=== PATIENT | male | born 1935 | race Caucasian/White ===

== ENCOUNTER 2024-04-26 09:22 | Inpatient (IN) ==
[2024-04-26 09:55] LABS: iSTAT Creatinine 1.4 mg/dl (0.6-1.3); iSTAT Hemoglobin 12.2 g/dl (14.0-18.0); iSTAT Ionized Calcium 1.1 mmol/l (1.12-1.32)
--- NOTE | 2024-04-26 10:01 | XRay Report ---
XR pelvis 1-2V routine CLINICAL HISTORY: trauma TECHNIQUE: A single frontal view of the pelvis was obtained. Comparison: Comparison is made to hip radiographs 11/03/2014 FINDINGS: There is no evidence of an acute fracture. Degenerative changes are seen in the hip joints and lumbar spine. Vascular calcifications are noted. IMPRESSION: No evidence of acute osseous injury. ACT 112: Negative or not required by law. Electronically signed by: Ronald Rodarte M.D. 04/26/2024 10:00 AM
[2024-04-26 10:08] LABS: Basophils # (auto) 0.04 K/uL (0.00-0.20); Basophils % (auto) 0.3 %; Eosinophils # (auto) 0.04 K/uL (0.00-0.50); Eosinophils % (auto) 0.3 %; Hematocrit (blood only) 37.1 % (42.0-52.0); Hemoglobin 11.9 g/dl (14.0-18.0); Immature Granulocytes # (auto) 0.11 K/uL (0.01-0.20); Immature Granulocytes % (auto) 0.7 %; Lymphocytes # (auto) 3.21 K/uL (1.20-3.40); Lymphocytes % (auto) 21.7 %; Mean Corpuscular Hemoglobin 29.8 pg (25.0-34.0); Mean Corpuscular Hgb Conc 32.1 g/dL (32.0-36.0); Mean Platelet Volume 10.5 fL (9.4-12.4); Monocytes # (auto) 0.98 K/uL (0.11-0.59); Monocytes % (auto) 6.6 %; Neutrophils # (auto) 10.38 K/uL (1.40-6.50); Neutrophils % (auto) 70.4 %; Platelet Count 308 K/uL (130-400); RDW Coefficient of Variation 14.1 % (11.5-14.5); RDW Standard Deviation 47.6 fL (36.4-46.3); Red Blood Count 3.99 M/uL (4.70-6.10); White Blood Count 14.76 K/ul (4.8-10.8)
--- NOTE | 2024-04-26 10:22 | XRay Report ---
SUPINE AP CHEST RADIOGRAPH CLINICAL HISTORY: trauma, hypoxia COMPARISON STUDY: Chest CT November 02, 2014. Chest radiograph October 01, 2023. FINDINGS: No pneumothorax or pleural effusion is identified on supine exam. Lower lung interstitial t hickening is likely chronic. This is similar to prior exam. There is no consolidation to suggest pneu monia. Heart and mediastinal silhouette is normal. Chronic deformity of the distal left clavicle is i ncidentally noted. IMPRESSION: 1. No acute cardiopulmonary findings. 2. No change in lower lung predominant interstitial thickening, likely chronic. ACT 112: Negative or not required by law. Electronically signed by: Marco Antonio Enriquez M.D. 04/26/2024 10:20 AM
[2024-04-26 10:29] LABS: Albumin Globulin Ratio 0.7 (0.9-2); Albumin Level 2.7 gm/dl (3.4-5.0); BUN Creatinine Ratio 21.5 (10-20); Bilirubin,Total 0.7 mg/dl (0.2-1.0); Calcium 8.8 mg/dl (8.6-10.3); Creatinine Clr Calc Pharmacy 34.6 ml/min; Magnesium 2.4 mg/dl (1.7-2.4); Potassium 5.1 mmol/L (3.5-5.1); Total Protein 6.7 gm/dl (6.0-8.3)
[2024-04-26 11:33] LABS: INR 1.4 (0.9-1.1); Prothrombin Time 14.3 Seconds (9.0-12.0)
--- NOTE | 2024-04-26 12:05 | Emergency Department Note ---
Impression & Plan Unresponsive, Hypotension, Dysrhythmia, Hypothermia ED Provider Note ED Provider Note NAME: CARLA PADRON AGE:88 SEX: Male : 1935 ARRIVES VIA: EMS INFORMANT: Patient ED PROVIDER(s): Ary Corley DO CHIEF COMPLAINT: unresponsive HPI: This is an 88-year-old male presents emergency department via EMS after being found outside his home cold and unresponsive. EMS called and initially reported patient was in V-fib which spontaneously resolved. There was initial debate on scene as to course of treatment as patient's prior wishes had been DNR however family present insisted on full treatment and overrode these prior wishes. EMS reports patient not hypoglycemic, was noted to be tachycardic and hypotensive. They did start an IV and started giving the patient IV fluids en route. On arrival here patient cold, unresponsive to verbal or painful stimuli,, no additional information initially noted. PAST MEDICAL HISTORY:See Below PAST SURGICAL HISTORY:See Below FAMILY HISTORY:See Below SOCIAL HISTORY:See Below HOME MEDICATIONS:See Below ALLERGIES:See Below VITALS:See Below PHYSICAL EXAMINATION: GENERAL: unresponsive, unwell appearing HEAD: Superficial abrasions noted to frontoparietal areas bilaterally left greater than right, no newberry signs, no raccoon eyes EYE EXAM: normal conjunctiva, pupils minimally dilated and unresponsive OROPHARYNX: no exudate, no erythema, lips, buccal mucosa, and tongue normal and mucous membranes are dry NECK: supple, no adenopathy, non-tender LUNGS: Clear to auscultation. Normal chest wall mechanics, no w/r/r, slower respiratory rate -nearly agonal HEART: no murmurs, S1 normal and S2 normal, bradycardia noted ABDOMEN: abdomen soft, non-tender, normo-active bowel sounds, no masses, no rebound or guarding. SKIN: no rashes, petechiae, orbruising. Cool to touch, significant hypothermia noted. UPPER EXTREMITIES: upper extremities are grossly normal. FROM, nml pulses b/l. Superficial abrasions and contusions noted to bilateral upper extremities, no other obvious deformities or joint effusions. LOWER EXTREMITIES: No pitting edema. FROM, nml pulses b/l. Superficial abrasions and contusions noted to bilateral distal lower extremities, no other joint effusions or obvious deformities. Distal pulses not able to be palpated, prolonged cap refill noted NEURO EXAM: GCS 3 Vital Signs: reviewed and remarkable Differential Diagnosis: CVA, ICH, ACS, electrolyte abnormality, hypothermia, dysrhythmia, cardiac arrest, occult infection, medication ADR, as well as others were considered MEDICAL DECISION MAKING: This is an 88-year-old male brought in by EMS after being found unresponsive by an aide at his house outside. He was cold to touch, bradycardic, hypotensive, and per EMS report initially had V-fib which was not ultimately defibrillated as he converted back to a spontaneous normal rhythm per their report. On arrival here patient unresponsive with a GCS of 3, hypotensive, hypothermic, bradycardic. Second IV started, labs drawn and sent including a [id number] BMP, EKG performed at bedside interpreted by me. I performed a bedside [id number] echo which showed minimal cardiac contractility, no obvious pericardial effusion. Patient was scattered areas of superficial appearing trauma. Pupils unreactive, no corneal reflex, no gag reflex. A temp sensing Berry catheter placed by nursing staff given his hypothermia. He was immediately placed on a warming blanket. While awaiting arrival of family patient was given 1 amp of epi which did temporarily improve his pulse. He did not require any chest compressions although did have significant bradycardia with long pauses. Significant time spent with multiple family discussions regarding patient's CODE STATUS and options for interventions. I spoke with multiple family members on several occasions regarding this. Ultimately plan for comfort care. We had drawn and sent labs, establish an IV, and performed x- rays at bedside additionally which were reviewed and interpreted by me. I did discuss all these results with the family. Patient had no changes here while monitored in the emergency department despite still being hypotensive, hypothermic, bradycardic, and unresponsive. Case discussed with the hospitalist team for additional palliative care and arrangement of possible hospice should the patient persist into tomorrow. At this time initial event unclear as patient could have had a cardiac event, stroke, syncope, or mechanical fall among others. He does have cardiac history. He was not hypoglycemic when EMS checked on scene. Consultation(s): 1202: Discussed with Jonah Castaneda hospitalist team, for additional evaluation and management. ER Treatment Provided: See below 0950: Discussion in the waiting room area with 1 daughter initially regarding patient's significant condition. I did ask her to contact other family members immediately to make decisions regarding his CODE STATUS and further treatment. She does show me a paper signed by his prior PCP, Dr. Jose Angel Ardon that suggest patient is to be a DNR. A second daughter then arrived who is the power of commonwealth attorney. We discussed the patient's critical condition at this point in time. They would like to contact their brothers additionally but think they would probably like the patient to be comfortable and be DNR/DNI. They were able to contact the other siblings via phone who were in agreement with this. Staff updated at bedside. 1000: Daughters again updated in waiting room area. Patient does still have a pulse, blood pressure only obtained with manual check, he is still unresponsive and hypothermic. They would like to see him at bedside. 1022: Daughters brought to bedside. 1048: No change in condition, patient's temperature continues to drop, he is still bradycardic with long pauses and a repeat manual blood pressure following 500 mL fluid bolus was unchanged. Patient is still unresponsive to any verbal or painful stimuli. He was placed on oxygen via nasal cannula. We did discuss labs and imaging that is resulted thus far. 1126: Additional family now present at bedside. I updated them additionally on the plan. We did discuss other imaging to evaluate his traumatic diagnosis however given they would not want to proceed with other aggressive interventions such as surgery, we opted to not perform this additional imaging. Patient still unresponsive at bedside, still bradycardic with long pauses, still hypotensive. He continues to be hypothermic. 1153: Patient continues to be progressively hypothermic, still bradycardic, still hypotensive, no change in mental status. Additional family discussion at bedside regarding inpatient admission for further comfort measures and possible ranging of hospice should the patient be able to get home. We further discussed possible events and scenario that led to him being found this morning. I suspect the patient likely got up early in the morning between 4 and 5 AM as he has done sometimes in the past to let his dog out and likely fell in the breezeway between the house in the garage. The aide who is typically with him from 8;30-4:30 every day found him this morning shortly after 8. Diagnostics Interpreted By Me: -ECG: Idioventricular rhythm, appears to be asystolic with an occasional escape beat -Cardiac Monitoring: An order was placed for continuous cardiac monitoring. The monitor shows a rate of 37 with ventricular escape rhythm rhythm. -Laboratory studies: As stated above and show below. -Imaging studies: X-ray Chest: A single view study of the chest was reviewed and was negative for cardiomegaly, focal infiltrate, effusion, pulmonary edema, or wide mediastinum. No obvious fracture or pneumothorax. X-ray pelvis: No obvious fracture or dislocation Triage Nursing Note Reviewed Prior/Outside Records Reviewed Critical Care: Critical care of 78 min performed to assess and manage high likelihood of life-threatening altered mental status and hypotension, involving labs and imaging performed with assessment to evaluate altered mental status and hypotension diagnosis with frequent reassessment. This time includes bedside time, treatment discussions with patient/family/consultants, documentation time and excludes procedure time. Past Med/Surg History Problem List Dementia Comfort measures only status Fall Hypothermia (Acute) Dysrhythmia (Acute) Hypotension (Acute) Unresponsive (Acute) OLIVIER (acute kidney injury) (Acute) Amputation finger (Chronic) Medical History Emphysema of lung Carotid artery stenosis, asymptomatic left Parkinson disease CAD (coronary artery disease) "s/p stent" CKD (chronic kidney disease), stage III Hypertension Dyslipidemia DM type 2 (diabetes mellitus, type 2) Surgical History S/P coronary artery stent placement Family History Father Heart disease Social History Smoking Status: Former smoker packs per day: 1; Smoking End Date: 1977; Hx Alcohol Use: No Hx Substance Use: No Preferred Language: Filipino Communication Ability: Unable Director Gift Required: No Beliefs That Will Affect Care: Zoroastrianism Current Living Situation: Alone Feels Safe at Home: Yes Allergies Allergies Allergy/AdvReac Type Severity Reaction Status Date / Time Penicillins Allergy Severe THROAT Verified 05/23/16 16:41 SWELLING Home Meds Home Medications Medication Instructions Recorded Confirmed aspirin 81 mg tablet,delayed 81 mg PO QAM ##0 05/23/16 04/26/24 release cholecalciferol (vitamin D3) 25 25 mcg PO DAILY 30 days #30 tabs 12/02/17 04/26/24 mcg (1,000 unit) capsule (Vitamin D3) carbidopa 25 mg-levodopa 100 mg 1.5 tab PO TID 04/26/24 04/26/24 tablet carbidopa ER 25 mg-levodopa 100 mg 1 tab PO HS 04/26/24 04/26/24 tablet,extended release cetirizine 10 mg tablet 5 mg PO HS 04/26/24 04/26/24 cyanocobalamin (vitamin B-12) 1,000 mcg PO DAILY 04/26/24 04/26/24 1,000 mcg tablet metoprolol succinate 25 mg 25 mg PO DAILY 04/26/24 04/26/24 tablet,extended release 24 hr pravastatin 80 mg tablet 80 mg PO HS 04/26/24 04/26/24 semaglutide 7 mg tablet (Rybelsus) 7 mg PO QAM 04/26/24 04/26/24 sodium bicarbonate 650 mg tablet 650 mg PO BID 04/26/24 04/26/24 Results & Data (ED) Vital Signs Vital Signs - 24 hr 04/26/24 09:36 04/26/24 09:37 04/26/24 09:41 Temperature 25 C L Temperature Source Rectal Pulse Rate 45 L 52 L 0 L Pulse Rate [Apical] Pulse Rate from SpO2 Sensor Respiratory Rate 14 20 Respiratory Effort / Characteristics Labored Blood Pressure [Right Arm] Blood Pressure Mean Blood Pressure Mean [Right Arm] Blood Pressure Position [Right Arm] Pulse Oximetry Oxygen Delivery Method Oxygen Flow Rate Sepsis Recent Fever Within 48 Hours No Sepsis New/Unexplained Change in Mental Status No Sepsis Action Taken by Nursing No Action Required 04/26/24 09:41 04/26/24 09:41 04/26/24 09:42 Temperature Temperature Source Pulse Rate 45 L Pulse Rate [Apical] Pulse Rate from SpO2 Sensor Respiratory Rate Respiratory Effort / Characteristics Blood Pressure [Right Arm] Blood Pressure Mean 127 127 Blood Pressure Mean [Right Arm] Blood Pressure Position [Right Arm] Pulse Oximetry Oxygen Delivery Method Oxygen Flow Rate Sepsis Recent Fever Within 48 Hours Sepsis New/Unexplained Change in Mental Status Sepsis Action Taken by Nursing 04/26/24 09:45 04/26/24 09:57 04/26/24 10:00 Temperature Temperature Source Pulse Rate 40 L 35 L 30 L Pulse Rate [Apical] Pulse Rate from SpO2 Sensor 36 L 32 L Respiratory Rate 17 14 16 Respiratory Effort / Characteristics Blood Pressure [Right Arm] Blood Pressure Mean Blood Pressure Mean [Right Arm] Blood Pressure Position [Right Arm] Pulse Oximetry 93 92 85 L Oxygen Delivery Method Room Air Room Air Room Air Oxygen Flow Rate Sepsis Recent Fever Within 48 Hours Sepsis New/Unexplained Change in Mental Status Sepsis Action Taken by Nursing 04/26/24 10:00 04/26/24 10:12 04/26/24 10:21 Temperature Temperature Source Pulse Rate 35 L 28 L Pulse Rate [Apical] Pulse Rate from SpO2 Sensor 33 L 31 L Respiratory Rate 12 15 Respiratory Effort / Characteristics Blood Pressure [Right Arm] 79/47 L Blood Pressure Mean Blood Pressure Mean [Right Arm] 57 Blood Pressure Position [Right Arm] Lying Pulse Oximetry 78 L 78 L Oxygen Delivery Method Room Air Room Air Oxygen Flow Rate Sepsis Recent Fever Within 48 Hours Sepsis New/Unexplained Change in Mental Status Sepsis Action Taken by Nursing 04/26/24 10:32 04/26/24 10:40 04/26/24 10:48 Temperature 25 C L Temperature Source Rectal Pulse Rate 30 L Pulse Rate [Apical] Pulse Rate from SpO2 Sensor Respiratory Rate 15 Respiratory Effort / Characteristics Blood Pressure [Right Arm] 78/46 L Blood Pressure Mean Blood Pressure Mean [Right Arm] 56 Blood Pressure Position [Right Arm] Pulse Oximetry 98 Oxygen Delivery Method Oxygen Flow Rate Sepsis Recent Fever Within 48 Hours Sepsis New/Unexplained Change in Mental Status Sepsis Action Taken by Nursing 04/26/24 10:51 04/26/24 10:51 04/26/24 11:00 Temperature Temperature Source Pulse Rate 34 L 38 L 40 L Pulse Rate [Apical] Pulse Rate from SpO2 Sensor Respiratory Rate 21 17 Respiratory Effort / Characteristics Blood Pressure [Right Arm] Blood Pressure Mean Blood Pressure Mean [Right Arm] Blood Pressure Position [Right Arm] Pulse Oximetry 99 99 Oxygen Delivery Method Oxygen Flow Rate Sepsis Recent Fever Within 48 Hours Sepsis New/Unexplained Change in Mental Status Sepsis Action Taken by Nursing 04/26/24 12:37 Temperature Temperature Source Pulse Rate Pulse Rate [Apical] 33 L Pulse Rate from SpO2 Sensor Respiratory Rate Respiratory Effort / Characteristics Blood Pressure [Right Arm] Blood Pressure Mean Blood Pressure Mean [Right Arm] Blood Pressure Position [Right Arm] Pulse Oximetry 100 Oxygen Delivery Method Nasal Cannula Oxygen Flow Rate 2 Sepsis Recent Fever Within 48 Hours Sepsis New/Unexplained Change in Mental Status Sepsis Action Taken by Nursing Laboratory Data 04/26/24 09:30 04/26/24 09:30 Lab Results 04/26/24 04/26/24 04/26/24 Range/Units 09:30 09:43 10:28 WBC 14.76 H (4.8-10.8) K/ul RBC 3.99 L (4.70-6.10) M/uL Hgb 11.9 L (14.0-18.0) g/dl POC Hgb 12.2 L (14.0-18.0) g/dl Hct 37.1 L (42.0-52.0) % POC Hct 36 L (42-52) % MCV 93.0 (80.0-100.0) fL MCH 29.8 (25.0-34.0) pg MCHC 32.1 (32.0-36.0) g/dL RDW Std Deviation 47.6 H (36.4-46.3) fL RDW Coeff of [place]ita 14.1 (11.5-14.5) % Plt Count 308 (130-400) K/uL MPV 10.5 (9.4-12.4) fL Immature Gran % (Auto) 0.7 % Neut % (Auto) 70.4 % Lymph % (Auto) 21.7 % [place] % (Auto) 6.6 % Eos % (Auto) 0.3 % Baso % (Auto) 0.3 % Neut # (Auto) 10.38 H (1.40-6.50) K/uL Lymph # (Auto) 3.21 (1.20-3.40) K/uL [place] # (Auto) 0.98 H (0.11-0.59) K/uL Eos # (Auto) 0.04 (0.00-0.50) K/uL Baso # (Auto) 0.04 (0.00-0.20) K/uL Immature Gran # (Auto) 0.11 (0.01-0.20) K/uL PT 14.3 H (9.0-12.0) Seconds INR 1.4 H (0.9-1.1) POC Sodium 139 (135-144) mmol/L Sodium 140 (136-145) mmol/L POC Potassium 5.0 (3.3-5.0) mmol/L Potassium 5.1 (3.5-5.1) mmol/L POC Chloride 102 (101-112) mmol/L Chloride 101 (98-107) mmol/L Carbon Dioxide 23 (21-32) mmol/L POC Total CO2 22 L (24-31) mmol/L Anion Gap 16 H (3-11) POC Anion Gap 21.0 (16-25) mmol/L POC BUN 29 H (7-18) mg/dl BUN 28 H (6-23) mg/dl Creatinine 1.30 (0.6-1.4) mg/dl POC Creatinine 1.4 H (0.6-1.3) mg/dl Est Cr Clr Drug Dosing 34.6 ml/min eGFR 53.50 BUN/Creatinine Ratio 21.5 H (10-20) Glucose 203 H (70-99(Fasting)) mg/dl POC Glucose (other) 208 H (70-99) mg/dl Calcium 8.8 (8.6-10.3) mg/dl POC Ioniz Calcium Radha 1.10 L (1.12-1.32) mmol/l Magnesium 2.4 (1.7-2.4) mg/dl Total Bilirubin 0.7 (0.2-1.0) mg/dl AST 33 (13-39) U/L ALT 8 (7-52) U/L Alkaline Phosphatase 90 (34-104) U/L Troponin I High Sens 56.0 H* (0-20) pg/ml Total Protein 6.7 (6.0-8.3) gm/dl Albumin 2.7 L (3.4-5.0) gm/dl Globulin 4.0 (2.5-4.0) gm/dl Albumin/Globulin Ratio 0.7 L (0.9-2) Lipase 48 (11-82) U/L Administered Medications Discontinued Medications Epinephrine HCl (Epinephrine 1.5" Ndl 0.1 Mg/Ml Syr) 1 mg IV 0937 ONE Stop: 04/26/24 09:38 Last Admin: 04/26/24 09:37 Dose: 1 mg Documented By: KALPESH Miscellaneous (Rapid Sequence Induction Bag) Confirm Administered Dose 1 each N/A .STK-MED ONE Stop: 04/26/24 09:20 Last Admin: 04/26/24 14:58 Dose: Not Given Documented By: CAW Imaging Data Radiologist's Impression: Pelvis X-Ray 04/26/24 09:46 XR pelvis 1-2V routine CLINICAL HISTORY: trauma TECHNIQUE: A single frontal view of the pelvis was obtained. Comparison: Comparison is made to hip radiographs 11/03/2014 FINDINGS: There is no evidence of an acute fracture. Degenerative changes are seen in the hip joints and lumbar spine. Vascular calcifications are noted. IMPRESSION: No evidence of acute osseous injury. ACT 112: Negative or not required by law. Electronically signed by: Ronald Rodarte M.D. 04/26/2024 10:00 AM Chest X-Ray 04/26/24 09:47 SUPINE AP CHEST RADIOGRAPH CLINICAL HISTORY: trauma, hypoxia COMPARISON STUDY: Chest CT November 02, 2014. Chest radiograph October 01, 2023. FINDINGS: No pneumothorax or pleural effusion is identified on supine exam. Lower lung interstitial thickening is likely chronic. This is similar to prior exam. There is no consolidation to suggest pneumonia. Heart and mediastinal silhouette is normal. Chronic deformity of the distal left clavicle is incidentally noted. IMPRESSION: 1. No acute cardiopulmonary findings. 2. No change in lower lung predominant interstitial thickening, likely chronic. ACT 112: Negative or not required by law. Electronically signed by: Marco Antonio Enriquez M.D. 04/26/2024 10:20 AM Discharge Plan Visit Data Chief Complaint: Unresponsive ED Provider: Ary Corley Discharge Problem: Unresponsive, Hypotension, Dysrhythmia, Hypothermia Patient Disposition: Admitted As Inpatient Discharge Instructions Interventions: ED Discharge Assessment Last Done: 04/26/24 13:50
--- NOTE | 2024-04-26 13:01 | History & Physical Report ---
Date of Service April 26, 2024 Assessment & Plan (1) Fall: (2) Unresponsive: (3) Dysrhythmia: (4) Hypotension: (5) Hypothermia: (6) Comfort measures only status: (7) CAD (coronary artery disease): (8) DM type 2 (diabetes mellitus, type 2): (9) CKD (chronic kidney disease), stage III: (10) Parkinson disease: (11) Dementia: Plan Mr. Kishan Bourgeois (Dick) is an 88 yr old M who has a significant PMH of CAD w hx of stent, HTN, HLD, T2DM, CKD-3B, parkinson disease, b12 def, vitamin D def, L asymptomatic carotid artery stenosis and dementia who presents to ED 2/2 unresponsive episode. Pt last known well 04/25/24 in the evening. He was found by his caregiver ~ 0800 unresponsive and cold. EMS summoned. Pt was in vfib with spontaneous conversion to NSR. Family opted to override DNR to full code. In ED pt was hypotensive, severely bradycardic, hypothermic with evidence of fall and abrasions. Discussion per ED provider with family was to make pt DNR/DNI and comfort measures only given severity and poor prognosis. Multiple family members at bedside are in agreement with DNR/DNI Pt will be admitted to med/surg with comfort measures only Suspect pt to pass in house Family interested in home with hospice, but at this time uncertain pt able to tolerate PRN IV morphine for pain/sob PRN IV ativan for restlessness/agitation PRN glycopyrrolate for secretions Pt was seen and examined in collaboration with Dr. Buckner, please see addendum I spent a total of 76 minutes reviewing notes, outpatient records, labs, medication, coordinating, documenting and providing care for this patient excluding time spent in the performance of separately billed services. History of Present Illness Chief Complaint: Unrepsonive Primary Care Provider: Crissy Mcintyre MD This is an 88 yr old M who has a significant PMH of CAD w hx of stent, HTN, HLD, T2DM, CKD-3B, parkinson disease, b12 def, vitamin D def, L asymptomatic carotid artery stenosis and dementia who presents to ED 2/2 unresponsive episode. Multiple family members at bedside who help elicit history. History also provided from ED physician and pre hospital personal. Pt lives alone and lost his approx 1 year ago to parkinsons. He was last known well last evening when his son talked to him. When his caregiver arrived to house this morning at 8am. he was noted to be unresponsive and cool. EMS was summoned. He was found to be in vfib but he spontaneously converted to NSR. Initially family wanted to make pt full cold. He was bradycardic, hypotensive and hypothermic on arrival. He was found in his breeze way and family is wondering if he was trying to take the dog out and felt. He has numerous abrasions on his head/extremities. Per ED provider who spoke with family plan is to make patient comfort and not pursue any additional intervention at this time. [facility] records were reviewed. He was seen by nephrology on 04/18 and neurology on 04/12. It was noted at neurology that he was having a lot more rigidity, imbalance, weight loss and further memory deficits. In ED he was deemed DNR/DNI and plan to admit for comfort measures only. Allergies Allergy/AdvReac Type Severity Reaction Status Date / Time Penicillins Allergy Severe THROAT Verified 05/23/16 16:41 SWELLING Home Medications Medication Instructions Recorded Confirmed Type aspirin 81 mg tablet,delayed 81 mg PO QAM ##0 05/23/16 04/26/24 History release cholecalciferol (vitamin D3) 25 25 mcg PO DAILY 30 days #30 tabs 12/02/17 04/26/24 History mcg (1,000 unit) capsule (Vitamin D3) carbidopa 25 mg-levodopa 100 mg 1.5 tab PO TID 04/26/24 04/26/24 History tablet carbidopa ER 25 mg-levodopa 100 mg 1 tab PO HS 04/26/24 04/26/24 History tablet,extended release cetirizine 10 mg tablet 5 mg PO HS 04/26/24 04/26/24 History cyanocobalamin (vitamin B-12) 1,000 mcg PO DAILY 04/26/24 04/26/24 History 1,000 mcg tablet metoprolol succinate 25 mg 25 mg PO DAILY 04/26/24 04/26/24 History tablet,extended release 24 hr pravastatin 80 mg tablet 80 mg PO HS 04/26/24 04/26/24 History semaglutide 7 mg tablet (Rybelsus) 7 mg PO QAM 04/26/24 04/26/24 History sodium bicarbonate 650 mg tablet 650 mg PO BID 04/26/24 04/26/24 History Past Med/Surg History Problem List Dementia Comfort measures only status Fall Hypothermia (Acute) Dysrhythmia (Acute) Hypotension (Acute) Unresponsive (Acute) OLIVIER (acute kidney injury) (Acute) Amputation finger (Chronic) Medical History Emphysema of lung Carotid artery stenosis, asymptomatic left Parkinson disease CAD (coronary artery disease) "s/p stent" CKD (chronic kidney disease), stage III Hypertension Dyslipidemia DM type 2 (diabetes mellitus, type 2) Surgical History S/P coronary artery stent placement Family History Father Heart disease Social History Smoking Status: Former smoker packs per day: 1; Smoking End Date: 1977; Hx Alcohol Use: No Hx Substance Use: No Communication Ability: Unable Beliefs That Will Affect Care: Rastafari Feels Safe at Home: Yes Review of Systems Review of Systems: Unobtainable due to reduced consciousness Physical Exam Physical Exam: Constitutional: Elderly M, cool, frail, vitals as above, unresponsive, NAD, lying in bed, eyes open but unresponsive to verbal or painful stimuli Head: Normocephalic, + abrasions to forehead/top of scalp Eyes: pupil pinpoint with minimal reactivity to light, conjunctivae normal, anicteric sclerae ENMT: external ear and nose normal, oropharynx dry Neck: trachea midline, no thyromegaly normal visual inspection Respiratory: decreased respirations, lungs clear to auscultation, no wheeze, rales, rhonchi. no accessory muscle use Cardiovascular: bradycardic rate, unable to auscultate heart sounds, no murmur noted, no edema Vessels: no JVD or carotid bruit Chest: normal inspection of chest Abdomen: soft, nontender, Musculoskeletal: no cyanosis or clubbing Skin: + skin abrasion/ tear to b/l extremities, appearance of dog scratching to pretibial surface, cool and pale with moderate turgor Neurologic: unable to assess due to unresponsiveness Results & Data Results & Data Vital Signs (Past 12 Hours) Vital Signs Temp Pulse Pulse Resp BP Pulse Ox O2 Del Method 04/26/24 12:37 33 L 100 Nasal Cannula 04/26/24 11:00 40 L 17 99 04/26/24 10:51 38 L 21 99 04/26/24 10:51 34 L 04/26/24 10:48 30 L 15 98 04/26/24 10:40 78/46 L 04/26/24 10:32 25 C L 04/26/24 10:21 28 L 15 78 L Room Air 04/26/24 10:12 35 L 12 78 L Room Air 04/26/24 10:00 79/47 L 04/26/24 10:00 30 L 16 85 L Room Air 04/26/24 09:57 35 L 14 92 Room Air 04/26/24 09:45 40 L 17 93 Room Air 04/26/24 09:42 45 L 04/26/24 09:41 0 L 04/26/24 09:37 25 C L 52 L 20 04/26/24 09:36 45 L 14 O2 Flow Rate 04/26/24 12:37 2 04/26/24 11:00 04/26/24 10:51 04/26/24 10:51 04/26/24 10:48 04/26/24 10:40 04/26/24 10:32 04/26/24 10:21 04/26/24 10:12 04/26/24 10:00 04/26/24 10:00 04/26/24 09:57 04/26/24 09:45 04/26/24 09:42 04/26/24 09:41 04/26/24 09:37 04/26/24 09:36 Laboratory Results I have independently reviewed and interpreted patient's admitting labs including CBC, CMP, PTT, PT/INR, mag, lipase and troponin. Diagnostic Findings Pelvis X-Ray 04/26/24 09:46 XR pelvis 1-2V routine CLINICAL HISTORY: trauma TECHNIQUE: A single frontal view of the pelvis was obtained. Comparison: Comparison is made to hip radiographs 11/03/2014 FINDINGS: There is no evidence of an acute fracture. Degenerative changes are seen in the hip joints and lumbar spine. Vascular calcifications are noted. IMPRESSION: No evidence of acute osseous injury. ACT 112: Negative or not required by law. Electronically signed by: Ronald Rodarte M.D. 04/26/2024 10:00 AM Chest X-Ray 04/26/24 09:47 SUPINE AP CHEST RADIOGRAPH CLINICAL HISTORY: trauma, hypoxia COMPARISON STUDY: Chest CT November 02, 2014. Chest radiograph October 01, 2023. FINDINGS: No pneumothorax or pleural effusion is identified on supine exam. Lower lung interstitial thickening is likely chronic. This is similar to prior exam. There is no consolidation to suggest pneumonia. Heart and mediastinal silhouette is normal. Chronic deformity of the distal left clavicle is incidentally noted. IMPRESSION: 1. No acute cardiopulmonary findings. 2. No change in lower lung predominant interstitial thickening, likely chronic. ACT 112: Negative or not required by law. Electronically signed by: Marco Antonio Enriquez M.D. 04/26/2024 10:20 AM Medications Administered Medication List Discontinued Medications Epinephrine HCl (Epinephrine 1.5" Ndl 0.1 Mg/Ml Syr) 1 mg IV 0937 ONE Stop: 04/26/24 09:38 Last Admin: 04/26/24 09:37 Dose: 1 mg Documented By: KALPESH COVID-19 Results Results COVID-19 Adm Lab Results: RBC 3.99 M/uL (4.70-6.10) L 04/26/24 WBC 14.76 K/ul (4.8-10.8) H 04/26/24 Hgb 11.9 g/dl (14.0-18.0) L 04/26/24 Hct 37.1 % (42.0-52.0) L 04/26/24 Plt Count 308 K/uL (130-400) 04/26/24 Neutrophils (%) (Auto) 70.4 % 04/26/24 Lymphocytes (%) (Auto) 21.7 % 04/26/24 Monocytes # (Auto) 0.98 K/uL (0.11-0.59) H 04/26/24 Eosinophils # (Auto) 0.04 K/uL (0.00-0.50) 04/26/24 Immature Granulocyte % (Auto) 0.7 % 04/26/24 Neutrophils # (Auto) 10.38 K/uL (1.40-6.50) H 04/26/24 Lymphocytes # (Auto) 3.21 K/uL (1.20-3.40) 04/26/24 Monocytes # (Auto) 0.98 K/uL (0.11-0.59) H 04/26/24 Eosinophils # (Auto) 0.04 K/uL (0.00-0.50) 04/26/24 Basophils # (Auto) 0.04 K/uL (0.00-0.20) 04/26/24 Immature Granulocyte # (Auto) 0.11 K/uL (0.01-0.20) 4 Na 140 mmol/L (136-145) 04/26/24 K 5.1 mmol/L (3.5-5.1) 04/26/24 Cl 101 mmol/L (98-107) 04/26/24 CO2 23 mmol/L (21-32) 04/26/24 Anion Gap 16 (3-11) H 04/26/24 BUN 28 mg/dl (6-23) H 04/26/24 Creatinine 1.30 mg/dl (0.6-1.4) 04/26/24 BUN/Creatinine Ratio 21.5 (10-20) H 04/26/24 Glucose Level 203 mg/dl (70-99(Fasting)) H 04/26/24 Ca 8.8 mg/dl (8.6-10.3) 04/26/24 Total Bilirubin 0.7 mg/dl (0.2-1.0) 04/26/24 AST/SGOT 33 U/L (13-39) 04/26/24 ALT/SGPT 8 U/L (7-52) 04/26/24 Alkaline Phosphatase 90 U/L (34-104) 04/26/24 Total Protein 6.7 gm/dl (6.0-8.3) 04/26/24 Albumin 2.7 gm/dl (3.4-5.0) L 04/26/24 Globulin 4.0 gm/dl (2.5-4.0) 04/26/24 Albumin/Globulin Ratio 0.7 (0.9-2) L 04/26/24 INR 1.4 (0.9-1.1) H 04/26/24 Chest X-Ray 04/26/24 Code Status & VTE Plan Code Status DNR/DNI VTE Prophylaxis Plan VTE Prophylaxis will be ordered: No Supervising Physician Co-Signing Physician Notes 88-year-old male with Parkinson's disease brought to the ED after being found unresponsive outside in the cold. Patient was apparently walking his dog. Patient fell. Patient has multiple scrapes and bruises from the fall. Patient was found to be in ventricular fibrillation but converted amazingly back to sinus rhythm. Patient has been largely unresponsive since admission to the emergency department. Multiple family members are present. Patient has a history of advanced Parkinson's disease and has had progressive decline. Last neurology note recommends that the patient not be alone. He does live independently. Family members have discussed the workup thus far and of elected for comfort measures only. They do not want any additional testing done. General- adult, elderly male seen at bedside. Multiple family members are present. Patient has minimal responsiveness. Does open his eyes. Seems to have a left-sided gaze. Head-several scalp skin tears Eyes-pupils are irregular. The family tells me that he had lens implants and they have been irregular. They are poorly responsive. Lungs- clear to auscultation and percussion Heart-heart sounds are distant, bradycardia Abdomen- soft, no masses or hepatosplenomegaly Extremities- no pretibial edema, multiple skin tears Neuro-opens eyes when name called now. Seems to be a little more responsive. Has a left-sided gaze. Family has seen him move his right leg. He was able to squeeze his granddaughters hand with his left hand. Skin-cool to touch despite warming blanket Chart and data reviewed. Patient was seen in the ED with family present. A total time of 30 minutes was spent in the care coordination of this patient. I agree with the advanced practitioner's assessment and plan. Continue comfort measures. Prognosis is guarded. Family would like to consider hospice if he was able to return home.
--- OUTSIDE RECORDS SUMMARY | 2024-04-26 13:20 | External Medical Summary | Summary of Care ---
Author Name Unknown Organization [facility] Address [address] [place] [address] Phone [phone] Care Team Providers Care Diabetes Nurse Name Role Phone Hay Reza MD Primary Care Provide r Reason for Visit * Reason Onset Date Comments [facility]: Maintenance 04/14/2024 Encounter Details Date Type Department Care Team (Late st Contact Info) Description 04/14/2024 2:00 PM EDT Scheduled Telephone [facility], [facility] [address] [facility] [place] [address] Coordinator, [facility] [address] [place] [address] Allergies Active Allergy Reactions Criticality Noted Date Comments Penicillins 12/04/1999 documented as of this encounter (statuses as of 04/14/2024) Medications Medication Sig Dispensed Refills Start Date End Date Status Cyanocobalamin (VITAMIN B-12) 1000 MCG Tablet TAKE ONE TABLET BY MOUTH EVERY DAY 30 Tab 5 12/01/2018 Active Additional Information Patient taking differently: Indications: B vitamin supplement, Reported on 11/05/2022 Vitamin D High Potency 25 MCG (1000 UT) Oral Capsule (Cholecalciferol) TAKE ONE CAPSULE BY MOUTH EVERY DAY 90 Cap 1 07/05/2020 Active Additional Information Patient taking differently: Indications: D vitamin supplement, Reported on 11/05/2022 Sodium Bicarbonate 650 MG Oral Tablet Take 1 Tablet by mouth in the morning and 1 Tablet before bedtime. 60 Tablet 11 04/07/2023 Active Stool Softener 100 MG Oral Tablet (Docusate Sodium) Take 1 Tablet by mouth in the morning. Active Carbidopa-Levodopa ER 25-100 MG Oral Tablet Extended Release (Sinemet CR) Take 1 tablet at bedtime nightly 30 Tablet 5 11/19/2023 Active Metoprolol Succinate ER 25 MG Oral Tablet Extended Release 24 Hour (toPROL XL)Indications:HTN, goal below 140/90 Take 1 Tablet by mouth daily. 90 Tablet 3 02/18/2024 Active Semaglutide 7 MG Oral Tablet (Rybelsus)Indicatio ns:Type 2 diabetes mellitus with hemoglobin A1c goal of less than 8.0% (HCC) Take 7 mg by mouth daily first thing in the morning. 90 Tablet 1 02/19/2024 Active Cetirizine HCl 10 MG Oral Tablet (ZyrTEC)Indications :Itching Take 0.5 Tablets by mouth every night at bedtime. 45 Tablet 1 02/29/2024 Active Pravastatin Sodium 80 MG Oral TabletIndications:H yperlipidemia with target LDL less than 100 TAKE ONE TABLET BY MOUTH AT BEDTIME 28 Tablet 5 03/28/2024 Active Aspirin Low Dose 81 MG Oral Tablet Delayed Release (aspirin enteric coated) TAKE ONE TABLET EVERY DAY 28 Tablet 5 03/26/2024 Active Carbidopa-Levodopa 25-100 MG Oral Tablet (Sinemet) TAKE 1.5 TABLETS BY MOUTH THREE TIMES A DAY 135 Tablet 5 04/12/2024 Active documented as of this encounter (statuses as of 04/14/2024) Active Problems Problem Noted Date Diagnosed Date Type 2 diabetes mellitus wit h stage 3b chronic kidney disease, without long-term current use of insulin 11/20/2020 Overview: Per CKD protocol, UNABLE TO USE DM CAMERA FOR THIS PATIENT Last Assessment & Plan: "RED FLAG" Diabetic symptoms: Excessive Thirst and Vision Changes Goal HgbA1c Symptom Management Only Diabetic Complications Vascular (examples: PVD, PAD, CAD, CVA) Renal (example: CKD, Proteinuria, Dialysis) Medication Regimen GLP-1 Agonist (ex: Victoza, Trulicity, Ozempic) DM Secondary Prevention NNEKA Inhibitor / ARB Moderate-High Intensity Statin Additional Comments Most recent A1c 7.1 Chronic kidney disease, stage 3b 11/20/2020 Overview: Per CKD protocol Parkinson's disease 07/27/2020 Last Assessment & Plan: Started sinemet 2018 and tapered off 2021, unfortunately does not recall if symptoms made better or worse Has not followed with neuro since 2021, has eval scheduled tomorrow Has some shuffling gait, no tremors 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 05/21/2020 Overview: Per CKD protocol Last Assessment & Plan: BP borderline low on metoprolol and lisinopril Recent increased compliance with caregivers, will need to monitor for hypotension Primary osteoarthritis of right knee 12/09/2017 Asymptomatic stenosis of left carotid artery S/P primary angioplasty with coronary stent 03/14 Overview: S/P PCI with MARELY to mid LAD on 04/02/15 Type 2 diabetes mellitus wit h hemoglobin A1c goal of less than 8.0% 03/02/2015 Overview: ICD-10 update of inactive term Dyslipidemia, goal LDL below 70 02/01/2015 Overview: ICD-10 update of inactive term Last Assessment & Plan: Continue statin Atherosclerosis of [place] co ronary artery of [place] heart without angina pectoris HTN, goal below 140/90 History of tobacco abuse Vitamin B12 deficiency documented as of this encounter (statuses as of 04/14/2024) Resolved Problems Problem Noted Date Diagnosed Date Resolved Date Gastro-esophageal reflux dis ease without esophagitis 07/27/2020 07/27/2020 Diabetes mellitus with stage 3 chronic kidney disease 05/21/2020 11/22/2020 Overview: Per CKD protocol Hypertensive kidney disease with stage 3 chronic kidney disease 07/15/2019 05/24/2020 Overview: Per CKD protocol Type 2 diabetes mellitus wit h stage 3 chronic kidney disease, without long-term current use of insulin 11/20/2017 05/24/2020 Overview: Per CKD protocol Hip pain, left 01/31/2016 07/15/2019 Encounter for examination fo r normal comparison and control in clinical research program 04/03/2015 04/09/2020 Overview: PI: Amara Martin MD RC: Robert Jones Clinical Evaluation of the Absorb Bioresorbable Vascular Scaffold vs. Xience Drug Eluting Stent in the Treatment of Subjects with de navya [place] Coronary Artery Lesions. Diagnosis changed due to Research Module. Go to Snapshot for study details. CAD in [place] artery 03/29/2015 018 Exercise-induced angina 03/29/201501/2018 Mixed dyslipidemia 5 Myalgia and myositis 015 HYPERTENSION NOS 03/02/2015 Diabetes 03/02/2015 Emphysema lung 04/06/2015 Fracture of T12 vertebra 10/2016 Closed fracture of nasal bone 04/15/2017 Overview: ICD-10 update of inactive term Cholelithiasis 02/20/2022 Overview: History DM (diabetes mellitus), type 2 with renal complications 11/20/2017 CKD (chronic kidney disease) stage 3, GFR 30-59 ml/min 08/26/2018 Vitamin D insufficiency 03/14 documented as of this encounter (statuses as of 04/14/2024) Immunizations Name Administration Dates Next Due COVID-19 mRNA, LNP-s, No Pre serve, 2-Dose Series (Viva Vision) 05/07/2021,10/25/2020,09/27/2020 COVID-19, LNP-s, No Preserve , Mamadou-sucrose, Ages 12+ (Pfizer) 10/22/2021 Pneumococcal Conjugate Vacc, 13 Valent (Prevnar) 09/28/2015 Season Influenza, Quad, PF, Adjuvanted, 65+ Yrs, IM (FLUAD) 03/20/2020 Seasonal Influenza, PF, 6 M & above, IM , (FluLaval or Fluzone) 06/18/2018,04/15/2017 Seasonal Influenza, Quadriva lent Hd (Fluzone Hd) 03/17/2023,04/30/2022,05/13/2021 Seasonal Influenza, Quadriva lent, No Preserve, IM 06/13/2016,04/06/2015 Seasonal Influenza, Trivalen t, Adjuvanted, 65+ YRS, PF, (Fluad) 05/31/2019 05/31/2020 Varicella Zoster Vaccine (Adult) 07/13/2004 documented as of this encounter Social History Tobacco Use Types Packs/Day Years Used Date Smoking Tobacco: Former Cigarettes 1 10 1977 Smokeless Tobacco: Never Alcohol Use Standard Drinks/Week Comments No 0 (1 standard drink = 0.6 oz pur e alcohol) PHQ-2 Answer Date Recorded PHQ Adult Total Score 4 03/17/2023 Hunger Vital Sign Answer Date Recorded Within the past 12 months, y ou worried that your food would run out before you got the money to buy more. Never true 03/17/20 23 Within the past 12 months, t he food you bought just didn't last and you didn't have money to get more. Never true 03/17/2023 Sex and Gender Information Value Date Recorded Sex Assigned at Male 03/11/2021 3:03 PM EDT Gender Identity Male 03/11/2021 3:03 PM EDT Sexual Orientation Straight 03/11/2021 3: 03 PM EDT Job Start Date Occupation Industry Not on file Not on file Not on file documented as of this encounter Miscellaneous Notes * Telephone Encounter - Alfredo Gant OSA - 04/14/2024 3:26 PM EDT DME order Referral [id number] Adult diapers/briefs - size XL Disposable underpads - large Message from Kendall Solis (Incontinence) to Everyone We are still trying to reach the patient. Spoke with Ida Lobo to give call to Kendall at . Scheduled a follow up call for Thursday. documented in this encounter Plan of Treatment Upcoming Encounters Date Type Department Care Team (Late st Contact Info) Description 04/18/2024 12:00 PM EDT Scheduled Telephone [facility], [facility] [address] [facility] [place] [address] Coordinator, [facility] [address] [facility] [place] [address] 04/18/2024 2:30 PM EDT Office Visit Nephrology [address] [place] [address] Jada Hammer PA-C [address] [place] [address] 05/13/2024 2:30 PM EDT Home Visit [facility], [facility] [address] [facility] [place] [address] Lisseth Flores RN [address] [facility] [place] [address] 11/15/2024 2:30 PM EDT Office Visit Neurology [facility] [address] [place] [address] Rosibel Banuelos PA-C [address] [facility] [place] [address] Health Maintenance Due Date Last Done Comments DTap/Tdap Vaccines (1 - Tdap) 1954 Zoster Vaccines (2 of 3) 09/07/2004 07/13/2004 Diabetic Eye Exam 05/10/2021 05/10/2020, , 03/17/2019, Additional history exists COVID-19 Vaccine ( season) 2024 10/22/2021, 05/07/2021, 10/25/2020, Additional history exists Influenza Vaccine (FLU shot) (#1) 2024 03/17/2023, 04/30/2022, 05/13/2021, Additional history exists Adult Wellness Visit 03/17/2024 03/17/2023, 03/12/2022, 03/11/2021 Depression Screening 03/17/2024 03/17/2023 Diabetic Foot Exam 03/17/2024 03/17/2023, 0 03/12/2022, 03/11/2021, Additional history exists Albumin/Creatinine Ratio 04/02/2024 023, 09/30/2022, 09/04/2021, Additional history exists CKD PHOS USE SMARTSET 42616 04/02/2024 0907/2022, 02/03/2022, 05/13/2021, Additional history exists HbA1c 08/20/2024 02/18/2024, 09/11, 04/02/2023, Additional history exists CKD HGB USE SMARTSET 26541 02/17/202502/17, 10/12/2023, 10/08/2023, Additional history exists Pneumococcal Vaccine: 65+ Years Completed 09/28/2015, 02/02/2003 HPV (Gardasil) Vaccine Aged Out No lo nger eligible based on patient's age to complete this topic Hepatitis B Vaccine Aged Out No longe r eligible based on patient's age to complete this topic MENINGOCOCCAL (MENACTRA/MENVEO) Aged Out No longer eligible based on patient's age to complete this topic documented as of this encounter Medical Devices Not on filedocumented as of this encounter Advance Directives Documents on File Type Date Recorded Patient [employer] PAVON 11/22/2019 1:00 PM Out-of-Hos pital DNR * Full Code (Latest Code Status on File) Date Activated Date Inactivated Comments 04/02/2015 11:03 AM 04/03/2015 1:26 PM This order reflects the patients wishes and were consensually agreed upon. Question Answer Comments Discussion of Advance Directives occurred with: Not Discussed Does the patient have a Living Will? No Does the patient have Health Care Power of Attor sesar? No Care Teams Diabetes Nurse Relationship Specialty Start Date End Date Hay Reza MD [address] [place] [address] [place] [phone] PCP - General Family Medicine 09/24/22 documented as of this encounter
--- OUTSIDE RECORDS SUMMARY | 2024-04-26 13:20 | External Medical Summary | Summary of Care ---
Author Name Unknown Organization [facility] Address [address] [place] [address] Phone [phone] Care Team Providers Care Bulk Cooler Installer Name Role Phone Hay Reza MD Primary Care Provide r Encounter Details Date Type Department Care Team (Late st Contact Info) Description 04/20/2024 Orders Only PATIENT PORTAL DO NOT DELETE THIS DEPT [id number] Allergies Active Allergy Reactions Criticality Noted Date Comments Penicillins 12/04/1999 documented as of this encounter (statuses as of 04/20/2024) Medications Medication Sig Dispensed Refills Start Date [...] as of this encounter (statuses as of 04/20/2024) Active Problems Problem Noted Date Diagnosed Date [...] Assessment & Plan: Continue statin Atherosclerosis of [place] co ronary artery of [place] heart without angina pectoris HTN, goal below 140/90 History of tobacco abuse Vitamin B12 deficiency documented as of this encounter (statuses as of 04/20/2024) Resolved Problems Problem Noted Date Diagnosed Date [...] the Treatment of Subjects with de navya [place] Coronary Artery Lesions. Diagnosis changed due to Research Module. Go to Snapshot for study details. CAD in [place] artery 03/29/2015 018 Exercise-induced angina 03/29/2015 1201/2018 Mixed dyslipidemia 5 Myalgia and myositis 015 [...] as of this encounter (statuses as of 04/20/2024) Immunizations Name Administration Dates Next Due COVID-19 mRNA, LNP-s, No Pre serve, 2-Dose Series ([employer]) 05/07/2021,10/25/2020,09/27/2020 COVID-19, LNP-s, No Preserve , Mamadou-sucrose, Ages 12+ (Pfizer) 10/22/2021 Pneumococcal Conjugate Vacc, 13 Valent (Prevnar) 09/28/2015 Season Influenza, Quad, PF, Adjuvanted, 65+ Yrs, IM (FLUAD) 03/20/2020 Seasonal Influenza, High Dos e, Trivalent, PF, IM (Fluzone HD) 04/18/2024 Seasonal Influenza, PF, 6 M & above, [...] Date Smoking Tobacco: Former Cigarettes 1 10 1 968 1977 Smokeless Tobacco: Never Alcohol Use Standard [...] on file documented as of this encounter Plan of Treatment Upcoming Encounters Date Type Department Care Team (Late st Contact Info) Description 05/13/2024 2:30 PM EDT Home Visit Jonah at [facility] [address] [place] [address] Lisseth Flores, ALON [address] [place] [id number] 11/15/2024 2:30 PM EDT Office Visit Neurology [facility] [place] [facility] [address] Rosibel Banuelos PA-C [address] [place] [address] Health Maintenance Due Date Last Done Comments DTap/Tdap Vaccines (1 - Tdap) 1954 Zoster Vaccines (2 of 3) 09/07/2004 07/13/2004 Diabetic Eye Exam 05/10/2021 05/10/2020, , 03/17/2019, Additional history exists COVID-19 Vaccine ( season) 2024 10/22/2021, 05/07/2021, 10/25/2020, Additional history exists Adult Wellness Visit 03/17/2024 03/17/2023, 03/12/2022, 03/11/2021 Depression Screening 03/17/2024 03/17/2023 Diabetic Foot Exam 03/17/2024 03/17/2023, 0 03/12/2022, 03/11/2021, Additional history exists Albumin/Creatinine Ratio 04/02/2024 023, 09/30/2022, 09/04/2021, Additional history exists CKD PHOS USE SMARTSET 47870 04/02/202403/14, 02/03/2022, 05/13/2021, Additional history exists HbA1c 08/20/2024 02/18/2024, 09/11, 04/02/2023, Additional history exists CKD HGB USE SMARTSET 54706 02/17/202502/17, 10/12/2023, 10/08/2023, Additional history exists Pneumococcal Vaccine: 65+ Years Completed 09/28/2015, 02/02/2003 Influenza Vaccine (FLU shot) Completed 01/2024, 03/17/2023, 04/30/2022, Additional history exists HPV (Gardasil) Vaccine Aged Out No lo [...] Documents on File Type Date Recorded Patient Retail Sales Manager Expl anation POLST 11/22/2019 1:00 PM Out-of-Hos pital DNR * [...] Power of Attor sesar? No Care Teams Bulk Cooler Installer Relationship Specialty Start Date End Date Hay Reza MD [address] [place] [address] [place] [id number] PCP - General Family Medicine 09/24/22 documented as of this encounter
--- OUTSIDE RECORDS SUMMARY | 2024-04-26 13:20 | External Medical Summary | Summary of Care ---
Author Name Unknown Organization [facility] Address [address] [place] [address] Phone [phone] Care Team Providers Care Commercial Lines Account Assistant Name Role Phone Hay Reza MD Primary Care Provide r Reason for Visit * Reason Onset Date Comments Chronic Kidney Disease (CKD) Medication Administration 04/18/2024 Flu an d/or Pneumo Inj Encounter Details Date Type Department Care Team (Late st Contact Info) Description 04/18/2024 2:30 PM EDT Office Visit Nephrology [address] [place] [address] ZeJada renee PA-C [address] [place] [address] Stage 3b chronic kidney disease (HCC)*; Need for prophylactic vaccination and inoculation against influenza; Hypotension, unspecified hypotension type Allergies Active Allergy Reactions Criticality Noted Date Comments Penicillins 12/04/1999 documented as of this encounter (statuses as of 04/18/2024) Medications Medication Sig Dispensed Refills Start Date [...] as of this encounter (statuses as of 04/18/2024) Active Problems Problem Noted Date Diagnosed Date [...] Assessment & Plan: Continue statin Atherosclerosis of [place] co ronary artery of [place] heart without angina pectoris HTN, goal below 140/90 History of tobacco abuse Vitamin B12 deficiency documented as of this encounter (statuses as of 04/18/2024) Resolved Problems Problem Noted Date Diagnosed Date [...] the Treatment of Subjects with de navya [place] Coronary Artery Lesions. Diagnosis changed due to Research Module. Go to Snapshot for study details. CAD in [place] artery 03/29/2015 018 Exercise-induced angina 03/29/201501/2018 Mixed [...] as of this encounter (statuses as of 04/18/2024) Immunizations Name Administration Dates Next Due COVID-19 mRNA, LNP-s, No Pre serve, 2-Dose Series ([employer]) 05/07/2021,10/25/2020,09/27/2020 COVID-19, LNP-s, No Preserve , Mamadou-sucrose, Ages 12+ ([employer]) 10/22/2021 Influenza, Whole Virus 06/11/1994,05/20/1993 Pneumococcal Conjugate Vacc, 13 Valent (Prevnar) 09/28/2015 Pneumococcal Polysaccharide PPV23 (Pneumovax) 02/02/2003 Season Influenza, Quad, PF, Adjuvanted, 65+ Yrs, [...] on file documented as of this encounter Last Filed Vital Signs Vital Sign Reading Time Taken Comments Blood Pressure 109/52 04/18/2024 2:34 PM EDT Pulse 67 04/18/2024 2:34 PM EDT Temperature 35.6 C (96.1 F) 04/18/2024 2:34 PM ED T Respiratory Rate 16 04/18/2024 2:34 PM EDT Oxygen Saturation 99% 04/18/2024 2:34 PM EDT Inhaled Oxygen Concentration - - Weight 59.4 kg (131 lb) 04/18/2024 2:34 PM EDT Height - - Body Mass Index 21.14 10/08/2023 2:14 PM EDT documented in this encounter Patient Instructions * Patient Instructions* Simi Flores RN - 04/18/2024 2:33 PM EDT ~~PATIENT INSTRUCTIONS FOR FLU SHOT~~ Possible side effects of influenza vaccine, (flu shot), are usually mild and include: 1. Soreness or redness at injection site 2. Low grade fever 3. Body aches You may use Tylenol/Acetaminophen as needed for these symptoms. LET YOUR DOCTOR KNOW IMMEDIATELY IF YOU HAVE DIFFICULTY BREATHING OR SWALLOWING, EXPERIENCE ITCHINGOF FEET OR HANDS, HAVE SWELLING OF EYES, FACE OR INSIDE OF NOSE. documented in this encounter Progress Notes * Simi Flores RN - 04/18/2024 2:33 PM EDT PRE - ADMINISTRATION DOCUMENTATION Are you experiencing any cold symptoms or fever? No Have you had Guillain-[place] Syndrome (an illness that causes paralysis) within the last 6 weeks? No Have you had the flu shot in the past? YES Have you ever had a reaction to the flu shot? No Simi Flores RN, 04/18/2024 2:33 PM Immunization Administration Documentation Time Out Procedure Performed: Yes Patient Identified (Ask Name/Date of ): Yes Does the patient have a fever greater than 101 degrees today? No Patient allergic to latex? No C Stock: No Immunization(s) verified: Yes, Immunization Name: Flu, VIS Sheet(s) given: Yes Verified Side and Site: Yes Verified Shot(s) with Parent(s)/Patient: Yes * Jada Hammer PA-C - 04/18/2024 2:30 PM EDT NEPHROLOGY CLINIC NOTE Nephrology [address] [place] [address] Patient Name: Kishan Bourgeois Patient Active Problem List Diagnosis Atherosclerosis of [place] coronary artery of [place] heart without angina pectoris HTN, goal below 140/90 History of tobacco abuse Dyslipidemia, goal LDL below 70 Type 2 diabetes mellitus with hemoglobin A1c goal of less than 8.0% ([facility]) S/P primary angioplasty with coronary stent Vitamin B12 deficiency Asymptomatic stenosis of left carotid artery Primary osteoarthritis of right knee 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 PMH includes DM on po meds and w/o retinopathy as of records through 01/2018, CAD, HTN, HL, asymptomatic bradycardia; chronic gait concerns followed by neurology on sinemet; neuro notes also report mild cognitive impairment. Also w/ hx of asymptomatic carotid artery stenosis Admitted [facility] November 2017 w/ PNA His use to accompany him to some visits and she was main historian/medical person in family; late summer 2022 she d/o Parkinsons. Denies nsaids; does use tylenol occasoinally. No stone hx; no FH of CKD/ESRD His 11th great grandson born jul 2018 TODAY 10/26/2023: seen in ER [facility] about 2 wks ago for eval of R leg pain after a fall at home; no fractures; attrib to OA. 4-5 falls in past month; doesn't get dizzy or lightheaded but "gets feet tangled up," also fell off side of recliner. saw neuro last week and marked MS decline > not orientedto person/place/time. Frequent falls. Just started carbidopa/levodopa. His 9 mos back from parkinson's. Pt living alone now & per son struggling. In past 2 weeks hired care aids >> hired in part to make sure he eats d/t wt loss No other acute events interval Today 04/18/24 Denies any recent hospitalizations, procedures or infections.Acc by his son today. Reports recent change to medication with nuerology Son reports caregiver with low bp reading this morning 90/47 pulse 78 taken by caregiver after breakfast Is is unsure of any additional low reading but pt with on going hx of hypotension To Cards in February and medications were adjusted Imdur was discontinued at that time. Metoprolol was increased from 12.5 to 25 mg Patient reports eating well- Three meals daily - last meal is usually at 3 pm and then to bed around 7:30 pm Drinking a variety of things including, 1-2 boast daily, water, 1 cup of coffee, tea, Gatorade Uses walker at home and not recent falls Does sit with feet up but had some puffiness to the feet over the weekend - this does not typicallyoccur REVIEW OF SYSTEMS General: No fatigue, + dec in weight over the pass year Respiratory: No wheezing, No shortness of breath Cardiovascular:No chest pain, No palpitations, and No syncope. No recent falls Gastrointestinal: No nausea, vomiting, diarrhea No blood in stools Urinary: No dysuira, No hematuria. No flank pain Musculoskeletal: No edema Skin: No itching Current Outpatient Medications Medication Sig Dispense Refill Cyanocobalamin (VITAMIN B-12) 1000 MCG Tablet TAKE ONE TABLET BY MOUTH EVERY DAY (Patient taking differently: No sig reported) 30 Tab 5 Vitamin D High Potency 25 MCG (1000 UT) Oral Capsule (Cholecalciferol) TAKE ONE CAPSULE BY MOUTH EVERY DAY (Patient taking differently: No sig reported) 90 Cap 1 Sodium Bicarbonate 650 MG Oral Tablet Take 1 Tablet by mouth in the morning and 1 Tablet before bedtime. 60 Tablet 11 Stool Softener 100 MG Oral Tablet (Docusate Sodium) Take 1 Tablet by mouth in the morning. Carbidopa-Levodopa ER 25-100 MG Oral Tablet Extended Release (Sinemet CR) Take 1 tablet at bedtime nightly 30 Tablet 5 Metoprolol Succinate ER 25 MG Oral Tablet Extended Release 24 Hour (toPROL XL) Take 1 Tablet by mouth daily. 90 Tablet 3 Semaglutide 7 MG Oral Tablet (Rybelsus) Take 7 mg by mouth daily first thing in the morning. 90 Tablet 1 Cetirizine HCl 10 MG Oral Tablet (ZyrTEC) Take 0.5 Tablets by mouth every night at bedtime. 45 Tablet 1 Pravastatin Sodium 80 MG Oral Tablet TAKE ONE TABLET BY MOUTH AT BEDTIME 28 Tablet 5 Aspirin Low Dose 81 MG Oral Tablet Delayed Release (aspirin enteric coated) TAKE ONE TABLET EVERY DAY 28 Tablet 5 Carbidopa-Levodopa 25-100 MG Oral Tablet (Sinemet) TAKE 1.5 TABLETS BY MOUTH THREE TIMES A DAY 135 Tablet 5 No current facility-administered medications for this visit. PHYSICAL EXAMINATION Last 4 BP Readings: BP Readings from Last 4 Encounters: 04/18/24 109/52 04/12/24 90/54 04/01/24 108/52 02/22/24 132/58 Last 3 Weights: Wt Readings from Last 3 Encounters: 04/18/24 59.4 kg (131 lb) 04/12/24 57.1 kg (125 lb 12.8 oz) 02/18/24 60.3 kg (133 lb) BP 109/52 (BP Site: Right Arm, BP Position: Sitting, BP Cuff Size: Regular) | Pulse 67 | Temp 35.6 C (96.1 F) | Resp 16 | Wt 59.4 kg (131 lb) | SpO2 99% | BMI 21.14 kg/m | BSA 1.66 m Wt Readings from Last 1 Encounters: 04/18/24 59.4 kg (131 lb) General appearance: alert, no apparent distress. Ambulatory with assistance -Wheelchair HEAD: Normocephalic, No masses, lesions, tenderness Respiratory: clear to auscultation, no wheezes, and no crackles Heart: regular rate, regular rhythm, and + murmurs Abdomen: abdomen soft, non-tender, and no CVA tenderness EXTREMITIES: + non piting edema of the right foot, No cyanosis or clubbing Skin: skin color, texture, turgor are normal NEURO: alert & oriented x 3 with fluent speech, no focal motor/sensory deficits No tremor LABS: Latest Reference Range & Units 02/03/22 13:53 09/30/22 08:27 04/02/23 09:30 10/08/23 10:02 10/12/23 14:30 02/18/24 14:44 SODIUM 135 - 146 mmol/L 140 137 138 137 140 138 POTASSIUM 3.5 - 5.1 mmol/L 4.6 4.5 4.1 4.5 4.6 3.9 CHLORIDE 98 - 107 mmol/L 105 103 105 101 103 99 CO2 22 - 32 mmol/L 20 (L) 21 (L) 19 (L) 22 23 27 BUN 6 - 20 mg/dL 25 (H) 26 (H) 26 (H) 45 (H) 40 (H) 19 CREATININE 0.6 - 1.2 mg/dL 1.7 (H) 1.7 (H) 1.5 (H) 2.2 (H) 1.7 (H) 1.4 (H) EGFR >=60 mL/min 40 (L) 38 (L) 45 (L) 28 (L) 40 (L) 50 (L) ANION GAP 7 - 15 mmol/L 15 13 14 14 14 12 GLUCOSE 70 - 120 mg/dL 142 (H) 265 (H) 195 (H) 153 (H) 156 (H) 116 CALCIUM 8.4 - 10.2 mg/dL 9.6 9.1 9.1 9.3 9.2 9.2 Phosphorus 2.5 - 4.8 mg/dL 4.2 3.1 (L): Data is abnormally low (H): Data is abnormally high Latest Reference Range & Units 05/13/21 10:33 09/04/21 15:24 02/03/22 13:53 09/30/22 08:27 04/02/23 09:30 Albumin / Creatinine Ratio, Urine <30 mg/g Creat 46 (H) 188 (H) 125 (H) 342 (H) Protein/ Creatinine Ratio, Urine <150 mg/g 288 (H) (H): Data is abnormally high IMAGING: EXAM US RENAL-02/01/2018 HISTORY ckd 3 baseline study COMPARISON No comparisons TECHNIQUE Renal ultrasound images providedremotely with a worksheet FINDINGS Right Kidney: The right kidney is normal in size and echogenicity and measures 9.9 x 4.9 x 4.3 cm. There is mild diffuse cortical thinning. No hydronephrosis, mass, or calculus is demonstrated. Left Kidney: The left kidney is normal in size and echogenicity and measures 10 x 4.7 x 3.8 cm. There is mild diffuse cortical thinning. No hydronephrosis, mass, or calculus is demonstrated. Bladder: The bladder is normal in size and echogenicity with no filling defect. There is a small postvoid residual of 35 cc. Aorta: No abdominal aortic aneurysm. IMPRESSION IMPRESSION Mild bilateral cortical renal thinning. Small postvoid residual of 35 cc. ASSESSMENT/PLAN: The patient's most recent labs (from 1 months ago) were reviewed and the assessment/plan is as follows: CKD 3b merging to 3a. CKD w/ labile renal functio ncontinue with more frequent labs Changes in bp likely due to improved blood pressure with discontuation of bp meds. Stage 3b chronic kidney disease (HCC) (Primary) - BASIC METABOLIC PANEL; Future; Expected date: 05/13/2024 - URINALYSIS WITH MICROSCOPIC EXAM; Future; Expected date: 05/13/2024 - ALBUMIN / CREATININE RATIO, URINE; Future; Expected date: 05/13/2024 - PTH; Future; Expected date: 04/18/2024 Hypotension, unspecified hypotension type Currently with Metoprolol 25 mg daily only. Lisinopril and imdur d/c. Recent visit with Cards in February to return in May -appt needed Monitor bp daily with Caregiver and keep log Need for prophylactic vaccination and inoculation against influenza - INFLUENZA VAC., TRIVALENT, HD, PF, 65 AND ABOVE, 0.5 ML IM (FLUZONE HD) Labs placed for assessment Advised bp log to monitor pressures- Note sent to CARDs Encourage fluid intake and healthy eating habits Avoid medicines like aleve, advil, ibuprofen, aspirin more than 81 mg daily and other NSAIDS which are not good for kidney patients. Take only tylenol (acetaminophen) up to 2000 mg daily as needed for pain or as directed by your primary care provider. Reviewed previous status of kidney function and goals of care. All questions were answered. Follow-up: Return in about 6 months (around 10/17/2024). | Check-out note: With Shlomo LEMOS appt) Jada Hammer PA-C Nephrology [address] [place] [address] documented in this encounter Nursing Notes * Simi Flores RN - 04/18/2024 2:41 PM EDT Follow up visit today. No recent illness. He states he continues to lose weight. Son with pt today.Son asking if he still needs medication for blood pressure. documented in this encounter Plan of Treatment Upcoming Encounters Date Type Department Care Team (Late st Contact Info) Description 05/13/2024 2:30 PM EDT Home Visit Jonah at [facility] [address] [facility] [place] [address] Lisseth Flores RN [address] [facility] [place] [address] 11/15/2024 2:30 PM EDT Office Visit Neurology [facility] [address] [place] [address] Rosibel Banuelos PA-C [address] [facility] [place] [phone] Scheduled Orders Name Type Priority Associated Diagnoses Orde r Schedule BASIC METABOLIC PANEL Lab Routine Stage 3b chronic kidney disease (HCC) Expected: 05/13/2024, Expires: 04/18/2025 URINALYSIS WITH MICROSCOPIC EXAM Lab Routine Stage 3b chronic kidney disease (HCC) Expected: 05/13/2024, Expires: 04/18/2025 ALBUMIN / CREATININE RATIO, URINE Lab Routine Stage 3b chronic kidney disease (HCC) Expected: 05/13/2024, Expires: 04/18/2025 PTH Lab Routine Stage 3b chronic kidney disease (HCC) Expected: 04/18/2024, Expires: 04/18/2025 Health Maintenance Due Date Last Done Comments [...] Additional history exists CKD PHOS USE SMARTSET 60640 04/02/202403/14, 02/03/2022, 05/13/2021, Additional history exists HbA1c 08/20/2024 02/18/2024, 09/11, 04/02/2023, Additional history exists CKD HGB USE SMARTSET 02165 02/17/202502/17, 10/12/2023, 10/08/2023, Additional history exists Pneumococcal [...] Not on filedocumented as of this encounter Visit Diagnoses Diagnosis Stage 3b chronic kidney disease (HCC)- Primary Need for prophylactic vaccination and inoculation against influenza Hypotension, unspecified hypotension type documented in this encounter Advance Directives Documents on File Type Date Recorded Patient Machine Binding Folder Expl anation POLST 11/22/2019 1:00 PM Out-of-Hos [...] Power of Attor sesar? No Care Teams Commercial Lines Account Assistant Relationship Specialty Start Date End Date Hay Reza MD [address] [place] [address] [place] [phone] PCP - General Family Medicine 09/24/22 documented as of this encounter
--- OUTSIDE RECORDS SUMMARY | 2024-04-26 13:20 | External Medical Summary | Summary of Care ---
Author Name Unknown Organization [facility] Address [address] [place] [address] Phone [phone] Care Team Providers Care Manufacturing Test Engineer Name Role Phone Hay Reza MD Primary Care Provide r Reason for Visit * Reason Comments eRx-Medication Refill Encounter Details Date Type Department Care Team (Late st Contact Info) Description 04/22/2024 Refill Neurology [facility] [address] [place], [place] [phone] Rosibel Banuelos PA-C [address] [facility] [place] [address] Allergies Active Allergy Reactions Criticality Noted Date Comments Penicillins 12/04/1999 documented as of this encounter (statuses as of 04/25/2024) Medications Medication Sig Dispensed Refills Start Date End Date Status Cyanocobalamin (VITAMIN B-12) 1000 MCG Tablet TAKE ONE TABLET BY MOUTH EVERY DAY 30 Tab 5 12/01/2018 Active Additional Information Patient taking differently: Indications: B vitamin supplement, Reported on 11/05/2022 Vitamin D High Potency 25 MCG (1000 UT) Oral Capsule (Cholecalciferol ) TAKE ONE CAPSULE BY MOUTH EVERY DAY [...] Tablet by mouth in the morning. Active Metoprolol Succinate ER 25 MG Oral Tablet Extended Release 24 Hour (toPROL XL)Indications:H TN, goal below 140/90 Take 1 Tablet by mouth daily. 90 Tablet 3 02/18/2024 Active Semaglutide 7 MG Oral Tablet (Rybelsus)Indica tions:Type 2 diabetes mellitus with hemoglobin A1c goal of less than 8.0% (HCC) Take 7 mg by mouth daily first thing in the morning. 90 Tablet 1 02/19/2024 Active Cetirizine HCl 10 MG Oral Tablet (ZyrTEC)Indicati ons:Itching Take 0.5 Tablets by mouth every night at bedtime. 45 Tablet 1 02/29/2024 Active Pravastatin Sodium 80 MG Oral TabletIndication s:Hyperlipidemia with target LDL less than 100 TAKE ONE TABLET BY MOUTH AT BEDTIME 28 Tablet 5 03/28/2024 Active Aspirin Low Dose 81 MG Oral Tablet Delayed Release (aspirin enteric coated) TAKE ONE TABLET EVERY DAY 28 Tablet 5 03/26/2024 Active Carbidopa-Levodo pa 25-100 MG Oral Tablet (Sinemet) TAKE 1.5 TABLETS BY MOUTH THREE TIMES A DAY 135 Tablet 5 04/12/2024 Active Carbidopa-Levodo pa ER 25-100 MG Oral Tablet Extended Release (Sinemet CR) TAKE ONE TABLET BY MOUTH AT BEDTIME 30 Tablet 5 04/25/2024 Active Carbidopa-Levodo pa ER 25-100 MG Oral Tablet Extended Release (Sinemet CR) Take 1 tablet at bedtime nightly 30 Tablet 5 11/19/2023 4 Discontinued documented as of this encounter (statuses as of 04/25/2024) Active Problems Problem Noted Date Diagnosed Date [...] Assessment & Plan: Continue statin Atherosclerosis of [place] co ronary artery of [place] heart without angina pectoris HTN, goal below 140/90 History of tobacco abuse Vitamin B12 deficiency documented as of this encounter (statuses as of 04/25/2024) Resolved Problems Problem Noted Date Diagnosed Date [...] the Treatment of Subjects with de navya [place] Coronary Artery Lesions. Diagnosis changed due to Research Module. Go to Snapshot for study details. CAD in [place] artery 03/29/2015 018 Exercise-induced angina 03/29/201501/2018 Mixed [...] as of this encounter (statuses as of 04/25/2024) Immunizations Name Administration Dates Next Due COVID-19 mRNA, LNP-s, No Pre serve, 2-Dose Series ([employer]) 05/07/2021,10/25/2020,09/27/2020 COVID-19, LNP-s, No Preserve , Mamadou-sucrose, [...] encounter Miscellaneous Notes * Telephone Encounter - Mauricio Ge RPh - 04/25/2024 10:23 AM EDTSigned Prescriptions: Disp Refills Carbidopa-Levodopa ER 25-100 MG Oral Table*30 Tab*5 Sig: TAKE ONE TABLET BY MOUTH AT BEDTIMEAuthorizing Provider: Norbert BANUELOS User: MAURICIO GE----- documented in this encounter Plan of Treatment Upcoming Encounters Date Type Department Care Team (Late st Contact Info) Description 05/13/2024 2:30 PM EDT Home Visit [facility] at [facility] [address] [place] [address] Lisseth Flores, AL[place] [address] [place] [phone] 11/15/2024 2:30 PM EDT [facility] [address] Rosibel Banuelos PA-C [address] [place] [address] Health Maintenance Due Date Last Done Comments [...] Additional history exists CKD PHOS USE SMARTSET 94406 04/02/202403/14, 02/03/2022, 05/13/2021, Additional history exists HbA1c 08/20/2024 02/18/2024, 09/11, 04/02/2023, Additional history exists CKD HGB USE SMARTSET 20513 02/17/202502/17, 10/12/2023, 10/08/2023, Additional history exists Pneumococcal [...] Documents on File Type Date Recorded Patient Coffee Taster Expl anatpineda POLST 11/22/2019 1:00 PM Out-of-Hos pital DNR [...] Power of Attor sesar? No Care Teams Manufacturing Test Engineer Relationship Specialty Start Date End Date Hay Reza MD [address] [place] [address] [place] [phone] PCP - General Family Medicine 09/24/22 documented as of this encounter
--- OUTSIDE RECORDS SUMMARY | 2024-04-26 13:20 | External Medical Summary | Summary of Care ---
Author Name Unknown Organization [facility] Address [address] [place] [address] Phone [phone] Care Team Providers Care Studio Camera Operator Name Role Phone Hay Reza MD Primary Care Provide r Reason for Visit * Reason Onset Date Comments Encounter Created in Error 04/18/2024 Encounter Details Date Type Department Care Team (Late st Contact Info) Description 04/18/2024 12:00 PM EDT Scheduled Telephone [facility], [facility] [address] [facility] [place] [address] Coordinator, [facility] [address] [facility] [place] [address] Allergies Active Allergy Reactions Criticality Noted Date Comments Penicillins 12/04/1999 documented as of this encounter (statuses as of 04/21/2024) Medications Medication Sig Dispensed Refills Start Date [...] as of this encounter (statuses as of 04/21/2024) Active Problems Problem Noted Date Diagnosed Date [...] Assessment & Plan: Continue statin Atherosclerosis of [place] co ronary artery of [place] heart without angina pectoris HTN, goal below 140/90 History of tobacco abuse Vitamin B12 deficiency documented as of this encounter (statuses as of 04/21/2024) Resolved Problems Problem Noted Date Diagnosed Date [...] the Treatment of Subjects with de navya [place] Coronary Artery Lesions. Diagnosis changed due to Research Module. Go to Snapshot for study details. CAD in [place] artery 03/29/2015 018 Exercise-induced angina 03/29/201501/2018 Mixed [...] as of this encounter (statuses as of 04/21/2024) Immunizations Name Administration Dates Next Due COVID-19 mRNA, LNP-s, No Pre serve, 2-Dose Series ([employer]) 05/07/2021,10/25/2020,09/27/2020 COVID-19, LNP-s, No Preserve , Mamadou-sucrose, [...] Description 05/13/2024 2:30 PM EDT Home Visit [facility] [address] [place] [address] Lisseth Flores, ALON [address] [place] [address] 11/15/2024 2:30 PM EDT Office Visit Neurology [facility] [place] 200 [facility] [place] [address] Rosibel Banuelos PA-C [address] [place] [address] Health Maintenance Due Date Last Done Comments [...] Additional history exists CKD PHOS USE SMARTSET 34414 04/02/202403/14, 02/03/2022, 05/13/2021, Additional history exists HbA1c 08/20/2024 02/18/2024, 09/11, 04/02/2023, Additional history exists CKD HGB USE SMARTSET 04100 02/17/202502/17, 10/12/2023, 10/08/2023, Additional history exists Pneumococcal [...] Documents on File Type Date Recorded Patient Physician Representative America PAVON 11/22/2019 1:00 PM Out-of-Hos pital [...] Power of Attor sesar? No Care Teams Studio Camera Operator Relationship Specialty Start Date End Date Hay Reza MD [address] [place] [address] [place] [phone] PCP - General Family Medicine 09/24/22 documented as of this encounter
--- OUTSIDE RECORDS SUMMARY | 2024-04-26 13:20 | External Medical Summary | Summary of Care ---
Author Name Unknown Organization [facility] Address [address] [place] [address] Phone [phone] Care Team Providers Care Formulator Name Role Phone Hay Reza MD Primary Care Provide r Reason for Visit * Reason Onset Date Comments Chronic Kidney Disease (CKD) Medication Administration 04/18/2024 Flu an d/or Pneumo Inj Encounter Details Date Type Department Care Team (Late st Contact Info) Description 04/18/2024 2:30 PM EDT Office Visit Nephrology [address] [place] [address] ZeJada renee PA-C [address] [place] [address] Stage 3b chronic kidney disease (HCC)*; Need [...] Assessment & Plan: Continue statin Atherosclerosis of [place] co ronary artery of [place] heart without angina pectoris HTN, goal below [...] the Treatment of Subjects with de navya [place] Coronary Artery Lesions. Diagnosis changed due to Research Module. Go to Snapshot for study details. CAD in [place] artery 03/29/2015 018 Exercise-induced angina 03/29/201501/2018 Mixed [...] mRNA, LNP-s, No Pre serve, 2-Dose Series ([employer]) 05/07/2021,10/25/2020,09/27/2020 COVID-19, LNP-s, No Preserve , Mamadou-sucrose, Ages 12+ ([employer]) 10/22/2021 Influenza, Whole Virus 06/11/1994,05/20/1993 Pneumococcal Conjugate [...] symptoms or fever? 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 angina pectoris HTN, goal below 140/90 History of tobacco abuse Dyslipidemia, goal LDL below 70 Type 2 diabetes mellitus with hemoglobin A1c goal of less than 8.0% ([facility]) S/P primary angioplasty with coronary stent Vitamin B12 deficiency Asymptomatic stenosis of left carotid artery Primary osteoarthritis of right knee 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 PMH includes DM on po meds and w/o retinopathy as of records through 01/2018, CAD, HTN, HL, asymptomatic bradycardia; chronic gait concerns followed by neurology on sinemet; neuro notes also report mild cognitive impairment. Also w/ hx of asymptomatic carotid artery stenosis Admitted [facility] November 2017 w/ PNA His use to accompany him to some visits and she was main historian/medical person in family; late summer 2022 she d/o Parkinsons. Denies nsaids; does use tylenol occasoinally. No stone hx; no FH of CKD/ESRD His 11th great grandson born jul 2018 TODAY 10/26/2023: seen in ER [facility] about 2 wks ago for eval of [...] Shlomo LEMOS appt) Jada Hammer PA-C Nephrology [address] [place] [address] documented in this encounter Nursing Notes * [...] 2:30 PM EDT Home Visit [facility] at [facility] [address] [facility] [place] [address] Lisseth Flores RN 132 [facility] [place] [address] 11/15/2024 2:30 PM EDT Office Visit Neurology [facility] 200 [place] [address] Rosibel Banuelos PA-C 21 [facility] [place] [phone] Scheduled Orders Name Type Priority Associated Diagnoses [...] Additional history exists CKD PHOS USE SMARTSET 24097 04/02/202403/14, 02/03/2022, 05/13/2021, Additional history exists HbA1c 08/20/2024 02/18/2024, 09/11, 04/02/2023, Additional history exists CKD HGB USE SMARTSET 89918 02/17/202502/17, 10/12/2023, 10/08/2023, Additional history exists Pneumococcal [...] Documents on File Type Date Recorded Patient Blacktop Spreader Expl anation POLST 11/22/2019 1:00 PM Out-of-Hos [...] Power of Attor sesar? No Care Teams Formulator Relationship Specialty Start Date End Date Hay Reza MD [address] [place] [address] [place] [phone] PCP - General Family Medicine 09/24/22 documented as of this encounter
--- OUTSIDE RECORDS SUMMARY | 2024-04-26 13:21 | External Medical Summary | Summary of Care ---
Author Name Unknown Organization [facility] Address [address] [place] [address] Phone [phone] Care Team Providers Care Mail Distribution Scheme Examiner Name Role Phone Hay Reza MD Primary Care Provide r Reason for Visit * Reason Onset Date Comments Information 04/06/2024 Encounter Details Date Type Department Care Team (Late st Contact Info) Description 04/06/2024 Telephone [facility] [place] [address] [place] [address] Alfreod Gant OSA [address] [place] [address] Information Allergies Active Allergy Reactions Criticality Noted Date Comments Penicillins 12/04/1999 documented as of this encounter (statuses as of 04/06/2024) Medications Medication Sig Dispensed Refills Start Date [...] bedtime nightly 30 Tablet 5 11/19/2023 Active Carbidopa-Levodopa 25-100 MG Oral Tablet (Sinemet) TAKE 1 TABLET BY MOUTH THREE TIMES A DAY 90 Tablet 5 01/30/2024 Active Metoprolol Succinate ER 25 MG Oral [...] EVERY DAY 28 Tablet 5 03/26/2024 Active documented as of this encounter (statuses as of 04/06/2024) Active Problems Problem Noted Date Diagnosed Date [...] Assessment & Plan: Continue statin Atherosclerosis of [place] co ronary artery of [place] heart without angina pectoris HTN, goal below 140/90 History of tobacco abuse Vitamin B12 deficiency documented as of this encounter (statuses as of 04/06/2024) Resolved Problems Problem Noted Date Diagnosed Date [...] the Treatment of Subjects with de navya [place] Coronary Artery Lesions. Diagnosis changed due to Research Module. Go to Snapshot for study details. CAD in [place] artery 03/29/2015 018 Exercise-induced angina 03/29/201501/2018 Mixed [...] as of this encounter (statuses as of 04/06/2024) Immunizations Name Administration Dates Next Due COVID-19 mRNA, LNP-s, No Pre serve, 2-Dose Series ([employer] Backpack) 05/07/2021,10/25/2020,09/27/2020 COVID-19, LNP-s, No Preserve , Mamadou-sucrose, [...] Date Smoking Tobacco: Former Cigarettes 1 10 [id number] Smokeless Tobacco: Never Alcohol Use Standard Drinks/Week [...] Telephone Encounter - Alfredo Gant OSA - 04/06/2024 5:44 PM EDT DME order Referral -[id number] Adult diapers/briefs - size XL Disposable underpads - large Order placed on [facility] - Scheduled a follow up call for Thursday. documented in this encounter Plan of Treatment Upcoming Encounters Date Type Department Care Team (Late st Contact Info) Description 04/08/2024 12:00 PM EDT Scheduled Telephone [facility] at [place], [address] [place] [address] Coordinator, [facility] 132 [facility] [place] [address] 04/12/2024 1:30 PM EDT Office Visit Neurology [facility] [address] [place] [address] Rosibel Banuelos PA-C [address] [place] [phone] 04/18/2024 2:30 PM EDT Office Visit Nephrology [address] [place] [address] Jada Hammer PA-C [address] [place] [address] 05/13/2024 2:30 PM EDT Home Visit [facility] at [place], [facility] [place] [address] Lisseth Flores, RN 132 [facility] [place] [address] Health Maintenance Due Date Last Done Comments [...] Additional history exists CKD PHOS USE SMARTSET 73238 04/02/2024 0907/2022, 02/03/2022, 05/13/2021, Additional history exists HbA1c 08/20/2024 02/18/2024, 09/11, 04/02/2023, Additional history exists CKD HGB USE SMARTSET 71214 02/17/202502/17, 10/12/2023, 10/08/2023, Additional history exists Pneumococcal [...] Documents on File Type Date Recorded Patient Cooking Show Host Expl anatpineda POLST 11/22/2019 1:00 PM Out-of-Hos [...] Power of Attor sesar? No Care Teams Mail Distribution Scheme Examiner Relationship Specialty Start Date End Date Hay Reza MD [address] [place] [address] [place] [phone] PCP - General Family Medicine 09/24/22 documented as of this encounter
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
--- OUTSIDE RECORDS SUMMARY | 2024-04-26 13:21 | External Medical Summary | Summary of Care ---
Author Name Unknown Organization [facility] Address [address] [place] [address] Phone [phone] Care Team Providers Care Schedule Maker Name Role Phone Anabela Ballesteros MD Primary Care Provide r Reason for Visit * Reason Comments eRx-Medication Refill Encounter Details Date Type Department Care Team (Late st Contact Info) Description 02/26/2024 Refill Family Medicine [address] [place] [address] Anabela Ballesteros MD [address] [place] [address] [place] [address] Itching Allergies Active Allergy Reactions Criticality Noted Date Comments Penicillins 12/04/1999 documented as of this encounter (statuses as of 02/29/2024) Medications Medication Sig Dispensed Refills Start Date [...] before bedtime. 60 Tablet 11 04/07/2023 Active Pravastatin Sodium 80 MG Oral TabletIndications :Hyperlipidemia with target LDL less than 100 TAKE ONE TABLET AT BEDTIME 28 Tablet 5 08/21/2023 Active Aspirin Low Dose 81 MG Oral Tablet Delayed Release (aspirin enteric coated) TAKE ONE TABLET BY MOUTH EVERY DAY 28 Tablet 5 08/24/2023 Active Stool Softener 100 MG Oral Tablet (Docusate Sodium) Take 1 Tablet by mouth in the morning. Active Carbidopa-Levodop a ER 25-100 MG Oral Tablet Extended Release (Sinemet CR) Take 1 tablet at bedtime nightly 30 Tablet 5 11/19/2023 Active Carbidopa-Levodop a 25-100 MG Oral Tablet (Sinemet) TAKE 1 TABLET BY MOUTH THREE TIMES A DAY 90 Tablet 5 01/30/2024 Active Metoprolol Succinate ER 25 MG Oral Tablet Extended Release 24 Hour (toPROL XL)Indications:HT N, goal below 140/90 Take 1 Tablet by mouth daily. 90 Tablet 3 02/18/2024 Active Semaglutide 7 MG Oral Tablet (Rybelsus)Indicat ions:Type 2 diabetes mellitus with hemoglobin A1c goal of less than 8.0% (HCC) Take 7 mg by mouth daily first thing in the morning. 90 Tablet 1 02/19/2024 Active Cetirizine HCl 10 MG Oral Tablet (ZyrTEC)Indicatio ns:Itching Take 0.5 Tablets by mouth every night at bedtime. 45 Tablet 1 02/29/2024 Active Cetirizine HCl 10 MG Oral Tablet (ZyrTEC)Indicatio ns:Itching Take 0.5 Tablets by mouth every night at bedtime. 02/18/2024 4 Discontinue d(Refill) documented as of this encounter (statuses as of 02/29/2024) Active Problems Problem Noted Date Diagnosed Date [...] Assessment & Plan: Continue statin Atherosclerosis of [place] co ronary artery of [place] heart without angina pectoris HTN, goal below 140/90 History of tobacco abuse Vitamin B12 deficiency documented as of this encounter (statuses as of 02/29/2024) Resolved Problems Problem Noted Date Diagnosed Date [...] the Treatment of Subjects with de navya [place] Coronary Artery Lesions. Diagnosis changed due to Research Module. Go to Snapshot for study details. CAD in [place] artery 03/29/2015 018 Exercise-induced angina 03/29/2015 12/0 [...] as of this encounter (statuses as of 02/29/2024) Immunizations Name Administration Dates Next Due COVID-19 mRNA, LNP-s, No Pre serve, 2-Dose Series ([employer]) 05/07/2021,10/25/2020,09/27/2020 COVID-19, LNP-s, No Preserve , Mamadou-sucrose, Ages 12+ (Pfizer) 10/22/2021 Pneumococcal Conjugate Vacc, 13 Valent (Prevnar) 09/28/2015 Season Influenza, Quad, PF, Adjuvanted, 65+ Yrs, IM (FLUAD) 03/20/2020 Seasonal Influenza, PF, 6 M & above, IM , (FluLaval or Fluzone) 06/18/2018,04/15/2017 Seasonal Influenza, Quadriva lent Hd (Fluzone Hd) 03/17/2023,04/30/2022,05/13/2021 Seasonal Influenza, Quadriva lent, No Preserve, IM 06/13/2016,04/06/2015 Seasonal Influenza, Trivalen t, Adjuvanted, 65+ yrs 05/31/2019 05/31/2020 Varicella Zoster Vaccine (Adult) 07/13/2004 documented as of this encounter Social History Tobacco Use Types Packs/Day Years Used Date Smoking Tobacco: Former Cigarettes 1 1977 Smokeless Tobacco: Never Alcohol Use Standard [...] encounter Miscellaneous Notes * Telephone Encounter - Anabela Ballesteros MD - 02/29/2024 12:46 PM EDT Signed Prescriptions: Disp Refills Cetirizine HCl 10 MG Oral Tablet (ZyrTEC) 45 Tab*1 Sig: Take 0.5 Tablets by mouth every night at bedtime. Authorizing Provider: ANABELA BALLESTEROS Refused Prescriptions: Disp Refills Cetirizine HCl 10 MG Oral Tablet (ZyrTEC) 30 Tab*2 Sig: TAKE ONE TABLET IN THE MORNING Refused By: LACI REILLY for Refusal: Dose needs clarification * [facility] 12:28 PM EDT Pending Prescriptions: Disp Refills Cetirizine HCl 10 MG Oral Tablet (ZyrTEC) 45 Tab*1 Sig: Take 0.5 Tablets by mouth every night at bedtime. Refused Prescriptions: Disp Refills Cetirizine HCl 10 MG Oral Tablet (ZyrTEC) 30 Tab*2 Sig: TAKE ONE TABLET IN THE MORNING Refused By: LACI REILLY Reason for Refusal: Dose needs clarification --- * Telephone Encounter - Laci Reilly [facility] - 02/29/2024 12:24 PM EDT Pharmacists cannot authorize refills for meds listed as "historical" in chart. Please approve if appropriate. Cardiology changed dose to 1/2 tablet. Thank You, Laci Reilly, Pharm-D Clinical Pharmacist [facility] [phone] 02/29/2024, 12:24 PM Did you pend patient's preferred pharmacy and medication before forwarding?yes Pharmacy: [facility], [address] [place] Pending Prescriptions: Disp Refills Cetirizine HCl 10 MG Oral Tablet (ZyrTEC) 45 Tab*1 Sig: Take 0.5 Tablets by mouth every night at bedtime. Refused Prescriptions: Disp Refills Cetirizine HCl 10 MG Oral Tablet (ZyrTEC) 30 Tab*2 Sig: TAKE ONE TABLET IN THE MORNING Refused By: LACI REILLY Reason for Refusal: Dose needs clarification Last Visit: 10/08/2023 (in office), Visit date not found (telemedicine) Next Visit: Visit date not found If no future appointments scheduled, and last appointment is greater than a year ago, please schedule patient for a follow-up appointment Last date the medication was ordered: 02/18/2024 Is this request for a controlled substance?No Urine Drug Screen:No results found for this or any previous visit. Patient Phone Numbers Labs: Lab Results Component Value Date/Time CREAT 1.4 (H) 02/18/2024 02:44 PM CREAT 1.6 (H) 07/27/2020 09:21 AM POTASSIUM 3.9 02/18/2024 02:44 PM POTASSIUM 4.5 07/27/2020 09:21 AM TSH 2.35 10/08/2023 10:02 AM TSH 2.05 01/18/2020 11:09 AM LDLCALC 76 10/08/2023 10:02 AM LDLCALC 80 07/27/2020 09:21 AM LDLDIRECT 69 09/04/2021 03:24 PM LDLDIRECT NOT APPLICABLE 07/27/2020 09:21 AM ALT <5 (L) 02/18/2024 02:44 PM ALT 14 07/27/2020 09:21 AM HGBA1C 5.7 (H) 02/18/2024 02:44 PM HGBA1C 12.5 (H) 07/27/2020 09:21 AM documented in this encounter Plan of Treatment Upcoming Encounters Date Type Department Care Team (Late st Contact Info) Description 03/18/2024 1:00 PM EDT Nurse Only Ancillary [address] [place] [address] [place], Nurse [address] [place] [address] 04/04/2024 2:30 PM EDT [facility] Visit [facility], [facility] [address] [place] [address] Lisseth Flores, RN [address] [place] [address] 04/12/2024 1:30 PM EDT Office Visit Neurology [facility] [address] [place] [address] Rosibel Banuelos PA-C [address] [place] [address] 04/18/2024 2:30 PM EDT Office Visit Nephrology [address] [place] [address] Jada Hammer PA-C [address] [place] [address] Health Maintenance Due Date Last Done Comments DTaP,Tdap,and Td Vaccines (1 - Tdap) 1954 Zoster Vaccines (2 of 3) 09/07/2004 07/13/2004 Diabetic Eye Exam 05/10/2021 05/10/2020, , 03/17/2019, Additional history exists COVID-19 Vaccine ( season) 2023 10/22/2021, 05/07/2021, 10/25/2020, Additional history exists Influenza Vaccine (FLU shot) (#1) 2024 03/17/2023, 04/30/2022, 05/13/2021, Additional history exists Adult Wellness Visit 03/17/2024 03/17/2023, 03/12/2022, 03/11/2021 Depression Screening 03/17/2024 03/17/2023 Diabetic Foot Exam 03/17/2024 03/17/2023, 0 03/12/2022, 03/11/2021, Additional history exists Albumin/Creatinine Ratio 04/02/2024 023, 09/30/2022, 09/04/2021, Additional history exists CKD PHOS USE SMARTSET 62481 04/02/202403/14, 02/03/2022, 05/13/2021, Additional history exists HbA1c 08/20/2024 02/18/2024, 09/11, 04/02/2023, Additional history exists CKD HGB USE SMARTSET 78777 02/17/202502/17, 10/12/2023, 10/08/2023, Additional history exists Pneumococcal [...] as of this encounter Visit Diagnoses Diagnosis Itching Unspecified pruritic disorder documented in this encounter Advance Directives Documents on File Type Date Recorded Patient [place] [employer] [facility]ON 11/22/2019 1:00 PM Out-of-Hos pital [...] Power of Attor sesar? No Care Teams Schedule Maker Relationship Specialty Start Date End Date Anabela Ballesteros MD [address] [place] [address] [place] [phone] PCP - General Family Medicine 09/24/22 documented as of this encounter
--- OUTSIDE RECORDS SUMMARY | 2024-04-26 13:21 | External Medical Summary | Summary of Care ---
Author Name Unknown Organization [facility] Address [address] [place] [address] Phone [phone] Care Team Providers Care Full Time Name Role Phone Hay Reza MD Primary Care Provide r Reason for Visit * Reason Onset Date Comments [facility]: Maintenance 04/08/2024 Encounter Details Date Type Department Care Team (Late st Contact Info) Description 04/08/2024 12:00 PM EDT Scheduled Telephone [facility], [facility] [address] [facility] [place] [address] Coordinator, [facility] [address] [place] [address] Allergies Active Allergy Reactions Criticality Noted Date Comments Penicillins 12/04/1999 documented as of this encounter (statuses as of 04/08/2024) Medications Medication Sig Dispensed Refills Start Date [...] as of this encounter (statuses as of 04/08/2024) Active Problems Problem Noted Date Diagnosed Date [...] Assessment & Plan: Continue statin Atherosclerosis of [place] co ronary artery of [place] heart without angina pectoris HTN, goal below 140/90 History of tobacco abuse Vitamin B12 deficiency documented as of this encounter (statuses as of 04/08/2024) Resolved Problems Problem Noted Date Diagnosed Date [...] the Treatment of Subjects with de navya [place] Coronary Artery Lesions. Diagnosis changed due to Research Module. Go to Snapshot for study details. CAD in [place] artery 03/29/2015 018 Exercise-induced angina 03/29/2015 12/01/2018 Mixed dyslipidemia 5 Myalgia and myositis 015 [...] as of this encounter (statuses as of 04/08/2024) Immunizations Name Administration Dates Next Due COVID-19 mRNA, LNP-s, No Pre serve, 2-Dose Series ([employer]) 05/07/2021,10/25/2020,09/27/2020 COVID-19, LNP-s, No Preserve , Mamadou-sucrose, [...] encounter Miscellaneous Notes * Telephone Encounter - Rafal Thomason OSA - 04/08/2024 8:16 AM EDT Referral -[id number]- F/u Order update requested via portal. F/u scheduled Thursday. documented in this encounter Plan of Treatment Upcoming Encounters Date Type Department Care Team (Late st Contact Info) Description 04/11/2024 9:45 AM EDT Scheduled Telephone [facility] [place], [facility] [address] [facility] [place] [address] [facility] [address] [facility] [place] [address] 04/12/2024 1:30 PM EDT Office Visit Neurology [facility] [place] [address] [place] [address] Rosibel Banuelos PA-C [address] [place] [address] 04/18/2024 2:30 PM EDT Office Visit Nephrology [address] [place] [address] Jada Hammer PA-C [address] [place] [address] 05/13/2024 2:30 PM EDT Home Visit [facility]ah at [facility] 132 [facility] [place] [address] Lisseth Flores, RN 132 [facility] [place] [address] Health Maintenance Due Date Last Done Comments [...] Additional history exists CKD PHOS USE SMARTSET 85242 04/02/202403/14, 02/03/2022, 05/13/2021, Additional history exists HbA1c 08/20/2024 02/18/2024, 09/11, 04/02/2023, Additional history exists CKD HGB USE SMARTSET 63060 02/17/202502/17, 10/12/2023, 10/08/2023, Additional history exists Pneumococcal [...] Documents on File Type Date 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 No Care Teams Full Time Relationship Specialty Start Date End Date Hay Reza MD [address] [place] [address] [place] [phone] PCP - General Family Medicine 09/24/22 documented as of this encounter
--- OUTSIDE RECORDS SUMMARY | 2024-04-26 13:21 | External Medical Summary | Summary of Care ---
Author Name Unknown Organization [facility] Address [address] [place] [address] Phone [phone] Care Team Providers Care Ball Racker Name Role Phone Hay Reza MD Primary Care Provide r Reason for Visit * Reason Comments eRx-Medication Refill Encounter Details Date Type Department Care Team (Late st Contact Info) Description 03/02/2024 Refill Nephrology [address] [place] [address] Aida Keenan MD [address] [place] [address] Allergies Active Allergy Reactions Criticality Noted Date Comments Penicillins 12/04/1999 documented as of this encounter (statuses as of 03/03/2024) Medications Medication Sig Dispensed Refills Start Date [...] 04/07/2023 Active Pravastatin Sodium 80 MG Oral TabletIndications:H [...] at bedtime. 45 Tablet 1 02/29/2024 Active documented as of this encounter (statuses as of 03/03/2024) Active Problems Problem Noted Date Diagnosed Date [...] Assessment & Plan: Continue statin Atherosclerosis of [place] co ronary artery of [place] heart without angina pectoris HTN, goal below 140/90 History of tobacco abuse Vitamin B12 deficiency documented as of this encounter (statuses as of 03/03/2024) Resolved Problems Problem Noted Date Diagnosed Date [...] the Treatment of Subjects with de navya [place] Coronary Artery Lesions. Diagnosis changed due to Research Module. Go to Snapshot for study details. CAD in [place] artery 03/29/2015 018 Exercise-induced angina 03/29/201501/2018 Mixed [...] as of this encounter (statuses as of 03/03/2024) Immunizations Name Administration Dates Next Due COVID-19 mRNA, LNP-s, No Pre serve, 2-Dose Series ([employer]) 05/07/2021,10/25/2020,09/27/2020 COVID-19, LNP-s, No Preserve , Mamadou-sucrose, Ages 12+ ([employer]) 10/22/2021 Influenza, Whole Virus 06/11/1994,05/20/1993 Pneumococcal Conjugate [...] encounter Miscellaneous Notes * Telephone Encounter - Tsering Reyes CPhT - 03/03/2024 11:37 AM EDT Pharmacy calling in regarding refill. Advised of messages above. Thank you, Tsering Reyes CPhT Fermentologist II [facility] 03/03/2024, 11:37 AM * Telephone Encounter - Nicholas Cosby CPhT - 03/03/2024 11:34 AM EDT Pharmacy calling for a refill on Isosorbide. This was last prescribed by Nephrology. Transferred tospecialty refill line. Thank you, Nicholas Cosby Sap Director [facility] ([facility]) 03/03/2024,11:34 AM * Telephone Encounter - Simi Lieberman RN - 03/02/2024 12:23 PM EDTRefused Prescriptions: Disp Refills Isosorbide Mononitrate ER 30 MG Oral Table*30 Tab*5 Sig: TAKE ONE TABLET IN THE MORNING Refused By: SIMI LIEBERMAN Reason for Refusal: Managed by another physician * Telephone Encounter - Simi Lieberman RN - 03/02/2024 12:23 PM EDT Discontinued documented in this encounter Plan of Treatment Upcoming Encounters Date Type Department Care Team (Late st Contact Info) Description 03/18/2024 1:00 PM EDT Nurse Only Ancillary [address] [place] [address] [place], Nurse [address] [place] [address] 04/04/2024 2:30 PM EDT Home Visit isinger at [place], [facility] [address] [place] [address] Lisseth Flores, RN [address] [place] [address] 04/12/2024 1:30 PM EDT Office Visit Neurology [facility] 200 [facility] [place] [address] Rosibel Banuelos PA-C [facility] [place] [address] 04/18/2024 2:30 PM EDT Office Visit Nephrology [address] [place] [address] ZemaJada reyes PA-C [address] [place] [address] Health Maintenance Due Date Last Done Comments [...] Additional history exists CKD PHOS USE SMARTSET 77616 04/02/202403/14, 02/03/2022, 05/13/2021, Additional history exists HbA1c 08/20/2024 02/18/2024, 09/11, 04/02/2023, Additional history exists CKD HGB USE SMARTSET 88478 02/17/202502/17, 10/12/2023, 10/08/2023, Additional history exists Pneumococcal [...] Documents on File Type Date Recorded 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 No Care Teams Ball Racker Relationship Specialty Start Date End Date Hay Reza MD [address] [place] [address] [place] [address] PCP - General Family Medicine 09/24/22 documented as of this encounter
--- OUTSIDE RECORDS SUMMARY | 2024-04-26 13:21 | External Medical Summary | Summary of Care ---
Author Name Unknown Organization [facility] Address [address] [place] [address] Phone [phone] Care Team Providers Care Principal Consultant Name Role Phone Hay Reza MD Primary Care Provide r Reason for Visit * Reason Onset Date Comments Information 04/11/2024 Encounter Details Date Type Department Care Team (Late st Contact Info) Description 04/11/2024 9:45 AM EDT Scheduled Telephone [facility] 132 [facility] [place] [address] Coordinator, [facility] 132 [facility] [place] [address] Allergies Active Allergy Reactions Criticality Noted Date Comments Penicillins 12/04/1999 documented as of this encounter (statuses as of 04/11/2024) Medications Medication Sig Dispensed Refills Start Date [...] as of this encounter (statuses as of 04/11/2024) Active Problems Problem Noted Date Diagnosed Date [...] Assessment & Plan: Continue statin Atherosclerosis of [place] co ronary artery of [place] heart without angina pectoris HTN, goal below 140/90 History of tobacco abuse Vitamin B12 deficiency documented as of this encounter (statuses as of 04/11/2024) Resolved Problems Problem Noted Date Diagnosed Date [...] the Treatment of Subjects with de navya [place] Coronary Artery Lesions. Diagnosis changed due to Research Module. Go to Snapshot for study details. CAD in [place] artery 03/29/2015 018 Exercise-induced angina 03/29/201501/2018 Mixed [...] as of this encounter (statuses as of 04/11/2024) Immunizations Name Administration Dates Next Due COVID-19 mRNA, LNP-s, No Pre serve, 2-Dose Series ([employer]) 05/07/2021,10/25/2020,09/27/2020 COVID-19, LNP-s, No Preserve , Mamadou-sucrose, [...] 3:03 PM EDT Sexual Orientation Straight 03/11/2021 3 :03 PM EDT Job Start Date Occupation Industry Not on file Not on file Not on file documented as of this encounter Miscellaneous Notes * Telephone Encounter - Alfredo Gant OSA - 04/11/2024 4:46 PM EDT DME order Referral -[id number] Adult diapers/briefs - size XL Disposable underpads - large Spoke with [employer] - supplier matched on [facility] - they accepted order just today and still working on it. Scheduled a follow up call for tomorrow. documented in this encounter Plan of Treatment Upcoming Encounters Date Type Department Care Team (Late st Contact Info) Description 04/12/2024 1:15 PM EDT Scheduled Telephone ising at [place], [facility] 132 [facility] [place] [address] Coordinator, [facility] [address] [place] [address] 04/12/2024 1:30 PM EDT Office Visit Neurology [facility] [place] [address] [place] [address] Rosibel Banuelos PA-C [address] [place] [address] 04/18/2024 2:30 PM EDT Office Visit Nephrology [address] [place] [address] Jada Hammer PA-C [address] [place] [address] 05/13/2024 2:30 PM EDT Home Visit Jonah at [place], [facility] 132 [facility] [place] [address] Lisseth Flores, ALON 132 [facility] [place] [address] Health Maintenance Due Date Last Done Comments [...] Additional history exists CKD PHOS USE SMARTSET 95294 04/02/202403/14, 02/03/2022, 05/13/2021, Additional history exists HbA1c 08/20/2024 02/18/2024, 09/11, 04/02/2023, Additional history exists CKD HGB USE SMARTSET 81000 02/17/202502/17, 10/12/2023, 10/08/2023, Additional history exists Pneumococcal [...] Documents on File Type Date Recorded Patient Pharm [employer] PAVON 11/22/2019 1:00 PM Out-of-Hos pital [...] Power of Attor sesar? No Care Teams Principal Consultant Relationship Specialty Start Date End Date Hay Reza MD [address] [place] [address] [place] [address] PCP - General Family Medicine 09/24/22 documented as of this encounter
--- OUTSIDE RECORDS SUMMARY | 2024-04-26 13:21 | External Medical Summary | Summary of Care ---
Author Name Unknown Organization [facility] Address [address] [place] [address] Phone [phone] Care Team Providers Care Psychiatric Nursing Assistant Name Role Phone Hay Reza MD Primary Care Provide r Reason for Visit * Reason Comments eRx-Medication Refill Encounter Details Date Type Department Care Team (Late st Contact Info) Description 03/02/2024 Refill Nephrology [address] [place] [address] Aida Keenan MD [address] [place] [address] Allergies Active Allergy Reactions Criticality Noted Date [...] Assessment & Plan: Continue statin Atherosclerosis of the [place] co ronary artery of [place] heart without angina pectoris HTN, [...] the Treatment of Subjects with de navya [place] Coronary Artery Lesions. Diagnosis changed due to Research Module. Go to Snapshot for study details. CAD in the [place] artery 03/29/2015 018 Exercise-induced angina [...] mRNA, LNP-s, No Pre serve, 2-Dose Series ([employer]) 05/07/2021,10/25/2020,09/27/2020 COVID-19, LNP-s, No Preserve , Mamadou-sucrose, Ages 12+ ([employer]) 10/22/2021 Influenza, Whole Virus 06/11/1994,05/20/1993 Pneumococcal Conjugate [...] messages above. Thank you, Tsering Reyes CPhT Correctional Case Records Supervisor II [facility] 03/03/2024, 11:37 AM * Telephone Encounter - Nicholas Cosby CPhT - 03/03/2024 11:34 AM EDT Pharmacy calling for a refill on Isosorbide. This was last prescribed by Nephrology. Transferred tospecialty refill line. Thank you, Nicholas Cosby Screw Driver Operator [facility]) 03/03/2024,11:34 AM [...] 03/18/2024 1:00 PM EDT Nurse Only Ancillary [address] [place] [address] [place], Nurse [address] [place] [address] 04/04/2024 2:30 PM EDT Home Visit isinger at [place], [facility] [address] [place] [address] Lisseth Flores, RN 132 [place] [address] 04/12/2024 1:30 PM EDT Office Visit Neurology [facility] 200 [facility] [place] [address] Rosibel Banuelos PA-C [facility] [place] [address] 04/18/2024 2:30 PM EDT Office Visit Nephrology [address] [place] [address] ZemaJada reyes PA-C [address] [place] [address] Health Maintenance Due Date Last Done Comments [...] Additional history exists CKD PHOS USE SMARTSET 93171 04/02/202403/14, 02/03/2022, 05/13/2021, Additional history exists HbA1c 08/20/2024 02/18/2024, 09/11, 04/02/2023, Additional history exists CKD HGB USE SMARTSET 22451 02/17/202502/17, 10/12/2023, 10/08/2023, Additional history exists Pneumococcal [...] Documents on File Type Date Recorded 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 No Care Teams Psychiatric Nursing Assistant Relationship Specialty Start Date End Date Hay Reza MD [address] [place] [address] [place] [address] PCP - General Family Medicine 09/24/22 documented as of this encounter
--- OUTSIDE RECORDS SUMMARY | 2024-04-26 13:21 | External Medical Summary | Summary of Care ---
Author Name Unknown Organization [facility] Address [address] [place] [address] Phone [phone] Care Team Providers Care Map Mounter Name Role Phone Hay Reza MD Primary Care Provide r Encounter Details Date Type Department Care Team (Late st Contact Info) Description 04/01/2024 2:30 PM EDT Home Visit [facility], [facility] 132 [facility] [place] [address] Lisseth Flores, RN 132 [facility] [place] [address] Allergies Active Allergy Reactions Criticality Noted Date Comments Penicillins 12/04/1999 documented as of this encounter (statuses as of 04/05/2024) Medications Medication Sig Dispensed Refills Start Date [...] as of this encounter (statuses as of 04/05/2024) Active Problems Problem Noted Date Diagnosed Date [...] Assessment & Plan: Continue statin Atherosclerosis 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 Diagnosis changed due to Research Module. Go to Snapshot for study details. CAD in [place] artery 03/29/2015 018 Exercise-induced angina 03/29/201501/2018 Mixed [...] as of this encounter (statuses as of 04/05/2024) Immunizations Name Administration Dates Next Due COVID-19 mRNA, LNP-s, No Pre serve, 2-Dose Series ([employer]) 05/07/2021,10/25/2020,09/27/2020 COVID-19, LNP-s, No Preserve , Mamadou-sucrose, [...] Sign Reading Time Taken Comments Blood Pressure 108/52 04/01/2024 2:32 PM EDT Pulse 80 04/01/2024 2:32 PM EDT Temperature 36.5 C (97.7 F) 04/01/2024 2:32 PM ED T Respiratory Rate 18 04/01/2024 2:32 PM EDT Oxygen Saturation 97% 04/01/2024 2:32 PM EDT Inhaled Oxygen Concentration - - Weight - - Height - - Body Mass Index - - documented in this encounter Progress Notes * Lisseth Flores RN - 04/01/2024 2:16 PM EDT Current Concerns: Patient seen for follow up- Parkinson's disease, CKD, DM Caregiver present for visit. Reports patient is doing well overall. VS wnl Lungs clear bilaterally No sob noted Voiding without difficulty- incontinence noted Bowels wnl Appetite fair-poor- is taking protein drinks daily Patient not a candidate for nurses aide referral- SOBOBA- forgetful, caregiver reports patient has been eating better. Taking fluids well Denies discomfort. Physical Exam: Physical Exam Constitutional: Appearance: Normal appearance. Cardiovascular: Rate and Rhythm: Normal rate and regular rhythm. Pulses: Normal pulses. Pulmonary: Effort: Pulmonary effort is normal. Breath sounds: Normal breath sounds. Abdominal: General: Bowel sounds are normal. Palpations: Abdomen is soft. Musculoskeletal: General: Normal range of motion. Skin: General: Skin is warm and dry. Capillary Refill: Capillary refill takes 2 to 3 seconds. Neurological: Mental Status: He is alert. Mental status is at baseline. Psychiatric: Mood and Affect: Mood normal. Behavior: Behavior normal. Review of Systems: Review of Systems Constitutional: Negative. HENT: Negative. Respiratory: Negative. Genitourinary: Negative. Musculoskeletal: Positive for gait problem. Hematological: Negative. Psychiatric/Behavioral: Negative. Care Plan Goal Progress: Patient will maintain adequate nutritional intake. (Progressing) Start: 04/05/24 Expected End: 07/04/24 Orders Placed: No orders of the defined types were placed in this encounter. Medications Given: Care Gaps: Care Gaps Care gaps closed this contact:: Education (04/01/24 8202) documented in this encounter Plan of Treatment Upcoming Encounters Date Type Department Care Team (Late st Contact Info) Description 04/12/2024 1:30 PM EDT [facility] 200 [facility] [place] [address] Rosibel Banuelos PA-C 21 [place] [address] 04/18/2024 2:30 PM EDT Office Visit Nephrology [address] [place] [address] Jada Hammer PA-C [address] [place] [address] 05/13/2024 2:30 PM EDT [facility], [facility] [place] [address] Lisseth Flores, RN [address] [place] [address] Health Maintenance Due Date Last Done Comments [...] Additional history exists CKD PHOS USE SMARTSET 88305 04/02/202403/14, 02/03/2022, 05/13/2021, Additional history exists HbA1c 08/20/2024 02/18/2024, 09/11, 04/02/2023, Additional history exists CKD HGB USE SMARTSET 23601 02/17/202502/17, 10/12/2023, 10/08/2023, Additional history exists Pneumococcal [...] Documents on File Type Date Recorded 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 No Care Teams Map Mounter Relationship Specialty Start Date End Date Hay Reza MD [address] [place] [address] [place] [address] PCP - General Family Medicine 09/24/22 documented as of this encounter
--- OUTSIDE RECORDS SUMMARY | 2024-04-26 13:21 | External Medical Summary | Summary of Care ---
Author Name Unknown Organization [facility] Address [address] [place] [address] Phone [phone] Care Team Providers Care Kraft Mill Operator Name Role Phone Hay Reza MD Primary Care Provide r Reason for Visit * Reason Comments eRx-Medication Refill Encounter Details Date Type Department Care Team (Late st Contact Info) Description 03/25/2024 Refill Family Medicine [address] [phone] Curtis Brown PA-C [address] [place] [address] [place] [address] Hyperlipidemia with target LDL less than 100 Allergies Active Allergy Reactions Criticality Noted Date Comments Penicillins 12/04/1999 documented as of this encounter (statuses as of 03/28/2024) Medications Medication Sig Dispensed Refills Start Date [...] 02/29/2024 Active Pravastatin Sodium 80 MG Oral TabletIndications :Hyperlipidemia with target LDL less than 100 TAKE ONE TABLET BY MOUTH AT BEDTIME 28 Tablet 5 03/28/2024 Active Aspirin Low Dose 81 MG Oral Tablet Delayed Release (aspirin enteric coated) TAKE ONE TABLET EVERY DAY 28 Tablet 5 03/26/2024 Active Pravastatin Sodium 80 MG Oral TabletIndications :Hyperlipidemia with target LDL less than 100 TAKE ONE TABLET AT BEDTIME 28 Tablet 5 08/21/2023 4 Discontinued documented as of this encounter (statuses as of 03/28/2024) Active Problems Problem Noted Date Diagnosed Date [...] Assessment & Plan: Continue statin Atherosclerosis of [place] ronary artery of [place] heart without angina pectoris HTN, goal below 140/90 History of tobacco abuse Vitamin B12 deficiency documented as of this encounter (statuses as of 03/28/2024) Resolved Problems Problem Noted Date Diagnosed Date [...] the Treatment of Subjects with de navya [place] Coronary Artery Lesions. Diagnosis changed due to Research Module. Go to Snapshot for study details. CAD in [place] artery 03/29/2015 018 Exercise-induced angina 03/29/2015 12/01/2018 [...] as of this encounter (statuses as of 03/28/2024) Immunizations Name Administration Dates Next Due COVID-19 mRNA, LNP-s, No Pre serve, 2-Dose Series (Wiziva) 05/07/2021,10/25/2020,09/27/2020 COVID-19, LNP-s, No Preserve , Mamadou-sucrose, [...] encounter Miscellaneous Notes * Telephone Encounter - Cari Solis [facility] - 03/28/2024 10:24 AM EDTSigned Prescriptions: Disp Refills Pravastatin Sodium 80 MG Oral Tablet 28 Tab*5 Sig: TAKE ONE TABLET BY MOUTH AT BEDTIMEAuthorizing Provider: CURTIS BROWN User: CARI SOLIS--------- documented in this encounter Plan of Treatment Upcoming Encounters Date Type Department Care Team (Late st Contact Info) Description 04/04/2024 2:30 PM EDT Home Visit [facility]ah at [facility] [address] [place] [address] Lisseth Flores, RN [address] [place] [address] 04/12/2024 1:30 PM EDT Office Visit Neurology [facility] [place] [address] [facility] [place] [address] Rosibel Banuelos PA-C [address] [place] [address] 04/18/2024 2:30 PM EDT Office Visit Nephrology [address] [place] [address] ZeJada renee PA-C 200 [facility] [place] [address] Health Maintenance Due Date Last Done Comments [...] Additional history exists CKD PHOS USE SMARTSET 77777 04/02/202403/14, 02/03/2022, 05/13/2021, Additional history exists HbA1c 08/20/2024 02/18/2024, 09/11, 04/02/2023, Additional history exists CKD HGB USE SMARTSET 53177 02/17/202502/17, 10/12/2023, 10/08/2023, Additional history exists Pneumococcal [...] as of this encounter Visit Diagnoses Diagnosis Hyperlipidemia with target LDL less than 100 Other and unspecified hyperlipidemia documented in this encounter Advance Directives Documents on File Type Date Recorded 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 No Care Teams Kraft Mill Operator Relationship Specialty Start Date End Date Hay Reza MD [address] [place] [address] [place] [phone] PCP - General Family Medicine 09/24/22 documented as of this encounter
--- OUTSIDE RECORDS SUMMARY | 2024-04-26 13:21 | External Medical Summary | Summary of Care ---
Author Name Unknown Organization [facility] Address [address] [place] [address] Phone [phone] Care Team Providers Care Beef Boner Name Role Phone Hay Reza MD Primary Care Provide r Reason for Visit * Reason Comments eRx-Medication Refill Encounter Details Date Type Department Care Team (Late st Contact Info) Description 03/25/2024 Refill Family Medicine [address] [place] [address] Hay Reza MD [address] [place] [address] [place] [address] Allergies Active Allergy Reactions Criticality Noted Date Comments Penicillins 12/04/1999 documented as of this encounter (statuses as of 03/26/2024) Medications Medication Sig Dispensed Refills Start Date [...] AT BEDTIME 28 Tablet 5 08/21/2023 Active Stool Softener 100 MG Oral Tablet [...] at bedtime. 45 Tablet 1 02/29/2024 Active Aspirin Low Dose 81 MG Oral Tablet Delayed Release (aspirin enteric coated) TAKE ONE TABLET EVERY DAY 28 Tablet 5 03/26/2024 Active Aspirin Low Dose 81 MG Oral Tablet Delayed Release (aspirin enteric coated) TAKE ONE TABLET BY MOUTH EVERY DAY 28 Tablet 5 08/24/2023 4 Discontinued documented as of this encounter (statuses as of 03/26/2024) Active Problems Problem Noted Date Diagnosed Date [...] Assessment & Plan: Continue statin Atherosclerosis of [place] co ronary artery of [place] heart without angina pectoris HTN, goal below 140/90 History of tobacco abuse Vitamin B12 deficiency documented as of this encounter (statuses as of 03/26/2024) Resolved Problems Problem Noted Date Diagnosed Date [...] the Treatment of Subjects with de navya [place] Coronary Artery Lesions. Diagnosis changed due to Research Module. Go to Snapshot for study details. CAD in [place] artery 03/29/2015 018 Exercise-induced angina 03/29/2015 1201/2018 [...] as of this encounter (statuses as of 03/26/2024) Immunizations Name Administration Dates Next Due COVID-19 mRNA, LNP-s, No Pre serve, 2-Dose Series (Latio) 05/07/2021,10/25/2020,09/27/2020 COVID-19, LNP-s, No Preserve , Mamadou-sucrose, [...] encounter Miscellaneous Notes * Telephone Encounter - Rustam Muller, [facility] - 03/26/2024 12:02 PM EDTSigned Prescriptions: Disp Refills Aspirin Low Dose 81 MG Oral Tablet Delayed*28 Tab*5 Sig: TAKE ONE TABLET EVERY DAYAuthorizing Provider: Ale REZA User: RUSTAM MULLER documented in this encounter Plan of Treatment Upcoming Encounters Date Type Department Care Team (Late st Contact Info) Description 04/04/2024 2:30 PM EDT Home Visit Jonah at [facility] [address] [place] [address] Lisseth Flores, RN [address] [place] [address] 04/12/2024 1:30 PM EDT Office Visit [facility] [place] [address] Rosibel Banuelos PA-C [address] [place] [address] 04/18/2024 2:30 PM EDT Office Visit Nephrology [address] [place] [address] ZemaJada reyes PA-C 200 [facility] [place] [address] Health Maintenance Due Date Last Done Comments DTap/Tdap Vaccines (1 - Tdap) 1954 Zoster Vaccines (2 of 3) 09/07/2004 07/13/2004 Diabetic Eye Exam 05/10/2021 05/10/2020, , 03/17/2019, Additional history exists COVID-19 Vaccine (2022- season) 2024 10/22/2021, 05/07/2021, 10/25/2020, Additional history exists Influenza Vaccine (FLU shot) (#1) 2024 03/17/2023, 04/30/2022, 05/13/2021, Additional history exists Adult Wellness Visit 03/17/2024 03/17/2023, 03/12/2022, 03/11/2021 Depression Screening 03/17/2024 03/17/2023 Diabetic Foot Exam 03/17/2024 03/17/2023, 0 03/12/2022, 03/11/2021, Additional history exists Albumin/Creatinine Ratio 04/02/2024 023, 09/30/2022, 09/04/2021, Additional history exists CKD PHOS USE SMARTSET 06939 04/02/202403/14, 02/03/2022, 05/13/2021, Additional history exists HbA1c 08/20/2024 02/18/2024, 09/11, 04/02/2023, Additional history exists CKD HGB USE SMARTSET 14244 02/17/202502/17, 10/12/2023, 10/08/2023, Additional history exists Pneumococcal [...] Documents on File Type Date Recorded Patient Visual Specialist America PAVON 11/22/2019 1:00 PM Out-of-Hos pital [...] Power of Attor sesar? No Care Teams Beef Boner Relationship Specialty Start Date End Date Hay Reza MD [address] [place] [address] [place] [phone] PCP - General Family Medicine 09/24/22 documented as of this encounter
--- OUTSIDE RECORDS SUMMARY | 2024-04-26 13:21 | External Medical Summary | Summary of Care ---
Author Name Unknown Organization [facility] Address [address] [place] [address] Phone [phone] Care Team Providers Care System Safety Engineer Name Role Phone Hay Reza MD Primary Care Provide r Reason for Visit * Reason Onset Date Comments [facility]: Maintenance 04/12/2024 Encounter Details Date Type Department Care Team (Late st Contact Info) Description 04/12/2024 1:15 PM EDT Scheduled Telephone [facility], [facility] [address] [facility] [place] [address] Coordinator, [facility] [address] [place] [address] Allergies Active Allergy Reactions Criticality Noted Date [...] Plan: Continue statin Atherosclerosis of [place] co ronary artery of [place] heart without angina pectoris HTN, goal below [...] the Treatment of Subjects with de navya [place] Coronary Artery Lesions. Diagnosis changed due to Research Module. Go to Snapshot for study details. CAD in [place] artery 03/29/2015 018 Exercise-induced angina 03/29/201501/2018 Mixed [...] mRNA, LNP-s, No Pre serve, 2-Dose Series (Sensorly) 05/07/2021,10/25/2020,09/27/2020 COVID-19, LNP-s, No Preserve , Mamadou-sucrose, [...] Telephone Encounter - Alfredo Gant [facility] - 04/12/2024 3:04 PM EDT DME order Referral [id number] Adult diapers/briefs - size XL Disposable underpads - large Spoke with [facility] - they need 1 to 2 days once they accept the order in order to process them. Will check back on . documented in this encounter Plan of Treatment Upcoming Encounters Date Type Department Care Team (Late st Contact Info) Description 04/14/2024 2:00 PM EDT Scheduled Telephone [facility] 132 [facility] [place] [address] Coordinator, [facility] [address] [facility] [place] [address] 04/18/2024 2:30 PM EDT Office Visit Nephrology [address] [place] [address] Jada Hammer PA-C 200 [facility] [place] [address] 05/13/2024 2:30 PM EDT [facility] Visit [facility] [address] [facility] [place] [address] Lisseth Flores, ALON [facility] [place] [address] 11/15/2024 2:30 PM EDT Office Visit Neurology [facility] 200 [facility] [place] [address] Rosibel Banuelos PA-C [address] [place] [address] Health Maintenance Due Date Last Done Comments [...] Additional history exists CKD PHOS USE SMARTSET 50194 04/02/202403/14, 02/03/2022, 05/13/2021, Additional history exists HbA1c 08/20/2024 02/18/2024, 09/11, 04/02/2023, Additional history exists CKD HGB USE SMARTSET 16221 02/17/202502/17, 10/12/2023, 10/08/2023, Additional history exists Pneumococcal [...] Documents on File Type Date Recorded Patient Carpentry Specialist America PAVON 11/22/2019 1:00 PM Out-of-Ho spital DNR * Full Code (Latest Code Status on File) Date Activated Date Inactivated Comments 04/02/2015 11:03 AM 04/03/2015 1:26 PM This order reflects the patients wishes and were consensually agreed upon. Question Answer Comments Discussion of Advance Directives occurred with: Not Discussed Does the patient have a Living Will? No Does the patient have Health Care Power of Attor sesar? No Care Teams System Safety Engineer Relationship Specialty Start Date End Date Hay Reza MD [address] [place] [address] [place] [address] PCP - General Family Medicine 09/24/22 documented as of this encounter
--- OUTSIDE RECORDS SUMMARY | 2024-04-26 13:22 | External Medical Summary ---
Author Name Unknown Address Unknown Organization K01:[facility] - [address] [facility] [address] Laboratory Report Ordering Provider Test Date Status NA CORREA 02/18/2024 14:44:54 Final Observation Date Value Abnormality Reference (Units ) Status WBC, Total 02/18/2024 14:44:54 9.46 4.00-10.80 (K/uL) Final RBC 02/18/2024 14:44:54 4.64 4.50-5.25 (M/uL) Final Hemoglobin 02/18/2024 14:44:54 13.4 Below low normal 14.0-16.8 (g/dL) Final HCT 02/18/2024 14:44:54 43.5 40.0-48.4 (%) Final MCV 02/18/2024 14:44:54 93.8 82.0-99.5 (fL) Final MCH 02/18/2024 14:44:54 28.9 27.0-34.0 (pg) Final MCHC 02/18/2024 14:44:54 30.8 32.0-36.0 (g/dL) Final RDW 02/18/2024 14:44:54 15.7 11.5-15.5 (%) Final Platelets 02/18/2024 14:44:54 388 140-400 (K/uL) Final MPV 02/18/2024 14:44:54 11.3 6.6-11.1 (fL) Final Nucleated erythrocytes/100 leukocytes [Ratio] in Blood by Automated count 02/18/2024 14:44:54 0 <=0 (/100 WBCs) Final Performing Location [facility] - [address] [facility] [address]
--- OUTSIDE RECORDS SUMMARY | 2024-04-26 13:22 | External Medical Summary | Summary of Care ---
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 60 Tablet 11 04/07/2023 Active Semaglutide 14 MG Oral Tablet (Rybelsus) Take 14 mg by mouth daily first thing in the morning. 90 Tablet 3 05/18/2023 Active Pravastatin Sodium 80 MG Oral TabletIndications:H [...] mouth daily. 90 Tablet 3 02/18/2024 Active Cetirizine HCl 10 MG Oral Tablet (ZyrTEC)Indications :Itching Take 0.5 Tablets by mouth every night at bedtime. 02/18/2024 Active documented as of this encounter (statuses as of 02/18/2024) Active Problems Problem Noted Date Diagnosed Date [...] Assessment & Plan: Continue statin Atherosclerosis of [place] co ronary artery of [place] heart without angina pectoris HTN, goal below 140/90 History of tobacco abuse Vitamin B12 deficiency documented as of this encounter (statuses as of 02/18/2024) Resolved Problems Problem Noted Date Diagnosed Date [...] the Treatment of Subjects with de navya [place] Coronary Artery Lesions. Diagnosis changed due to Research Module. Go to Snapshot for study details. CAD in [place] artery 03/29/2015 018 Exercise-induced angina 03/29/201501/2018 Mixed [...] as of this encounter (statuses as of 02/18/2024) Immunizations Name Administration Dates Next Due COVID-19 mRNA, LNP-s, No Pre serve, 2-Dose Series ([employer] Merchant) 05/07/2021,10/25/2020,09/27/2020 COVID-19, LNP-s, No Preserve , Mamadou-sucrose, [...] Tobacco: Former Cigarettes 1 10 1 968 - 1977 Smokeless Tobacco: Never Alcohol Use Standard [...] Care Team (Late st Contact Info) Description 02/25/2024 1:30 PM EDT Office Visit Nephrology [address] [place] [address] Jada Hammer PA-C 200 [facility] [place] [address] 02/26/2024 10:00 AM EDT Home Visit [facility] [address] [place] [address] Lisseth Flores, RN [address] [place] [address] 03/18/2024 1:00 PM EDT Nurse Only Ancillary [address] [place] [address] [place], Nurse Annual Wellness [address] [place] [address] [place] [address] 04/12/2024 1:30 PM EDT [facility] [address] [facility] [place] [address] Rosibel Banuelos PA-C [address] [place] [address] Pending Results Name Type Priority Associated Diagnoses Date /Time CBC Lab Routine Iron deficiency anemia, unspecified iron deficiency anemia type 02/18/2024 2:44 PM EDT COMPREHENSIVE METABOLIC PANEL Lab Routine Iron deficiency anemia, unspecified iron deficiency anemia type 02/18/2024 2:44 PM EDT IRON SCREEN, INCLUDING TIBC Lab Routine Iron deficiency anemia, unspecified iron deficiency anemia type 02/18/2024 2:44 PM EDT FERRITIN Lab Routine Iron deficiency anemia, unspecified iron deficiency anemia type 02/18/2024 2:44 PM EDT Health Maintenance Due Date Last Done Comments DTaP,Tdap,and Td Vaccines (1 - Tdap) 1954 Zoster Vaccines (2 of 3) 09/07/2004 07/13/2004 Diabetic Eye Exam 05/10/2021 05/10/2020, , 03/17/2019, Additional history exists COVID-19 Vaccine (2022- season) 2023 10/22/2021, 05/07/2021, 10/25/2020, Additional history exists Influenza Vaccine (FLU shot) (#1) 2024 03/17/2023, 04/30/2022, 05/13/2021, Additional history exists Adult Wellness Visit 03/17/2024 03/17/2023, 03/12/2022, 03/11/2021 Depression Screening 03/17/2024 03/17/2023 Diabetic Foot Exam 03/17/2024 03/17/2023, 0 03/12/2022, 03/11/2021, Additional history exists Albumin/Creatinine Ratio 04/02/2024 023, 09/30/2022, 09/04/2021, Additional history exists CKD PHOS USE SMARTSET 05512 04/02/202403/14, 02/03/2022, 05/13/2021, Additional history exists HbA1c 04/09/2024 10/08/2023, 03/14, 09/30/2022, Additional history exists CKD HGB USE SMARTSET 16020 10/11/202410/11, 10/08/2023, 10/08/2023, Additional history exists Pneumococcal Vaccine: 65+ [...] as of this encounter Visit Diagnoses Diagnosis 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 No Care Teams Fieldwork Coordinator Relationship Specialty Start Date End Date Hay Reza MD [address] [place] [address] [place] [phone] PCP - General Family Medicine 09/24/22 documented as of this encounter
--- OUTSIDE RECORDS SUMMARY | 2024-04-26 13:22 | External Medical Summary ---
Author Name Unknown Address Unknown Organization K01:[facility]ORY [facility] - [address] [place] [address] Laboratory Report Ordering Provider Test Date Status ANASTACIO CORREAO 02/18/2024 14:44:54 Final Observation Date Value Abnormality Reference (Units ) Status Ferritin 02/18/2024 14:44:54 358 30-400 (ng /mL) Final Performing Location [facility] - [address] [place] [address]
--- OUTSIDE RECORDS SUMMARY | 2024-04-26 13:22 | External Medical Summary | Summary of Care ---
Author Name Unknown Organization [facility] Address [address] [place] [address] Phone [phone] Care Team Providers Care Turf Manager Name Role Phone Hay Reza MD Primary Care Provide r Reason for Visit * Reason Comments eRx-Medication Refill Encounter Details Date Type Department Care Team (Late st Contact Info) Description 01/29/2024 Refill Neurology [facility] [address] [place], [place] [id number] Rosibel Banuelos PA-C [facility] [place] [address] Allergies Active Allergy Reactions Criticality Noted Date Comments Penicillins 12/04/1999 documented as of this encounter (statuses as of 01/30/2024) Medications Medication Sig Dispensed Refills Start Date [...] 05/18/2023 Active Pravastatin Sodium 80 MG Oral TabletIndications :Hyperlipidemia with target LDL less than 100 TAKE ONE TABLET AT BEDTIME 28 Tablet 5 08/21/2023 Active Aspirin Low Dose 81 MG Oral Tablet Delayed Release (aspirin enteric coated) TAKE ONE TABLET BY MOUTH EVERY DAY 28 Tablet 5 08/24/2023 Active Isosorbide Mononitrate ER 30 MG Oral Tablet Extended Release 24 Hour (Imdur) Take 1 Tablet by mouth in the morning. 30 Tablet 5 10/26/2023 Active Stool Softener 100 MG Oral Tablet (Docusate Sodium) Take 1 Tablet by mouth in the morning. Active Carbidopa-Levodop a ER 25-100 MG Oral Tablet Extended Release (Sinemet CR) Take 1 tablet at bedtime nightly 30 Tablet 5 11/19/2023 Active Cetirizine HCl 10 MG Oral Tablet (ZyrTEC)Indicatio ns:Itching TAKE ONE TABLET IN THE MORNING 30 Tablet 2 12/04/2023 Active Metoprolol Succinate ER 25 MG Oral Tablet Extended Release 24 Hour (toPROL XL)Indications:HT N, goal below 140/90 TAKE 1/2 TABLET EVERY DAY 45 Tablet 1 01/29/2024 Active Carbidopa-Levodop a 25-100 MG Oral Tablet (Sinemet) TAKE 1 TABLET BY MOUTH THREE TIMES A DAY 90 Tablet 5 01/30/2024 Active Carbidopa-Levodop a 25-100 MG Oral Tablet (Sinemet) Take 1 tablet twice daily x 5 days then increase to three times daily. 90 Tablet 3 10/20/2023 4 Discontinued documented as of this encounter (statuses as of 01/30/2024) Active Problems Problem Noted Date Diagnosed Date [...] Assessment & Plan: Continue statin Atherosclerosis of [place] co ronary artery of [place] heart without angina pectoris HTN, goal below 140/90 History of tobacco abuse Vitamin B12 deficiency documented as of this encounter (statuses as of 01/30/2024) Resolved Problems Problem Noted Date Diagnosed Date [...] the Treatment of Subjects with de navya [place] Coronary Artery Lesions. Diagnosis changed due to Research Module. Go to Snapshot for study details. CAD in [place] artery 03/29/2015 018 Exercise-induced angina 03/29/2015 12/0 [...] as of this encounter (statuses as of 01/30/2024) Immunizations Name Administration Dates Next Due COVID-19 mRNA, LNP-s, No Pre serve, 2-Dose Series ([employer]) 05/07/2021,10/25/2020,09/27/2020 COVID-19, LNP-s, No Preserve , Mamadou-sucrose, Ages 12+ ([employer]) 10/22/2021 Pneumococcal Conjugate Vacc, 13 Valent (Prevnar) [...] encounter Miscellaneous Notes * Telephone Encounter - Kelvin Mueller, [facility] ED - 01/30/2024 10:09 AM EDTSigned Prescriptions: Disp Refills Carbidopa-Levodopa 25-100 MG Oral Tablet (*90 Tab*5 Sig: TAKE 1TABLET BY MOUTH THREE TIMES A DAYAuthorizing Provider: Norbert BANUELOS User: KELVIN MUELLER * Telephone Encounter - Anais Clement two - 01/30/2024 4:39 AM EDTPending Prescriptions: Disp Refills Carbidopa-Levodopa 25-100 MG Oral Tablet [*90 Tab*3 Sig: TAKE 1 TABLET BY MOUTH THREE TIMES A DAY * Telephone Encounter - Anais Clement - 01/30/2024 4:37 AM EDT Did you pend patient's preferred pharmacy and medication before forwarding?yes [facility], [address] [place] Pending Prescriptions: Disp Refills Carbidopa-Levodopa 25-100 MG Oral Tablet *90 Tab*3 Sig: TAKE 1 TABLET BY MOUTH THREE TIMES A DAY Last Visit: 11/19/2023 (in office), Visit date not found (telemedicine) Next Visit: 04/12/2024 If no future appointments scheduled, and last appointment is greater than a year ago, please schedule patient for a follow-up appointment Last date the medication was ordered: 10/20/2023 Is this request for a controlled substance?No Urine Drug Screen:No results found for this or any previous visit. Patient Phone Numbers Labs: Lab Results Component Value Date/Time CREAT 1.7 (H) 10/12/2023 02:30 PM CREAT 1.6 (H) 07/27/2020 09:21 AM POTASSIUM 4.6 10/12/2023 02:30 PM POTASSIUM 4.5 07/27/2020 09:21 AM TSH 2.35 10/08/2023 10:02 AM TSH 2.05 01/18/2020 11:09 AM LDLCALC 76 10/08/2023 10:02 AM LDLCALC 80 07/27/2020 09:21 AM LDLDIRECT 69 09/04/2021 03:24 PM LDLDIRECT NOT APPLICABLE 07/27/2020 09:21 AM ALT 15 10/08/2023 10:02 AM ALT 14 07/27/2020 09:21 AM HGBA1C 7.1 (H) 10/08/2023 10:02 AM HGBA1C 12.5 (H) 07/27/2020 09:21 AM documented in this encounter Plan of Treatment Upcoming Encounters Date Type Department Care Team (Late st Contact Info) Description 02/18/2024 2:00 PM EDT Office Visit Cardiology [address] [place] [address] Wilfrid Cai PADixonC [address] [facility] [place] [address] 02/26/2024 10:00 AM EDT Home Visit [facility] [address] [facility] [place] [address] Lisseth Flores, RN [address] [facility] [place] [address] 03/18/2024 1:00 PM EDT Nurse Only Ancillary [address] [place] [address] [place], Nurse [address] [place] [address] 04/12/2024 1:30 PM EDT Office Visit Neurology [facility] [place] [address] [facility] [place] [address] Rosibel Banuelos PANick [facility] [place] [phone] 07/26/2024 2:30 PM EST Office Visit Nephrology [address] [place] [address] Jada Hammer PA-C [address] [place] [address] Health Maintenance Due Date Last Done Comments DTaP,Tdap,and Td Vaccines (1 - Tdap) 1954 Zoster Vaccines (2 of 3) 09/07/2004 07/13/2004 Diabetic Eye Exam 05/10/2021 05/10/2020, , 03/17/2019, Additional history exists COVID-19 Vaccine ( season) 2023 10/22/2021, 05/07/2021, 10/25/2020, Additional history exists Influenza Vaccine (FLU shot) (#1) 2024 03/17/2023, 04/30/2022, 05/13/2021, Additional history exists Depression Screening 03/17/2024 03/17/2023 Diabetic Foot Exam 03/17/2024 03/17/2023, 0 03/12/2022, 03/11/2021, Additional history exists Albumin/Creatinine Ratio 04/02/2024 023, 09/30/2022, 09/04/2021, Additional history exists CKD PHOS USE SMARTSET 23127 04/02/202403/14, 02/03/2022, 05/13/2021, Additional history exists HbA1c 04/09/2024 10/08/2023, 03/14, 09/30/2022, Additional history exists CKD HGB USE SMARTSET 72004 10/11/202410/11, 10/08/2023, 10/08/2023, Additional history exists Pneumococcal [...] Documents on File Type Date Recorded Patient Sack Maker Expl anatipneda POLST 11/22/2019 1:00 PM Out-of-Hos pital DNR [...] Power of Attor sesar? No Care Teams Turf Manager Relationship Specialty Start Date End Date Hay Reza MD [address] [place] [address] [place] [phone] PCP - General Family Medicine 09/24/22 documented as of this encounter
--- OUTSIDE RECORDS SUMMARY | 2024-04-26 13:22 | External Medical Summary | Summary of Care ---
Author Name Unknown Organization [facility] Address [address] [place] [address] Phone [phone] Care Team Providers Care Mechanical Service Technician Name Role Phone Hay Reza MD Primary Care Provide r Reason for Visit * Reason Onset Date Comments Advice 02/19/2024 Encounter Details Date Type Department Care Team (Late st Contact Info) Description 02/19/2024 Telephone Family Medicine [address] [phone] Hay Reza MD [address] [place], [place] [address] [phone] Advice Allergies Active Allergy Reactions Criticality Noted Date Comments Penicillins 12/04/1999 documented as of this encounter (statuses as of 02/19/2024) Medications Medication Sig Dispensed Refills Start Date [...] mouth every night at bedtime. 02/18/2024 Active Semaglutide 7 MG Oral Tablet (Rybelsus)Indicat ions:Type 2 diabetes mellitus with hemoglobin A1c goal of less than 8.0% (HCC) Take 7 mg by mouth daily first thing in the morning. 90 Tablet 1 02/19/2024 Active Semaglutide 14 MG Oral Tablet (Rybelsus) Take 14 mg by mouth daily first thing in the morning. 90 Tablet 3 05/18/2023 4 Discontinued documented as of this encounter (statuses as of 02/19/2024) Active Problems Problem Noted Date Diagnosed Date [...] as of this encounter (statuses as of 02/19/2024) Resolved Problems Problem Noted Date Diagnosed Date [...] the Treatment of Subjects with de navya [place] Coronary Artery Lesions. Diagnosis changed due to [...] as of this encounter (statuses as of 02/19/2024) Immunizations Name Administration Dates Next Due COVID-19 mRNA, LNP-s, No Pre serve, 2-Dose Series ([employer]) 05/07/2021,10/25/2020,09/27/2020 COVID-19, LNP-s, No Preserve , Mamadou-sucrose, [...] encounter Miscellaneous Notes * Telephone Encounter - Hay Reza MD - 02/19/2024 11:43 AM EDT Yes I agree - his recent A1C was 5.7 Pls inform the pt Your diabetic lab is very good - good job! - therefore I decreased the diabetic medication (Rybelsus) to 7mg daily - repeat A1C in 3 months * Telephone Encounter - Hay Reza MD - 02/19/2024 11:43 AM EDT ----- Message from Wilfrid Cai sent at 02/19/2024 6:46 AM EDT ----- ? Reduce Semaglutide (Rybelsus) dosing given GI symptoms and HgA1c - will defer to PCP documented in this encounter Plan of Treatment Upcoming Encounters Date Type Department Care Team (Late st Contact Info) Description 02/25/2024 1:30 PM EDT Office Visit Nephrology [address] [place] [address] Jada Hammer PA-C [address] [facility] [place] [phone] 02/26/2024 10:00 AM EDT Home Visit [facility] [address] [facility] [place] [address] Lisseth Flores, RN [facility] [place] [address] 03/18/2024 1:00 PM EDT Nurse Only Ancillary [address] [place] [address] [place], Nurse [address] [place] [address] 04/12/2024 1:30 PM EDT Office Visit Neurology [facility] [address] [facility] [place] [address] Rosibel Banuelos PA-C 21 [place] [address] Scheduled Orders Name Type Priority Associated Diagnoses Orde r Schedule HEMOGLOBIN A1C Lab Routine Type 2 diabetes mellitus with hemoglobin A1c goal of less than 8.0% (HCC) Expected: 05/21/2024, Expires: 02/18/2025 Health Maintenance Due Date Last Done Comments [...] Additional history exists CKD PHOS USE SMARTSET 46660 04/02/202403/14, 02/03/2022, 05/13/2021, Additional history exists HbA1c 08/20/2024 02/18/2024, 09/11, 04/02/2023, Additional history exists CKD HGB USE SMARTSET 41668 02/17/202502/17, 10/12/2023, 10/08/2023, Additional history exists Pneumococcal [...] as of this encounter Visit Diagnoses Diagnosis Type 2 diabetes mellitus with hemoglobin A1c goal of less than 8.0% (HCC)- Primary documented in this encounter Advance Directives Documents on File Type Date Recorded Patient Cdl Program Coordinator [place] PAVON 11/22/2019 1:00 PM Out-of-Hos pital [...] Power of Attor sesar? No Care Teams Mechanical Service Technician Relationship Specialty Start Date End Date Hay Reza MD [address] [place] [address] [place] [phone] PCP - General Family Medicine 09/24/22 documented as of this encounter
--- OUTSIDE RECORDS SUMMARY | 2024-04-26 13:22 | External Medical Summary | Summary of Care ---
Author Name Unknown Organization [facility] Address [address] [place] [address] Phone [phone] Care Team Providers Care Vice President Industrial Relations Name Role Phone Hay Reza MD Primary Care Provide r Reason for Visit * Reason Comments Follow Up Encounter Details Date Type Department Care Team (Late st Contact Info) Description 02/18/2024 2:00 PM EDT Office Visit Cardiology [address] [place] [address] Wilfrid Cai PA-C [address] [place] [address] Hypotension, unspecified hypotension type*; HTN, goal below 140/90; Atherosclerosis of paimiut coronary artery of paimiut heart without angina pectoris; S/P primary angioplasty with coronary stent; GAXIOLA (dyspnea on exertion); Iron deficiency anemia, unspecified iron deficiency anemia type; Itching; Type 2 diabetes mellitus with hemoglobin A1c goal of less than 8.0% ([facility]) Allergies Active Allergy Reactions Criticality Noted Date Comments Penicillins 12/04/1999 documented as of this encounter (statuses as of 02/21/2024) Medications Medication Sig Dispensed Refills Start Date [...] every night at bedtime. 02/18/2024 Active Semaglutide 14 MG Oral Tablet (Rybelsus) Take 14 mg by mouth daily first thing in the morning. 90 Tablet 3 05/18/2023 4 Discontinued Isosorbide Mononitrate ER 30 MG Oral Tablet Extended Release 24 Hour (Imdur) Take 1 Tablet by mouth in the morning. 30 Tablet 5 10/26/2023 4 Discontinued Cetirizine HCl 10 MG Oral Tablet (ZyrTEC)Indicatio ns:Itching TAKE ONE TABLET IN THE MORNING 30 Tablet 2 12/04/2023 4 Discontinued Metoprolol Succinate ER 25 MG Oral Tablet Extended Release 24 Hour (toPROL XL)Indications:HT N, goal below 140/90 TAKE 1/2 TABLET EVERY DAY 45 Tablet 1 01/29/2024 4 Discontinued documented as of this encounter (statuses as of 02/21/2024) Active Problems Problem Noted Date Diagnosed Date [...] Assessment & Plan: Continue statin Atherosclerosis of paimiut co ronary artery of paimiut heart without angina pectoris HTN, goal below 140/90 History of tobacco abuse Vitamin B12 deficiency documented as of this encounter (statuses as of 02/21/2024) Resolved Problems Problem Noted Date Diagnosed Date [...] the Treatment of Subjects with de navya Crow Coronary Artery Lesions. Diagnosis changed due to Research Module. Go to Snapshot for study details. CAD in paimiut artery 03/29/2015 018 Exercise-induced angina 03/29/2015 12/0 [...] as of this encounter (statuses as of 02/21/2024) Immunizations Name Administration Dates Next Due COVID-19 mRNA, LNP-s, No Pre serve, 2-Dose Series (Pfizer) 05/07/2021,10/25/2020,09/27/2020 COVID-19, LNP-s, No Preserve , Mamadou-sucrose, [...] Date Smoking Tobacco: Former Cigarettes 1 10 968 1977 Smokeless Tobacco: Never Alcohol Use [...] Sign Reading Time Taken Comments Blood Pressure 88/52 02/18/2024 2:03 PM EDT Pulse 96 02/18/2024 2:03 PM EDT Temperature - - Respiratory Rate 16 02/18/2024 2:03 PM EDT Oxygen Saturation - - Inhaled Oxygen Concentration - - Weight 60.3 kg (133 lb) 02/18/2024 2:03 PM EDT Height - - Body Mass Index 21.47 10/08/2023 2:14 PM EDT documented in this encounter Progress Notes * Wilfrid Cai PA-C - 02/18/2024 2:08 PM EDT History of Present Illness: Kishan Bourgeois is an 88-year-old male who presents today for cardiology follow-up. Patient last seen in this office in September of 2021 Accompanied by daughter Mariam ([phone]) Down 52 pounds since last cardiology evaluation, down 22 pounds since October according to daughter. Increased exertional dyspnea Concerned about hypotension Limited fluid intake noted No appetite reported. No chest pain. No palpitations No resting or nocturnal shortness of breath. No fluid retention. No syncope. No fevers or chills. Constipated. No melena, hematochezia, hematuria, or dysuria. Problem List: Chronic CAD s/p MARELY to LAD 04/02/2015, in setting of exertional angina and abnormal dobutamine stress echocardiography. Chronic atypical sharp chest pain, reproducible with palpation of the chest Dyslipidemia. Intolerance to both Crestor and Lipitor; tolerating 80 mg of pravastatin Hypertension Type II diabetes mellitus. CKD, stage III Carotid artery disease Sinus bradycardia, asymptomatic. Former tobacco abuse Parkinsonism Dementia Patient Active Problem List Diagnosis Atherosclerosis of paimiut coronary artery of paimiut heart without angina pectoris HTN, goal below [...] disease, without long-term current use of insulin ([facility]) Chronic kidney disease, stage 3b ([facility]) Review of patient's allergies indicates: Allergen Reactions Penicillins Current Outpatient Medications Medication Sig Dispense Refill Metoprolol Succinate ER 25 MG Oral Tablet Extended Release 24 Hour (toPROL XL) Take 1 Tablet by mouth daily. 90 Tablet 3 Cetirizine HCl 10 MG Oral Tablet (ZyrTEC) Take 0.5 Tablets by mouth every night at bedtime. Cyanocobalamin (VITAMIN B-12) 1000 MCG Tablet TAKE [...] 1 Tablet before bedtime. 60 Tablet 11 Semaglutide 14 MG Oral Tablet (Rybelsus) Take 14 mg by mouth daily first thing in the morning. 90 Tablet 3 Pravastatin Sodium 80 MG Oral Tablet TAKE ONE TABLET AT BEDTIME 28 Tablet 5 Aspirin Low Dose 81 MG Oral Tablet Delayed Release (aspirin enteric coated) TAKE ONE TABLET BY MOUTH EVERY DAY 28 Tablet 5 Stool Softener 100 MG Oral Tablet (Docusate Sodium) Take 1 Tablet by mouth in the morning. Carbidopa-Levodopa ER 25-100 MG Oral Tablet Extended Release (Sinemet CR) Take 1 tablet at bedtime nightly 30 Tablet 5 Carbidopa-Levodopa 25-100 MG Oral Tablet (Sinemet) TAKE 1 TABLET BY MOUTH THREE TIMES A DAY 90 Tablet 5 No current facility-administered medications for this visit. OBJECTIVE/PHYSICAL EXAMINATION: BP 88/52 | Pulse 96 | Resp 16 | Wt 60.3 kg (133 lb) | BMI 21.47 kg/m | BSA 1.68 m BP rechecked, verified above as accurate, equal in both arms Examined in a wheelchair General: NAD. HENT: Normocephalic. Atraumatic. Eyes: PER. Neck: Bilateral carotid bruits. No JVD. Heart: Distant heart sounds, regular at 90 bpm. Grade II/ systolic ejection murmur. Lungs: Diminished. Decreased. Dry crackles at the left base. No wheeze. Abdomen: +BS. Soft. Nontender. No masses or organomegaly. No abdominal bruits. Extremities: No clubbing, cyanosis, or edema. Pulses: Posterior tibial=1/4. Neuro: Parkinson type features Data: May 29, 2016 DSE Interpretation Summary (as per Dr. Shirley): Patient underwent complete restingechocardiogram 05/24/2016; report of that study was available at time of today's testing. The examination is adequate to evaluate the referral indication. The Dobutamine stress echo is negative for inducible ischemia. November 29, 2020 TTE Interpretation Summary (as per Dr. Shirley): The left ventricular cavity size is normal. The LV wall thickness is mildly increased (concentric). The left ventricular wall motion is normal. The qualitative LV ejection fraction is 60-64% (normal). The left ventricular diastolic function is mildly abnormal (grade I). The aortic valve is mildly calcified. Moderate aortic valve sclerosis is present. Aortic stenosis is absent. There is mild mitral annular calcification. There is focal thickening of the posterior mitral valve leaflet(s). October 2023 Carotid Duplex: Right carotid artery duplex examination indicates evidence of less than 50% stenosis of the internal carotid artery. Left carotid artery duplex examination indicates evidence of 50-69% stenosis of the internal carotid artery. February 18, 2024 EKG: Limited in technical quality, revealing normal sinus rhythm at 90 bpm, possibleleft atrial enlargement, nonspecific ST abnormality. Serum creatinine: 1.7 mg/dL (H) 10/12/23 1430 Estimated creatinine clearance: 26.6 mL/min (A) ASSESSMENT: Hypotension Suspected volume depletion ASCVD. Status post PCI in 2014. Dyslipidemia. Patient intolerant to rosuvastatin and atorvastatin. Tolerating pravastatin at 80 mg/day. LDL 76 mg/dL on October 08, 2023 Carotid artery disease Type II diabetes mellitus CKD - Followed by Nephrology Former tobacco abuse Parkinson's, dementia. RECOMMENDATIONS/PLAN: Options of management discussed with patient and daughter. Via shared decision- making, we will proceed as follows: Increase free water intake Discontinue isosorbide 30 mg/day Increase metoprolol succinate from 12.5 mg/day to 25 mg/day Decrease Zyrtec from 10 mg/day to 5 mg/day given creatinine clearance less than 30 mL/min. Laboratory work today, probable addition of low-dose oral iron replacement therapy discussed. Resting echocardiography considered and deferred ? Decrease Rybelsus dosing. Check HgA1c, defer to PCP. Cardiology follow-up in 2-3 months or as needed. ER with emergencies. Daughter Mariam ([phone]) to be contacted with any changes. Wilfrid Cai PA-C Department of Cardiology I spent a total of 40-54 minutes (exact time 41 mins) on the date of service in preparation, delivery, and documentation of the care provided to Kishan Bourgeois excluding any time spent in the performance of separately billed services. This visit involved medical care services related to at least one serious condition or complex condition requiring ongoing care. This chart was completed in part utilizing [email or web address] Speech Voice Recognition Software. Grammatical errors, random word insertions, prounoun errors, and incomplete sentences are an occasional consequence of this system due to software l imitations, ambient noise, and hardware issues. Any formal questions or concerns about the content,text, or information contained within the body of this dictation should be directly addressed to the provider for clarification. documented in this encounter Procedure Notes * Nakul Camacho MD - 02/18/2024 2:06 PM EDTAssociated Order(s): EKG REASON FOR STUDY: sob;sob CONCLUSIONS: Normal sinus rhythm ST abnormality, possible digitalis effect Abnormal ECG When compared with ECG of 30-May-2021 13:59, DE interval has decreased Ventricular Rate: 90 Atrial Rate: 90 DE Interval: 152 QRS Duration: 80 QT/QTc: 376/459 ms P-R-T [place]: 75 : 59 : 76 degrees documented in this encounter Nursing Notes * Karmen Hernández LPN - 02/18/2024 2:03 PM EDT Examination Room: 4 Name: Kishan Bourgeois Date of : 1935 Reason for Visit: Follow up Problems/Concerns: Concerned about low BP, with daughter Interim Hosp(s): Denies Chest Pain/SOB: denies MyChart Discussed: ALREADY ACTIVE Patient was instructed to not get up on the exam table until directed and assisted by their provider; patient is to remain seated in the chair/ wheelchair/ exam table for fall prevention and safety reasons. Patient is aware staff will assist stepping down off exam table with personnel. documented in this encounter Plan of Treatment Upcoming Encounters Date Type Department Care Team (Late st Contact Info) Description 02/25/2024 1:30 PM EDT Office Visit Nephrology [address] [place] [id number] Jada Hammer PA-C [address] [facility] [place] [phone] 02/26/2024 10:00 AM EDT Home Visit [facility] at [place] [address] [facility] [place] [phone] Lisseth Flores RN 132 [facility] [place] [phone] 03/18/2024 1:00 PM EDT Nurse Only Ancillary [address] [place] [address] Maliey, Nurse [address] [place] [address] 04/12/2024 1:30 PM EDT Office Visit Neurology [facility] [address] [facility] [place] [address] Rosibel Banuelos PA-C [address] [place] [address] Health Maintenance Due Date Last Done Comments [...] Additional history exists CKD PHOS USE SMARTSET 17026 04/02/2024 092 07/2022, 02/03/2022, 05/13/2021, Additional history exists HbA1c 08/20/2024 02/18/2024, 09/11, 04/02/2023, Additional history exists CKD HGB USE SMARTSET 08163 02/17/202502/17, 10/12/2023, 10/08/2023, Additional history exists Pneumococcal [...] Not on filedocumented as of this encounter Procedures Procedure Name Priority Date/Time Associated Diagnosis Comments DE ECG ROUTINE ECG W/LEAST 12 LDS W/I&R Routine 02/18/2024 2:06 PM EDT Atherosclerosis of paimiut coronary artery of paimiut heart without angina pectoris GAXIOLA (dyspnea on exertion) documented in this encounter Results * (ABNORMAL) HEMOGLOBIN A1C (02/18/2024 2:44 PM EDT) Hemoglobin A1C 5.7(H) 4.0 - 5.6 % 02/18/2024 11:54 PM EDT [facility] Comment:The use of HbA1c to monitor glycemic status is based on normal hemoglobin and HbA composition. This test should not be used in patients with abnormal hemoglobin that affects the half life of the red blood cell or the in vivo glycation rates. Estimated Average Glucose 117 <126 mg/dL 02/18/2024 11:54 PM EDT [facility] Blood Venous blood specimen / Unknown Venipuncture / Unknown 02/18/2024 2:44 PM EDT 02/18/2024 2:44 PM EDT Wilfrid Morelandmaryam CLARK-C LAB BLOOD ORDERABLE S Performing Organization Address City/[facility]/ZIP Co de Phone Number [facility] [address] [place] [address] * FERRITIN (02/18/2024 2:44 PM EDT) [facility] Ferritin 358 30 - 400 ng/mL 02/19/2024 12:42 AM EDT [facility] Blood Venous blood specimen / Unknown Venipuncture / Unknown 02/18/2024 2:44 PM EDT 02/18/2024 2:44 PM EDT Wilfrid Cai PA-C LAB BLOOD ORDERABLE S Performing Organization Address City/[facility]/ZIP Co de Phone Number [facility] [address] [place] [address] * (ABNORMAL) IRON SCREEN, INCLUDING TIBC (02/18/2024 2:44 PM EDT) [facility] Iron 49 45 - 176 ug/dL 02/19/2024 12:16 AM EDT [facility] Iron Binding Capacity 192(L) 250 - 425 ug/dL 02/19/2024 12:16 AM EDT [facility] Transferrin Saturation Percent 26 15 - 55 % 02/19/2024 12:16 AM EDT [facility] Blood Venous blood specimen / Unknown Venipuncture / Unknown 02/18/2024 2:44 PM EDT 02/18/2024 2:44 PM EDT Wilfrid Cai PA-C LAB BLOOD ORDERABLE S [facility] [address] [place] [address] * (ABNORMAL) COMPREHENSIVE METABOLIC PANEL (02/18/2024 2:44 PM EDT) BUN 19 6 - 20 mg/dL 02/19/2024 12:16 AM EDT [facility] Creatinine 1.4(H) 0.6 - 1.2 mg/dL 02/19/2024 12:16 AM EDT [facility] Estimated Glomerular Filtration Rate 50(L) >=60 mL/min 02/19/2024 12:16 AM EDT [facility] Comment:eGFR is calculated b ased on the CKD-EPI 2020 equation. Sodium 138 135 - 146 mmol/L 02/19/2024 12:16 AM EDT [facility] Potassium 3.9 3.5 - 5.1 mmol/L 02/19/2024 12:16 AM EDT [facility] Chloride 99 98 - 107 mmol/L 02/19/2024 12:16 AM EDT [facility] CO2 27 22 - 32 mmol/L 02/19/2024 12:16 AM EDT [facility] Anion Gap 12 7 - 15 mmol/L 02/19/2024 12:16 AM EDT [facility] Glucose 116 70 - 120 mg/dL 02/19/2024 12:16 AM EDT [facility] Albumin 3.2(L) 3.8 - 5.0 g/dL 02/19/2024 12:16 AM EDT [facility] AST 21 10 - 50 U/L 02/19/2024 12:16 AM EDT [facility] Alkaline Phosphatase 93 35 - 130 U/L 02/19/2024 12:16 AM EDT [facility] Bilirubin, Total 0.5 <=1.2 mg/dL 02/19/2024 12:16 AM EDT [facility] Calcium 9.2 8.4 - 10.2 mg/dL 02/19/2024 12:16 AM EDT [facility] Protein 6.7 6.0 - 8.3 g/dL 02/19/2024 12:16 AM EDT [facility] ALT <5(L) 10 - 50 U/L 02/19/2024 12:16 AM EDT [facility] Blood Venous blood specimen / Unknown Venipuncture / Unknown 02/18/2024 2:44 PM EDT 02/18/2024 2:44 PM EDT Wilfrid Cai PA-C LAB BLOOD ORDERABLE S [facility] [address], [place] [id number] * (ABNORMAL) CBC (02/18/2024 2:44 PM EDT) WBC 9.46 4.00 - 10.80 K/uL 02/18/2024 11:21 PM EDT [facility] RBC 4.64 4.50 - 5.25 M/uL 02/18/2024 11:21 PM EDT [facility] HGB 13.4(L) 14.0 - 16.8 g/dL 02/18/2024 11:21 PM EDT [facility] HCT 43.5 40.0 - 48.4 % 02/18/2024 11:21 PM EDT [facility] MCV 93.8 82.0 - 99.5 fL 02/18/2024 11:21 PM EDT [facility] MCH 28.9 27.0 - 34.0 pg 02/18/2024 11:21 PM EDT [facility] MCHC 30.8 32.0 - 36.0 g/dL 02/18/2024 11:21 PM EDT [facility] RDW 15.7 11.5 - 15.5 % 02/18/2024 11:21 PM EDT [facility] PLT 388 140 - 400 K/uL 02/18/2024 11:21 PM EDT [facility] MPV 11.3 6.6 - 11.1 fL 02/18/2024 11:21 PM EDT [facility] nRBCs 0 <=0 /100 WBCs 02/18/2024 11:21 PM EDT [facility] Blood Venous blood specimen / Unknown Venipuncture / Unknown 02/18/2024 2:44 PM EDT 02/18/2024 2:44 PM EDT Wilfrid Zeng Trell GONZALEZ LAB BLOOD ORDERABLE S [facility] [address] [place] [address] * EKG (02/18/2024 2:06 PM EDT) 02/18/2024 2:06 PM EDT Narrative Procedure Note Nakul Camacho MD - 02/18/2024 2:06 PM EDT REASON FOR STUDY: sob;sob CONCLUSIONS: Normal sinus rhythm ST abnormality, possible digitalis effect Abnormal ECG When compared with ECG of 30-May-2021 13:59, DE interval has decreased Ventricular Rate: 90 Atrial Rate: 90 DE Interval: 152 QRS Duration: 80 QT/QTc: 376/459 ms P-R-T [place]: 75 : 59 : 76 degrees Wilfrid Zeng Trlel GONZALEZ EKG Performing Organization Address [facility] Co de Phone Number [facility] documented in this encounter Visit Diagnoses Diagnosis Hypotension, unspecified hypotension type- Primary HTN, goal below 140/90 Unspecified essential hypertension Atherosclerosis of paimiut coronary artery of paimiut heart without angina pectoris S/P primary angioplasty with coronary stent Postsurgical percutaneous transluminal coronary angioplasty status GAXIOLA (dyspnea on exertion) Other dyspnea and respiratory abnormality Iron deficiency anemia, unspecified iron deficiency anemia type Itching Unspecified pruritic disorder Type 2 diabetes mellitus with hemoglobin A1c goal of less than 8.0% ([facility]) documented in this encounter Advance Directives Documents on File Type Date Recorded Patient Fresh Work Wrapper Layer Expl anation POLST 11/22/2019 1:00 PM Out-of-Hos [...] Power of Attor sesar? No Care Teams Vice President Industrial Relations Relationship Specialty Start Date End Date Hay Reza MD [address] [place] [address] [place] [phone] PCP - General Family Medicine 09/24/22 documented as of this encounter
--- OUTSIDE RECORDS SUMMARY | 2024-04-26 13:22 | External Medical Summary | Summary of Care ---
Author Name Unknown Organization [facility] Address [address] [place] [address] Phone [phone] Care Team Providers Care Hospice Home Care Coordinator Name Role Phone Hay Reza MD Primary Care Provide r Reason for Visit * Reason Comments [facility]: Maintenance Encounter Details Date Type Department Care Team (Late st Contact Info) Description 01/08/2024 10:00 AM EDT [facility], [facility] [address] [facility] [place] [address] Lisseth Flores, RN [address] [place] [address] Allergies Active Allergy Reactions Criticality Noted Date Comments Penicillins 12/04/1999 documented as of this encounter (statuses as of 01/08/2024) Medications Medication Sig Dispensed Refills Start Date [...] Indications: D vitamin supplement, Reported on 11/05/2022 Metoprolol Succinate ER 25 MG Oral Tablet Extended Release 24 Hour (toPROL XL)Indications:HTN, goal below 140/90 TAKE 1/2 TABLET BY MOUTH EVERY DAY 45 Tablet 3 01/10/2023 Active Sodium Bicarbonate 650 MG Oral Tablet Take [...] EVERY DAY 28 Tablet 5 08/24/2023 Active Carbidopa-Levodopa 25-100 MG Oral Tablet (Sinemet) Take 1 tablet twice daily x 5 days then increase to three times daily. 90 Tablet 3 10/20/2023 Active Isosorbide Mononitrate ER 30 MG Oral [...] HCl 10 MG Oral Tablet (ZyrTEC)Indications :Itching TAKE ONE TABLET IN THE MORNING 30 Tablet 2 12/04/2023 Active documented as of this encounter (statuses as of 01/08/2024) Active Problems Problem Noted Date Diagnosed Date [...] Assessment & Plan: Continue statin Atherosclerosis of [place] ronary artery of [place] heart without angina pectoris HTN, goal below 140/90 History of tobacco abuse Vitamin B12 deficiency documented as of this encounter (statuses as of 01/08/2024) Resolved Problems Problem Noted Date Diagnosed Date [...] the Treatment of Subjects with de navya [place] Coronary Artery Lesions. Diagnosis changed due to Research Module. Go to Snapshot for study details. CAD in [place] artery 03/29/2015 018 Exercise-induced angina 03/29/201501/2018 Mixed [...] as of this encounter (statuses as of 01/08/2024) Immunizations Name Administration Dates Next Due COVID-19 mRNA, LNP-s, No Pre serve, 2-Dose Series (Blue Perch) 05/07/2021,10/25/2020,09/27/2020 COVID-19, LNP-s, No Preserve , Mamadou-sucrose, [...] Sign Reading Time Taken Comments Blood Pressure 142/62 01/08/2024 10:28 AM EDT Pulse 76 01/08/2024 10:28 AM EDT Temperature 36.2 C (97.2 F) 01/08/2024 10:28 AM E DT Respiratory Rate 18 01/08/2024 10:28 AM EDT Oxygen Saturation 98% 01/08/2024 10:28 AM EDT Inhaled Oxygen Concentration - - Weight - - Height - - Body Mass Index - - documented in this encounter Progress Notes * Lisseth Flores RN - 01/08/2024 10:19 AM EDT [facility] Home Health Specialist Visit Date: 01/08/2024 Time: 10:20 AM Name: Kishan Bourgeois : 1935 Current Concerns: Patient seen for follow up- Parkinson's disease, CKD, DM Reports feeling good Caregiver present for visit No recent falls VS wnl Lungs clear bilaterally Sob with exertion No LE edema noted Voiding without difficulty- recent urine negative for UTI. Bowels wnl- miralax effective Appetite good Taking fluids well Problems/Symptoms: Review of Systems Constitutional: Negative. HENT: Negative. Respiratory: Positive for shortness of breath. Cardiovascular: Negative. Gastrointestinal: Negative. Genitourinary: Negative. Musculoskeletal: Positive for gait problem. Hematological: Negative. Psychiatric/Behavioral: Negative. Physical Exam: BP 142/62 (BP Site: Right Arm, BP Position: Sitting, BP Cuff Size: Regular) | Pulse 76 | Temp 36.2 C (97.2 F) (Tympanic) | Resp 18 | SpO2 98% Pain 4 Physical Exam Constitutional: Appearance: Normal appearance. Cardiovascular: Rate and Rhythm: Normal rate and regular rhythm. Pulses: Normal pulses. Pulmonary: Effort: Pulmonary effort is normal. Breath sounds: Normal breath sounds. Abdominal: General: Bowel sounds are normal. Palpations: Abdomen is soft. Musculoskeletal: General: Normal range of motion. Skin: General: Skin is warm and dry. Capillary Refill: Capillary refill takes 2 to 3 seconds. Neurological: General: No focal deficit present. Mental Status: He is alert and oriented to person, place, and time. Psychiatric: Mood and Affect: Mood normal. Behavior: Behavior normal. [facility]-10 Completed this Visit: No. No falls since last visit Treatment/Plan: APAP prn pain right knee Continue medications as prescribed Keep all upcoming MD appointments Fall precautions Fluids encouraged RN CM follow up in 8 weeks. Home Interventions Provided: Reinforced current Plan of Care, including self-management and medication regimen Patient's Goals of Care: Have caregivers in home Stay at home as long as possible Patient's 'Red Flags': Dizziness/ lightheadedness Increase sob Falls Patient Needs to Remember: Call [facility] at with any new or worsening health concerns or problems, red flag symptoms. Referrals Needed: N/a Follow Up: Is there cellular connectivity/connectivity in the home? Yes Does the patient have internet in the home? No Patient encouraged to call the intake phone number for all urgent but not emergent issues. Scheduled to follow up with patient in 8 weeks. Lisseth Fang RN 01/08/2024 10:20 AM documented in this encounter Plan of Treatment Upcoming Encounters Date Type Department Care Team (Late st Contact Info) Description 01/18/2024 4:00 PM EDT [facility] Visit [facility], [facility] [address] [address] Lisseth Flores RN [address] [place] [address] 02/18/2024 2:00 PM EDT Office Visit Cardiology [address] [place] [address] Wilfrid Cai PA-C [address] [place] [address] 02/26/2024 10:00 AM EDT [facility] Visit [facility] [place], [facility] [address] [place] [address] Lisseth Flores RN 132 [facility] [place] [address] 03/18/2024 1:00 PM EDT Nurse Only Ancillary [address] [place] [address] Maliey, Nurse [address] [place] [address] 05/31/2024 3:30 PM EST Office Visit Neurology [facility]honny Orope[place] [address] [facility] [place] [address] Rosibel Banuelos [place] [address] [place] [address] 07/26/2024 2:30 PM EST Office Visit Nephrology [address] [place] [address] ZeJada renee PA-C [address] [place] [address] Health Maintenance Due Date Last Done Comments DTaP,Tdap,and Td Vaccines (1 - Tdap) 1954 Zoster Vaccines (2 of 3) 09/07/2004 07/13/2004 Diabetic Eye Exam 05/10/2021 05/10/2020, , 03/17/2019, Additional history exists COVID-19 Vaccine ( season) 2023 10/22/2021, 05/07/2021, 10/25/2020, Additional history exists Depression Screening 03/17/2024 03/17/2023 Diabetic Foot Exam 03/17/2024 03/17/2023, 0 03/12/2022, 03/11/2021, Additional history exists Albumin/Creatinine Ratio 04/02/2024 023, 09/30/2022, 09/04/2021, Additional history exists CKD PHOS USE SMARTSET 88059 04/02/202403/14, 02/03/2022, 05/13/2021, Additional history exists HbA1c 04/09/2024 10/08/2023, 03/14, 09/30/2022, Additional history exists CKD HGB USE SMARTSET 94757 10/11/202410/11, 10/08/2023, 10/08/2023, Additional history exists Pneumococcal Vaccine: 65+ Years Completed 09/28/2015, 02/02/2003 Influenza Vaccine (FLU shot) Completed 11/2022, 04/30/2022, 05/13/2021, Additional history exists GARDASIL-HPV IMMUNIZATION SERIES Aged Out No longer eligible based on patient's age to complete this topic Hepatitis B Aged Out No longer eligi ble based on patient's age to complete this topic MENINGOCOCCAL (MENACTRA/MENVEO) Aged Out No longer eligible based on patient's age to complete this topic documented as of this encounter Medical Devices Not on filedocumented as of this encounter Advance Directives Documents on File Type Date Recorded Patient Field Spec [employer] PAVON 11/22/2019 1:00 PM Out-of-Hos [...] Power of Attor sesar? No Care Teams Hospice Home Care Coordinator Relationship Specialty Start Date End Date Hay Reza MD [address] [place] [address] [place] [address] PCP - General Family Medicine 09/24/22 documented as of this encounter
--- OUTSIDE RECORDS SUMMARY | 2024-04-26 13:22 | External Medical Summary | Summary of Care ---
Author Name Unknown Organization [facility] Address [address] [place] [address] Phone [phone] Care Team Providers Care Apparel Patternmaker Name Role Phone Hay Reza MD Primary Care Provide r Reason for Visit * Reason Comments [facility]: Maintenance Encounter Details Date Type Department Care Team (Late st Contact Info) Description 02/22/2024 12:30 PM EDT [facility] Visit [facility], [facility] 132 [facility] [place] [address] Lisseth Flores, RN [address] [place] [address] Allergies Active Allergy Reactions Criticality Noted Date Comments Penicillins 12/04/1999 documented as of this encounter (statuses as of 02/22/2024) Medications Medication Sig Dispensed Refills Start Date [...] the morning. 90 Tablet 1 02/19/2024 Active documented as of this encounter (statuses as of 02/22/2024) Active Problems Problem Noted Date Diagnosed Date [...] Assessment & Plan: Continue statin Atherosclerosis of [place] ronary artery of [place] heart without angina pectoris HTN, goal below 140/90 History of tobacco abuse Vitamin B12 deficiency documented as of this encounter (statuses as of 02/22/2024) Resolved Problems Problem Noted Date Diagnosed Date [...] the Treatment of Subjects with de navya [place] Coronary Artery Lesions. Diagnosis changed due to Research Module. Go to Snapshot for study details. CAD in [place] artery 03/29/2015 018 Exercise-induced angina 03/29/201501/2018 Mixed [...] as of this encounter (statuses as of 02/22/2024) Immunizations Name Administration Dates Next Due COVID-19 mRNA, LNP-s, No Pre serve, 2-Dose Series (Netformx) 05/07/2021,10/25/2020,09/27/2020 COVID-19, LNP-s, No Preserve , Mamadou-sucrose, [...] Sign Reading Time Taken Comments Blood Pressure 132/58 02/22/2024 2:01 PM EDT Pulse 72 02/22/2024 2:01 PM EDT Temperature 36.3 C (97.3 F) 02/22/2024 2:01 PM ED T Respiratory Rate 18 02/22/2024 2:01 PM EDT Oxygen Saturation 96% 02/22/2024 2:01 PM EDT Inhaled Oxygen Concentration - - Weight - - Height - - Body Mass Index - - documented in this encounter Progress Notes * Lisseth Flores RN - 02/22/2024 1:47 PM EDT [facility] Clinical Educator Visit Date: 02/22/2024 Time: 1:47 PM Name: Kishan Bourgeois : 1935 Current Concerns: Patient seen for follow up- Parkinson's disease, CKD, DM Caregiver present for visit. Recent Cardiology appointment- Wilfrid Cai PA-C Weight loss of 22lb since October Albumin 3.2 A1C- 5.7 Isosorbide discontinued. Metoprolol increased to 25mg daily Zyrtec decreased to 5mg daily PCP- decreased Rybelsus to 7mg Daughter fixed pill packs with above changes. Discussion with patient and caregiver regarding weight loss. Encouraged protein drink daily. States he is only eating twice daily. VS wnl Lungs clear bilaterally Sob with exertion No LE edema noted Voiding without difficulty Bowels regular with Miralax Appetite fair-poor Taking fluids well Problems/Symptoms: Review of Systems Constitutional: Negative. HENT: Negative. Respiratory: Positive for shortness of breath. Cardiovascular: Negative. Gastrointestinal: Negative. Genitourinary: Negative. Musculoskeletal: Positive for gait problem. Skin: Negative. Hematological: Negative. Psychiatric/Behavioral: Negative. Physical Exam: BP 132/58 (BP Site: Right Arm, BP Position: Sitting, BP Cuff Size: Regular) | Pulse 72 | Temp 36.3 C (97.3 F) (Tympanic) | Resp 18 | SpO2 96% Pain 0 Physical Exam Constitutional: Appearance: Normal appearance. Cardiovascular: [...] and Affect: Mood normal. Behavior: Behavior normal. [facility]-10 Completed this Visit: No. No falls since last visit Treatment/Plan: Protein drink daily- for lunch(normally skips) Continue medications as prescribed Keep all upcoming MD appointments Fall precautions- walker Caregivers daily 8-5pm Mon-Fri ALON CM follow up in 5 weeks Home Interventions Provided: Reinforced current Plan of Care, including self-management and medication regimen Patient's Goals of Care: Have caregivers in home Stay at home as long as possible Patient's 'Red Flags': Dizziness/ lightheadedness Increase sob Falls Patient Needs to Remember: Call [facility] at with any new or worsening health concerns or problems, red flag symptoms. Referrals Needed: N/a Follow Up: Is there cellular connectivity/connectivity in the home? Yes Does the patient have internet in the home? No Patient encouraged to call the intake phone number for all urgent but not emergent issues. Scheduled to follow up with patient in 5 weeks. Lisseth Fang RN 02/22/2024 1:47 PM documented in this encounter Plan of Treatment Upcoming Encounters Date Type Department Care Team (Late st Contact Info) Description 02/25/2024 1:30 PM EDT Office Visit Nephrology [address] [place] [address] Jada Hammer PA-C [address] [facility] [place] [address] 03/18/2024 1:00 PM EDT Nurse Only Ancillary [address] [place] [address] [place], Nurse [address] [place] [address] 04/04/2024 2:30 PM EDT [facility] [place] [address] Lisseth Flores, ALON 132 [facility] [place] [address] 04/12/2024 1:30 PM EDT [facility] [address] [facility] [place] [address] Rosibel Banuelos PA-C [address] [facility] [place] [address] Health Maintenance Due Date Last Done Comments [...] Additional history exists CKD PHOS USE SMARTSET 66654 04/02/202403/14, 02/03/2022, 05/13/2021, Additional history exists HbA1c 08/20/2024 02/18/2024, 09/11, 04/02/2023, Additional history exists CKD HGB USE SMARTSET 24638 02/17/202502/17, 10/12/2023, 10/08/2023, Additional history exists Pneumococcal [...] Documents on File Type Date Recorded Patient It Coordinator Expl anation POLST 11/22/2019 1:00 PM Out-of-Hos [...] Power of Attor sesar? No Care Teams Apparel Patternmaker Relationship Specialty Start Date End Date Hay Reza MD [address] [place] [address] [place] [phone] PCP - General Family Medicine 09/24/22 documented as of this encounter
--- OUTSIDE RECORDS SUMMARY | 2024-04-26 13:22 | External Medical Summary ---
Author Name Unknown Address Unknown Organization [id number]:[facility] - [address] [facility] [address] Laboratory Report Ordering Provider Test Date Status NA CORREA 02/18/2024 14:44:54 Final Observation Date Value Abnormality Reference (Units ) Status BUN 02/18/2024 14:44:54 19 6-20 (mg/dL) Final Creatinine 02/18/2024 14:44:54 1.4 Above high normal 0.6-1.2 (mg/dL) Final Glomerular filtration rate/1.73 sq M.predicted [Volume Rate/Area] in Serum, Plasma or Blood by Creatinine-based formula (CKD-EPI) 02/18/2024 14:44:54 50 Below low normal >=60 (mL/min) Final eGFR is calculated based on the CKD-EPI 2020 equation. Sodium 02/18/2024 14:44:54 138 135-146 (m mol/L) Final Potassium 02/18/2024 14:44:54 3.9 3.5-5.1 (m mol/L) Final Cl 02/18/2024 14:44:54 99 98-107 (mm ol/L) Final CO2 02/18/2024 14:44:54 27 22-32 (mmo l/L) Final Anion gap 02/18/2024 14:44:54 12 7-15 (mmol /L) Final Glucose 02/18/2024 14:44:54 116 70-120 (mg /dL) Final Albumin 02/18/2024 14:44:54 3.2 Below low normal 3.8 -5.0 (g/dL) Final AST (Aspartate aminotransferase) 02/18/2024 14:44:54 21 10-50 (U/L) Fin al Alk Phos 02/18/2024 14:44:54 93 35-130 (U/ L) Final Bilirubin, Total 02/18/2024 14:44:54 0.5 <=1 .2 (mg/dL) Final Calcium 02/18/2024 14:44:54 9.2 8.4-10.2 ( mg/dL) Final Protein 02/18/2024 14:44:54 6.7 6.0-8.3 (g /dL) Final ALT (Alanine aminotransferase) 02/18/2024 14:44:54 <5 Below low normal 10-50 (U/L) Final Performing Location [facility] - [address] [facility] [address]
--- OUTSIDE RECORDS SUMMARY | 2024-04-26 13:22 | External Medical Summary | Summary of Care ---
Author Name Unknown Organization [facility] Address [address] [place] [address] Phone [phone] Care Team Providers Care Funeral Planner Name Role Phone Hay Reza MD Primary Care Provide r Encounter Details Date Type Department Care Team (Late st Contact Info) Description 10/05/2023 Telephone Family Medicine [address] [address] Hay Reza MD [address] [place] [address] [place] [address] Allergies Active Allergy Reactions Criticality Noted Date Comments Penicillins 12/04/1999 documented as of this encounter (statuses as of 01/04/2024) Medications Medication Sig Dispensed Refills Start Date [...] EVERY DAY 28 Tablet 5 08/24/2023 Active documented as of this encounter (statuses as of 01/04/2024) Active Problems Problem Noted Date Diagnosed Date [...] Assessment & Plan: Continue statin Atherosclerosis of [place] ronary artery of [place] heart without angina pectoris HTN, goal below 140/90 History of tobacco abuse Vitamin B12 deficiency documented as of this encounter (statuses as of 01/04/2024) Resolved Problems Problem Noted Date Diagnosed Date [...] the Treatment of Subjects with de navya [place] Coronary Artery Lesions. Diagnosis changed due to Research Module. Go to Snapshot for study details. CAD in [place] artery 03/29/2015 018 Exercise-induced angina 03/29/201501/2018 [...] as of this encounter (statuses as of 01/04/2024) Immunizations Name Administration Dates Next Due COVID-19 mRNA, LNP-s, No Pre serve, 2-Dose Series (Motribe) 05/07/2021,10/25/2020,09/27/2020 COVID-19, LNP-s, No Preserve , Mamadou-sucrose, [...] encounter Miscellaneous Notes * Telephone Encounter - Nabila Moore LPN - 10/05/2023 3:34 PM EDT Mariam from [facility] calling with concerns that pt is non compliant with his medication. Dates of pills are from July. She spoke his his son who indicated he is taking his meds but he doesn't know what medication are for. Mariam is going to contact daughter before finallizing case. This is FYI. * Telephone Encounter - Elida Tyler OSA - 10/05/2023 3:30 PM EDT Mariam nurse calling in transferred over to [facility] line [phone] documented in this encounter Plan of Treatment Upcoming Encounters Date Type Department Care Team (Late st Contact Info) Description 01/18/2024 4:00 PM EDT Home Visit [facility] [place], [facility] [address] [place] [address] Lisseth Flores, ALON [address] [place] [address] 02/18/2024 2:00 PM EDT Office Visit Cardiology [address] [place] [address] Wilfrid Cai PADixonC [address] [place] [address] 03/18/2024 1:00 PM EDT Nurse Only Ancillary [address] [place] [address] [place], Nurse Annual [address] [place] [address] 05/31/2024 3:30 PM EST Office Visit Neurology [facility] [address] [place] [address] Rosibel Banuelos PA-C [address] [place] [address] 07/26/2024 2:30 PM EST Office Visit Nephrology [address] [place] [address] ZemaitisJada PA-C [address] [place] [address] Health Maintenance Due Date Last Done Comments [...] Additional history exists CKD PHOS USE SMARTSET 67550 04/02/202403/14, 02/03/2022, 05/13/2021, Additional history exists HbA1c 04/09/2024 10/08/2023, 03/14, 09/30/2022, Additional history exists CKD HGB USE SMARTSET 48101 10/11/202410/11, 10/08/2023, 10/08/2023, Additional history exists Pneumococcal [...] Documents on File Type Date Recorded 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 No Care Teams Funeral Planner Relationship Specialty Start Date End Date Hay Reza MD [address] [place] [address] [place] [address] PCP - General Family Medicine 09/24/22 documented as of this encounter
--- OUTSIDE RECORDS SUMMARY | 2024-04-26 13:22 | External Medical Summary ---
Author Name Unknown Address Unknown Organization K01:[facility] - [address] [facility] [address] Laboratory Report Ordering Provider Test Date Status NA CORREA 02/18/2024 14:44:54 Final Observation Date Value Abnormality Reference (Units ) Status HbA1C 02/18/2024 14:44:54 5.7 Above high normal 4. 0-5.6 (%) Final The use of HbA1c to monitor glycemic status is based on normal hemoglobin and HbA composition. This test should not be used in patients with abnormal hemoglobin that affects the half life of the red blood cell or the in vivo glycation rates. Glucose, estimated average 02/18/2024 14:44:54 117 <126 (mg/dL) Final Performing Location [facility] - [address] [facility] [address]
--- OUTSIDE RECORDS SUMMARY | 2024-04-26 13:22 | External Medical Summary | Summary of Care ---
Author Name Unknown Organization [facility] Address [address] [place] [address] Phone [phone] Care Team Providers Care Python Consultant Name Role Phone Hay Ballesteros MD Primary Care Provide r Reason for Visit * Reason Comments eRx-Medication Refill Encounter Details Date Type Department Care Team (Late st Contact Info) Description 01/29/2024 Refill Family Medicine [address] [place] [phone] Hay Ballesteros MD [address] [place] [address] [place] [address] HTN, goal below 140/90 Allergies Active Allergy Reactions Criticality Noted Date Comments Penicillins 12/04/1999 documented as of this encounter (statuses as of 01/29/2024) Medications Medication Sig Dispensed Refills Start Date [...] EVERY DAY 28 Tablet 5 08/24/2023 Active Carbidopa-Levodop a 25-100 MG Oral Tablet [...] EVERY DAY 45 Tablet 1 01/29/2024 Active Metoprolol Succinate ER 25 MG Oral Tablet Extended Release 24 Hour (toPROL XL)Indications:HT N, goal below 140/90 TAKE 1/2 TABLET BY MOUTH EVERY DAY 45 Tablet 3 01/10/2023 4 Discontinued documented as of this encounter (statuses as of 01/29/2024) Active Problems Problem Noted Date Diagnosed Date [...] as of this encounter (statuses as of 01/29/2024) Resolved Problems Problem Noted Date Diagnosed Date [...] the Treatment of Subjects with de navya [place] Coronary Artery Lesions. Diagnosis changed due to Research Module. Go to Snapshot for study details. CAD in [place] artery 03/29/2015 018 Exercise-induced angina 03/29/2015 12/0 [...] as of this encounter (statuses as of 01/29/2024) Immunizations Name Administration Dates Next Due COVID-19 mRNA, LNP-s, No Pre serve, 2-Dose Series (Mingyian) 05/07/2021,10/25/2020,09/27/2020 COVID-19, LNP-s, No Preserve , Mamadou-sucrose, [...] encounter Miscellaneous Notes * Telephone Encounter - Charles Paul RPh - 01/29/2024 4:15 PM EDTSigned Prescriptions: Disp Refills Metoprolol Succinate ER 25 MG Oral Tablet *45 Tab*1 Sig: TAKE 1/2 TABLET EVERY DAYAuthorizing Provider: Ale BALLESTEROS User: CHARLES PAUL documented in this encounter Plan of Treatment Upcoming Encounters Date Type Department Care Team (Late st Contact Info) Description 02/18/2024 2:00 PM EDT Office Visit Cardiology [address] [place] [address] Wilfrid Cai PA-C [address] [place] [address] 02/26/2024 10:00 AM EDT [facility] [place] [address] Lisseth Flores, ALON [address] [place] [address] 03/18/2024 1:00 PM EDT Nurse Only Ancillary [address] [place] [address] [place], Nurse [address] [place] [address] 04/12/2024 1:30 PM EDT Office Visit Neurology [facility] [place] 200 [facility] [place] [address] Rosibel Banuelos PA-C [address] [place] [address] 07/26/2024 2:30 PM EST Office Visit Nephrology [address] [place] [address] Jada Hammer PA-C 200 [facility] [place] [address] Health Maintenance Due Date Last Done Comments [...] Additional history exists CKD PHOS USE SMARTSET 74729 04/02/202403/14, 02/03/2022, 05/13/2021, Additional history exists HbA1c 04/09/2024 10/08/2023, 03/14, 09/30/2022, Additional history exists CKD HGB USE SMARTSET 82895 10/11/202410/11, 10/08/2023, 10/08/2023, Additional history exists Pneumococcal [...] as of this encounter Visit Diagnoses Diagnosis HTN, goal below 140/90 Unspecified essential hypertension documented in this encounter Advance Directives Documents on File Type Date Recorded Patient Prenatal Nurse Expl sumaya PAVON 11/22/2019 1:00 PM Out-of-Hos pital DNR [...] Power of Attor sesar? No Care Teams Python Consultant Relationship Specialty Start Date End Date Hay Ballesteros MD [address] [place] [address] [place] [address] PCP - General Family Medicine 09/24/22 documented as of this encounter
--- OUTSIDE RECORDS SUMMARY | 2024-04-26 13:22 | External Medical Summary | Summary of Care ---
Author Name Unknown Organization [facility] Address [address] [place] [address] Phone [phone] Care Team Providers Care Auto Dismantler Name Role Phone Hay Reza MD Primary Care Provide r Reason for Visit * Reason Onset Date Comments [facility]: Maintenance 12/23/2023 Encounter Details Date Type Department Care Team (Late st Contact Info) Description 12/23/2023 10:15 AM EDT Scheduled Telephone [facility], [facility] 132 [facility] [place] [address] Coordinator, [facility] [address] [place] [address] Allergies Active Allergy Reactions Criticality Noted Date Comments Penicillins 12/04/1999 documented as of this encounter (statuses as of 12/23/2023) Medications Medication Sig Dispensed Refills Start Date [...] as of this encounter (statuses as of 12/23/2023) Active Problems Problem Noted Date Diagnosed Date [...] Assessment & Plan: Continue statin Atherosclerosis of [place] co ronary artery of [place] heart without angina pectoris HTN, goal below 140/90 History of tobacco abuse Vitamin B12 deficiency documented as of this encounter (statuses as of 12/23/2023) Resolved Problems Problem Noted Date Diagnosed Date [...] the Treatment of Subjects with de navya [place] Coronary Artery Lesions. Diagnosis changed due to Research Module. Go to Snapshot for study details. CAD in [place] artery 03/29/2015 018 Exercise-induced angina 03/29/201501/2018 Mixed [...] as of this encounter (statuses as of 12/23/2023) Immunizations Name Administration Dates Next Due COVID-19 mRNA, LNP-s, No Pre serve, 2-Dose Series (Technical Machine) 05/07/2021,10/25/2020,09/27/2020 COVID-19, LNP-s, No Preserve , Mamadou-sucrose, [...] Smoking Tobacco: Former Cigarettes 1 10 1 268 1977 Smokeless Tobacco: Never Alcohol Use Standard [...] encounter Miscellaneous Notes * Telephone Encounter - Nicole Nath RN - 12/23/2023 12:00 PM EDT [facility] Telephonic Nurse Follow-Up Call [facility] Subprogram: Focused Care Management (3-9 months) Follow Up Call Type: 24 hour follow up Acute issue requiring follow-up call: Other: post acute follow up, urine results Objective: 12/22/2023 9:51 AM 12/03/2023 1:25 PM 11/19/2023 4:19 PM 10/30/2023 12:30 PM 10/27/2023 11:53 AM VITALS ACROSS ENCOUNTERS BP 120/58 100/58 106/60 112/52 104/61 Pulse 83 76 69 80 54 Weight 67.6 kg 70.3 kg BMI 24.07 kg/m2 25.02 kg/m2 Remote Patient Monitoring: NONE Oxygen Needs: NO supplemental oxygen needs identified DME Needs: NO DME needs identified Medications: No medication or dose adjustments made during acute episode Subjective: Condition Status: No change in symptoms Current Concerns: Spoke with patient who says he is doing, "okay" today. Denies fever/chills, eating/drinking and getting around per his usual. Urinating without difficulty. Denies falls in the last 24 hours. Advised culture is still in process and we would follow up with him tomorrow. Disposition: Follow up call scheduled for tomorrow with LISS HoneycuttCloth Reeler Future Visits Scheduled: Future Appointments-next 60 days Date/Time Provider Specialty Dept Phone 12/24/2023 9:45 AM Coordinator, Saul Honeycutt [facility] [phone] 01/18/2024 4:00 PM Lisseth Flores RN [facility] [phone] 02/18/2024 2:00 PM (Arrive by 1:45 PM) Wilfrid Cai PA-C Cardiology [phone] 03/18/2024 1:00 PM Jarred Nurse Annual [facility] Ancillary [phone] 05/31/2024 3:30 PM (Arrive by 3:15 PM) Rosibel Banuelos PA-C Neurology [phone] 07/26/2024 2:30 PM (Arrive by 2:15 PM) Jada Hammer PA-C Nephrology [phone] Nicole Nath RN documented in this encounter Plan of Treatment Upcoming Encounters Date Type Department Care Team (Late st Contact Info) Description 12/24/2023 9:45 AM EDT Scheduled Telephone [facility] [place], [facility] 132 [facility] [place] [address] Coordinator, Saul Honeycutt [address] [facility] [place] [address] 01/18/2024 4:00 PM EDT Home Visit [facility] at [place], [facility] [address] [place] [address] Lisseth Flores, RN [address] [place] [address] 02/18/2024 2:00 PM EDT Office Visit Cardiology [address] [place] [address] Wilfrid Cai PA-C [address] [place] [address] 03/18/2024 1:00 PM EDT Nurse Only Ancillary [address] [place] [address] [place], Nurse [address] [place] [address] 05/31/2024 3:30 PM EST Office Visit Neurology [facility] [place] [address] [place] [address] Rosibel Banuelos PA-C [address] [place] [address] 07/26/2024 2:30 PM EST Office Visit Nephrology [address] [place] [address] ZemaJada reyes PA-C [address] [place] [address] Health Maintenance Due Date Last Done Comments [...] Additional history exists CKD PHOS USE SMARTSET 10735 04/02/202403/14, 02/03/2022, 05/13/2021, Additional history exists HbA1c 04/09/2024 10/08/2023, 03/14, 09/30/2022, Additional history exists CKD HGB USE SMARTSET 89266 10/11/202410/11, 10/08/2023, 10/08/2023, Additional history exists Pneumococcal [...] Documents on File Type Date Recorded 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 No Care Teams Auto Dismantler Relationship Specialty Start Date End Date Hay Reza MD [address] [place] [address] [place] [address] PCP - General Family Medicine 09/24/22 documented as of this encounter
--- OUTSIDE RECORDS SUMMARY | 2024-04-26 13:22 | External Medical Summary ---
Author Name Unknown Address Unknown Organization K01:[facility] [place] [address] [place] [address] Laboratory Report Ordering Provider Test Date Status NA CORREA 02/18/2024 14:44:54 Final Observation Date Value Abnormality Reference (Units ) Status Iron 02/18/2024 14:44:54 49 45-176 (ug/dL) Final Iron-binding capacity 02/18/2024 14:44:54 192 Below low normal 250-425 (ug/dL) Final Transferrin Sat % 02/18/2024 14:44:54 26 15-55 (%) Final Performing Location LAB[facility]AT[facility] - [address] [place] [address]
--- OUTSIDE RECORDS SUMMARY | 2024-04-26 13:23 | External Medical Summary | Summary of Care ---
Author Name Unknown Organization [facility] Address [address] [place] [address] Phone [phone] Care Team Providers Care Mopper Name Role Phone Hay Reza MD Primary Care Provide r Reason for Visit * Reason Comments Outpatient Testing Encounter Details Date Type Department Care Team (Late st Contact Info) Description 12/22/2023 1:20 PM EDT Laboratory Laboratory [address] [place] [phone] Dr Specimen Drop Off [address] [place] [address] UTI (urinary tract infection) Allergies Active Allergy Reactions Criticality Noted Date Comments Penicillins 12/04/1999 documented as of this encounter (statuses as of 12/22/2023) Medications Medication Sig Dispensed Refills Start Date [...] as of this encounter (statuses as of 12/22/2023) Active Problems Problem Noted Date Diagnosed Date [...] coronary stent 03/14 Overview: S/P PCI with MRAELY to mid LAD on 04/02/15 Type 2 diabetes mellitus wit h hemoglobin A1c goal of less than 8.0% 03/02/2015 Overview: ICD-10 update of inactive term Dyslipidemia, goal LDL below 70 02/01/2015 Overview: ICD-10 update of inactive term Last Assessment & Plan: Continue statin Atherosclerosis of [place] co ronary artery of [place] heart without angina pectoris HTN, goal below 140/90 History of tobacco abuse Vitamin B12 deficiency documented as of this encounter (statuses as of 12/22/2023) Resolved Problems Problem Noted Date Diagnosed Date [...] the Treatment of Subjects with de navya [place] Coronary Artery Lesions. Diagnosis changed due to Research Module. Go to Snapshot for study details. CAD in [place] artery 03/29/2015 018 Exercise-induced angina 03/29/2015 12/0 [...] as of this encounter (statuses as of 12/22/2023) Immunizations Name Administration Dates Next Due COVID-19 mRNA, LNP-s, No Pre serve, 2-Dose Series (BioDatomics) 05/07/2021,10/25/2020,09/27/2020 COVID-19, LNP-s, No Preserve , Mamadou-sucrose, [...] Care Team (Late st Contact Info) Description 12/22/2023 4:30 PM EDT Home Visit Care Coordination and Integration [address] [place] [address] Mallory Hopkins, [facility] Senior Search Marketing Analyst [address] [place] [address] 12/23/2023 10:15 AM EDT Scheduled Telephone [facility], [facility] [address] [place] [address] Coordinator, [facility] [address] [place] [address] 12/24/2023 9:45 AM EDT Scheduled Telephone [facility], [facility] [address] [place] [address] Coordinator, [facility] [address] [place] [address] 01/18/2024 4:00 PM EDT Home Visit [facility], [facility] [address] [place] [address] Lisseth Flores, ALON [address] [place] [address] 02/18/2024 2:00 PM EDT Office Visit Cardiology [address] [place] [address] Wilfrid Cai PA-C [address] [place] [address] 03/18/2024 1:00 PM EDT Nurse Only Ancillary [address] [place] [address] [place], Nurse [address] [place] [address] 05/31/2024 3:30 PM EST Office Visit Neurology [facility] [place] 200 [facility] [place] [address] Rosibel Banuelos PA-C [address] [place] [address] 07/26/2024 2:30 PM EST Office Visit Nephrology [address] [place] [address] Jada Hammer PA-C [address] [place] [address] Pending Results Name Type Priority Associated Diagnoses Date /Time URINALYSIS, REFLEX TO CULTURE (NOT FOR NEUTROPENIC PATIENTS) Lab Routine UTI (urinary tract infection) 12/22/2023 1:22 PM EDT URINALYSIS, REFLEX TO CULTURE (CUP ONLY) Lab Routine UTI (urinary tract infection) 12/22/2023 1:22 PM EDT URINALYSIS, REFLEX TO CULTURE Lab Routine UTI (urinary tract infection) 12/22/2023 1:22 PM EDT Health Maintenance Due Date Last [...] Additional history exists CKD PHOS USE SMARTSET 48521 04/02/202403/14, 02/03/2022, 05/13/2021, Additional history exists HbA1c 04/09/2024 10/08/2023, 03/14, 09/30/2022, Additional history exists CKD HGB USE SMARTSET 92594 10/11/202410/11, 10/08/2023, 10/08/2023, Additional history exists Pneumococcal [...] as of this encounter Visit Diagnoses Diagnosis UTI (urinary tract infection) Urinary tract infection, site not specified documented in this encounter Advance Directives Documents on File Type Date Recorded 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 No Care Teams Mopper Relationship Specialty Start Date End Date Hay Reza MD [address] [place] [address] [place] [address] PCP - General Family Medicine 09/24/22 documented as of this encounter
--- OUTSIDE RECORDS SUMMARY | 2024-04-26 13:23 | External Medical Summary | Summary of Care ---
Author Name Unknown Organization [facility] Address [address] [place] [address] Phone [phone] Care Team Providers Care Account Executive Sales Representative Name Role Phone Hay Reza MD Primary Care Provide r Reason for Visit * Reason Onset Date Comments [facility]: Acute 12/21/2023 Encounter Details Date Type Department Care Team (Late st Contact Info) Description 12/21/2023 Telephone [facility], [facility] [address] [place] [address] [facility], Nurse [facility] [address] [place] [address] [facility]: Acute Allergies Active Allergy Reactions Criticality Noted Date Comments Penicillins 12/04/1999 documented as of this encounter (statuses as of 12/21/2023) Medications Medication Sig Dispensed Refills Start Date [...] as of this encounter (statuses as of 12/21/2023) Active Problems Problem Noted Date Diagnosed Date [...] Assessment & Plan: Continue statin Atherosclerosis of [place] co ronary artery of [place] heart without angina pectoris HTN, goal below 140/90 History of tobacco abuse Vitamin B12 deficiency documented as of this encounter (statuses as of 12/21/2023) Resolved Problems Problem Noted Date Diagnosed Date [...] the Treatment of Subjects with de navya [place] Coronary Artery Lesions. Diagnosis changed due to Research Module. Go to Snapshot for study details. CAD in [place] artery 03/29/2015 018 Exercise-induced angina 03/29/201501/2018 Mixed [...] as of this encounter (statuses as of 12/21/2023) Immunizations Name Administration Dates Next Due COVID-19 mRNA, LNP-s, No Pre serve, 2-Dose Series (KrowdPad) 05/07/2021,10/25/2020,09/27/2020 COVID-19, LNP-s, No Preserve , Mamadou-sucrose, [...] Date Smoking Tobacco: Former Cigarettes 1 10 518 1977 Smokeless Tobacco: Never Alcohol Use Standard [...] encounter Miscellaneous Notes * Telephone Encounter - Alanna Denise RN - 12/21/2023 5:10 PM EDT [facility] Acute Call Date: 12/21/2023 Time: 5:11 PM Name: Kishan Bourgeois : 1935 Caller: Kae Relationship to paid caregiver No chief complaint on file. HPI: Kishan Bourgeois is a 88 year old male whose caregiver is calling [facility] to report that she thinks Kishan has a UTI. Symptoms include increased confusion, unstable on his feet, fell twice on Thursday or Thursday, has a puffy spot on his right hip and some bruising noted to his right arm, having lower back pain, no fever but is cold, denies any dysuria or hematuria. Caregiver requesting that someone obtain a urine to rule out UTI. Nursing Assessment: Patient's chief complaint for this call: Urinary symptoms Pain Has pain Pain level: unable to determine Location: lower back Quality of Pain: aching Does the pain radiate: No Baseline Assessment Able to performing ADLs at baseline (walking, daily tasks, etc.): No Chief Complaint is related to a chronic condition: Unknown Patient prescribed oxygen? No Patient has been ordered DME equipment (assistive devices, respiratory equipment, etc.): Unknown Medication Reconciliation: Received flu shot this season: Yes Taking medication as ordered: Yes Medications ordered/taking to treat reason for call: Unknown Heart failure symptoms: No COPD exacerbation symptoms: No Reinforcement Education: Stay hydrated to flush bladder 24/48 h follow up calls post acute visit UA reflex to culture ordered [facility] RNCM to see in morning, caregiver aware Treatment/Plan: Level of call: Acute Appointment scheduled for same day: Sofía, tomorrow morning Provider Name: Lisseth August Treatment plan until appointment: stay hydrated Call back instructions provided to patient. DEENA Rico Unpaid Intern [facility] documented in this encounter Plan of Treatment Upcoming Encounters Date Type Department Care Team (Late st Contact Info) Description 12/22/2023 8:30 AM EDT Home Visit [facility] [address] [place] [address] Lisseth Flores RN [address] [place] [address] 12/23/2023 10:15 AM EDT Scheduled Telephone [facility] [place], [facility] [address] [place] [address] Coordinator, [facility] [address] [place] [address] 12/24/2023 9:45 AM EDT Scheduled Telephone [facility], [facility] [address] [place] [address] Coordinator, [facility] [address] [place] [address] 01/18/2024 4:00 PM EDT Home Visit [facility], [facility] [address] [place] [address] Lisseth Flores, ALON [address] [place] [address] 02/18/2024 2:00 PM EDT Office Visit Cardiology [address] [place] [address] Wilfrid Cai PA-C [facility] [place] [address] 03/18/2024 1:00 PM EDT Nurse Only Ancillary [address] [place] [address] [place], Nurse [address] [place] [address] 05/31/2024 3:30 PM EST Office Visit Neurology [facility] [place] 200 [facility] [place] [address] Rosibel Banuelos PA-C [address] [place] [address] 07/26/2024 2:30 PM EST Office Visit Nephrology [address] [place] [address] Jada Hammer PA-C [address] [place] [address] Scheduled Orders Name Type Priority Associated Diagnoses Orde r Schedule URINALYSIS, REFLEX TO CULTURE (NOT FOR NEUTROPENIC PATIENTS) Lab Routine UTI (urinary tract infection) Expected: 12/21/2023, Expires: 12/20/2024 Health Maintenance Due Date Last Done Comments [...] Additional history exists CKD PHOS USE SMARTSET 07209 04/02/202403/14, 02/03/2022, 05/13/2021, Additional history exists HbA1c 04/09/2024 10/08/2023, 03/14, 09/30/2022, Additional history exists CKD HGB USE SMARTSET 59418 10/11/202410/11, 10/08/2023, 10/08/2023, Additional history exists Pneumococcal [...] encounter Visit Diagnoses Diagnosis UTI (urinary tract infection)- Primary Urinary tract infection, site not specified documented in this encounter Advance Directives Documents on File Type Date Recorded 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 No Care Teams Account Executive Sales Representative Relationship Specialty Start Date End Date Hay Reza MD [address] [place] [address] [place] [phone] PCP - General Family Medicine 09/24/22 documented as of this encounter
--- OUTSIDE RECORDS SUMMARY | 2024-04-26 13:23 | External Medical Summary | Summary of Care ---
Author Name Unknown Organization [facility] Address [address] [place] [address] Phone [phone] Care Team Providers Care Assistant Family Teacher Name Role Phone Hay Reza MD Primary Care Provide r Reason for Visit * Reason Onset Date Comments FYI 11/16/2023 Encounter Details Date Type Department Care Team (Late st Contact Info) Description 11/16/2023 Telephone Family Medicine [address] [phone] Hay Reza MD [address] [place] [address] [place] [id number] FYI Allergies Active Allergy Reactions Criticality Noted Date Comments Penicillins 12/04/1999 documented as of this encounter (statuses as of 11/18/2023) Medications Medication Sig Dispensed Refills Start Date [...] before bedtime. 60 Tablet 11 04/07/2023 Active Cetirizine HCl 10 MG Oral Tablet (ZyrTEC Allergy)Indications :Itching Take 1 Tablet by mouth in the morning. 30 Tablet 2 04/28/2023 Active Semaglutide 14 MG Oral Tablet (Rybelsus) [...] the morning. 30 Tablet 5 10/26/2023 Active documented as of this encounter (statuses as of 11/18/2023) Active Problems Problem Noted Date Diagnosed Date [...] Assessment & Plan: Continue statin Atherosclerosis of [place] co ronary artery of [place] heart without angina pectoris HTN, goal below 140/90 History of tobacco abuse Vitamin B12 deficiency documented as of this encounter (statuses as of 11/18/2023) Resolved Problems Problem Noted Date Diagnosed Date [...] the Treatment of Subjects with de navya [place] Coronary Artery Lesions. Diagnosis changed due to Research Module. Go to Snapshot for study details. CAD in [place] artery 03/29/2015 018 Exercise-induced angina 03/29/2015 12/0 [...] as of this encounter (statuses as of 11/18/2023) Immunizations Name Administration Dates Next Due COVID-19 mRNA, LNP-s, No Pre serve, 2-Dose Series ([employer]) 05/07/2021,10/25/2020,09/27/2020 COVID-19, LNP-s, No Preserve , Mamadou-sucrose, Ages 12+ (Pfizer) 10/22/2021 Influenza, Whole Virus 06/11/1994,05/20/1993 Pneumococcal Conjugate [...] encounter Miscellaneous Notes * Telephone Encounter - Tiffanie Aldana OSA - 11/18/2023 9:56 AM EDT Appt scheduled, pt aware. * Telephone Encounter - Hay Reza MD - 11/17/2023 7:42 AM EDT Upon chart review it seems like pt;s daughter helps pt with things - also can we set up a clinic visit with me * Telephone Encounter - Jael Clemens OSA - 11/16/2023 12:17 PM EDT Good afternoon, Physical therapist Giancarlo calling to report that patient has had a few falls over the weekend. No injuries just multiple falls. Giancarlo advised patient may need a caregiver. Any questions and concerns he can be reached out on mobile # [phone]. Please advise. Jael Rodríguez documented in this encounter Plan of Treatment Upcoming Encounters Date Type Department Care Team (Late st Contact Info) Description 11/19/2023 4:30 PM EDT Office Visit Neurology [facility] Johnna [place] [address] [facility] [place] [address] Rosibel Banuelos PA-C 21 [place] [address] 11/26/2023 10:00 AM EDT Office Visit Family Medicine [address] [place] [phone] Hay Reza MD [address] [place] [address] [place] [address] 12/03/2023 4:00 PM EDT Home Visit [facility]ah at [address] [place] [address] Lisseth Flores, RN [facility] [place] [address] 12/15/2023 11:00 AM EDT Office Visit Neurology [facility] Johnna [place] [address] [facility] [place] [address] Rosibel Banuelos PA-C 21 [place] [address] 02/18/2024 2:00 PM EDT Office Visit Cardiology [address] [place] [address] Wilfrid Cai PA-C [address] [place] [address] 03/18/2024 1:00 PM EDT Nurse Only Ancillary [address] [place] [address] [place], Nurse Annual [address] [place] [address] 07/26/2024 2:30 PM EST Office Visit Nephrology [address] [place] [address] Jada Hammer PA-C [address] [place] [address] Health Maintenance Due Date Last Done Comments [...] Additional history exists CKD PHOS USE SMARTSET 66886 04/02/202403/14, 02/03/2022, 05/13/2021, Additional history exists HbA1c 04/09/2024 10/08/2023, 03/14, 09/30/2022, Additional history exists CKD HGB USE SMARTSET 03173 10/11/202410/11, 10/08/2023, 10/08/2023, Additional history exists Pneumococcal [...] Documents on File Type Date Recorded 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 Question Answer Comments Discussion of Advance Directives occurred with: Not Discussed Does the patient have a Living Will? No Does the patient have Health Care Power of Porcelain Slusher? No Care Teams Assistant Family Teacher Relationship Specialty Start Date End Date Hay Reza MD [address] [place] [address] [place] [phone] PCP - General Family Medicine 09/24/22 documented as of this encounter
--- OUTSIDE RECORDS SUMMARY | 2024-04-26 13:23 | External Medical Summary ---
Author Name Unknown Address Unknown Organization [place] [place] [facility] [address] Laboratory Report Ordering Provider Test Date Status ELMO MAY 12/22/2023 13:22:50 Final Observation Date Value Abnormality Reference (Units ) Status Color of Urine by Auto 12/22/2023 13:22:50 Yellow Colorless, Light Yellow, Yellow, Dark Yellow Final Clarity, Urine 12/22/2023 13:22:50 Clear Clear Final Glucose [Mass/volume] in Urine by Automated test strip 12/22/2023 13:22:50 Negative Negative (mg/dL) Final Bilirubin.total [Presence] in Urine by Automated test strip 12/22/2023 13:22:50 Negative Negative Final Ketones [Mass/volume] in Urine by Automated test strip 12/22/2023 13:22:50 Negative Negative (mg/dL) Final Specific gravity, Urine 12/22/2023 13:22:50 1.025 1.003-1.030 Final Hemoglobin [Presence] in Urine by Automated test strip 12/22/2023 13:22:50 Negative Negative Final pH, Urine 12/22/2023 13:22:50 7.0 5.0-7.5 (Units) Final Protein [Mass/volume] in Urine by Automated test strip 12/22/2023 13:22:50 30 Abnormal Negative (mg/dL) Final Urobilinogen [Mass/volume] in Urine by Automated test strip 12/22/2023 13:22:50 Normal Normal (mg/dL) Final Nitrite [Presence] in Urine by Automated test strip 12/22/2023 13:22:50 Negative Negative Final Leukocyte esterase [Presence] in Urine by Automated test strip 12/22/2023 13:22:50 Negative Negative Final RBC, Urine 12/22/2023 13:22:50 0-2 0-2 (/HPF) Final WBC, Urine 12/22/2023 13:22:50 0-2 0-2 (/HPF) Final Bacteria [#/area] in Urine sediment by Microscopy high power field 12/22/2023 13:22:50 26-50 Abnormal 0-25 (/HPF) Final Crystals.amorphous [#/area] in Urine sediment by Microscopy high power field 12/22/2023 13:22:50 Many Abnormal None (/HPF) Final Hyaline casts, Urine 12/22/2023 13:22:50 1-4 Abnormal None (/LPF) Final [facility] 12/22/2023 13:22:50 Final Quantitative urine culture t o be performed Performing Location [facility] [place] [address] [place] [facility] [address]
--- OUTSIDE RECORDS SUMMARY | 2024-04-26 13:23 | External Medical Summary | Summary of Care ---
Author Name Unknown Organization [facility] Address [address] [place] [address] Phone [phone] Care Team Providers Care Laundry Helper Name Role Phone Hay Reza MD Primary Care Provide r Encounter Details Date Type Department Care Team (Late st Contact Info) Description 12/22/2023 4:30 PM EDT Home Visit Care Coordination and Integration [address] [place] [address] Mallory Hopkins, Community Health Patient Support Associate [address] [place], [place] [phone] Allergies Active Allergy Reactions Criticality Noted Date [...] Assessment & Plan: Continue statin Atherosclerosis of [place] co ronary artery of [place] heart without angina pectoris HTN, goal below [...] the Treatment of Subjects with de navya [place] Coronary Artery Lesions. Diagnosis changed due to Research Module. Go to Snapshot for study details. CAD in [place] artery 03/29/2015 018 Exercise-induced angina 03/29/2015 12/01/2018 [...] mRNA, LNP-s, No Pre serve, 2-Dose Series ([employer]) 05/07/2021,10/25/2020,09/27/2020 COVID-19, LNP-s, No Preserve , Mamadou-sucrose, [...] Sign Reading Time Taken Comments Blood Pressure 120/58 12/22/2023 9:51 AM EDT Pulse 83 12/22/2023 9:51 AM EDT Temperature 36.9 C (98.4 F) 12/22/2023 9:51 AM ED T Respiratory Rate - - Oxygen Saturation 96% 12/22/2023 9:51 AM EDT Inhaled Oxygen Concentration - - Weight - - Height - - Body Mass Index - - documented in this encounter Progress Notes * Mallory Hopkins, Community Health Patient Support Associate - 12/22/2023 9:53 AM EDT Telemedicine visit: No Community Health Patient Support Associate (SAIGE) documentation: CHW accute home visit per ALBARO Osborne CHW provided pt with urine cup for urine sample. Vital signs were taken without any concerns, all were within range Caregiver states pt has multiple falls. Has caregivers from 7:30 until 1:00 and 1:00 to 5:30 only and then is alone. Pt has no caregivers after 5:30 p.m. CHW asked about an alert system and caregivers stated that family doesn't want an alert system. Pt's last falls were Thursday, December x2. No injuries noted. CHW sent pictures to chart of right hip and right knee area. Pt has an open, blistered area on right hip with some seepage and swelling with bruising on the right lateral knee area. Info sent to documented in this encounter Plan of Treatment Upcoming Encounters Date Type Department Care Team (Late st Contact Info) Description 12/23/2023 10:15 AM EDT Scheduled Telephone [facility] [place] [address] Coordinator, [facility] Shruti Moralesgail [place] [address] 12/24/2023 9:45 AM EDT Scheduled Telephone [facility] [place] [address] Coordinator, [facility] [place] [address] 01/18/2024 4:00 PM EDT [facility] Visit [facility] [address] [place] [address] Lisseth Flores RN 132 [place] [address] 02/18/2024 2:00 PM EDT Office Visit Cardiology [address] [place] [phone] Wilfrid Cai PA-C [address] [place] [address] 03/18/2024 1:00 PM EDT Nurse Only Ancillary [address] [place] [address] [place], Nurse [address] [place] [address] 05/31/2024 3:30 PM EST Office Visit [facility] [address] Rosibel Banuelos PA-C [address] [place] [address] 07/26/2024 2:30 PM EST Office Visit Nephrology [address] [place] [address] ZemaitisJada PA-C [address] [place] [address] Health Maintenance Due Date Last Done Comments [...] Additional history exists CKD PHOS USE SMARTSET 02146 04/02/20242 07/2022, 02/03/2022, 05/13/2021, Additional history exists HbA1c 04/09/2024 10/08/2023, 09/2 07/2022, 09/30/2022, Additional history exists CKD HGB USE SMARTSET 18821 10/11/202410/11, 10/08/2023, 10/08/2023, Additional history exists Pneumococcal [...] Documents on File Type Date Recorded 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 No Care Teams Laundry Helper Relationship Specialty Start Date End Date Hay Reza MD [address] [place] [address] [place] [address] PCP - General Family Medicine 09/24/22 documented as of this encounter
--- OUTSIDE RECORDS SUMMARY | 2024-04-26 13:23 | External Medical Summary | Summary of Care ---
Author Name Unknown Organization [facility] Address [address] [place] [address] Phone [phone] Care Team Providers Care Loose Hand Packer Name Role Phone Hay Reza MD Primary Care Provide r Reason for Visit * Reason Comments [facility]: Maintenance Encounter Details Date Type Department Care Team (Late st Contact Info) Description 12/03/2023 4:00 PM EDT [facility] 132 [facility] [place] [address] Lisseth Flores, RN [address] [place] [address] Allergies Active Allergy Reactions Criticality Noted Date Comments Penicillins 12/04/1999 documented as of this encounter (statuses as of 12/03/2023) Medications Medication Sig Dispensed Refills Start Date [...] bedtime nightly 30 Tablet 5 11/19/2023 Active documented as of this encounter (statuses as of 12/03/2023) Active Problems Problem Noted Date Diagnosed Date [...] Assessment & Plan: Continue statin Atherosclerosis of [place] co ronary artery of [place] heart without angina pectoris HTN, goal below 140/90 History of tobacco abuse Vitamin B12 deficiency documented as of this encounter (statuses as of 12/03/2023) Resolved Problems Problem Noted Date Diagnosed Date [...] the Treatment of Subjects with de navya [place] Coronary Artery Lesions. Diagnosis changed due to Research Module. Go to Snapshot for study details. CAD in [place] artery 03/29/2015 018 Exercise-induced angina 03/29/2015 12/01/2018 [...] as of this encounter (statuses as of 12/03/2023) Immunizations Name Administration Dates Next Due COVID-19 mRNA, LNP-s, No Pre serve, 2-Dose Series ([employer]) 05/07/2021,10/25/2020,09/27/2020 COVID-19, LNP-s, No Preserve , Mamadou-sucrose, [...] Smoking Tobacco: Former Cigarettes 1 10 1 998 1977 Smokeless Tobacco: Never Alcohol Use Standard [...] Sign Reading Time Taken Comments Blood Pressure 100/58 12/03/2023 1:25 PM EDT Pulse 76 12/03/2023 1:25 PM EDT Temperature 36.4 C (97.5 F) 12/03/2023 1:25 PM ED T Respiratory Rate 18 12/03/2023 1:25 PM EDT Oxygen Saturation 95% 12/03/2023 1:25 PM EDT Inhaled Oxygen Concentration - - Weight - - Height - - Body Mass Index - - documented in this encounter Progress Notes * Lisseth Flores RN - 12/03/2023 1:21 PM EDT [facility] at Home Photo Technologist Visit Date: 12/03/2023 Time: 1:21 PM Name: Kishan Bourgeois : 1935 Current Concerns: Patient seen for follow up- Parkinson's disease, CKD, DM Recent neurology appointment Currently taking Carbidopa/Levodopa 25/100 TID with 25/100 ER at . Has caregivers daily 7:30- 5:30PM Thu-Thursday Caregiver, two sons present for visit Patient doing fairly well Will be discharged from [facility]- PT next week VS wnl Lungs clear bilaterally Sob with moderate exertion No LE edema noted Voiding without difficulty Bowels wnl- BM today- encouraged use of Miralax Appetite good Taking fluids well. Problems/Symptoms: Review of Systems Constitutional: Negative. HENT: Negative. Respiratory: Negative. Cardiovascular: Negative. Gastrointestinal: Negative. Genitourinary: Negative. Musculoskeletal: Positive for gait problem. Skin: Negative. Hematological: Negative. Psychiatric/Behavioral: Negative. Physical Exam: BP 100/58 (BP Site: Left Arm, BP Position: Sitting, BP Cuff Size: Regular) | Pulse 76 | Temp 36.4 C (97.5 F) (Tympanic) | Resp 18 | SpO2 95% Pain 0 Physical Exam Constitutional: Appearance: Normal [...] and Affect: Mood normal. Behavior: Behavior normal. [facility]-10 Completed this Visit: No. Routine visit Treatment/Plan: Continue medications as prescribed Keep all upcoming MD appointments Fall precautions Caregivers daily- M-F, family fills in over the weekends Fluids encouraged ALON CM follow up in 8 weeks Home Interventions Provided: Reinforced current Plan of Care, including self-management and medication regimen Patient's Goals of Care: Have caregivers in home Stay at home as long as possible Patient's 'Red Flags': Dizziness/ lightheadedness Increase sob Falls Patient Needs to Remember: Call [facility] with any medical concerns/ red flags Referrals Needed: N/a Follow Up: Is there cellular connectivity/connectivity in the home? Yes Does the patient have internet in the home? No Patient encouraged to call the intake phone number for all urgent but not emergent issues. Scheduled to follow up with patient in 8 weeks. Lisseth Fang RN 12/03/2023 1:21 PM documented in this encounter Plan of Treatment Upcoming Encounters Date Type Department Care Team (Late st Contact Info) Description 01/18/2024 4:00 PM EDT Home Visit [facility] at [facility] [address] [place] [address] Lisseth Flores, RN [address] [place] [address] 02/18/2024 2:00 PM EDT Office Visit Cardiology [address] [place] [address] Wilfrid Cai PA-C 132 [facility] [place] [address] 03/18/2024 1:00 PM EDT Nurse Only Ancillary [address] [place] [address] [place], Nurse [address] [place] [address] 05/31/2024 3:30 PM EST Office [facility] [address] Rosibel Banuelos PA-C [facility] [place] [address] 07/26/2024 2:30 PM EST Office Visit Nephrology [address] [place] [address] ZemaJada reyes PA-C [address] [place] [address] Health Maintenance Due Date Last Done Comments [...] Additional history exists CKD PHOS USE SMARTSET 42797 04/02/202403/14, 02/03/2022, 05/13/2021, Additional history exists HbA1c 04/09/2024 10/08/2023, 03/14, 09/30/2022, Additional history exists CKD HGB USE SMARTSET 47641 10/11/202410/11, 10/08/2023, 10/08/2023, Additional history exists Pneumococcal [...] Documents on File Type Date Recorded 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 No Care Teams Loose Hand Packer Relationship Specialty Start Date End Date Hay Reza MD [address] [place] [address] [place] [address] PCP - General Family Medicine 09/24/22 documented as of this encounter
--- OUTSIDE RECORDS SUMMARY | 2024-04-26 13:23 | External Medical Summary ---
Author Name Unknown Address Unknown Organization K01[place] [place] [address] [place] [id number] Laboratory Report Ordering Provider Test Date Status ELMO MAY 12/22/2023 13:22:50 Final Observation Date Value Abnormality Reference (Units) Status Bacteria identified in Specimen by Culture 12/22/2023 13:22:50 No significant growth Final Test: Culture, Urine, Quanti tative
Specimen Source: Urine, Clean Catch
Specimen Type: Urine
Specimen Date: 12/22/2023 1322
Result Date: 12/23/2023 1635
Result Status: Final result
Resulting Lab: [facility] [place]
[address]
[facility] [address]

CULTURE

No significant growth

null Performing Location [facility] [place] [address] [facility] [address]
--- OUTSIDE RECORDS SUMMARY | 2024-04-26 13:23 | External Medical Summary | Summary of Care ---
Author Name Unknown Organization [facility] Address [address] [place] [address] Phone [phone] Care Team Providers Care Clinical Project Manager Name Role Phone Hay Reza MD Primary Care Provide r Encounter Details Date Type Department Care Team (Late st Contact Info) Description 11/17/2023 Population Health External Data Unspecified Department Allergies Active Allergy Reactions Criticality Noted Date Comments Penicillins 12/04/1999 documented as of this encounter (statuses as of 11/17/2023) Medications Medication Sig Dispensed Refills Start Date [...] as of this encounter (statuses as of 11/17/2023) Active Problems Problem Noted Date Diagnosed Date [...] Assessment & Plan: Continue statin Atherosclerosis of [place] co ronary artery of [place] heart without angina pectoris HTN, goal below 140/90 History of tobacco abuse Vitamin B12 deficiency documented as of this encounter (statuses as of 11/17/2023) Resolved Problems Problem Noted Date Diagnosed Date [...] the Treatment of Subjects with de navya [place] Coronary Artery Lesions. Diagnosis changed due to Research Module. Go to Snapshot for study details. CAD in [place] artery 03/29/2015 018 Exercise-induced angina 03/29/2015 12/0 [...] as of this encounter (statuses as of 11/17/2023) Immunizations Name Administration Dates Next Due COVID-19 mRNA, LNP-s, No Pre serve, 2-Dose Series ([employer]) 05/07/2021,10/25/2020,09/27/2020 COVID-19, LNP-s, No Preserve , Mamadou-sucrose, [...] 11/19/2023 4:30 PM EDT Office Visit Neurology [facility] 200 [facility] [place] [address] Rosibel Banuelos PA-C [address] [place] [address] 12/03/2023 4:00 PM EDT Home Visit Jonah at [address] [place] [address] Lisseth Flores RN 132 [facility] [place] [address] 12/15/2023 11:00 AM EDT Office Visit Neurology [facility] 200 [facility] [place] [address] Rosibel Banuelos PA-C [address] [place] [address] 02/18/2024 2:00 PM EDT Office Visit Cardiology [address] [place] [address] Wilfrid Cai PA-C [address] [place] [address] 03/18/2024 1:00 PM EDT Nurse Only Ancillary [address] [place] [address] [place], Nurse Annual [address] [place] [address] 07/26/2024 2:30 PM EST Office Visit Nephrology [address] [place] [address] Jada Hammer PA-C [address] [place] [address] Health Maintenance Due Date Last Done Comments [...] Additional history exists CKD PHOS USE SMARTSET 11780 04/02/202403/14, 02/03/2022, 05/13/2021, Additional history exists HbA1c 04/09/2024 10/08/2023, 03/14, 09/30/2022, Additional history exists CKD HGB USE SMARTSET 38195 10/11/202410/11, 10/08/2023, 10/08/2023, Additional history exists Pneumococcal [...] Documents on File Type Date 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 No Care Teams Clinical Project Manager Relationship Specialty Start Date End Date Hay Rzea MD [address] [place] [address] [place] [address] PCP - General Family Medicine 09/24/22 documented as of this encounter
--- OUTSIDE RECORDS SUMMARY | 2024-04-26 13:23 | External Medical Summary | Summary of Care ---
Author Name Unknown Organization [facility] Address [address] [place] [address] Phone [phone] Care Team Providers Care Manager Strategy & Account Name Role Phone Anabela Ballesteros MD Primary Care Provide r Reason for Visit * Reason Comments eRx-Medication Refill Encounter Details Date Type Department Care Team (Late st Contact Info) Description 12/03/2023 Refill Family Medicine [address] [phone] Eveline Scott PA-C [address] [place] [address] [place] [address] Itching Allergies Active Allergy Reactions Criticality Noted Date Comments Penicillins 12/04/1999 documented as of this encounter (statuses as of 12/04/2023) Medications Medication Sig Dispensed Refills Start Date [...] THE MORNING 30 Tablet 2 12/04/2023 Active Cetirizine HCl 10 MG Oral Tablet (ZyrTEC Allergy)Indicatio ns:Itching Take 1 Tablet by mouth in the morning. 30 Tablet 2 04/28/2023 4 Discontinued documented as of this encounter (statuses as of 12/04/2023) Active Problems Problem Noted Date Diagnosed Date [...] Assessment & Plan: Continue statin Atherosclerosis of [place] co ronary artery of [place] heart without angina pectoris HTN, goal below 140/90 History of tobacco abuse Vitamin B12 deficiency documented as of this encounter (statuses as of 12/04/2023) Resolved Problems Problem Noted Date Diagnosed Date [...] the Treatment of Subjects with de navya [place] Coronary Artery Lesions. Diagnosis changed due to Research Module. Go to Snapshot for study details. CAD in [place] artery 03/29/2015 018 Exercise-induced angina 03/29/2015 12/01/2018 [...] as of this encounter (statuses as of 12/04/2023) Immunizations Name Administration Dates Next Due COVID-19 mRNA, LNP-s, No Pre serve, 2-Dose Series ([employer]) 05/07/2021,10/25/2020,09/27/2020 COVID-19, LNP-s, No Preserve , Mamadou-sucrose, Ages 12+ (ClosetDash) 10/22/2021 Pneumococcal Conjugate Vacc, 13 Valent (Prevnar) [...] Telephone Encounter - Anabela Ballesteros MD - 12/04/2023 12:39 PM EDT Signed Prescriptions: Disp Refills Cetirizine HCl 10 MG Oral Tablet (ZyrTEC) 30 Tab*2 Sig: TAKE ONE TABLET IN THE MORNING Authorizing Provider: ANABELA BALLESTEROS * Telephone Encounter - Haseeb Donahue, [facility] - 12/04/2023 12:33 PM EDT Pending Prescriptions: Disp Refills Cetirizine HCl 10 MG Oral Tablet [Pharmacy*30 Tab*2 Sig: TAKE ONE TABLET IN THE MORNING * Telephone Encounter - Haseeb Donahue, [facility] - 12/04/2023 12:33 PM EDT Pending Prescriptions: Disp Refills Cetirizine HCl 10 MG Oral Tablet [Pharmacy*30 Tab*2 Sig: TAKE ONE TABLET IN THE MORNING 10/08/2023 (in office), Visit date not found (telemedicine) Visit date not found If no future appointments scheduled, and last appointment is greater than a year ago, please schedule patient for a follow-up appointment Last date the medication was ordered: 04/28/23 Pharmacy: [facility] [place] Is this request for a controlled substance?No [...] 4:00 PM EDT Home Visit [facility] at [facility] [address] [facility] [place] [address] Lisseth Flores RN 132 [facility] [place] [address] 02/18/2024 2:00 PM EDT Office Visit Cardiology [address] [place] [address] Wilfrid Cai PADixonC [address] [place] [address] 03/18/2024 1:00 PM EDT Nurse Only Ancillary [address] [place] [address] [place], Nurse Annual [address] [place] [address] 05/31/2024 3:30 PM EST Office Visit Neurology [facility] [facility] [place] [address] Rosibel Banuelos PA-C [address] [place] [address] 07/26/2024 2:30 PM EST Office Visit Nephrology [address] [place] [address] Jada Hammer PA-C 200 [facility] [place] [address] Health Maintenance Due Date Last Done Comments [...] Additional history exists CKD PHOS USE SMARTSET 68230 04/02/202403/14, 02/03/2022, 05/13/2021, Additional history exists HbA1c 04/09/2024 10/08/2023, 03/14, 09/30/2022, Additional history exists CKD HGB USE SMARTSET 11980 10/11/202410/11, 10/08/2023, 10/08/2023, Additional history exists Pneumococcal [...] Documents on File Type Date Recorded Patient [employer] PAVON 11/22/2019 1:00 PM Out-of-Hos pital [...] Power of Attor sesar? No Care Teams Manager Strategy & Account Relationship Specialty Start Date End Date Anabela Ballesteros MD [address] [place] [address] [place] [address] PCP - General Family Medicine 09/24/22 documented as of this encounter
--- OUTSIDE RECORDS SUMMARY | 2024-04-26 13:23 | External Medical Summary | Summary of Care ---
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 0 Active Carbidopa-Levodopa ER 25-100 MG Oral Tablet Extended Release (Sinemet CR) Take 1 tablet at bedtime nightly 30 Tablet 5 11/19/2023 Active documented as of this encounter (statuses as of 11/19/2023) Active Problems Problem Noted Date Diagnosed Date [...] Assessment & Plan: Continue statin Atherosclerosis of [place] co ronary artery of [place] heart without angina pectoris HTN, goal below 140/90 History of tobacco abuse Vitamin B12 deficiency documented as of this encounter (statuses as of 11/19/2023) Resolved Problems Problem Noted Date Diagnosed Date [...] the Treatment of Subjects with de navya [place] Coronary Artery Lesions. Diagnosis changed due to Research Module. Go to Snapshot for study details. CAD in [place] artery 03/29/2015 018 Exercise-induced angina 03/29/2015 12/01/2018 [...] as of this encounter (statuses as of 11/19/2023) Immunizations Name Administration Dates Next Due COVID-19 mRNA, LNP-s, No Pre serve, 2-Dose Series ([employer]) 05/07/2021,10/25/2020,09/27/2020 COVID-19, LNP-s, No Preserve , Mamadou-sucrose, [...] Smoking Tobacco: Former Cigarettes 1 10 1 278 1977 Smokeless Tobacco: Never Alcohol Use Standard [...] Sign Reading Time Taken Comments Blood Pressure 106/60 11/19/2023 4:19 PM EDT Pulse 69 11/19/2023 4:19 PM EDT Temperature 35.6 C (96 F) 11/19/2023 4:19 PM EDT Respiratory Rate 16 11/19/2023 4:19 PM EDT Oxygen Saturation 97% 11/19/2023 4:19 PM EDT Inhaled Oxygen Concentration - - Weight 67.6 kg (149 lb 1.6 oz) 11/19/2023 4:19 P M EDT Height - - Body Mass Index 24.07 10/08/2023 2:14 PM EDT documented in this encounter Progress Notes * Rosibel Banuelos PA-C - 11/19/2023 4:30 PM EDT HISTORY & PHYSICAL EXAMINATION - NEUROLOGY Name: Kishan Bourgeois Date: 11/19/2023 Time: 6:36 AM Chief Complaint Patient presents with Return Neuro SUBJECTIVE: Kishan Bourgeois is a 87 year old male who returns today for follow- up. He was last seen on 10/20/23 and scored 14/30 on MMSE. This was a decline from 27/30 two years prior. At the time he was felt to have a parkinsonian gait and rigidity. Routine labs noncontributory. Started carbidopa/levodopa. He presents today accompanied by his daughter and son. States he is feeling much better. His walking has improved. He is able to stand from a chair more easily. He denies feeling lightheaded. He takes carbidopa/levodopa at 8:00 a.m., 12:00 p.m., and 5:00 p.m.. He does occasionally get up overnight. There are no caregivers or aides overnight. He uses a cane or walker. He has caregivers Thursday through Thursday, 8am - 5pm. They assist with ADLs, medications, and meals. He has two sons who live locally who check on him otherwise. His daughter Karla is POA and is arranging his bills to be [employer]. He does not drive. MRI brain 10/29/23: 1. No acute intracranial abnormality. 2. Substantial ventricular enlargement which is somewhat out of proportion to the degree of sulcal enlargement with mild crowding of the sulci at the vertex and narrowing of the callosal angle, findings which may be seen in the setting of normal pressure hydrocephalus, although this is a clinical diagnosis. Allergies: Penicillins Problem list: Patient Active Problem List Diagnosis Code Atherosclerosis of [place] coronary artery of [place] heart without angina pectoris I25.10 HTN, goal below 140/90 I10 History of tobacco abuse Z87.891 Dyslipidemia, goal LDL below 70 E78.5 Type 2 diabetes mellitus with hemoglobin A1c goal of less than 8.0% ([facility]) E11.9 S/P primary angioplasty with coronary stent Z95.5 Vitamin B12 deficiency E53.8 Asymptomatic stenosis of left carotid artery I65.22 Primary osteoarthritis of right knee M17.11 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 I12.9, N18.32 Parkinson's disease (HCC) G20.A1 Type 2 diabetes mellitus with stage 3b chronic kidney disease, without long-term current use of insulin (HCC) E11.22, N18.32 Chronic kidney disease, stage 3b (HCC) N18.32 Past Medical History: Past Medical History: Diagnosis Date Asymptomatic stenosis of left carotid artery 12/08/2017 Cholelithiasis CKD (chronic kidney disease) stage 3, GFR 30-59 ml/min (HCC) Coronary atherosclerosis cath 70% lesion first diagonal Coronary atherosclerosis of [place] coronary artery Diffuse idiopathic skeletal hyperostosis 03/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 Cyanocobalamin (VITAMIN B-12) 1000 MCG Tablet TAKE ONE TABLET BY MOUTH EVERY DAY (Patient taking differently: No sig reported) 30 Tab 5 Vitamin D High Potency 25 MCG (1000 UT) Oral Capsule (Cholecalciferol) TAKE ONE CAPSULE BY MOUTH EVERY DAY (Patient taking differently: No sig reported) 90 Cap 1 Metoprolol Succinate ER 25 MG Oral Tablet Extended Release 24 Hour (toPROL XL) TAKE 1/2 TABLET BY MOUTH EVERY DAY 45 Tablet 3 Sodium Bicarbonate 650 MG Oral Tablet Take 1 Tablet by mouth in the morning and 1 Tablet before bedtime. 60 Tablet 11 Cetirizine HCl 10 MG Oral Tablet (ZyrTEC Allergy) Take 1 Tablet by mouth in the morning. 30 Tablet 2 Semaglutide 14 MG Oral Tablet (Rybelsus) Take 14 mg by mouth daily first thing in the morning. 90 Tablet 3 Pravastatin Sodium 80 MG Oral Tablet TAKE ONE TABLET AT BEDTIME 28 Tablet 5 Aspirin Low Dose 81 MG Oral Tablet Delayed Release (aspirin enteric coated) TAKE ONE TABLET BY MOUTH EVERY DAY 28 Tablet 5 Carbidopa-Levodopa 25-100 MG Oral Tablet (Sinemet) Take 1 tablet twice daily x 5 days then increaseto three times daily. 90 Tablet 3 Isosorbide Mononitrate ER 30 MG Oral Tablet Extended Release 24 Hour (Imdur) Take 1 Tablet by mouthin the morning. 30 Tablet 5 No current facility-administered medications for this visit. Family History: Family History Problem Relation Age of Onset Heart Disorder Father Diabetes Mother Heart Disorder Mother Cancer Mother unknown SOCIAL HISTORY: Social History Tobacco Use Smoking status: Former Current packs/day: 0.00 Average packs/day: 1 pack/day for 10.0 years (10.0 ttl pk-yrs) Types: Cigarettes Start date: 1967 Quit date: 1977 Years since quittin.3 Smokeless tobacco: Never Vaping Use Vaping Use: Never used Substance Use Topics Alcohol use: No Drug use: No REVIEW OF SYSTEMS: As above OBJECTIVE: Physical Examination: BP 106/60 | Pulse 69 | Temp 35.6 C (96 F) (Tympanic) | Resp 16 | Wt 67.6 kg (149 lb 1.6 oz) | SpO2 97% | BMI 24.07 kg/m | BSA 1.77 m General appearance: healthy, alert, no distress Physical Exam: Constitutional: Appearance normally developed,well nourished,no deformities,well groomed Head and face: normocephalic,atraumatic Respiratory: normal effort,clear to auscultation Cardiovascular: normal heart sounds and regular rhythm Psychiatric: normal judgement and insight,normal mood,normal affect NEUROLOGIC EXAMINATION: MMSE done 10/19 Cranial Nerves: CN 5 - Facial sensation intact and equal bilaterally CN 7 - no facial assymetry CN 8 - hearing grossly intact Able to stand from wheelchair easily. Narrow based gait, steady. No hesitation or freezing. No ataxia. Multi- step turn. Muscle exam: No cogwheel rigidity at wrists LABORATORY: Results for orders placed or performed in visit on 10/12/23 CBC Result Value Ref Range WBC 9.73 4.00 - 10.80 K/uL RBC 4.31 4.50 - 5.25 M/uL HGB 13.1 (L) 14.0 - 16.8 g/dL HCT 39.6 (L) 40.0 - 48.4 % MCV 91.9 82.0 - 99.5 fL MCH 30.4 27.0 - 34.0 pg MCHC 33.1 32.0 - 36.0 g/dL RDW 14.0 11.5 - 15.5 % PLT 382 140 - 400 K/uL MPV 11.0 6.6 - 11.1 fL nRBCs 0 <=0 /100 WBCs Results for orders placed or performed in visit on 10/12/23 BASIC METABOLIC PANEL Result Value Ref Range BUN 40 (H) 6 - 20 mg/dL Creatinine 1.7 (H) 0.6 - 1.2 mg/dL Estimated Glomerular Filtration Rate 40 (L) >=60 mL/min Sodium 140 135 - 146 mmol/L Potassium 4.6 3.5 - 5.1 mmol/L Chloride 103 98 - 107 mmol/L CO2 23 22 - 32 mmol/L Anion Gap 14 7 - 15 mmol/L Glucose 156 (H) 70 - 120 mg/dL Calcium 9.2 8.4 - 10.2 mg/dL Results for orders placed or performed in visit on 02/03/03 LIPID PANEL Result Value Ref Range HOURS FASTING 13 hours Triglycerides 195 60 - 290 mg/dL Cholesterol 283 (HH) 160 - 200 mg/dL HDL Cholesterol 50 40 - 59 mg/dL Cholesterol-HDL Ratio 5.7 LDL Cholesterol 194 (HH) 0 - 130 mg/dL Results for orders placed or performed in visit on 10/08/23 LIPID PANEL WITH DIRECT LDL IF TG IS HIGH Result Value Ref Range Triglycerides 99 <=174 mg/dL Cholesterol 135 <200 mg/dL HDL Cholesterol 39 (L) >39 mg/dL Non-HDL Cholesterol 96 <=159 mg/dL LDL Cholesterol 76 <=129 mg/dL Lab Results Component Value Date/Time HEMOGLOBIN A1C - [facility] 7.1 (H) 10/08/2023 10:02 AM HEMOGLOBIN A1C - [facility] 8.7 (H) 04/02/2023 09:30 AM HEMOGLOBIN A1C - [facility] 6.9 (H) 09/30/2022 08:27 AM HEMOGLOBIN A1C - [facility] 12.5 (H) 07/27/2020 09:21 AM HEMOGLOBIN A1C - [facility] 8.0 (H) 01/18/2020 11:09 AM HEMOGLOBIN A1C - [facility] 12.1 (H) 07/15/2019 03:52 PM Lab Results Component Value Date/Time TSH - [facility] 2.35 10/08/2023 10:02 AM TSH - [facility] 2.05 01/18/2020 11:09 AM TSH - [facility] 2.63 05/30/2016 12:48 PM TSH - [facility] 3.10 01/30/2015 09:56 AM No results found for: "ENA" Results for orders placed or performed in visit on 10/08/23 VITAMIN B12 Result Value Ref Range Vitamin B12 >2,000 (H) 232 - 1,245 pg/mL Results for orders placed or performed in visit on 10/08/23 FOLIC ACID Result Value Ref Range Folic Acid 7.7 >4.5 ng/mL No results found for: "QWST26PAH5" No results found for: "QDCS41URI6" No results found for: "[id number]" 25OH VITAMIN D TOTAL (ng/mL) Date Value 01/18/2020 45 01/28/2018 37 01/30/2015 29 25-Hydroxy Vitamin D (ng/mL) Date Value 10/08/2023 39 04/02/2023 37 02/03/2022 42 Vitamin D Level Interpretation deficient: <20 ng/ml insufficient: 20-30 ng/ml normal: 31-100 ng/ml Review of prior Studies: MRI Brain FINDINGS There is no restricted diffusion to suggest recent infarct. No intracranial mass or mass effect is present and there is no midline shift. On the FLAIR imaging there are scattered foci of T2 hyperintensity in the white matter which are nonspecific and suggestive of mild chronic white matter change. There is ventricular enlargement which is out of proportion to the degree of sulcal enlargement, andthere is mild crowding of the sulci at the vertex. There is also narrowing of the callosal angle which measures approximately 90 degrees. On the susceptibility weighted images there are no findings to suggest previous parenchymal hemorrhage. No abnormal enhancement is present within the brain. The orbits are unremarkable. Soft tissue thickening is noted in a few of the ethmoid air cells and in the sphenoid sinuses. The mastoid air cells are clear. IMPRESSION IMPRESSION 1. No acute intracranial abnormality. 2. Substantial ventricular enlargement which is somewhat out of proportion to the degree of sulcal enlargement with mild crowding of the sulci at the vertex and narrowing of the callosal angle, findings which may be seen in the setting of normal pressure hydrocephalus, although this is a clinical diagnosis. ASSESSMENT/PLAN: Kishan Bourgeois is a 87 year old male with parkinsonism and dementia. MRI brain reviewed. Significant atrophy with enlargement of ventricles which is somewhat out of proportion. Gait is not typical for NPH. Not wide based or magnetic. Gait is narrow based with multi-step turn.Gait is much improved since starting carbidopa/levodopa. Able to arise from chair easily. Rigidity is improved. He is pleased with the results. Doing PT. He does get up overnight and there is concern about him falling. Will add overnight extended release carbidopa/levodopa to take at bedtime. Briefly discussed memantine; defer additional medications for now. Follow up in 6 months or sooner if needed. I spent a total of 30 minutes on the date of service in preparation, delivery, and documentation of the care provided to Kishan Bourgeois. Helen Huntley MD available for direct consultation. Rosibel Banuelos PA-C, Neurology [address] [address] 11/19/23 4:59 PM documented in this encounter Nursing Notes * Clari Martinez MED ASSIST - 11/19/2023 4:18 PM EDT Chief Complaint Patient presents with Return Neuro documented in this encounter Plan of Treatment Upcoming Encounters Date Type Department Care Team (Late st Contact Info) Description 11/26/2023 10:00 AM EDT Office Visit [address] [address] Hay Reza MD [address] [place] [address] [place] [address] 12/03/2023 4:00 PM EDT [facility] Visit [facility] [place] [place] [address] Lisseth Flores, RN [address] [facility] [place] [address] 02/18/2024 2:00 PM EDT Office Visit Cardiology [address] [place] [address] Wilfrid Cai PA-C 132 [facility] [place] [address] 03/18/2024 1:00 PM EDT Nurse Only Ancillary [address] [place] [address] [place], Nurse Annual [address] [place] [address] 05/31/2024 3:30 PM EST Office Visit Neurology [facility] [place] 200 [facility] [place] [address] Rosibel Banuelos PA-C [address] [place] [address] 07/26/2024 2:30 PM EST Office Visit Nephrology [address] [place] [address] ZemaJada reyes PA-C [address] [place] [address] Health Maintenance Due Date Last Done Comments [...] Additional history exists CKD PHOS USE SMARTSET 38710 04/02/202403/14, 02/03/2022, 05/13/2021, Additional history exists HbA1c 04/09/2024 10/08/2023, 03/14, 09/30/2022, Additional history exists CKD HGB USE SMARTSET 02733 10/11/202410/11, 10/08/2023, 10/08/2023, Additional history exists Pneumococcal [...] without dyskinesia or fluctuating manifestations (HCC)- Primary documented in this encounter Advance Directives Documents on File Type Date Recorded Patient Global Engineering Manager Expl anation POLST 11/22/2019 1:00 PM [...] the patient have Health Care Power of Sec Accountant? No Care Teams Ultrasonographer Relationship Specialty Start Date End Date Hay Reza MD [address] [place] [address] [place] [address] PCP - General Family Medicine 09/24/22 documented as of this encounter
--- OUTSIDE RECORDS SUMMARY | 2024-04-26 13:24 | External Medical Summary | Summary of Care ---
Author Name Unknown Organization [facility] Address [address] [place] [address] Phone [phone] Care Team Providers Care Crop Setting Out Machine Operator Name Role Phone Hay Reza MD Primary Care Provide r Reason for Visit * Reason Onset Date Comments [facility]: Maintenance 11/06/2023 Encounter Details Date Type Department Care Team (Late st Contact Info) Description 11/06/2023 Telephone [facility], [facility] 132 [place] [address] [facility], Nurse [facility] [address] [place] [address] [facility]: Maintenance Allergies Active Allergy Reactions Criticality Noted Date Comments Penicillins 12/04/1999 documented as of this encounter (statuses as of 11/06/2023) Medications Medication Sig Dispensed Refills Start Date [...] as of this encounter (statuses as of 11/06/2023) Active Problems Problem Noted Date Diagnosed Date [...] Assessment & Plan: Continue statin Atherosclerosis of [place] co ronary artery of [place] heart without angina pectoris HTN, goal below 140/90 History of tobacco abuse Vitamin B12 deficiency documented as of this encounter (statuses as of 11/06/2023) Resolved Problems Problem Noted Date Diagnosed Date [...] the Treatment of Subjects with de navya [place] Coronary Artery Lesions. Diagnosis changed due to Research Module. Go to Snapshot for study details. CAD in [place] artery 03/29/2015 018 Exercise-induced angina 03/29/201501/2018 Mixed [...] as of this encounter (statuses as of 11/06/2023) Immunizations Name Administration Dates Next Due COVID-19 mRNA, LNP-s, No Pre serve, 2-Dose Series ([employer]) 05/07/2021,10/25/2020,09/27/2020 COVID-19, LNP-s, No Preserve , [...] Smoking Tobacco: Former Cigarettes 1 10 968 - 1977 Smokeless Tobacco: Never Alcohol [...] encounter Miscellaneous Notes * Telephone Encounter - Erika Farrell RN - 11/06/2023 4:07 PM EDT Images from the original note were not included. Phone call from [facility] They will be going in next Thursday to start home PT, but nurse needs to go in to do assessment Asking for recent note an medication list be faxed Both faxed to [phone] Transmission Confirmed Zuleima Farrell RN, BSN [facility] Intake Triage Coordinator [phone] documented in this encounter Plan of Treatment Upcoming Encounters Date Type Department Care Team (Late st Contact Info) Description 11/09/2023 6:10 PM EDT Pharmacy Pharmacy, [address] [place] [address] [place] [address] 12/03/2023 4:00 PM EDT Home Visit [facility], [facility] [address] [place] [address] Lisseth Flores, RN [address] [place] [address] 12/15/2023 11:00 AM EDT Office Visit Neurology [facility] [address] [place] [address] Rosibel Banuelos PA-C [address] [facility] [place] [address] 02/18/2024 2:00 PM EDT Office Visit Cardiology [address] [place] [address] Wilfrid Cai PA-C [address] [place] [address] 03/18/2024 1:00 PM EDT Nurse Only Ancillary [address] [place] [address] [place], Nurse [address] [place] [address] 07/26/2024 2:30 PM EST Office Visit Nephrology [address] [place] [address] ZeJada renee PA-C [address] [place] [address] Health Maintenance Due Date Last Done Comments [...] Additional history exists CKD PHOS USE SMARTSET 62147 04/02/202403/14, 02/03/2022, 05/13/2021, Additional history exists HbA1c 04/09/2024 10/08/2023, 03/14, 09/30/2022, Additional history exists CKD HGB USE SMARTSET 71606 10/11/202410/11, 10/08/2023, 10/08/2023, Additional history exists Pneumococcal [...] Documents on File Type Date Recorded Patient Problem Manager Expl anation POLST 11/22/2019 1:00 PM [...] the patient have Health Care Power of Geriatric Assistant? No Care Teams Crop Setting Out Machine Operator Relationship Specialty Start Date End Date Hay Reza MD [address] [place] [address] [place] [id number] PCP - General Family Medicine 09/24/22 documented as of this encounter
--- OUTSIDE RECORDS SUMMARY | 2024-04-26 13:24 | External Medical Summary | Summary of Care ---
Author Name Unknown Organization [facility] Address [address] [place] [address] Phone [phone] Care Team Providers Care Diversity Manager Name Role Phone Hay Reza MD Primary Care Provide r Reason for Visit * Reason Onset Date Comments Information 11/06/2023 Encounter Details Date Type Department Care Team (Late st Contact Info) Description 11/06/2023 Telephone [facility] [place] [address] [place] [address] Services, Scheduling [address] [place] [address] Information (///) Allergies Active Allergy Reactions Criticality Noted Date [...] Plan: Continue statin Atherosclerosis of [place] co ronary artery of [place] heart without angina pectoris HTN, goal below [...] the Treatment of Subjects with de navya [place] Coronary Artery Lesions. Diagnosis changed due to Research Module. Go to Snapshot for study details. CAD in [place] artery 03/29/2015 018 Exercise-induced angina 03/29/2015 12/0 [...] mRNA, LNP-s, No Pre serve, 2-Dose Series ([employer]) 05/07/2021,10/25/2020,09/27/2020 COVID-19, LNP-s, No Preserve , Mamadou-sucrose, [...] encounter Miscellaneous Notes * Telephone Encounter - Zuleima Vale OSA - 11/06/2023 11:29 AM EDT Request to find for PT I faxed docs all to Cecelia [phone] documented in this encounter Plan of Treatment Upcoming Encounters Date Type Department Care Team (Late st Contact Info) Description 11/09/2023 6:10 PM EDT Pharmacy Pharmacy, [address] [place] [address] [place] [address] 12/03/2023 4:00 PM EDT Home Visit [facility] at [address] [place] [address] Lisseth Flores, RN [address] [place] [address] 12/15/2023 11:00 AM EDT Office Visit Neurology [facility] Johnna [place] [address] [place] [address] Rosibel Banuelos PA-C [address] [place] [address] 02/18/2024 2:00 PM EDT Office Visit Cardiology [address] [place] [address] Wilfrid Cai PA-C [address] [place] [address] 03/18/2024 1:00 PM EDT Nurse Only Ancillary [address] [place] [address] [place], Nurse [address] [place] [address] 07/26/2024 2:30 PM EST Office Visit Nephrology [address] [place] [address] ZeJada renee PA-C [address] [place] [address] Health Maintenance Due Date Last Done Comments DTaP,Tdap,and Td Vaccines (1 - Tdap) 1954 Zoster Vaccines (2 of 3) 09/07/2004 07/13/2004 Diabetic Eye Exam 05/10/2021 05/10/2020, , 03/17/2019, Additional history exists COVID-19 Vaccine ( - 2022- season) 2023 10/22/2021, 05/07/2021, 10/25/2020, Additional history exists Depression Screening 03/17/2024 03/17/2023 Diabetic Foot Exam 03/17/2024 03/17/2023, 0 03/12/2022, 03/11/2021, Additional history exists Albumin/Creatinine Ratio 04/02/2024 023, 09/30/2022, 09/04/2021, Additional history exists CKD PHOS USE SMARTSET 29193 04/02/202403/14, 02/03/2022, 05/13/2021, Additional history exists HbA1c 04/09/2024 10/08/2023, 03/14, 09/30/2022, Additional history exists CKD HGB USE SMARTSET 75397 10/11/202410/11, 10/08/2023, 10/08/2023, Additional history exists Pneumococcal [...] Documents on File Type Date Recorded Patient Instrument Maintenance Supervisor America PAVON 11/22/2019 1:00 PM Out-of-Hos pital DNR Latest [...] the patient have Health Care Power of Project Scheduler? No Care Teams Diversity Manager Relationship Specialty Start Date End Date Hay Reza MD [address] [place] [address] [place] [address] PCP - General Family Medicine 09/24/22 documented as of this encounter
--- OUTSIDE RECORDS SUMMARY | 2024-04-26 13:24 | External Medical Summary | Summary of Care ---
Author Name Unknown Organization [facility] Address [address] [place] [address] Phone [phone] Care Team Providers Care Warning Analyst Name Role Phone Hay Reza MD Primary Care Provide r Encounter Details Date Type Department Care Team (Late st Contact Info) Description 10/31/2023 Orders Only PATIENT PORTAL DO NOT DELETE THIS DEPT [id number] Allergies Active Allergy Reactions Criticality Noted Date Comments Penicillins 12/04/1999 documented as of this encounter (statuses as of 10/31/2023) Medications Medication Sig Dispensed Refills Start Date [...] as of this encounter (statuses as of 10/31/2023) Active Problems Problem Noted Date Diagnosed Date [...] Assessment & Plan: Continue statin Atherosclerosis of [place] co ronary artery of [place] heart without angina pectoris HTN, goal below 140/90 History of tobacco abuse Vitamin B12 deficiency documented as of this encounter (statuses as of 10/31/2023) Resolved Problems Problem Noted Date Diagnosed Date [...] the Treatment of Subjects with de navya [place] Coronary Artery Lesions. Diagnosis changed due to Research Module. Go to Snapshot for study details. CAD in [place] artery 03/29/2015 018 Exercise-induced angina 03/29/2015 12/0 [...] as of this encounter (statuses as of 10/31/2023) Immunizations Name Administration Dates Next Due COVID-19 mRNA, LNP-s, No Pre serve, 2-Dose Series (GetLikeminds) 05/07/2021,10/25/2020,09/27/2020 COVID-19, LNP-s, No Preserve , Mamadou-sucrose, [...] Description 11/09/2023 6:10 PM EDT Pharmacy Pharmacy, [address] [place] [address] [place] [address] 12/03/2023 4:00 PM EDT Home Visit [facility] at [facility] [address] [address] Lisseth Flores, ALON [address] [place] [address] 12/15/2023 11:00 AM EDT Office Visit Neurology [place]honny Oropeza [place] 200 [facility] [place] [address] Rosibel Banuelos PA-C [address] [place] [address] 02/18/2024 2:00 PM EDT Office Visit Cardiology [address] [place] [address] Wilfrid Cai PA-C [address] [place] [address] 03/18/2024 1:00 PM EDT Nurse Only Ancillary [address] [place] [address] [place], Nurse [address] [place] [address] 07/26/2024 2:30 PM EST Office Visit Nephrology [address] [place] [address] Jada Hammer PA-C [address] [place] [address] Health Maintenance Due Date Last Done Comments [...] Additional history exists CKD PHOS USE SMARTSET 54934 04/02/202403/14, 02/03/2022, 05/13/2021, Additional history exists HbA1c 04/09/2024 10/08/2023, 03/14, 09/30/2022, Additional history exists CKD HGB USE SMARTSET 69949 10/11/202410/11, 10/08/2023, 10/08/2023, Additional history exists Pneumococcal [...] Documents on File Type Date Recorded Patient 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 No Care Teams Warning Analyst Relationship Specialty Start Date End Date Hay Reza MD [address] [place] [address] [place] [address] PCP - General Family Medicine 09/24/22 documented as of this encounter
--- OUTSIDE RECORDS SUMMARY | 2024-04-26 13:24 | External Medical Summary | Summary of Care ---
Author Name Unknown Organization [facility] Address [address] [place] [address] Phone [phone] Care Team Providers Care Transplant Case Manager Name Role Phone Hay Reza MD Primary Care Provide r Reason for Visit * Reason Onset Date Comments Information 11/09/2023 Encounter Details Date Type Department Care Team (Late st Contact Info) Description 11/09/2023 Telephone [facility] [address] [place] [address] Services, Scheduling [address] [place] [address] Information (///) Allergies Active Allergy Reactions Criticality Noted Date Comments Penicillins 12/04/1999 documented as of this encounter (statuses as of 11/09/2023) Medications Medication Sig Dispensed Refills Start Date [...] as of this encounter (statuses as of 11/09/2023) Active Problems Problem Noted Date Diagnosed Date [...] Assessment & Plan: Continue statin Atherosclerosis of [place] co ronary artery of [place] heart without angina pectoris HTN, goal below 140/90 History of tobacco abuse Vitamin B12 deficiency documented as of this encounter (statuses as of 11/09/2023) Resolved Problems Problem Noted Date Diagnosed Date [...] the Treatment of Subjects with de navya [place] Coronary Artery Lesions. Diagnosis changed due to Research Module. Go to Snapshot for study details. CAD in [place] artery 03/29/2015 018 Exercise-induced angina 03/29/2015 12/0 [...] as of this encounter (statuses as of 11/09/2023) Immunizations Name Administration Dates Next Due COVID-19 mRNA, LNP-s, No Pre serve, 2-Dose Series ([employer]) 05/07/2021,10/25/2020,09/27/2020 COVID-19, LNP-s, No Preserve , Mamadou-sucrose, [...] Telephone Encounter - Zuleima Vale OSA - 11/09/2023 11:17 AM EDT Request to find for PT I faxed to [facility] and am waiting their reply once received documented in this encounter Plan of Treatment Upcoming Encounters Date Type Department Care Team (Late st Contact Info) Description 11/09/2023 6:10 PM EDT Pharmacy Pharmacy, [address] [place] [address] [place] [address] Type 2 diabetes mellitus with hemoglobin A1c goal of less than 8.0% ([facility])* 12/03/2023 4:00 PM EDT Home Visit [facility], [address] [place] [address] Lisseth Flores, RN [address] [place] [address] 12/15/2023 11:00 AM EDT Office Visit Neurology [facility] Johnna [place] [address] [facility] [place] [address] Rosibel Banuelos PA-C [address] [place] [address] 02/18/2024 2:00 PM EDT Office Visit Cardiology [address] [place] [address] Wilfrid Cai PA-C [address] [place] [address] 03/18/2024 1:00 PM EDT Nurse Only Ancillary [address] [place] [address] [place], Nurse Annual [address] [place] [address] 07/26/2024 2:30 PM EST Office Visit Nephrology [address] [place] [address] Jada Hammer PA-C [address] [place] [address] Health Maintenance Due Date Last Done Comments [...] Additional history exists CKD PHOS USE SMARTSET 37985 04/02/202403/14, 02/03/2022, 05/13/2021, Additional history exists HbA1c 04/09/2024 10/08/2023, 03/14, 09/30/2022, Additional history exists CKD HGB USE SMARTSET 73926 10/11/202410/11, 10/08/2023, 10/08/2023, Additional history exists Pneumococcal [...] Documents on File Type Date Recorded Patient Panelbeater America shell POL 11/22/2019 1:00 PM Out-of-Hos [...] the patient have Health Care Power of Hydraulic Miner? No Care Teams Transplant Case Manager Relationship Specialty Start Date End Date Hay Reza MD [address] [place] [address] [place] [address] PCP - General Family Medicine 09/24/22 documented as of this encounter
--- OUTSIDE RECORDS SUMMARY | 2024-04-26 13:24 | External Medical Summary | Summary of Care ---
Author Name Unknown Organization [facility] Address [address] [place] [address] Phone [phone] Care Team Providers Care Neuropsychologist Name Role Phone Hay Reza MD Primary Care Provide r Reason for Referral * Evaluate & Treat - Unlimited Visits (Within 10 days (routine)) - Authorized Specialty Diagnoses / Procedures Referred By Greg ramirez Referred To Contact HOME CARE / Home Care Diagnoses Parkinson's disease, unspecified whether dyskinesia present, unspecified whether manifestations fluctuate ([facility]) Jarred Flowers PA-C [address] [place] [address] Referral ID Status Reason Start Date Expiration Date Visits Requested Visits Authorized [id number] Authorized Specialty Services Required 11/02/2023 999 999 Question Answer Referral Priority Within 10 days (routine) Where should this appointment be scheduled? Jonah Comments Documentation of Vcxu-[id number] Encounter Addendum Patient Name: Kishan Bourgeois I certify that this patient is under my care and that I, or a nurse practitioner or physician's assistant professor of german working with me, had a [id number] encounter that meets the physician puqm-no-spax encounter requirements with this patient on: 10/19/23 The encounter with the patient was in whole, or in part, for the following medical condition, which is the primary reason for home health care (List medical condition): ADL dysfunction I certify that, based on my findings, the following services are medically necessary home health services: Physical Therapy To provide the following care/treatments: (All hospitalists not following the patient after discharge should complete this section): eval and treat, maximize home independence, strengthening and gait training Primary Care Physician to follow home care plan of care after discharge: Hay Reza MD My clinical findings support the need for the above services because: weakness, falls Further, I certify that my clinical findings support that this patient is homebound (i.e. Absences from home require considerable and taxing effort and are for medical reasons or hindu services or infrequently or of short duration when for other reason) because: Fall risk, does not drive Physician Signature: Date of Signature: Physician Printed Name: Jarred Flowers PA-C Encounter Details Date Type Department Care Team (Late st Contact Info) Description 11/02/2023 Orders Only [facility], [facility] 132 [facility] [place] [address] Jarred Flowers PA-C [address] [place] [address] Parkinson's disease, unspecified whether dyskinesia present, unspecified whether manifestations fluctuate (HCC)* Allergies Active Allergy Reactions Criticality Noted Date Comments Penicillins 12/04/1999 documented as of this encounter (statuses as of 11/02/2023) Medications Medication Sig Dispensed Refills Start Date [...] as of this encounter (statuses as of 11/02/2023) Active Problems Problem Noted Date Diagnosed Date [...] Assessment & Plan: Continue statin Atherosclerosis of [place] co ronary artery of [place] heart without angina pectoris HTN, goal below 140/90 History of tobacco abuse Vitamin B12 deficiency documented as of this encounter (statuses as of 11/02/2023) Resolved Problems Problem Noted Date Diagnosed Date [...] to Snapshot for study details. CAD in [place] artery 03/29/2015 018 Exercise-induced angina 03/29/201501/2018 Mixed [...] as of this encounter (statuses as of 11/02/2023) Immunizations Name Administration Dates Next Due COVID-19 mRNA, LNP-s, No Pre serve, 2-Dose Series ([employer]ubator) 05/07/2021,10/25/2020,09/27/2020 COVID-19, LNP-s, No Preserve , Mamadou-sucrose, [...] Description 11/09/2023 6:10 PM EDT Pharmacy Pharmacy, [address] [place] [address] [place] [address] 12/03/2023 4:00 PM EDT Home Visit [facility]ing at Home, [facility] 132 [facility] [place] [address] Lisseth Flores, RN [address] [place] [address] 12/15/2023 11:00 AM EDT Office Visit Neurology [facility] [place] [address] [place] [address] Rosibel Banuelos PA-C [address] [place] [address] 02/18/2024 2:00 PM EDT Office Visit Cardiology [address] [place] [address] Wilfrid Cai PA-C [address] [place] [address] 03/18/2024 1:00 PM EDT Nurse Only Ancillary [address] [place] [address] [place], Nurse Annual [address] [place] [address] 07/26/2024 2:30 PM EST Office Visit Nephrology [address] [place] [address] ZemaJada reyes PA-C [address] [place] [address] Scheduled Referrals Name Type Priority Associated Diagnoses Orde r Schedule HOME HEALTH REFERRAL OP Referral Within 10 days (routine) Parkinson's disease, unspecified whether dyskinesia present, unspecified whether manifestations fluctuate (HCC) Ordered: 11/02/2023 Health Maintenance Due Date Last Done Comments DTaP,Tdap,and Td Vaccines (1 - Tdap) 1954 Zoster Vaccines (2 of 3) 09/07/2004 07/13/2004 Diabetic Eye Exam 05/10/2021 05/10/2020, , 03/17/2019, Additional history exists COVID-19 Vaccine (5 - 2023-24 season) 2023 10/22/2021, 05/07/2021, 10/25/2020, Additional history exists Depression Screening 03/17/2024 03/17/2023 Diabetic Foot Exam 03/17/2024 03/17/2023, 0 03/12/2022, 03/11/2021, Additional history exists Albumin/Creatinine Ratio 04/02/2024 023, 09/30/2022, 09/04/2021, Additional history exists CKD PHOS USE SMARTSET 36600 04/02/202403/14, 02/03/2022, 05/13/2021, Additional history exists HbA1c 04/09/2024 10/08/2023, 03/14, 09/30/2022, Additional history exists CKD HGB USE SMARTSET 83385 10/11/202410/11, 10/08/2023, 10/08/2023, Additional history exists Pneumococcal [...] of this encounter Visit Diagnoses Diagnosis Parkinson's disease, unspecified whether dyskinesia present, unspecified whether manifestations fluctuate (HCC)- Primary documented in this encounter Advance Directives Documents on File Type Date Recorded Patient National Investigative Producer America PAVON 11/22/2019 1:00 PM Out-of-Hos pital [...] the patient have Health Care Power of Hot Kettle Tender? No Care Teams Neuropsychologist Relationship Specialty Start Date End Date Hay Reza MD [address] [place] [address] [place] [phone] PCP - General Family Medicine 09/24/22 documented as of this encounter
--- OUTSIDE RECORDS SUMMARY | 2024-04-26 13:24 | External Medical Summary | Summary of Care ---
Author Name Unknown Organization [facility] Address [address] [place] [address] Phone [phone] Care Team Providers Care Gas Meter Installer Helper Name Role Phone Hay Reza MD Primary Care Provide r Reason for Visit * Reason Onset Date Comments Medication Question 11/10/2023 Encounter Details Date Type Department Care Team (Late st Contact Info) Description 11/10/2023 Telephone Nephrology, Jhonny Oropeza 200 [facility] [place] [address] Aida Keenan MD [address] [place] [address] Medication Question Allergies Active Allergy Reactions Criticality Noted Date Comments Penicillins 12/04/1999 documented as of this encounter (statuses as of 11/10/2023) Medications Medication Sig Dispensed Refills Start Date [...] as of this encounter (statuses as of 11/10/2023) Active Problems Problem Noted Date Diagnosed Date [...] Assessment & Plan: Continue statin Atherosclerosis of [place] co ronary artery of [place] heart without angina pectoris HTN, goal below 140/90 History of tobacco abuse Vitamin B12 deficiency documented as of this encounter (statuses as of 11/10/2023) Resolved Problems Problem Noted Date Diagnosed Date [...] the Treatment of Subjects with de navya [place] Coronary Artery Lesions. Diagnosis changed due to Research Module. Go to Snapshot for study details. CAD in [place] artery 03/29/2015 018 Exercise-induced angina 03/29/2015 12/0 [...] as of this encounter (statuses as of 11/10/2023) Immunizations Name Administration Dates Next Due COVID-19 mRNA, LNP-s, No Pre serve, 2-Dose Series (Vsnap) 05/07/2021,10/25/2020,09/27/2020 COVID-19, LNP-s, No Preserve , Mamadou-sucrose, [...] Miscellaneous Notes * Telephone Encounter - Tiffanie Forte CPhT - 11/10/2023 11:47 AM EDT [facility] pharmacy calling to verify the current dose for the pt's Isosorbide Mononitrate ER 30 MG Oral Tablet Extended Release 24 Hour (Imdur). I advised caller of the information listed. No furtherassistance is needed. Thank you, Gladys Forte CPhT [facility] (Formerly [facility]) 11/10/2023,11:48 AM documented in this encounter Plan of Treatment Upcoming Encounters Date Type Department Care Team (Late st Contact Info) Description 12/03/2023 4:00 PM EDT Home Visit [facility] at Home, [address] [place] [address] Lisseth Flores, RN [address] [place] [address] 12/15/2023 11:00 AM EDT Office Visit Neurology [facility] [place] [address] [place] [address] Rosibel Banuelos PA-C [address] [place] [address] 02/18/2024 2:00 PM EDT Office Visit Cardiology [address] [place] [address] Wilfrid Cai PA-C [address] [place] [address] 03/18/2024 1:00 PM EDT Nurse Only Ancillary [address] [place] [address] [place], Nurse Annual [address] [place] [address] 07/26/2024 2:30 PM EST Office Visit Nephrology [address] [place] [address] ZemaJada reyes PA-C [address] [place] [address] Health Maintenance Due Date Last Done Comments [...] Additional history exists CKD HGB USE SMARTSET 15823 10/11/202410/11, 10/08/2023, 10/08/2023, Additional history exists Pneumococcal [...] Documents on File Type Date Recorded Patient Client Service Administrator America PAVON 11/22/2019 1:00 PM Out-of-Hos pital [...] the patient have Health Care Power of Pharmacist Apprentice? No Care Teams Gas Meter Installer Helper Relationship Specialty Start Date End Date Hay Reza MD [address] [place] [address] [place] [address] PCP - General Family Medicine 09/24/22 documented as of this encounter
--- OUTSIDE RECORDS SUMMARY | 2024-04-26 13:24 | External Medical Summary | Summary of Care ---
Author Name Unknown Organization [facility] Address [address] [place] [address] Phone [phone] Care Team Providers Care Human Resources Team Member Name Role Phone Hay Reza MD Primary Care Provide r Encounter Details Date Type Department Care Team (Late st Contact Info) Description 11/09/2023 Telephone NeurologyCecelia [facility] [place] [address] Rosibel Banuelos PA-C [address] [facility] [place] [address] Allergies Active Allergy Reactions Criticality Noted Date [...] Assessment & Plan: Continue statin Atherosclerosis of [place] co ronary artery of [place] heart without angina pectoris HTN, goal below [...] the Treatment of Subjects with de navya [place] Coronary Artery Lesions. Diagnosis changed due to Research Module. Go to Snapshot for study details. CAD in [place] artery 03/29/2015 018 Exercise-induced angina 03/29/2015 1201/2018 [...] mRNA, LNP-s, No Pre serve, 2-Dose Series ([employer]) 05/07/2021,10/25/2020,09/27/2020 COVID-19, LNP-s, No Preserve , Mamadou-sucrose, [...] Former Cigarettes 1 10 1 [phone] Smokeless Tobacco: Never Alcohol Use Standard Drinks/Week [...] encounter Miscellaneous Notes * Telephone Encounter - Rosibel Banuelos PA-C - 11/09/2023 11:22 AM EDT Left voicemail for daughter Karla to return call regarding MRI results. Number [phone]. Directed by family to call Karla to discuss. When she returns call please ask for good call back number/time. Thank you documented in this encounter Plan of Treatment Upcoming Encounters Date Type Department Care Team (Late st Contact Info) Description 11/09/2023 6:10 PM EDT Pharmacy Pharmacy, [address] [place] [address] [place] [address] Type 2 diabetes mellitus with hemoglobin A1c goal of less than 8.0% ([facility])* 12/03/2023 4:00 PM EDT Home Visit [facility] [place] [address] [place] [address] Lisseth Flores, ALON [address] [place] [address] 12/15/2023 11:00 AM EDT Office Visit Neurology [facility] [place] [facility] [place] [address] Rosibel Banuelos PA-C [address] [place] [address] 02/18/2024 2:00 PM EDT Office Visit Cardiology [address] [place] [address] Wilfrid Cai PA-C [address] [place] [address] 03/18/2024 1:00 PM EDT Nurse Only Ancillary [address] [place] [address] [place], Nurse [address] [place] [address] 07/26/2024 2:30 PM EST Office Visit Nephrology [address] [place] [address] ZemaJada reyes PA-C 200 [facility] [place] [address] Health Maintenance Due Date Last Done Comments [...] Additional history exists CKD PHOS USE SMARTSET 42124 04/02/202403/14, 02/03/2022, 05/13/2021, Additional history exists HbA1c 04/09/2024 10/08/2023, 03/14, 09/30/2022, Additional history exists CKD HGB USE SMARTSET 77769 10/11/202410/11, 10/08/2023, 10/08/2023, Additional history exists Pneumococcal [...] Documents on File Type Date Recorded Patient Head Pumper Expl anation POLST 11/22/2019 1:00 PM Out-of-Hos [...] the patient have Health Care Power of Respiratory Therapy Technician? No Care Teams Human Resources Team Member Relationship Specialty Start Date End Date Hay Reza MD [address] [place] [address] [place] [address] PCP - General Family Medicine 09/24/22 documented as of this encounter
--- OUTSIDE RECORDS SUMMARY | 2024-04-26 13:24 | External Medical Summary | Summary of Care ---
Author Name Unknown Organization [facility] Address [address] [place] [address] Phone [phone] Care Team Providers Care Dredge Captain Name Role Phone Hay Reza MD Primary Care Provide r Reason for Visit * Reason Onset Date Comments FYI 11/16/2023 Encounter Details Date Type Department Care Team (Late st Contact Info) Description 11/16/2023 Telephone Family Medicine [address] [phone] Hay Reza MD [address] [place] [address] [place] [phone] FYI Allergies Active Allergy Reactions Criticality Noted [...] Assessment & Plan: Continue statin Atherosclerosis of [place] co ronary artery of [place] heart without angina pectoris HTN, goal below [...] the Treatment of Subjects with de navya [place] Coronary Artery Lesions. Diagnosis changed due to Research Module. Go to Snapshot for study details. CAD in [place] artery 03/29/2015 018 Exercise-induced angina 03/29/2015 12/01/2018 [...] mRNA, LNP-s, No Pre serve, 2-Dose Series ([employer] 05/07/2021,10/25/2020,09/27/2020 COVID-19, LNP-s, No Preserve , Mamadou-sucrose, [...] Date Smoking Tobacco: Former Cigarettes 1 10 8 1977 Smokeless Tobacco: Never Alcohol Use Standard [...] can be reached out on mobile # [phone]. Please advise. Jael Rodríguez documented in this encounter Plan of Treatment Upcoming Encounters Date Type Department Care Team (Late st Contact Info) Description 11/19/2023 4:30 PM EDT Office Visit Neurology [facility] [address] [place] [address] Rosibel Banuelos PA-C 21 [place] [address] 12/03/2023 4:00 PM EDT [facility] Visit [facility] [address] [place] [address] Lisseth Flores RN [address] [place] [address] 12/15/2023 11:00 AM EDT Office Visit Neurology [facility] [place] [address] [place] [address] Rosibel Banuelos PA-C 21 [place] [address] 02/18/2024 2:00 PM EDT Office Visit Cardiology [address] [place] [address] Wilfrid Cai PA-C [address] [place] [address] 03/18/2024 1:00 PM EDT Nurse Only Ancillary [address] [place] [address] [place], Nurse [address] [place] [address] 07/26/2024 2:30 PM EST Office Visit Nephrology [address] [place] [address] Jada Hammer PA-C [address] [place] [address] Health Maintenance Due Date Last Done Comments [...] Additional history exists CKD PHOS USE SMARTSET 66698 04/02/202403/14, 02/03/2022, 05/13/2021, Additional history exists HbA1c 04/09/2024 10/08/2023, 03/14, 09/30/2022, Additional history exists CKD HGB USE SMARTSET 82655 10/11/202410/11, 10/08/2023, 10/08/2023, Additional history exists Pneumococcal [...] Documents on File Type Date Recorded Patient Family Dinner Service Specialist Expl anation POLST 11/22/2019 1:00 PM Out-of-Hos [...] the patient have Health Care Power of Director Of Sales And Marketing? No Care Teams Dredge Captain Relationship Specialty Start Date End Date Hay Reza MD [address] [place] [address] [place] [phone] PCP - General Family Medicine 09/24/22 documented as of this encounter
--- OUTSIDE RECORDS SUMMARY | 2024-04-26 13:24 | External Medical Summary | Summary of Care ---
Author Name Unknown Organization [facility] Address [address] [place] [address] Phone [phone] Care Team Providers Care Corporate Paralegal Name Role Phone Hay Reza MD Primary Care Provide r Reason for Visit * Reason Comments Dosage Adjustment Via Phone (anticoag Cl inic) Encounter Details Date Type Department Care Team (Late st Contact Info) Description 11/09/2023 6:10 PM EDT Pharmacy Pharmacy, [address] [place] [address] [place] [address] Type 2 diabetes mellitus with hemoglobin A1c goal of less than 8.0% ([facility])* Allergies Active Allergy Reactions Criticality Noted Date [...] Assessment & Plan: Continue statin Atherosclerosis of [place] co ronary artery of [place] heart without angina pectoris HTN, goal below [...] the Treatment of Subjects with de navya [place] Coronary Artery Lesions. Diagnosis changed due to Research Module. Go to Snapshot for study details. CAD in [place] artery 03/29/2015 018 Exercise-induced angina 03/29/201501/2018 Mixed [...] mRNA, LNP-s, No Pre serve, 2-Dose Series ([employer]) 05/07/2021,10/25/2020,09/27/2020 COVID-19, LNP-s, No Preserve , Mamadou-sucrose, [...] on file documented as of this encounter Progress Notes * Gayle Mattson PHARM Tech - 11/09/2023 8:28 AM EDT Kishan Bourgeois has not contacted the clinic to schedule/reschedule an appointment for DM management per referral from PCP despite multiple requests to do so by our team. Patient is discharged from [facility] services at this time. Thank you, Gayle Mattson Program Director [facility] Pharmacy Services (CCPS) (Formerly Telepharmacy) 11/09/2023, 8:29 AM documented in this encounter Plan of Treatment Upcoming Encounters Date Type Department Care Team (Late st Contact Info) Description 12/03/2023 4:00 PM EDT Home Visit [facility] [place], [address] [place] [address] Lisseth Flores, RN [address] [place] [address] 12/15/2023 11:00 AM EDT Office Visit Neurology [facility] [place] [address] [place] [address] Rosibel Banuelos PA-C [address] [place] [address] 02/18/2024 2:00 PM EDT Office Visit Cardiology [address] [place] [address] Wilfrid Cai PA-C [address] [place] [address] 03/18/2024 1:00 PM EDT Nurse Only Ancillary [address] [place] [address] [place], Nurse Annual [address] [place] [address] 07/26/2024 2:30 PM EST Office Visit Nephrology [address] [place] [address] ZeJada renee PA-C [address] [place] [address] Health Maintenance Due Date Last Done Comments [...] Additional history exists CKD PHOS USE SMARTSET 46789 04/02/202403/14, 02/03/2022, 05/13/2021, Additional history exists HbA1c 04/09/2024 10/08/2023, 03/14, 09/30/2022, Additional history exists CKD HGB USE SMARTSET 57567 10/11/202410/11, 10/08/2023, 10/08/2023, Additional history exists Pneumococcal [...] Documents on File Type Date Recorded Patient Crowning Inspector Expl sumaya SAVANAH 11/22/2019 1:00 PM Out-of-Hos pital DNR Latest [...] the patient have Health Care Power of Head Start Assistant Teacher? No Care Teams Corporate Paralegal Relationship Specialty Start Date End Date Hay Reza MD [address] [place] [address] [place] [phone] PCP - General Family Medicine 09/24/22 documented as of this encounter
--- OUTSIDE RECORDS SUMMARY | 2024-04-26 13:24 | External Medical Summary | Summary of Care ---
Author Name Unknown Organization [facility] Address [address] [place] [address] Phone [phone] Care Team Providers Care Retail Store Assistant Name Role Phone Hay Reza MD Primary Care Provide r Reason for Visit * Reason Onset Date Comments Test Results 11/06/2023 Encounter Details Date Type Department Care Team (Late st Contact Info) Description 11/06/2023 Telephone Nephrology, Jhonny Oropeza 200 [facility] [place] [address] Aida Keenan MD 200 [place] [address] Test Results Allergies Active Allergy Reactions Criticality Noted Date [...] Assessment & Plan: Continue statin Atherosclerosis of [place] co ronary artery of [place] heart without angina pectoris HTN, goal [...] the Treatment of Subjects with de navya [place] Coronary Artery Lesions. Diagnosis changed due to Research Module. Go to Snapshot for study details. CAD in [place] artery 03/29/2015 018 Exercise-induced angina 03/29/2015 12/0 [...] mRNA, LNP-s, No Pre serve, 2-Dose Series ([email or web address]) 05/07/2021,10/25/2020,09/27/2020 COVID-19, LNP-s, No Preserve , Mamadou-sucrose, [...] encounter Miscellaneous Notes * Telephone Encounter - Jackie Piña LPN - 11/06/2023 11:54 AM EDT Son is aware Will keep f/u apt in 03/05 Orthostatics can be checked with [facility] Yao is aware per Dr Keenan notes sent to PCP and G@[facility] Son verbalizes understanding * Telephone Encounter - Eri George OSA - 11/06/2023 11:19 AM EDT Pt son is returning phone call * Telephone Encounter - Jackie Piña LPN - 11/06/2023 11:09 AM EDT Attempted to review results with Pt was advised by caregiver to contact son Yao @ [phone] aspt not understanding LMM for son to return call to our office * Telephone Encounter - Jackie Piña LPN - 11/06/2023 11:08 AM EDT ----- Message from Aida Keenan MD sent at 11/06/2023 10:32 AM EDT ----- Stable L carotid stenosis from 2021 study. See that they got cardiology f/u for February which is good. W/ his frequent falls, can we have g@H check orthostatic VS >> big thing though is technique >> copying G@H to ask them to do orthostat VS lying, sitting, standing immediately AND STANDING AFTER 5 MINUTES >> ok to wait until November to do it or if he could have nephro or pcp do this at 11/08 [facility] visit even better. Pls PLS NOTE TECHNIKQUE ABOVE Copying G@H and pcp nursing documented in this encounter Plan of Treatment Upcoming Encounters Date Type Department Care Team (Late st Contact Info) Description 11/09/2023 6:10 PM EDT Pharmacy Pharmacy, [address] [place] [address] [place] [address] 12/03/2023 4:00 PM EDT Home Visit [facility], [facility] 132 [place] [address] Lisseth Flores, RN 132 [place] [address] 12/15/2023 11:00 AM EDT Office Visit Neurology [place]ny Oro[place] [facility] [place] [address] Rosibel Banuelos PA-C [address] [place] [address] 02/18/2024 2:00 PM EDT Office Visit Cardiology [address] [place] [address] Wilfrid Cai PADixonC [address] [place] [address] 03/18/2024 1:00 PM EDT Nurse Only Ancillary [address] [place] [address] [place], Nurse [address] [place] [address] 07/26/2024 2:30 PM EST Office Visit Nephrology [address] [place] [address] ZemaitisJada PA-C [address] [place] [address] Health Maintenance Due Date Last Done Comments [...] Additional history exists CKD PHOS USE SMARTSET 81643 04/02/202403/14, 02/03/2022, 05/13/2021, Additional history exists HbA1c 04/09/2024 10/08/2023, 03/14, 09/30/2022, Additional history exists CKD HGB USE SMARTSET 16706 10/11/202410/11, 10/08/2023, 10/08/2023, Additional history exists Pneumococcal [...] Documents on File Type Date Recorded Patient News Copy Editor Expl sumaya POLST 11/22/2019 1:00 PM Out-of-Hos pital DNR [...] the patient have Health Care Power of Modern Greek Studies Professor? No Care Teams Retail Store Assistant Relationship Specialty Start Date End Date Hay Reza MD [address] [place] [address] [place] [address] PCP - General Family Medicine 09/24/22 documented as of this encounter
--- OUTSIDE RECORDS SUMMARY | 2024-04-26 13:24 | External Medical Summary | Summary of Care ---
Author Name Unknown Organization [facility] Address [address] [place] [address] Phone [phone] Care Team Providers Care Sports Athletic Trainer Name Role Phone Hay Reza MD Primary Care Provide r Reason for Visit * Reason Comments [facility]: Maintenance Encounter Details Date Type Department Care Team (Late st Contact Info) Description 10/30/2023 12:30 PM EDT Home Visit [facility], [facility] 132 [facility] [place] [address] Lisseth Flores, RN [address] [place] [address] Allergies Active Allergy Reactions Criticality Noted Date [...] Assessment & Plan: Continue statin Atherosclerosis of [place] co ronary artery of [place] heart without angina pectoris HTN, goal below [...] the Treatment of Subjects with de navya [place] Coronary Artery Lesions. Diagnosis changed due to Research Module. Go to Snapshot for study details. CAD in [place] artery 03/29/2015 018 Exercise-induced angina 03/29/201501/2018 Mixed [...] mRNA, LNP-s, No Pre serve, 2-Dose Series ([employer]) 05/07/2021,10/25/2020,09/27/2020 COVID-19, LNP-s, No Preserve , Mamadou-sucrose, [...] Smoking Tobacco: Former Cigarettes 1 10 8 - 1977 Smokeless Tobacco: Never Alcohol Use [...] Sign Reading Time Taken Comments Blood Pressure 112/52 10/30/2023 12:30 PM EDT Pulse 80 10/30/2023 12:30 PM EDT Temperature 36.1 C (96.9 F) 10/30/2023 12:30 PM E DT Respiratory Rate 18 10/30/2023 12:30 PM EDT Oxygen Saturation 97% 10/30/2023 12:30 PM EDT Inhaled Oxygen Concentration - - Weight - - Height - - Body Mass Index - - documented in this encounter Progress Notes * Lisseth Flores RN - 10/30/2023 12:09 PM EDT [facility] Visit Date: 10/30/2023 Time: 12:09 PM Name: Kishan Bourgeois : 1935 Current Concerns: Patient seen for follow up- Parkinson's, CKD, DM Recent Nephrology appointment- Lisinopril discontinued. Isosorbide decreased to 30mg daily, Neurology appointment- prescribed Carbidopa/Levodopa 25/100 TID. License pulled by Neurology. Recent fall- patient drove to son's home- got out of olive picker and fell and rolled down the hill. Found by son. VIET noted. Spoke with patient, caregiver and son- regarding falls. Is agreeable to physical therapy. VS wnl Lungs clear bilaterally Sob with exertion No LE edema noted Voiding without difficulty Bowels wnl- per report Appetite good Taking fluids well Problems/Symptoms: Review of Systems Constitutional: Negative. HENT: Negative. Eyes: Negative. Respiratory: Positive for shortness of breath. Cardiovascular: Negative. Gastrointestinal: Negative. Genitourinary: Negative. Musculoskeletal: Positive for gait problem. Hematological: Negative. Psychiatric/Behavioral: Negative. Physical Exam: BP 112/52 (BP Site: Right Arm, BP Position: Sitting, BP Cuff Size: Regular) | Pulse 80 | Temp 36.1 C (96.9 F) (Tympanic) | Resp 18 | SpO2 97% Pain 0 Physical Exam Constitutional: Appearance: Normal appearance. Cardiovascular: Rate and Rhythm: Normal rate and regular rhythm. Pulses: Normal pulses. Heart sounds: Normal heart sounds. Pulmonary: Effort: Pulmonary effort is normal. Breath sounds: Normal breath sounds. Abdominal: General: Bowel sounds are normal. Palpations: Abdomen is soft. Musculoskeletal: General: Normal range of motion. Skin: General: Skin is warm and dry. Capillary Refill: Capillary refill takes 2 to 3 seconds. Neurological: Mental Status: He is alert. Mental status is at baseline. [facility]-10 Completed this Visit: Yes. [facility]-10: Reason Completed: Status post fall [facility]-10 ([facility]) Fall Risk Assessment Tool Age 65+: Yes (10/30/231199) Diagnosis (3 or more co-existing): Yes (10/30/231199) Prior history of falls within 3 months: Yes (10/30/231199) Incontinence: Yes (10/30/231199) Visual impairment: No (10/30/231199) Impaired functional mobility: Yes (10/30/231199) Environmental hazards: No (10/30/231199) Poly Pharmacy (4 or more prescriptions - any type): Yes (10/30/231199) Pain affecting level of function: No (10/30/231199) Cognitive impairment: Yes (10/30/231199) Score - a score of 4 or more is considered at risk for fallin (10/30/231199) [facility]-10 Interventions: Fall education provided, reviewed/provided Fall brochure Treatment/Plan: Message sent to provider for HH referral for PT Continue medications as prescribed Keep all upcoming MD appointments Fall precautions- walker Fluid encouraged Caregivers 9a-5pm Mon-Fri RN CM follow up in 4 weeks. Home Interventions Provided: Reinforced current Plan of Care, including self-management and medication regimen Patient's Goals of Care: Have caregivers in home Stay at home as long as possible Patient's 'Red Flags': Dizziness/ lightheadedness Increase sob Falls Patient Needs to Remember: Call [facility] with any medical concerns/red flags Referrals Needed: N/a Follow Up: Is there cellular connectivity/connectivity in the home? Yes Does the patient have internet in the home? No Patient encouraged to call the intake phone number for all urgent but not emergent issues. Scheduled to follow up with patient in 4 weeks. Lisseth Fang RN 10/30/2023 12:09 PM documented in this encounter Plan of Treatment Upcoming Encounters Date Type Department Care Team (Late st Contact Info) Description 11/09/2023 6:10 PM EDT Pharmacy Pharmacy, [address] [place] [address] [place] [address] 12/03/2023 4:00 PM EDT [facility] Visit [facility], [facility] [address] [place] [address] Lisseth Flores, ALON 132 [place] [address] 12/15/2023 11:00 AM EDT [facility] [place] [address] Rosibel Banuelos PA-C [address] [place] [address] 02/18/2024 2:00 PM EDT Office Visit Cardiology [address] [place] [address] Wilfrid Cai PA-C [address] [place] [address] 03/18/2024 1:00 PM EDT Nurse Only Ancillary [address] [place] [address] [place], Nurse Annual [address] [place] [address] 07/26/2024 2:30 PM EST Office Visit Nephrology [address] [place] [address] Zemaitis, Jada Rodriguez PA-C 200 [facility] [place] [address] Health Maintenance Due Date Last Done Comments [...] Additional history exists CKD PHOS USE SMARTSET 87081 04/02/202403/14, 02/03/2022, 05/13/2021, Additional history exists HbA1c 04/09/2024 10/08/2023, 03/14, 09/30/2022, Additional history exists CKD HGB USE SMARTSET 01823 10/11/202410/11, 10/08/2023, 10/08/2023, Additional history exists Pneumococcal [...] Documents on File Type Date Recorded Patient Personal Attendant [place] PAVON 11/22/2019 1:00 PM Out-of-Hos pital [...] the patient have Health Care Power of [place]? No Care Teams Sports Athletic Trainer Relationship Specialty Start Date End Date Hay Reza MD [address] [place] [address] [place] [address] PCP - General Family Medicine 09/24/22 documented as of this encounter
[2024-04-26] MEDS ORDERED: GLYCOPYRROLATE 0.2 MG/ML VIAL IV PRN (14:57)
[2024-04-26] MEDS ORDERED: MoRPHine SULFATE 2 MG/ML CARP IV PRN (14:57)
[2024-04-26] MEDS ORDERED: ONDANSETRON INJ 2 MG/ML 2 ML VIAL IV PRN (14:57)
[2024-04-26] MEDS: RAPID SEQUENCE INDUCTION BAG ONE (14:58)
[2024-04-26 15:14] VITALS: BP 102/50
--- NOTE | 2024-04-26 16:19 | Electrocardiogram Report ---
Test Reason : Blood Pressure : */* mmHG Vent. Rate : 176 BPM Atrial Rate : 133 BPM P-R Int : * ms QRS Dur : 4 ms QT Int : 168 ms P-R-T Axes : * 0 -44 degrees QTcB Int : 287 ms Idioventricular rhythm Abnormal ECG When compared with ECG of 01-Oct-2023 13:22, Sinus rhythm no longer present Confirmed by Darci Cazares ([id number]) on 04/26/2024 4:19:32 PM Referred By: REFERRED SELF Confirmed By: Darci Cazares
[2024-04-26] MEDS: ACETAMINOPHEN 1,000 MG/100 ML VIAL IV PRN (17:05)
[2024-04-26] MEDS ORDERED: ACETAMINOPHEN 1,000 MG/100 ML VIAL IV PRN (17:37)
[2024-04-26 17:56] VITALS: TEMP 88.3
--- NOTE | 2024-04-26 20:33 | History & Physical Report ---
Date of Service April 26, 2024 Assessment & Plan Admission and Anticipated Discharge Date Admission Date: April 26, 2024 History of Present Illness Primary Care Provider: Crissy Mcintyre MD Allergies Allergy/AdvReac Type Severity Reaction Status Date / Time Penicillins Allergy Severe THROAT Verified 05/23/16 16:41 SWELLING Home Medications Medication Instructions Recorded Confirmed Type aspirin 81 mg tablet,delayed 81 mg PO QAM ##0 05/23/16 04/26/24 History release cholecalciferol (vitamin D3) 25 25 mcg PO DAILY 30 days #30 tabs 12/02/17 04/26/24 History mcg (1,000 unit) capsule (Vitamin D3) carbidopa 25 mg-levodopa 100 mg 1.5 tab PO TID 04/26/24 04/26/24 History tablet carbidopa ER 25 mg-levodopa 100 mg 1 tab PO HS 04/26/24 04/26/24 History tablet,extended release cetirizine 10 mg tablet 5 mg PO HS 04/26/24 04/26/24 History cyanocobalamin (vitamin B-12) 1,000 mcg PO DAILY 04/26/24 04/26/24 History 1,000 mcg tablet metoprolol succinate 25 mg 25 mg PO DAILY 04/26/24 04/26/24 History tablet,extended release 24 hr pravastatin 80 mg tablet 80 mg PO HS 04/26/24 04/26/24 History semaglutide 7 mg tablet (Rybelsus) 7 mg PO QAM 04/26/24 04/26/24 History sodium bicarbonate 650 mg tablet 650 mg PO BID 04/26/24 04/26/24 History Past Med/Surg History Problem List Dementia Comfort measures only status Fall Hypothermia (Acute) Dysrhythmia (Acute) Hypotension (Acute) Unresponsive (Acute) OLIVIER (acute kidney injury) (Acute) Amputation finger (Chronic) Medical History Emphysema of lung Carotid artery stenosis, asymptomatic left Parkinson disease CAD (coronary artery disease) "s/p stent" CKD (chronic kidney disease), stage III Hypertension Dyslipidemia DM type 2 (diabetes mellitus, type 2) Surgical History S/P coronary artery stent placement Family History Father Heart disease Social History Smoking Status: Former smoker packs per day: 1; Smoking End Date: 1977; Hx Alcohol Use: No Hx Substance Use: No Preferred Language: Kyrgyz Communication Ability: Unable Bilingual [employer] Required: No Beliefs That Will Affect Care: Jew Current Living Situation: Alone Feels Safe at Home: Yes Results & Data Results & Data Vital Signs (Past 12 Hours) Vital Signs Temp Pulse Pulse Pulse Resp BP Pulse Ox 04/26/24 18:04 04/26/24 17:55 31.3 C L 04/26/24 14:00 04/26/24 14:00 50 L 20 102/50 L 92 04/26/24 13:50 04/26/24 13:48 25.8 C L 43 L 18 123/54 L 99 04/26/24 13:02 49 L 18 78/46 L 100 04/26/24 12:37 33 L 100 04/26/24 11:00 40 L 17 99 04/26/24 10:51 38 L 21 99 04/26/24 10:51 34 L 04/26/24 10:48 30 L 15 98 04/26/24 10:40 78/46 L 04/26/24 10:32 25 C L 04/26/24 10:21 28 L 15 78 L 04/26/24 10:12 35 L 12 78 L 04/26/24 10:00 79/47 L 04/26/24 10:00 30 L 16 85 L 04/26/24 09:57 35 L 14 92 04/26/24 09:45 40 L 17 93 04/26/24 09:42 45 L 04/26/24 09:41 0 L 04/26/24 09:37 25 C L 52 L 20 04/26/24 09:36 45 L 14 O2 Del Method O2 Flow Rate 04/26/24 18:04 Nasal Cannula 2 04/26/24 17:55 04/26/24 14:00 Nasal Cannula 2 04/26/24 14:00 Nasal Cannula 2 04/26/24 13:50 Nasal Cannula 2 04/26/24 13:48 Nasal Cannula 2 04/26/24 13:02 Nasal Cannula 2 04/26/24 12:37 Nasal Cannula 2 04/26/24 11:00 04/26/24 10:51 04/26/24 10:51 04/26/24 10:48 04/26/24 10:40 04/26/24 10:32 04/26/24 10:21 Room Air 04/26/24 10:12 Room Air 04/26/24 10:00 04/26/24 10:00 Room Air 04/26/24 09:57 Room Air 04/26/24 09:45 Room Air 04/26/24 09:42 04/26/24 09:41 04/26/24 09:37 04/26/24 09:36 Code Status & VTE Plan VTE Prophylaxis Plan VTE Prophylaxis will be ordered: No Supervising Physician Co-Signing Physician Notes Chart, history and data reviewed. Patient seen in the ED with multiple family members present. Patient is essentially poorly responsive. Only opens his eyes to verbal stimuli. Family has met and are in agreement for comfort measures only. Continue comfort measures
--- NOTE | 2024-04-27 07:51 | Hospitalist Progress Note ---
Date of Service April 27, 2024 Assessment & Plan (1) Fall: (2) Unresponsive: (3) Dysrhythmia: (4) Hypotension: (5) Hypothermia: (6) Comfort measures only status: (7) CAD (coronary artery disease): (8) DM type 2 (diabetes mellitus, type 2): (9) CKD (chronic kidney disease), stage III: (10) Parkinson disease: (11) Dementia: Plan Mr. Kishan Bourgeois (Dick) is an 88 yr old M who has a significant PMH of CAD w hx of stent, HTN, HLD, T2DM, CKD-3B, parkinson disease, b12 def, vitamin D def, L asymptomatic carotid artery stenosis and dementia who presents to ED 2/2 unresponsive episode. LKW 04/25/24 in the evening. He was found by his caregiver ~ 0800 unresponsive and cold. EMS summoned. Pt was in vfib with spontaneous conversion to NSR. Family opted to override DNR to full code. In ED pt was hypotensive, severely bradycardic, hypothermic with evidence of fall and abrasions. Discussion per ED provider with family was to make pt DNR/DNI and comfort measures only given severity and poor prognosis. Multiple family members at bedside are in agreement with DNR/DNI. Dementia: Parkinsons Disease: Hypotension: Patient was originally admitted for [employer] after conversation held in ED as patient was hypotensive, bradycardic, hypothermic. He was found by his caregiver in their [place] and it was cold outside at night; suspect he was taking his dog outside for a walk. Initially thought patient would cease to breath while in house Placed on comfort medications including PRN IV Morphine, Ativan, Glycopyrrolate; has not utilized any medications No doses of PRN's administered overnight Will restart home meds PT/OT evals --> see below Goals of Care; counseling/conversation: Patient was originally admitted for [employer]: Initially thought patient would cease to breath while in house Placed on comfort medications including PRN IV Morphine, Ativan, Glycopyrrolate; has not utilized any medications No doses of PRN's administered overnight As patient seemingly appears to have returned to baseline, met with family both inside the room and outside of the room to discuss goals of care. Lengthy discussion held with pt daughter Paola. Patient has a caregiver that comes 3 times a week from 8 AM to 4 PM but over the past few months he has had more imbalance issues, weight loss, and a more marked functional decline. Conversation held regarding options which include: 1 Further workup for underlying conditions that could benefit from treatment 2. Return home with hospice support/02/02 care 3 proceed with PT/OT evaluation for possible SNF rehab with ability to transition to SNF permanently versus return home with hospice support Patient family states that his overarching goal would be to be at home and they feel that having a PT OT evaluation with SNF placement short-term may allow them time to see how he continues to either improve, stay the same or decline helping them with long-term decision making. Case management present for second family meeting who will provide hospice list and caregiver list for family to review. Family does not wish to have any blood draws, new medications given for now. They would like to proceed with a hospice approach to his care. Set expectations that if patient is unable to participate in physical therapy that they may not say he qualifies for SNF especially given that overarching goal is conservative and not moving towards active treatment of any medical conditions on top of his current medication regimen. I spent a total of 58 minutes coordinating, documenting, and providing care for this patient excluding time spent in the performance of separately billed services. All of the aforementioned completed while collaborating with the assigned attending physician for a full treatment plan. Please see their addendum for further details. Admission and Anticipated Discharge Date Admission Date: April 26, 2024 Supervising Physician Co-Signing Physician Notes I have seen and examined the patient at bedside. Discussed the case with the collaborating advanced practitioner. I agree with the documentation as above. I have reviewed and confirmed the patients medical history, thefindings on physical examination, and the patients diagnosis and treatment plan with Millicent STANLEY and agree with the information documented. Note has been edited as needed. Continue comfort measures as requested by patient/family. Plan to discharge once placement available. Subjective Pt sitting in his hospital bed in no apparent distress looking at his daughters He is AAO x 1 but unable to say more than a few words at a time. Patient does deny pain. He is unable to identify who his 2 daughters are across the room Patient seemingly has returned to baseline functional status compared to admission. No comfort medications were utilized overnight/since admission. Lengthy conversation held with daughters x 2 at bedside and outside of the room with case management discussing options. Family would like to remain conservative with all treatment options including no further blood work or workup for altered mental status/fall/suspicion of delirium on top of dementia Discussed options related to patient disposition which include: * returning home with hospice support + 24/ care versus * SNF short-term rehab with either transition home with hospice or permanent placement with hospice after SNF benefit exhausted. See A/P for further details Review of Systems Review of Systems: Unobtainable due to cognitive status Physical Exam Physical Exam: Neuro: AAOx4, PERRLA, no aphagia, memory changes, CNII-XII grossly intact HEENT: head normocephalic, moist mucus membranes. CV: S1/S2, (-) M/G/R, (-) edema, cap refill < 3 seconds Resp: Lungs decreased in all joshi. On 2LNC. No use of accessory muscles for breathing GI: Abdomen S/NT/ND, Ax4 bowel sounds, (-) CVA tenderness Musculoskeletal: 5/5 B/L UE strength, 5/5 B/L LE strength. No gait disturbance Skin: (-) rashes , (-) erythema. Psych: euthymic mood Results & Data Results & Data Vital Signs (Past 12 Hours) Vital Signs O2 Del Method O2 Flow Rate 04/26/24 22:00 Nasal Cannula 2 Laboratory Results Short CBC 04/26/24 Range/Units 09:30 WBC 14.76 H (4.8-10.8) K/ul Hgb 11.9 L (14.0-18.0) g/dl Hct 37.1 L (42.0-52.0) % Plt Count 308 (130-400) K/uL BMP 04/26/24 09:30 Sodium 140 Potassium 5.1 Chloride 101 Carbon Dioxide 23 BUN 28 H Creatinine 1.30 Glucose 203 H Calcium 8.8 Liver Function 04/26/24 Range/Units 09:30 Total Bilirubin 0.7 (0.2-1.0) mg/dl AST 33 (13-39) U/L ALT 8 (7-52) U/L Alkaline Phosphatase 90 (34-104) U/L Albumin 2.7 L (3.4-5.0) gm/dl
[2024-04-27] MEDS: ASPIRIN 81 MG ECTAB PO SCH (14:31)
[2024-04-27] MEDS: CYANOCOBALAMIN (B-12) 500 MCG TABLET PO SCH (14:31)
[2024-04-27] MEDS: SODIUM BICARBONATE 650 MG TAB PO SCH (14:31)
[2024-04-27] MEDS ORDERED: Nursing to Pharmacy Communication SCH (17:30)
[2024-04-27] MEDS: CARBIDOPA/LEVODOPA 25/100MG TAB PO SCH (18:33)
[2024-04-27] MEDS: PRAVASTATIN SOD 40 MG TAB PO SCH (19:23)
[2024-04-27] MEDS: CARBIDOPA/LEVODOPA 25/100MG EXT REL TAB PO SCH (19:23)
[2024-04-27] MEDS: LORazepam 2 MG/1 ML VIAL IV PRN (19:51)
[2024-04-27] MEDS ORDERED: CARBIDOPA/LEVODOPA 25/100MG TAB PO SCH (21:00)
[2024-04-28 12:19] VITALS: RESP 18; O2SAT 100
--- NOTE | 2024-04-28 14:16 | Hospitalist Progress Note ---
Date of Service April 28, 2024 Assessment & Plan (1) Fall: (2) Unresponsive: (3) Dysrhythmia: (4) Hypotension: (5) Hypothermia: (6) Comfort measures only status: Plan Kishan Bourgeois (Dick) is an 88y/o M with PMHx significant for CAD s/p stenting, HTN, HLD, T2DM, CKD-3B, Parkinson's disease, vitamin B12 deficiency, vitamin D deficiency, asymptomatic left carotid artery stenosis and dementia who presented to the ED via EMS on 04/26/2024 after being found unresponsive at home. Previous last known well was on 04/25/2024 in the evening. He was found by his caregiver around 8AM on 04/26/2024 completely unresponsive and cold to the touch. EMS was then summoned. Patient was in ventricular fibrillation with spontaneous conversion to normal sinus rhythm. Family opted to override DNR to full code on scene. In the ED upon arrival, the patient was hypotensive, severely bra dycardic, hypothermic and had multiple abrasions. Discussion per ED provider with family was to make patient DNR/DNI and comfort measures only given medical severity and understood poor prognosis. Multiple family members at bedside were in agreement with DNR/DNI order. Dementia, Parkinson's Disease Unresponsiveness/Dysrhythmia & Hypotension: Patient was originally admitted for [employer] after conversation was held in the ED as the patient was hypotensive, bradycardic and hypothermic on arrival. He was found by his caregiver in their [place] and it was cold outside at night; suspect he was taking his dog outside for a walk. Initially thought patient would cease to breath while in house. Placed on comfort medications at time of admission including PRN IV Morphine, Ativan, Glycopyrrolate; has only used one dose of IV Ativan last night due to agitation. Most home meds were restarted; metoprolol succinate on hold given hypotension. Goals of Care - Counseling/Conversation: Patient was originally admitted for [employer] --> initially thought patient would cease to breath while in house as per above. Placed on comfort medications including PRN IV Morphine, Ativan, Glycopyrrolate; utilized first dose of IV Ativan last night due to agitation. Thursday, 04/27 (Per LIZETH Ricks) As patient seemingly appears to have returned to baseline, met with family both inside the room and outside of the room to discuss goals of care. Lengthy discussion held with patient's daughters Mariam and Do. Patient has a caregiver that comes 3 times a week from 8 AM to 4 PM but over the past few months he has had more imbalance issues, weight loss, and a more marked functional decline. Conversation held regarding options which included: 1. Further workup for underlying conditions that could benefit from treatment. 2. Return home with hospice support 02/02 care. 3. Proceed with PT/OT evaluation for possible SNF rehab with ability to transition to SNF permanently versus return home with hospice support. Patient family states that his overarching goal would be to be at home and they feel that having a PT/OT evaluation with SNF placement short-term may allow them time to see how he continues to either improve, stay the same or decline helping them with long-term decision making. Case management present for second family meeting who will provide hospice list and caregiver list for family to review. Family does not wish to have any blood draws, new medications given for now. They would like to proceed with a hospice approach to his care. Set expectations that if patient is unable to participate in physical therapy that they may not say he qualifies for SNF especially given that overarching goal is conservative and not moving towards active treatment of any medical conditions on top of his current medication regimen. , 04/28 His daughter, Mariam, was at bedside this morning and we had a long discussion regarding placement options such as SNF versus hospice pending PT/OT evaluations today. She informed me that her father seems to have returned back to baseline functioning status, however he has been steadily declining since October of this year. Mariam mentions that the overarching goal at this point would be to keep him as comfortable and as functional as possible. This was discussed between the siblings previously and it seems that they are favoring a hospice approach at this time. Set expectations that if the patient is unable to participate in PT/OT, then he may not qualify for SNF placement especially since the overarching goal is conservative management and not moving towards active treatment of any other medical conditions on top of his current medication regimen. Mariam was highly agreeable with this plan moving forward. Instructed Mariam to reach out if any questions or concerns were to arise. Per nursing staff, patient was yelling and screaming out to the hallway last night. He was unable to be redirected however one dose of 0.5mg IV Ativan was effective to keep him calm/relaxed. Patient only says a few words at a time. He did ask where his watch was when I was in the room this morning however. PT/OT evaluated the patient this morning after I chatted with Mariam at bedside and made the following recommendations --> Patient to require 24/7 care at home vs. SNF placement, ? appears both PT and OT are favoring SNF placement. Will discuss with CM regarding this. Code Status: DNR/DNI - No Resuscitation PCP: Crissy Mcintyre MD Disposition: Admitted in Med/Surg, awaiting possible SNF placement recommendations vs 24/7 care at home. CM involved with this process. Patient seen in collaboration with Dr. Bales. Please see addendum. I spent a total of 55 minutes coordinating, documenting, and providing care for this patient excluding time spent in the performance of separately billed services. This included personally reviewing all current laboratories and imaging studies, medical reconciliation, outpatient chart review and discussion with specialists. This chart was completed in part utilizing Speech Voice Recognition Software. Grammatical errors, random word insertions, pronoun errors, and incomplete sentences are an occasional consequence of this system due to software limitations, ambient noise, and hardware issues. Any formal questions or concerns about the content, text, or information contained within the body of this dictation should be directly addressed to the provider for clarification. Admission and Anticipated Discharge Date Admission Date: April 26, 2024 Supervising Physician Co-Signing Physician Notes I have seen and examined the patient at bedside. Discussed the case with the collaborating advanced practitioner. I agree with the documentation as above. I have reviewed and confirmed the patients medical history, thefindings on physical examination, and the patients diagnosis and treatment plan with Flor Rosado PA-C and agree with the information documented. Note has been edited as needed. Continue comfort measures as requested by patient/family. Denies any chest pain, dyspnea today Waiting for placement Case management to help with discharge planning Subjective Patient was getting washed up in bed this morning by nursing manager staff. His daughter, Mariam, was at bedside and we had a long discussion regarding placement options such as SNF vs hospice pending PT/OT evaluations today. She informed me that her father seems to have returned back to baseline functioning status, however he has been steadily declining since October of this year. Mariam mentions that the overarching goal at this point would be to keep him as comfortable and as functional as possible. This was discussed between the siblings and it seems that they are favoring a hospice approach at this time. Set expectations that if the patient is unable to participate in PT/OT, then he may not qualify for SNF placement especially since the overarching goal is conservative management and not moving towards active treatment of any other medical conditions on top of his current medication regimen. Mariam was highly agreeable with this plan moving forward. Instructed Mariam to reach out if any questions or concerns were to arise. Made her aware that I will be seeing him on rounds tomorrow as well. Per nursing staff, patient was yelling and screaming out to the hallway last night. He was unable to be redirected however one dose of 0.5mg IV Ativan was effective to keep him calm/relaxed. Patient only says a few words at a time. He did ask where his watch was when I was in the room this morning. Review of Systems Review of Systems: Unable to obtain due to patient's cognitive/mental status. Physical Exam Physical Exam: General: WD/WN, vitals as above, NAD, laying down in bed, hardly conversive but does speak a few words here and there. A+O to self. HEENT: Normocephalic, atraumatic. PERRL, conjunctivae normal, anicteric sclerae. External ear and nose normal, oropharynx dry. Respiratory: Normal respiratory effort, breath sounds decreased throughout all lung joshi, no wheeze, rales, rhonchi. No accessory muscle use. Cardiovascular: Bradycardic rate, regular rhythm, no murmur, normal peripheral pulses, no BLE edema. Vessels: No JVD. Abdomen/GI: Normal bowel sounds, soft, nontender, no hepatosplenomegaly. Extremities/Musculoskeletal: No cyanosis or clubbing, able to actively move all extremities, bandaging intact over LLE pretibial region. Neurologic: EOMI, no focal deficits, CN's II-XI not formally tested but appear grossly intact bilaterally. Skin: No rashes, warm/dry. Multiple skin tears covered with bandages and bruising in different stages of healing noted on BUE. Results & Data Results & Data Vital Signs (Past 12 Hours) Vital Signs Resp Pulse Ox O2 Del Method O2 Flow Rate 04/28/24 12:18 18 100 Room Air 04/28/24 07:35 Nasal Cannula 2 (1) Fall Encounter type: initial encounter Qualified Code(s): W19.XXXA - Unspecified fall, initial encounter (3) Dysrhythmia Arrhythmia type: unspecified cardiac arrhythmia Qualified Code(s): I49.9 - Cardiac arrhythmia, unspecified (4) Hypotension Hypotension type: unspecified hypotension type Qualified Code(s): I95.9 - Hypotension, unspecified (5) Hypothermia Encounter type: initial encounter Qualified Code(s): T68.XXXA - Hypothermia, initial encounter
[2024-04-28] MEDS: LORazepam 2 MG/1 ML VIAL IV PRN (21:24)
--- NOTE | 2024-04-29 15:12 | Hospitalist Progress Note ---
Date of Service April 29, 2024 Assessment & Plan (1) Fall: (2) Unresponsive: (3) Dysrhythmia: (4) Hypotension: (5) Hypothermia: (6) Comfort measures only status: Plan Kishan Bourgeois (Dick) is an 88y/o M with PMHx significant for CAD s/p stenting, HTN, HLD, T2DM, CKD-3B, Parkinson's disease, vitamin B12 deficiency, vitamin D deficiency, asymptomatic left carotid artery stenosis and dementia who presented to the ED via EMS on 04/26/2024 after being found unresponsive at home. Previous last known well was on 04/25/2024 in the evening. He was found by his caregiver around 8AM on 04/26/2024 completely unresponsive and cold to the touch. EMS was then summoned. Patient was in ventricular fibrillation with spontaneous conversion to normal sinus rhythm. Family opted to override DNR to full code on scene. In the ED upon arrival, the patient was hypotensive, severely bra dycardic, hypothermic and had multiple abrasions. Discussion per ED provider with family was to make patient DNR/DNI and comfort measures only given medical severity and understood poor prognosis. Multiple family members at bedside were in agreement with DNR/DNI order. Dementia, Parkinson's Disease Unresponsiveness/Dysrhythmia & Hypotension: Patient was originally admitted for ENTERTAINMENT & [employer]IA CORRESPONDENT after conversation was held in the ED as the patient was hypotensive, bradycardic and hypothermic on arrival. He was found by his caregiver in their breezeway and it was cold outside at night; suspect he was taking his dog outside for a walk. Initially thought patient would cease to breath while in house. Placed on comfort medications at time of admission including PRN IV Morphine, Ativan, Glycopyrrolate; has received 2 does of IV Ativan so far due to agitation/yelling out of the room. Most home meds were restarted; metoprolol succinate on hold given hypotension. Goals of Care - Counseling/Conversation: Patient was originally admitted for ENTERTAINMENT & MEDIA CORRESPONDENT --> initially thought patient would cease to breath while in house as per above. Placed on comfort medications including PRN IV Morphine, Ativan, Glycopyrrolate; utilized 2 doses of IV Ativan thus far for agitation/restlessness. Thursday, 04/27 (Per LIZETH Ricks) As patient seemingly appears to have returned to baseline, met with family both inside the room and outside of the room to discuss goals of care. Lengthy discussion held with patient's daughters Mariam and Do. Patient has a caregiver that comes 3 times a week from 8 AM to 4 PM but over the past few months he has had more imbalance issues, weight loss, and a more marked functional decline. Conversation held regarding options which included: 1. Further workup for underlying conditions that could benefit from treatment. 2. Return home with hospice support 02/02 care. 3. Proceed with PT/OT evaluation for possible SNF rehab with ability to transition to SNF permanently versus return home with hospice support. Patient family states that his overarching goal would be to be at home and they feel that having a PT/OT evaluation with SNF placement short-term may allow them time to see how he continues to either improve, stay the same or decline helping them with long-term decision making. Case management present for second family meeting who will provide hospice list and caregiver list for family to review. Family does not wish to have any blood draws, new medications given for now. They would like to proceed with a hospice approach to his care. Set expectations that if patient is unable to participate in physical therapy that they may not say he qualifies for SNF especially given that overarching goal is conservative and not moving towards active treatment of any medical conditions on top of his current medication regimen. , 04/28 His daughter, Mariam, was at bedside this morning and we had a long discussion regarding placement options such as SNF versus hospice pending PT/OT evaluations today. She informed me that her father seems to have returned back to baseline functioning status, however he has been steadily declining since October of this year. Mariam mentions that the overarching goal at this point would be to keep him as comfortable and as functional as possible. This was discussed between the siblings previously and it seems that they are favoring a hospice approach at this time. Set expectations that if the patient is unable to participate in PT/OT, then he may not qualify for SNF placement especially since the overarching goal is conservative management and not moving towards active treatment of any other medical conditions on top of his current medication regimen. Mariam was highly agreeable with this plan moving forward. Instructed Mariam to reach out if any questions or concerns were to arise. Per nursing staff, patient was yelling and screaming out to the hallway last night. He was unable to be redirected however one dose of 0.5mg IV Ativan was ef fective to keep him calm/relaxed. Patient only says a few words at a time. He did ask where his watch was when I was in the room this morning however. PT/OT evaluated the patient this morning after I chatted with Mariam at bedside and made the following recommendations --> Patient to require 24/7 care at home vs. SNF placement, ? appears both PT and OT are favoring SNF placement. Will discuss with CM regarding this. Thursday, 04/29 Discussed case with Lorraine Patel () this morning via TT. Lorraine spoke with the patient's daughter, Mariam, today regarding possible SNF placement. Family hopes that he can gain some strength at a SNF facility, however the ultimate goal is for him to eventually return home with 24/7 hospice care. [facility]errals have been placed to [facility] per Mariam's request. Waiting to hear back from at this time. Code Status: DNR/DNI - No Resuscitation PCP: Crissy Mcintyre MD Disposition: Admitted in Med/Surg, awaiting possible SNF placement per above - CM assisting with this process. Patient seen in collaboration with Dr. Bales. Please see addendum. I spent a total of 40 minutes coordinating, documenting, and providing care for this patient excluding time spent in the performance of separately billed services. This included personally reviewing all current laboratories and imaging studies, medical reconciliation, outpatient chart review and discussion with specialists. This chart was completed in part utilizing Speech Voice Recognition Software. Grammatical errors, random word insertions, pronoun errors, and incomplete sentences are an occasional consequence of this system due to software limitations, ambient noise, and hardware issues. Any formal questions or concerns about the content, text, or information contained within the body of this dictation should be directly addressed to the provider for clarification. Admission and Anticipated Discharge Date Admission Date: April 26, 2024 Supervising Physician Co-Signing Physician Notes I have seen and examined the patient at bedside. Discussed the case with the collaborating advanced practitioner. I agree with the documentation as above. I have reviewed and confirmed the patients medical history, thefindings on physical examination, and the patients diagnosis and treatment plan with Flor Rosado PA-C and agree with the information documented. Note has been edited as needed. Continue comfort measures as requested by patient/family. Offers no new complaints today and during my encounter Denies any chest pain, dyspnea Waiting for placement Case management to help with discharge planning Subjective No family members were present in the room this morning when I went to see the patient. Patient did open his eyes to verbal stimuli and asked "how are you doing?" when I mentioned who I was. Review of Systems Review of Systems: Unable to obtain due to patient's cognitive/mental status. Physical Exam Physical Exam: General: WD/WN, vitals as above, NAD, laying down in bed, hardly conversive but does speak a few words here and there. A+O to self. HEENT: Normocephalic, atraumatic. PERRL, conjunctivae normal, anicteric sclerae. External ear and nose normal, oropharynx dry. Respiratory: Normal respiratory effort, breath sounds decreased throughout all lung joshi, no wheeze, rales, rhonchi. No accessory muscle use. Cardiovascular: Bradycardic rate, regular rhythm, no murmur, normal peripheral pulses, no BLE edema. Vessels: No JVD. Abdomen/GI: Normal bowel sounds, soft, nontender, no hepatosplenomegaly. Extremities/Musculoskeletal: No cyanosis or clubbing, able to actively move all extremities, bandaging intact over LLE pretibial region. Neurologic: EOMI, no focal deficits, CN's II-XI not formally tested but appear grossly intact bilaterally. Skin: No rashes, warm/dry. Multiple skin tears covered with bandages and bruising in different stages of healing noted on BUE. Results & Data Results & Data Vital Signs (Past 12 Hours) Vital Signs O2 Del Method 04/29/24 08:00 Room Air (1) Fall Encounter type: initial encounter Qualified Code(s): W19.XXXA - Unspecified fall, initial encounter (3) Dysrhythmia Arrhythmia type: unspecified cardiac arrhythmia Qualified Code(s): I49.9 - Cardiac arrhythmia, unspecified (4) Hypotension Hypotension type: unspecified hypotension type Qualified Code(s): I95.9 - Hypotension, unspecified (5) Hypothermia Encounter type: initial encounter Qualified Code(s): T68.XXXA - Hypothermia, initial encounter
[2024-04-29] MEDS ORDERED: MoRPHine SULFATE IR 15 MG TAB (IMMEDIATE RELEASE) PO PRN (22:41)
[2024-04-30] MEDS: LORazepam 0.5 MG TAB PO PRN (02:52)
--- NOTE | 2024-04-30 10:22 | Hospitalist Progress Note ---
Date of Service April 30, 2024 Assessment & Plan (1) Fall: (2) Unresponsive: (3) Dysrhythmia: (4) Hypotension: (5) Hypothermia: (6) Comfort measures only status: Plan Kishan Bourgeois (Dick) is an 88y/o M with PMHx significant for CAD s/p stenting, HTN, HLD, T2DM, CKD-3B, Parkinson's disease, vitamin B12 deficiency, vitamin D deficiency, asymptomatic left carotid artery stenosis and dementia who presented to the ED via EMS on 04/26/2024 after being found unresponsive at home. Previous last known well was on 04/25/2024 in the evening. He was found by his caregiver around 8AM on 04/26/2024 completely unresponsive and cold to the touch. EMS was then summoned. Patient was in ventricular fibrillation with spontaneous conversion to normal sinus rhythm. Family opted to override DNR to full code on scene. In the ED upon arrival, the patient was hypotensive, severely bra dycardic, hypothermic and had multiple abrasions. Discussion per ED provider with family was to make patient DNR/DNI and comfort measures only given medical severity and understood poor prognosis. Multiple family members at bedside were in agreement with DNR/DNI order. Dementia, Parkinson's Disease Unresponsiveness/Dysrhythmia & Hypotension: Patient was originally admitted for CUSTOMS [employer]ER after conversation was held in the ED as the patient was hypotensive, bradycardic and hypothermic on arrival. He was found by his caregiver in their breezeway and it was cold outside at night; suspect he was taking his dog outside for a walk. . Placed on comfort medications at time of admission including PRN IV Morphine, Ativan, Glycopyrrolate. Pt has made improvements in alertness and mental status and family feels he is mostly back to baseline. Medically stable. Most home meds were restarted; metoprolol succinate on hold given hypotension Plan to D/C to SNF when bed available and ultimate goal to D/C home with hospice services Code Status: DNR/DNI - No Resuscitation PCP: Crissy Mcintyre MD Disposition: Admitted in Med/Surg, medically stable for discharge when bed available Patient seen in collaboration with Dr. Bales. Please see addendum. I spent a total of 41 minutes coordinating, documenting, and providing care for this patient excluding time spent in the performance of separately billed services. This included personally reviewing all current laboratories and imaging studies, medical reconciliation, outpatient chart review and discussion with specialists. Admission and Anticipated Discharge Date Admission Date: April 26, 2024 Supervising Physician Co-Signing Physician Notes Reviewed the chart in detail. Discussed the case with the collaborating advanced practitioner. I agree with the documentation as above. I have reviewed and confirmed the patients medical history, thefindings on physical examination, and the patients diagnosis and treatment plan with Elisabeth Dewitt PA-C and agree with the information documented. Continue comfort measures as requested by patient/family. Waiting for placement Case management to help with discharge planning Subjective NAEO. Hx unreliable but he denies complaints. Denies CP, pain, n/v/d, He did not eat anything for breakfast. There was no family at bedside during my visit. Review of Systems Review of Systems: All systems reviewed & are unremarkable except as noted in HPI & below Physical Exam Physical Exam: Gen: Thin fraile elderly M, alert, answers questions, NAD, b/l temporal wa sting HEENT: Normocephalic, atraumatic, conjunctivae moist, sclerae anicteric, mucous membranes dry Lung: Clear to Auscultation bilaterally but diminished at bases due to poor inspiration, no wheezes/rales/rhonchi Heart: bradycardic rate, regular rhythm, no murmurs, rubs, or gallops Abdomen: Soft, NT, ND +BS x 4 Extremities: No edema Skin: Warm, no rash, negative turgor. Results & Data Results & Data Vital Signs (Past 12 Hours) Vital Signs O2 Del Method 04/30/24 09:59 Room Air Medications Administered Current Inpatient Medications Aspirin (Aspirin 81 Mg Ectab) 81 mg PO QAM SHANNEN Stop: 05/27/24 12:29 Last Admin: 04/30/24 08:37 Dose: 81 mg Carbidopa/Levodopa (Carbidopa/Levodopa 25/100mg Ext Rel Tab) 1 tab PO HS SHANNEN Stop: 05/27/24 20:59 Last Admin: 04/29/24 21:53 Dose: 1 tab Carbidopa/Levodopa (Carbidopa/Levodopa 25/100mg Tab) 1.5 tab PO TID@0800,1200,1600 SHANNEN Stop: 05/27/24 17:44 Last Admin: 04/30/24 08:36 Dose: 1.5 tab Cyanocobalamin (Cyanocobalamin (B-12) 500 Mcg Tablet) 1,000 mcg PO DAILY [facility] Stop: 05/27/24 12:44 Last Admin: 04/30/24 08:37 Dose: 1,000 mcg Glycopyrrolate (Glycopyrrolate 0.2 Mg/Ml Vial) 0.4 mg IV Q4H PRN PRN Reason: Rattling Secretions or Pulm Congestion Stop: 05/26/24 14:56 Lorazepam (Lorazepam 2 Mg/1 Ml Vial) 0.5 mg IV Q1H PRN PRN Reason: Anxiety/Agitation Stop: 05/26/24 14:56 Last Admin: 04/28/24 21:24 Dose: 0.5 mg Lorazepam (Lorazepam 0.5 Mg Tab) 0.5 mg PO Q1H PRN PRN Reason: Anxiety Stop: 05/29/24 22:39 Last Admin: 04/30/24 02:52 Dose: 0.5 mg Morphine Sulfate (Morphine Sulfate 2 Mg/Ml Carp) 2 mg IV Q4H PRN PRN Reason: Pain or Respiratory Distress Stop: 05/10/24 14:56 Morphine Sulfate (Morphine Sulfate Ir 15 Mg Tab (Immediate Release)) 15 mg PO Q1H PRN PRN Reason: Pain/sob Stop: 05/13/24 22:40 Ondansetron HCl (Ondansetron Inj 2 Mg/Ml 2 Ml Vial) 4 mg IV Q4H PRN PRN Reason: Nausea &/or Vomiting Stop: 05/26/24 14:56 Pravastatin Sodium (Pravastatin Sod 40 Mg Tab) 80 mg PO HS SHANNEN Stop: 05/27/24 20:59 Last Admin: 04/29/24 21:08 Dose: 80 mg Sodium Bicarbonate (Sodium Bicarbonate 650 Mg Tab) 650 mg PO BID [facility] Stop: 05/27/24 12:29 Last Admin: 04/30/24 08:37 Dose: 650 mg (1) Fall Encounter type: initial encounter Qualified Code(s): W19.XXXA - Unspecified fall, initial encounter (3) Dysrhythmia Arrhythmia type: unspecified cardiac arrhythmia Qualified Code(s): I49.9 - Cardiac arrhythmia, unspecified (4) Hypotension Hypotension type: unspecified hypotension type Qualified Code(s): I95.9 - Hypotension, unspecified (5) Hypothermia Encounter type: initial encounter Qualified Code(s): T68.XXXA - Hypothermia, initial encounter
--- NOTE | 2024-05-01 10:06 | Hospitalist Progress Note ---
Date of Service May 01, 2024 Assessment & Plan (1) Fall: (2) Unresponsive: (3) Dysrhythmia: (4) Hypotension: (5) Hypothermia: (6) Comfort measures only status: Plan Kishan Bourgeois (Dick) is an 88y/o M with PMHx significant for CAD s/p stenting, HTN, HLD, T2DM, CKD-3B, Parkinson's disease, vitamin B12 deficiency, vitamin D deficiency, asymptomatic left carotid artery stenosis and dementia who presented to the ED via EMS on 04/26/2024 after being found unresponsive at home. Previous last known well was on 04/25/2024 in the evening. He was found by his caregiver around 8AM on 04/26/2024 completely unresponsive and cold to the touch. EMS was then summoned. Patient was in ventricular fibrillation with spontaneous conversion to normal sinus rhythm. Family opted to override DNR to full code on scene. In the ED upon arrival, the patient was hypotensive, severely bra dycardic, hypothermic and had multiple abrasions. Discussion per ED provider with family was to make patient DNR/DNI and comfort measures only given medical severity and understood poor prognosis. Multiple family members at bedside were in agreement with DNR/DNI order. Dementia, Parkinson's Disease Unresponsiveness/Dysrhythmia & Hypotension: Patient was originally admitted for MANAGER FUNCTIONAL after conversation was held in the ED as the patient was hypotensive, bradycardic and hypothermic on arrival. He was found by his caregiver in their breezeway and it was cold outside at night; suspect he was taking his dog outside for a walk. Placed on comfort medications at time of admission including PRN IV Morphine, Ativan, Glycopyrrolate. Pt has made improvements in alertness and mental status and family feels he is mostly back to baseline. Medically stable. Most home meds were restarted; metoprolol succinate on hold given hypotension Plan to D/C to SNF when bed available and ultimate goal to D/C home with hospice services. Limited interventions, continue comfort measures Code Status: DNR/DNI - No Resuscitation PCP: Crissy Mcintyre MD Disposition: Admitted in Med/Surg, medically stable for discharge when bed available, will need to touch base with CM o Thursday regarding status of SNF Patient seen in collaboration with Dr. Bales. Please see addendum. I spent a total of 38 minutes coordinating, documenting, and providing care for this patient excluding time spent in the performance of separately billed services. This included personally reviewing all current laboratories and imaging studies, medical reconciliation, outpatient chart review and discussion with specialists. Admission and Anticipated Discharge Date Admission Date: April 26, 2024 Supervising Physician Co-Signing Physician Notes Reviewed the chart in detail. Discussed the case with the collaborating advanced practitioner. I agree with the documentation as above. I have reviewed and confirmed the patients medical history, thefindings on physical examination, and the patients diagnosis and treatment plan with Elisabeth Dewitt PA-C and agree with the information documented. Continue comfort measures as requested by patient/family. Waiting for placement Case management to help with discharge planning Continue current management Subjective Pt slept all night per nursing. He had a BM yesterday. He ate all of his breakfast which consisted of eggs and cereal. He denies f/c/s, chest pain, sob, n/v/d. He is much more alert today and talking about his dog pelon. Review of Systems Review of Systems: All systems reviewed & are unremarkable except as noted in HPI & below Physical Exam Physical Exam: Gen: Thin fraile elderly M, alert, answers questions, NAD, b/l temporal wasting HEENT: Normocephalic, atraumatic, conjunctivae moist, sclerae anicteric, mucous membranes dry Lung: Clear to Auscultation bilaterally but diminished at bases due to poor inspiration, no wheezes/rales/rhonchi Heart: reg rate, regular rhythm, no murmurs, rubs, or gallops Abdomen: Soft, NT, ND +BS x 4 Extremities: No edema, b/l excoriations to pretibial surfaces, multiple areas of abrasions to ext and bruising, no evidence of cellulitis Skin: Warm, no rash, negative turgor. Results & Data Results & Data Vital Signs (Past 12 Hours) Vital Signs O2 Del Method 05/01/24 08:00 Room Air Medications Administered Current Inpatient Medications Aspirin (Aspirin 81 Mg Ectab) 81 mg PO QAM SHANNEN Stop: 05/27/24 12:29 Last Admin: 05/01/24 07:55 Dose: 81 mg Carbidopa/Levodopa (Carbidopa/Levodopa 25/100mg Ext Rel Tab) 1 tab PO HS SHANNEN Stop: 05/27/24 20:59 Last Admin: 04/30/24 21:12 Dose: 1 tab Carbidopa/Levodopa (Carbidopa/Levodopa 25/100mg Tab) 1.5 tab PO TID@0800,1200,1600 SHANNEN Stop: 05/27/24 17:44 Last Admin: 05/01/24 07:55 Dose: 1.5 tab Cyanocobalamin (Cyanocobalamin (B-12) 500 Mcg Tablet) 1,000 mcg PO DAILY SHANNEN Stop: 05/27/24 12:44 Last Admin: 05/01/24 07:55 Dose: 1,000 mcg Glycopyrrolate (Glycopyrrolate 0.2 Mg/Ml Vial) 0.4 mg IV Q4H PRN PRN Reason: Rattling Secretions or Pulm Congestion Stop: 05/26/24 14:56 Lorazepam (Lorazepam 2 Mg/1 Ml Vial) 0.5 mg IV Q1H PRN PRN Reason: Anxiety/Agitation Stop: 05/26/24 14:56 Last Admin: 04/28/24 21:24 Dose: 0.5 mg Lorazepam (Lorazepam 0.5 Mg Tab) 0.5 mg PO Q1H PRN PRN Reason: Anxiety Stop: 05/29/24 22:39 Last Admin: 04/30/24 02:52 Dose: 0.5 mg Morphine Sulfate (Morphine Sulfate 2 Mg/Ml Carp) 2 mg IV Q4H PRN PRN Reason: Pain or Respiratory Distress Stop: 05/10/24 14:56 Morphine Sulfate (Morphine Sulfate Ir 15 Mg Tab (Immediate Release)) 15 mg PO Q1H PRN PRN Reason: Pain/sob Stop: 05/13/24 22:40 Ondansetron HCl (Ondansetron Inj 2 Mg/Ml 2 Ml Vial) 4 mg IV Q4H PRN PRN Reason: Nausea &/or Vomiting Stop: 05/26/24 14:56 Pravastatin Sodium (Pravastatin Sod 40 Mg Tab) 80 mg PO HS SHANNEN Stop: 05/27/24 20:59 Last Admin: 04/30/24 21:13 Dose: 80 mg Sodium Bicarbonate (Sodium Bicarbonate 650 Mg Tab) 650 mg PO BID SHANNEN Stop: 05/27/24 12:29 Last Admin: 05/01/24 07:55 Dose: 650 mg (1) Fall Encounter type: initial encounter Qualified Code(s): W19.XXXA - Unspecified fall, initial encounter (3) Dysrhythmia Arrhythmia type: unspecified cardiac arrhythmia Qualified Code(s): I49.9 - Cardiac arrhythmia, unspecified (4) Hypotension Hypotension type: unspecified hypotension type Qualified Code(s): I95.9 - Hypotension, unspecified (5) Hypothermia Encounter type: initial encounter Qualified Code(s): T68.XXXA - Hypothermia, initial encounter
--- NOTE | 2024-05-02 13:41 | Hospitalist Progress Note ---
Date of Service May 02, 2024 Assessment & Plan (1) Fall: (2) Unresponsive: (3) Dysrhythmia: (4) Hypotension: (5) Hypothermia: (6) Comfort measures only status: Plan Kishan Bourgeois (Dick) is an 88y/o M with PMHx significant for CAD s/p stenting, HTN, HLD, T2DM, CKD-3B, Parkinson's disease, vitamin B12 deficiency, vitamin D deficiency, asymptomatic left carotid artery stenosis and dementia who presented to the ED via EMS on 04/26/2024 after being found unresponsive at home. Previous last known well was on 04/25/2024 in the evening. He was found by his caregiver around 8AM on 04/26/2024 completely unresponsive and cold to the touch. EMS was then summoned. Patient was in ventricular fibrillation with spontaneous conversion to normal sinus rhythm. Family opted to override DNR to full code on scene. In the ED upon arrival, the patient was hypotensive, severely bra dycardic, hypothermic and had multiple abrasions. Discussion per ED provider with family was to make patient DNR/DNI and comfort measures only given medical severity and understood poor prognosis. Multiple family members at bedside were in agreement with DNR/DNI order. Dementia, Parkinson's Disease Unresponsiveness/Dysrhythmia & Hypotension: Patient was originally admitted for [employer] after conversation was held in the ED as the patient was hypotensive, bradycardic and hypothermic on arrival. He was found by his caregiver in their [place] and it was cold outside at night; suspect he was taking his dog outside for a walk. Placed on comfort medications at time of admission including PRN IV Morphine, Ativan, Glycopyrrolate. Patient has made improvements in alertness and mental status. Family feels he is mostly back to baseline. Medically stable. Most home meds were restarted; metoprolol succinate on hold given hypotension. Plan to discharge to SNF when bed available. Limited interventions, continue comfort measures. Plan for short SNF placement prior to the patient going home with hospice services and / care. Patient has been accepted at [facility] --> can accept the patient tomorrow. Family updated. Code Status: DNR/DNI - No Resuscitation PCP: Crissy Mcintyre MD Disposition: Admitted in Med/Surg, medically stable for discharge to [facility] tomorrow. Patient seen in collaboration with Dr. Bales. Please see addendum. I spent a total of 30 minutes coordinating, documenting, and providing care for this patient excluding time spent in the performance of separately billed services. This included personally reviewing all current laboratories and imaging studies, medical reconciliation, outpatient chart review and discussion with specialists. This chart was completed in part utilizing Speech Voice Recognition Software. Grammatical errors, random word insertions, pronoun errors, and incomplete sentences are an occasional consequence of this system due to software limitations, ambient noise, and hardware issues. Any formal questions or concerns about the content, text, or information contained within the body of this dictation should be directly addressed to the provider for clarification. Admission and Anticipated Discharge Date Admission Date: April 26, 2024 Supervising Physician Co-Signing Physician Notes I have seen and examined the patient at bedside. Discussed the case with the collaborating advanced practitioner. I agree with the documentation as above. I have reviewed and confirmed the patients medical history, the findings on physical examination, and the patients diagnosis and treatment plan with Flor Rosado PA-C and agree with the information documented. Patient offers no new complaints today Discussed with patient's daughter at bedside Currently on comfort measures only Advance diet as tolerated Plan to discharge to SNF when accepted Subjective Patient very alert this morning. He was asking where his white shirt is - planning to call his daughter, Karla, to find out. He ate breakfast this morning without issue per nursing staff. He has been more communicative and is now at his baseline functioning status. Review of Systems Review of Systems: At least ten systems reviewed and negative, except as noted in the HPI. Physical Exam Physical Exam: General: Thin/frail elderly male, vitals as above, NAD, sitting up in bed, answers questions, hard of hearing. A+O to conversation. HEENT: Normocephalic, healing abrasion on L scalp region. PERRL, conjunctivae normal. External ear and nose normal, oropharynx dry. Respiratory: Normal respiratory effort, breath sounds decreased throughout all lung joshi, no wheeze, rales, rhonchi. No accessory muscle use. Cardiovascular: Bradycardic rate, regular rhythm, no murmur, normal peripheral pulses, no BLE edema. Vessels: No JVD. Abdomen/GI: Normal bowel sounds, soft, nontender, no hepatosplenomegaly. Extremities/Musculoskeletal: No cyanosis or clubbing, able to actively move all extremities, multiple abrasions/bruising on all extremities. Neurologic: EOMI, no focal deficits, CN's II-XI not formally tested but appear grossly intact bilaterally. Skin: No rashes, warm/dry. Multiple skin tears of various degrees of healing (some covered with bandages) noted on BUE. Results & Data Results & Data Vital Signs (Past 12 Hours) Vital Signs O2 Del Method 05/01/24 21:40 Room Air Intake and Output 05/01/24 05/02/24 05/02/24 22:59 06:59 14:59 Output Total 1 / 151 150 / 151 Balance -1 / -151 -150 / -151 Output: Urine Amount (Catheter) 150 / 150 External 150 / 150 # Bowel Movements Other: # Unmeasured Voids 1 1 (1) Fall Encounter type: initial encounter Qualified Code(s): W19.XXXA - Unspecified fall, initial encounter (3) Dysrhythmia Arrhythmia type: unspecified cardiac arrhythmia Qualified Code(s): I49.9 - Cardiac arrhythmia, unspecified (4) Hypotension Hypotension type: unspecified hypotension type Qualified Code(s): I95.9 - Hypotension, unspecified (5) Hypothermia Encounter type: initial encounter Qualified Code(s): T68.XXXA - Hypothermia, initial encounter
--- NOTE | 2024-05-03 09:46 | Discharge Summary ---
Discharge Summary Date of Service May 03, 2024 Principal Dx & Hospital Course #1 = Principal Diagnosis (1) Fall: (2) Unresponsive: (3) Dysrhythmia: (4) Hypotension: (5) Hypothermia: (6) Comfort measures only status: Derrell Bourgeois (Dick) is an 88y/o M with PMHx significant for CAD s/p stenting, HTN, HLD, T2DM, CKD-3B, Parkinson's disease, vitamin B12 deficiency, vitamin D deficiency, asymptomatic left carotid artery stenosis and dementia who presented to the ED via EMS on 04/26/2024 after being found unresponsive at home. Previous last known well was on 04/25/2024 in the evening. He was found by his caregiver around 8AM on 04/26/2024 completely unresponsive and cold to the touch. EMS was then summoned. Patient was in ventricular fibrillation with spontaneous conversion to normal sinus rhythm. Family opted to override DNR to full code on scene. In the ED upon arrival, the patient was hypotensive, severely bradycardic, hypothermic and had multiple abrasions. Discussion per ED provider with family was to make patient DNR/DNI and comfort measures only given medical severity and understood poor prognosis. Multiple family members at bedside were in agreement with DNR/DNI order. Dementia, Parkinson's Disease Unresponsiveness/Dysrhythmia & Hypotension: Patient was originally admitted for [employer] after conversation was held in the ED as the patient was hypotensive, bradycardic and hypothermic on arrival. He was found by his caregiver in their [place] and it was cold outside at night; suspect he was taking his dog outside for a walk. Placed on comfort medications at time of admission including PRN IV Morphine, Ativan, Glycopyrrolate. Patient has made improvements in alertness and mental status. Family feels he is mostly back to baseline. Medically stable. Most home meds were restarted; metoprolol succinate on hold given hypotension. Patient is being discharged to [facility] for inpatient rehabilitation services with the next step nalini g him returning home with 24/7 caregiver support on hospice measures following his SNF stay. PCP: Crissy Mcintyre MD Disposition: Patient is being discharged in stable condition to [facility] for rehabilitation services. Patient seen in collaboration with Dr. Bales. Please see addendum. I spent a total of 45 minutes coordinating, documenting, and providing care for this patient excluding time spent in the performance of separately billed services. This included personally reviewing all current laboratories and imaging studies, medical reconciliation, outpatient chart review and discussion with specialists. This chart was completed in part utilizing Speech Voice Recognition Software. Grammatical errors, random word insertions, pronoun errors, and incomplete sentences are an occasional consequence of this system due to software limitations, ambient noise, and hardware issues. Any formal questions or concerns about the content, text, or information contained within the body of this dictation should be directly addressed to the provider for clarification. Notes For Next Care Provider Patient's metoprolol succinate 25mg daily is ON HOLD at time of discharge due to hypotension throughout his hospital stay. Please continue to closely monitor his BP. Medication Changes From Visit Metoprolol succinate 25mg daily ON HOLD due to hypotension throughout his admission. Admission HPI Per Admitting Provider This is an 88 yr old M who has a significant PMH of CAD w hx of stent, HTN, HLD, T2DM, CKD-3B, parkinson disease, b12 def, vitamin D def, L asymptomatic carotid artery stenosis and dementia who presents to ED 2/2 unresponsive episode. Multiple family members at bedside who help elicit history. History also provided from ED physician and pre hospital personal. Pt lives alone and lost his approx 1 year ago to parkinsons. He was last known well last evening when his son talked to him. When his caregiver arrived to house this morning at 8am. he was noted to be unresponsive and cool. EMS was summoned. He was found to be in vfib but he spontaneously converted to NSR. Initially family wanted to make pt full cold. He was bradycardic, hypotensive and hypothermic on arrival. He was found in his breeze way and family is wondering if he was trying to take the dog out and felt. He has numerous abrasions on his head/extremities. Per ED provider who spoke with family plan is to make patient comfort and not pursue any additional intervention at this time. [facility] records were reviewed. He was seen by nephrology on 04/18 and neurology on 04/12. It was noted at neurology that he was having a lot more rigidity, imbalance, weight loss and further memory deficits. In ED he was deemed DNR/DNI and plan to admit for comfort measures only. Admission Exam Per Admitting Provider Constitutional: Elderly M, cool, frail, vitals as above, unresponsive, NAD, lying in bed, eyes open but unresponsive to verbal or painful stimuli Head: Normocephalic, + abrasions to forehead/top of scalp Eyes: pupil pinpoint with minimal reactivity to light, conjunctivae normal, anicteric sclerae ENMT: external ear and nose normal, oropharynx dry Neck: trachea midline, no thyromegaly normal visual inspection Respiratory: decreased respirations, lungs clear to auscultation, no wheeze, rales, rhonchi. no accessory muscle use Cardiovascular: bradycardic rate, unable to auscultate heart sounds, no murmur noted, no edema Vessels: no JVD or carotid bruit Chest: normal inspection of chest Abdomen: soft, nontender, Musculoskeletal: no cyanosis or clubbing Skin: + skin abrasion/ tear to b/l extremities, appearance of dog scratching to pretibial surface, cool and pale with moderate turgor Neurologic: unable to assess due to unresponsiveness Discharge Exam General: Thin/frail elderly male, vitals as above, NAD, sitting up in bed, ans wers questions, hard of hearing. A+O to conversation. HEENT: Normocephalic, healing abrasion on L scalp region. PERRL, conjunctivae normal. External ear and nose normal, oropharynx dry. Respiratory: Normal respiratory effort, breath sounds decreased throughout all lung joshi, no wheeze, rales, rhonchi. No accessory muscle use. Cardiovascular: Bradycardic rate, regular rhythm, no murmur, normal peripheral pulses, no BLE edema. Vessels: No JVD. Abdomen/GI: Normal bowel sounds, soft, nontender, no hepatosplenomegaly. Extremities/Musculoskeletal: No cyanosis or clubbing, able to actively move all extremities, multiple abrasions/bruising on all extremities. Neurologic: EOMI, no focal deficits, CN's II-XI not formally tested but appear grossly intact bilaterally. Skin: No rashes, warm/dry. Multiple skin tears of various degrees of healing (some covered with bandages) noted on BUE. Updated Medication List Medication Instructions Recorded Confirmed Type aspirin 81 mg tablet,delayed 81 mg PO QAM ##0 05/23/16 04/26/24 History release cholecalciferol (vitamin D3) 25 25 mcg PO DAILY 30 days #30 tabs 12/02/17 04/26/24 History mcg (1,000 unit) capsule (Vitamin D3) carbidopa 25 mg-levodopa 100 mg 1.5 tab PO TID 04/26/24 04/26/24 History tablet carbidopa ER 25 mg-levodopa 100 mg 1 tab PO HS 04/26/24 04/26/24 History tablet,extended release cetirizine 10 mg tablet 5 mg PO HS 04/26/24 04/26/24 History cyanocobalamin (vitamin B-12) 1,000 mcg PO DAILY 04/26/24 04/26/24 History 1,000 mcg tablet metoprolol succinate 25 mg 25 mg PO DAILY 04/26/24 04/26/24 History tablet,extended release 24 hr pravastatin 80 mg tablet 80 mg PO HS 04/26/24 04/26/24 History semaglutide 7 mg tablet (Rybelsus) 7 mg PO QAM 04/26/24 04/26/24 History sodium bicarbonate 650 mg tablet 650 mg PO BID 04/26/24 04/26/24 History Hospital Stay Data Consultations 04/26/24 12:12 ED Decision to Admit Stat Pending Results Patient Have Any Pending Studies at Discharge: No Discharge Instructions Given to Patient (Per Discharging Provider) Mr. Bourgeois, You were admitted to the hospital after being found unresponsive at home. We have transitioned your level of care to comfort measures only. You have returned back to your baseline functioning status since being admitted. Therefore, you are being discharged to [facility] for inpatient rehabilitation services before being transitioned back home with caregiver support. We held your metoprolol succinate 25mg daily while you were admitted due to your blood pressure being on the lower side. Please continue to HOLD this medication until you are seen by your primary care doctor (PCP)! A PCP hospital discharge follow-up appointment will be scheduled at [facility] for you. MEDICATION CHANGES: 1. Please continue to HOLD your METOPROLOL SUCCINATE 25mg daily until you are seen by your PCP! Please take good care of yourself! It has been a pleasure taking care of you. If you have any questions regarding your recent hospitalization please contact [facility] and request Jonah Segovia @ [phone]. Total Time Total Time Spent Total Time Spent (In Minutes): 45 Supervising Physician Co-Signing Physician Notes I have seen and examined the patient at bedside. Discussed the case with the collaborating advanced practitioner. I agree with the documentation as above. I have reviewed and confirmed the patients medical history, the findings on physical examination, and the patients diagnosis and treatment plan with Flor Rosado PA-C and agree with the information documented. Patient offers no new complaints on day of discharge Currently on comfort measures only Tolerating current diet Plan to be discharged to SNF today
[2024-05-03 13:51] VITALS: PULSE 43
== END 2024-05-03 14:19 | DRG 923 ==
LOC: ED 09:22 → SUATTDRO 12:53 → 3E 12:53

== ENCOUNTER 2024-06-22 18:04 | Inpatient (IN) ==
--- NOTE | 2024-06-22 18:20 | Emergency Department Note ---
Impression & Plan Seizure, Subacute subdural hematoma ED Provider Note ED Provider Note NAME: CARLA PADRON AGE:88 SEX: Male : 1935 ARRIVES VIA: EMS INFORMANT: EMS ED PROVIDER(s): Ary Corley DO CHIEF COMPLAINT: seizure HPI: This is an 88-year-old male brought in by EMS after patient had a seizure as witnessed by staff at the facility where he resides. They state patient was in the bathroom he began to have a seizure. His dentures did become dislodged and staff was able to remove them from his mouth. Upon arrival patient was postictal and unresponsive. Patient was moved to their stretcher where he subsequently had a second seizure which was described by the quality assurance/r&d lab technician as a flexing and stiffening of arms and legs followed by generalized shaking. Patient was given IM midazolam with improvement and otherwise transported him. IVs established. Blood sugar prehospital 200. No seizure history per staff and EMS. PAST MEDICAL HISTORY:See Below PAST SURGICAL HISTORY:See Below FAMILY HISTORY:See Below SOCIAL HISTORY:See Below HOME MEDICATIONS:See Below ALLERGIES:See Below VITALS:See Below PHYSICAL EXAMINATION: GENERAL: alert, unwell appearing, well nourished, no distress, non-toxic EYE EXAM: normal conjunctiva, pupils pinpoint and nonreactive, leftward gaze deviation noted with the left eye OROPHARYNX: no exudate, no erythema, lips, buccal mucosa, and tongue normal and mucous membranes are dry, edentulous NECK: supple, no nuchal rigidity, no adenopathy, non-tender LUNGS: Clear to auscultation. Normal chest wall mechanics, no w/r/r HEART: no murmurs, S1 normal and S2 normal ABDOMEN: abdomen soft, non-tender, normo-active bowel sounds, no masses, no rebound or guarding. BACK: Back is symmetrical on inspection and there is no deformity, no midline tenderness, no CVA tenderness. SKIN: no rashes, petechiae, orbruising UPPER EXTREMITIES: upper extremities are grossly normal. FROM, nml pulses b/l. LOWER EXTREMITIES: No pitting edema. FROM, nml pulses b/l. Several healing superficial lacerations and abrasions noted bilateral lower extremities NEURO EXAM: Patient fights me opening his eyes and mouth, will otherwise not respond to painful stimuli, nonverbal Vital Signs: reviewed and remarkable Differential Diagnosis: infection, hypoglycemia, electrolyte abnormalities, cardiac sources, ICH, mass, trauma,toxidrome, CVA, as well as others were entertained. MEDICAL DECISION MAKING: This is an 88 yo male brought in by EMS after staff at the facility where he resides witnessed a seizure. Patient had another seizure witness by EMS and was given IM midazolam. His vitals were stable for EMS enroute and BSG reassuring. IV established prehospital. Upon arrival here patient with minimal response to pain. Paperwork from facility does list patient as DNR/DNI. Labs drawn and sent, 2nd IV established, EKG and CXR performed and interpreted at bedside, and patient placed on telemetry. POC BMP sent and reassuring. Patient sent for CT head. He was started on IVF and monitored at bedside. Mild anemia noted. Recent hospitalization in April reviewed. CT head revealed subacute subdural hematoma. Unclear if this is from the fall in April or a more recent fall since he was placed in a facility. Extensive bedside conversation with family upon there arrival regarding results. They confirm he is DNR/DNI. THey would not want to pursue aggressive interventions such as surgery and do not wish for transfer. We discussed risks of seizures with ICH. Patient given IV keppra to help prevent any further seizures. Patient was beginning to move more and pupils reacting while he was being monitored in the ER. Case discussed with the hospitalist team for additional evaluation and mgmt. Consultation(s): 2014: Discussed with Dr. Laboy, [facility] hospitalist, for additional evaluation and mgmt. ER Treatment Provided: See below 1901: Discussed with daughter who presents to bedside. Patient has been at the rehab facility since he was hospitalized back in April. They state he seemed to be doing well until the last week when he did not have much of an appetite and has had markedly decreased oral intake. She states to her knowledge there have not been any recent changes to his medications. He has had several more falls while at the facility. She states he did do x-rays to evaluate for broken rib however none was seen. 2004: Updated daughters at bedside. They do not wish to pursue aggressive interventions such a surgery and do not want him transferred to a tertiary care facility. They state he is DNR/DNI. Diagnostics Interpreted By Me: -ECG: nsr at 84, nml axis, nml intervals, no acute ST/T wave changes -Cardiac Monitoring: An order was placed for continuous cardiac monitoring. The monitor shows a rate of 80 with normal sinus rhythm. -Laboratory studies: As stated above and show below. -Imaging studies: CT head: right subdural noted Triage Nursing Note Reviewed Prior/Outside Records Reviewed - DC summary from April 2024 reviewed Critical Care: Critical care of 46 min performed to assess and manage high likelihood of life-threatening seizure and recent trauma, involving labs and imaging performed with assessment to evaluate seizure diagnosis with frequent reassessment. This time includes bedside time, treatment discussions with patient/family/consultants, documentation time and excludes procedure time. Past Med/Surg History Problem List (Updated 06/03/24 @ 00:07 by IntelligentMDxch[employer]Skyrider) Subacute subdural hematoma (Acute) Seizure (Acute) Comfort measures only status OLIVIER (acute kidney injury) (Acute) Amputation finger (Chronic) Medical History Emphysema of lung Carotid artery stenosis, asymptomatic left Parkinson disease CAD (coronary artery disease) "s/p stent" CKD (chronic kidney disease), stage III Hypertension Dyslipidemia DM type 2 (diabetes mellitus, type 2) Surgical History S/P coronary artery stent placement Family History Father Heart disease Social History Smoking Status: Former smoker packs per day: 1; Smoking End Date: 1977; Hx Alcohol Use: No Hx Substance Use: No Preferred Language: Kinyarwanda Communication Ability: Unable [employer] Utility Worker Required: No Beliefs That Will Affect Care: Zoroastrian Current Living Situation: Half-Way Current Living Situation Comment: [facility] Castaneda Feels Safe at Home: Yes Assistive Devices: Hospital Bed, Walker and Wheelchair Allergies Allergies Allergy/AdvReac Type Severity Reaction Status Date / Time Penicillins Allergy Severe THROAT Verified 05/23/16 16:41 SWELLING Home Meds Home Medications Medication Instructions Recorded Confirmed aspirin 81 mg tablet,delayed 81 mg PO QAM ##0 05/23/16 06/22/24 release cholecalciferol (vitamin D3) 25 25 mcg PO DAILY 30 days #30 tabs 12/02/17 06/22/24 mcg (1,000 unit) capsule (Vitamin D3) carbidopa 25 mg-levodopa 100 mg 1.5 tab PO TID 04/26/24 06/22/24 tablet carbidopa ER 25 mg-levodopa 100 mg 1 tab PO HS 04/26/24 06/22/24 tablet,extended release cetirizine 10 mg tablet 5 mg PO HS 04/26/24 06/22/24 cyanocobalamin (vitamin B-12) 1,000 mcg PO DAILY 04/26/24 06/22/24 1,000 mcg tablet pravastatin 80 mg tablet 80 mg PO HS 04/26/24 06/22/24 semaglutide 7 mg tablet (Rybelsus) 7 mg PO QAM 04/26/24 06/22/24 sodium bicarbonate 650 mg tablet 650 mg PO AMHS 04/26/24 06/22/24 acetaminophen 325 mg tablet 650 mg PO Q4 PRN Fever Or Pain 06/22/24 06/22/24 diclofenac sodium 1 % topical gel 4 g topical TID 06/22/24 06/22/24 melatonin 5 mg tablet 5 mg PO HS 06/22/24 06/22/24 zinc oxide 40 % topical ointment 1 applic topical UD 06/22/24 06/22/24 Results & Data (ED) Vital Signs Vital Signs - 24 hr 06/22/24 17:36 06/22/24 17:36 06/22/24 17:36 Temperature 36.8 C Temperature Source Axillary Pulse Rate 83 Pulse Rate [Apical] 82 Pulse Rhythm Regular Pulse Rhythm [Apical] Regular Pulse Strength Normal Pulse Strength [Apical] Normal Respiratory Rate 18 Respiratory Effort / Characteristics Non-Labored Non-Labored Respiratory Depth Normal Normal Respiratory Pattern Regular Blood Pressure 136/65 Blood Pressure [Right Arm] 136/65 Blood Pressure Mean 88 Blood Pressure Mean [Right Arm] 88 Blood Pressure Position Lying Blood Pressure Position [Right Arm] Lying Pulse Oximetry 99 94 Oxygen Delivery Method Room Air Room Air Room Air Sepsis Recent Fever Within 48 Hours No Sepsis New/Unexplained Change in Mental Status No Sepsis Action Taken by Nursing No Action Required 06/22/24 18:20 06/22/24 19:00 06/22/24 20:00 Temperature Temperature Source Pulse Rate 85 Pulse Rate [Apical] 81 78 Pulse Rhythm Pulse Rhythm [Apical] Pulse Strength Pulse Strength [Apical] Respiratory Rate 22 18 Respiratory Effort / Characteristics Non-Labored Spontaneous Non-Labored Spontaneous Respiratory Depth Normal Normal Respiratory Pattern Regular Blood Pressure Blood Pressure [Right Arm] 139/66 169/79 H Blood Pressure Mean Blood Pressure Mean [Right Arm] 90 109 Blood Pressure Position Blood Pressure Position [Right Arm] Pulse Oximetry 95 95 Oxygen Delivery Method Room Air Room Air Sepsis Recent Fever Within 48 Hours Sepsis New/Unexplained Change in Mental Status Sepsis Action Taken by Nursing 06/22/24 20:35 06/22/24 22:00 Temperature Temperature Source Pulse Rate Pulse Rate [Apical] 79 83 Pulse Rhythm Pulse Rhythm [Apical] Pulse Strength Pulse Strength [Apical] Respiratory Rate 20 16 Respiratory Effort / Characteristics Non-Labored Spontaneous Respiratory Depth Normal Respiratory Pattern Blood Pressure Blood Pressure [Right Arm] 151/84 H 166/72 H Blood Pressure Mean Blood Pressure Mean [Right Arm] 106 103 Blood Pressure Position Blood Pressure Position [Right Arm] Pulse Oximetry 94 92 Oxygen Delivery Method Room Air Room Air Sepsis Recent Fever Within 48 Hours Sepsis New/Unexplained Change in Mental Status Sepsis Action Taken by Nursing Laboratory Data 06/23/24 07:06 06/23/24 07:06 Lab Results 06/22/24 06/22/24 06/22/24 Range/Units 18:20 18:22 20:52 WBC 9.08 (4.8-10.8) K/ul RBC 3.83 L (4.70-6.10) M/uL Hgb 11.1 L (14.0-18.0) g/dl POC Hgb 11.2 L (14.0-18.0) g/dl Hct 34.7 L (42.0-52.0) % POC Hct 33 L (42-52) % MCV 90.6 (80.0-100.0) fL MCH 29.0 (25.0-34.0) pg MCHC 32.0 (32.0-36.0) g/dL RDW Std Deviation 41.8 (36.4-46.3) fL RDW Coeff of [place]ita 12.6 (11.5-14.5) % Plt Count 411 H (130-400) K/uL MPV 9.8 (9.4-12.4) fL Immature Gran % (Auto) 0.4 % Neut % (Auto) 80.0 % Lymph % (Auto) 9.1 % [place] % (Auto) 7.8 % Eos % (Auto) 2.5 % Baso % (Auto) 0.2 % Neut # (Auto) 7.25 H (1.40-6.50) K/uL Lymph # (Auto) 0.83 L (1.20-3.40) K/uL [place] # (Auto) 0.71 H (0.11-0.59) K/uL Eos # (Auto) 0.23 (0.00-0.50) K/uL Baso # (Auto) 0.02 (0.00-0.20) K/uL Immature Gran # (Auto) 0.04 (0.01-0.20) K/uL PT 11.3 (9.0-12.0) Seconds INR 1.0 (0.9-1.1) POC Sodium 136 (135-144) mmol/L Sodium 137 (136-145) mmol/L POC Potassium 3.5 (3.3-5.0) mmol/L Potassium 3.6 (3.5-5.1) mmol/L POC Chloride 97 L (101-112) mmol/L Chloride 97 L (98-107) mmol/L Carbon Dioxide 27 (21-32) mmol/L POC Total CO2 24 (24-31) mmol/L Anion Gap 13 H (3-11) POC Anion Gap 19.0 (16-25) mmol/L POC BUN 24 H (7-18) mg/dl BUN 25 H (6-23) mg/dl Creatinine 1.04 (0.6-1.4) mg/dl POC Creatinine 1.2 (0.6-1.3) mg/dl Est Cr Clr Drug Dosing 39.8 ml/min eGFR 69.93 BUN/Creatinine Ratio 24.0 H (10-20) Glucose 127 H (70-99(Fasting)) mg/dl POC Glucose (other) 123 H (70-99) mg/dl Calcium 8.9 (8.6-10.3) mg/dl POC Ioniz Calcium Radha 1.10 L (1.12-1.32) mmol/l Magnesium 2.2 (1.7-2.4) mg/dl Total Bilirubin 0.5 (0.2-1.0) mg/dl AST 9 L (13-39) U/L ALT 3 L (7-52) U/L Alkaline Phosphatase 114 H (34-104) U/L Troponin I High Sens 9.6 (0-20) pg/ml Total Protein 6.9 (6.0-8.3) gm/dl Albumin 2.9 L (3.4-5.0) gm/dl Globulin 4.0 (2.5-4.0) gm/dl Albumin/Globulin Ratio 0.7 L (0.9-2) Lipase 31 (11-82) U/L TSH 3.312 (0.300-4.500) uIu/ml Urine Color Dark Yellow Urine Appearance Cloudy A (Clear) Urine pH 8.5 H (4.5-7.5) Ur Specific [place] 1.019 (1.000-1.030) Urine Protein 2+ H (Negative) Urine Glucose (UA) Negative (Negative) Urine Ketones Trace H (Negative) Urine Blood Negative (Negative) Urine Nitrite Negative (Negative) Urine Bilirubin Negative (Negative) Urine Urobilinogen Negative (Negative) Ur Leukocyte Esterase Negative (Negative) Urine WBC (Auto) 0-5 (0-5) /hpf Urine RBC (Auto) 0-2 (0-2) /hpf U Hyaline Cast (Auto) 0-2 (0-2) /lpf U Epithel Cells (Auto) 3-5 H (0-2) /hpf Urine Bacteria (Auto) None Seen (None Seen) Triple Phos Crystals Present A (None Prsent) Urine Opiates Screen Neg (Neg) Ur Methadone, Qual Neg (Neg) Urine Fentanyl Screen Neg (Neg) Urine Barbiturates Neg (Neg) Ur Phencyclidine (PCP) Neg (Neg) U Amphetamin/Meth Scrn Neg (Neg) MDMA (Ecstasy) Screen Neg (Neg) U Benzodiazepines Scrn Pos H (Neg) Ur Cocaine Metabolite Neg (Neg) U Marijuana (THC) Screen Neg (Neg) Administered Medications Carbidopa/Levodopa (Carbidopa/Levodopa 25/100mg Tab) 1.5 tab PO TID [facility] Stop: 07/23/24 08:59 Last Admin: 06/23/24 09:56 Dose: Not Given Documented By: Admin: 06/23/24 08:09 Dose: Not Given Documented By: LND Cyanocobalamin (Cyanocobalamin (B-12) 500 Mcg Tablet) 1,000 mcg PO DAILY SHANNEN Stop: 07/23/24 08:59 Last Admin: 06/23/24 08:09 Dose: Not Given Documented By: LINDA Insulin Aspart (Insulin Aspart Per Unit Charge) 0 units SC ACHS SHANNEN Stop: 07/22/24 23:34 Last Admin: 06/23/24 12:12 Dose: Not Given Documented By: Admin: 06/23/24 07:50 Dose: Not Given Documented By: Admin: 06/22/24 23:54 Dose: Not Given Documented By: DARIN Levetiracetam (Levetiracetam 500 Mg/5 Ml Vial) 500 mg IV Q12 SHANNEN Stop: 07/23/24 08:29 Last Admin: 06/23/24 09:09 Dose: 500 mg Documented By: LINDA Lisinopril (Lisinopril 2.5 Mg Tab) 2.5 mg PO QAM SHANNEN Stop: 07/23/24 08:59 Last Admin: 06/23/24 09:30 Dose: Not Given Documented By: LINDA Miscellaneous (Rybelsus~Order Awaiting Action) 1 each N/A QS [facility] Stop: 07/23/24 00:00 Last Admin: 06/23/24 09:30 Dose: Not Given Documented By: Admin: 06/23/24 07:06 Dose: Not Given Documented By: Admin: 06/22/24 23:55 Dose: Not Given Documented By: DARIN Sodium Bicarbonate (Sodium Bicarbonate 650 Mg Tab) 650 mg PO AMHS SHANNEN Stop: 07/23/24 08:59 Last Admin: 06/23/24 08:09 Dose: Not Given Documented By: LINDA Discontinued Medications Hydralazine HCl (Hydralazine Hcl 20 Mg/Ml Vial) 10 mg IV NOW STA Stop: 06/23/24 01:35 Last Admin: 06/23/24 01:38 Dose: 10 mg Documented By: DARIN Sodium Chloride (Nss) 500 mls @ 125 mls/hr IV .Q4H SHANNEN Stop: 06/22/24 22:14 Last Infusion: 06/22/24 20:50 Dose: Infused Documented By: Admin: 06/22/24 18:55 Dose: 125 mls/hr Documented By: SRL Sodium Chloride (Nss) 500 mls @ 60 mls/hr IV .Q8H20M ONE Stop: 06/23/24 05:08 Last Infusion: 06/23/24 05:33 Dose: Infused Documented By: Admin: 06/22/24 21:07 Dose: 60 mls/hr Documented By: CHERELLE Levetiracetam (Levetiracetam 500 Mg/5 Ml Vial) 1,100 mg 20 mg/kg (1100 mg) IV NOW STA Stop: 06/22/24 20:04 Last Admin: 06/22/24 20:09 Dose: 1,100 mg Documented By: SRIKANTH Metoprolol Tartrate (Metoprolol Tartrate 1 Mg/Ml Vial) 2.5 mg IV NOW STA Stop: 06/23/24 00:01 Last Admin: 06/23/24 00:47 Dose: 2.5 mg Documented By: DARIN Imaging Data Radiologist's Impression: Chest X-Ray 06/22/24 18:14 EXAM: XR chest 1V portable CLINICAL HISTORY: SEIZURE CLW/LDS TECHNIQUE: An X-ray image of the chest is obtained in AP projection. COMPARISON: CR 04/26/2024 FINDINGS: Pulmonary Parenchyma: Prominent bilateral bronchovascular markings. No evidence of consolidation, collapse, or focal opacities. No pulmonary nodules are identified. Blurred rifhgt costophrenic angle, probable mild pleural effusion or pleural thickening. No evidence of pleural effusion or pleural thickening on the left side. Heart and Mediastinum: Heart size and shape are normal. No mediastinal widening or masses. Bulky nikki. Bony Thorax: Bony thorax appears intact without fractures or deformities. Soft Tissues: Soft tissues overlying the chest wall are unremarkable. Cardiac monitoring electrodes. IMPRESSION: 1. Accentuated bronchovascular markings consistent with bronchitic changes. 2. Bulky nikki. 3. Probable mild right pleural effusion or pleural thickening. 4. Findings are increased on interval. Correlate clinically. Further evaluation with CT is recommended if clinically warranted. Electronically signed by Elda Pinedo 06-22-2024 8:[address] 06/22/24 18:14 EXAM: CT head/brain wo con CLINICAL HISTORY: seizure TECHNIQUE: Axial noncontrast CT scan of the brain was performed from the skull base to the high parietal region .One of the following dose reduction techniques were utilized for this exam: Automated exposure control, adjustment of the mA and/or kV according to patient size, use of iterative reconstruction. COMPARISON: 10/01/2023 FINDINGS: Right fronto-parietal subacute subdural hemorrhage, measuring 7.5 mm in maximum thickness. No significant midline shift noted. There are hypodense areas noted in the subcortical and periventricular white matter bilaterally, suggestive of microvascular ischemic changes. The ventricular system, cortical sulci, and basal cisterns are prominent consistent with senile changes. The visualized brain parenchyma shows a normal appearance. Rich-white matter differentiation is maintained. Normal CT appearance of the posterior fossa structures namely the cerebellar hemispheres, brainstem, and cerebellar peduncles. The cerebello-pontine angles are clear. The osseous structures in the skull base are unremarkable. The scanned paranasal sinuses are clear. Left-sided nasal septal deviation Bilateral mastoid air cells appear unremarkable. IMPRESSION: 1. Right fronto-parietal subacute subdural hemorrhage, measuring 7.5 mm in maximum thickness. New interval finding 2. 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 Electronically signed by Elda Pinedo 06-22-2024 7:54 PM Discharge Plan Visit Data Chief Complaint: Seizure Stated Complaint: SEIZURE ED Provider: Ary Corley Discharge Problem: Seizure, Subacute subdural hematoma Patient Disposition: Admitted As Inpatient Discharge Instructions Interventions: ED Discharge Assessment Last Done: 06/22/24 23:11
[2024-06-22 18:34] LABS: iSTAT Creatinine 1.2 mg/dl (0.6-1.3); iSTAT Hemoglobin 11.2 g/dl (14.0-18.0); iSTAT Ionized Calcium 1.1 mmol/l (1.12-1.32); iSTAT Potassium 3.5 mmol/L (3.3-5.0)
[2024-06-22 18:41] LABS: Basophils # (auto) 0.02 K/uL (0.00-0.20); Basophils % (auto) 0.2 %; Eosinophils # (auto) 0.23 K/uL (0.00-0.50); Eosinophils % (auto) 2.5 %; Hematocrit (blood only) 34.7 % (42.0-52.0); Hemoglobin 11.1 g/dl (14.0-18.0); Immature Granulocytes # (auto) 0.04 K/uL (0.01-0.20); Immature Granulocytes % (auto) 0.4 %; Lymphocytes # (auto) 0.83 K/uL (1.20-3.40); Lymphocytes % (auto) 9.1 %; Mean Corpuscular Volume 90.6 fL (80.0-100.0); Mean Platelet Volume 9.8 fL (9.4-12.4); Monocytes # (auto) 0.71 K/uL (0.11-0.59); Monocytes % (auto) 7.8 %; Neutrophils # (auto) 7.25 K/uL (1.40-6.50); Platelet Count 411 K/uL (130-400); RDW Coefficient of Variation 12.6 % (11.5-14.5); RDW Standard Deviation 41.8 fL (36.4-46.3); Red Blood Count 3.83 M/uL (4.70-6.10); White Blood Count 9.08 K/ul (4.8-10.8)
[2024-06-22] MEDS: SODIUM CHLORIDE 0.9% 500 ML IV SCH (18:55)
[2024-06-22 19:03] LABS: Albumin Globulin Ratio 0.7 (0.9-2); Albumin Level 2.9 gm/dl (3.4-5.0); Bilirubin,Total 0.5 mg/dl (0.2-1.0); Calcium 8.9 mg/dl (8.6-10.3); Creatinine Clr Calc Pharmacy 39.8 ml/min; Magnesium 2.2 mg/dl (1.7-2.4); Potassium 3.6 mmol/L (3.5-5.1); Total Protein 6.9 gm/dl (6.0-8.3)
[2024-06-22 19:06] LABS: Troponin I High Sensitivity 9.6 pg/ml (0-20)
[2024-06-22 19:11] LABS: Prothrombin Time 11.3 Seconds (9.0-12.0)
[2024-06-22 19:15] LABS: Thyroid Stimulating Hormone 3.312 uIu/ml (0.300-4.500)
--- NOTE | 2024-06-22 19:55 | CT Scan Report ---
EXAM: CT head/brain wo con CLINICAL HISTORY: seizure TECHNIQUE: Axial noncontrast CT scan of the brain was performed from the skull base to the high parietal region .One of the following dose reduction techniques were utilized for this exam: Automated exposure control, adjustment of the mA and/or kV according to patient size, use of iterative reconstruction. COMPARISON: 10/01/2023 FINDINGS: Right fronto-parietal subacute subdural hemorrhage, measuring 7.5 mm in maximum thickness. No significant midline shift noted. There are hypodense areas noted in the subcortical and periventricular white matter bilaterally, suggestive of microvascular ischemic changes. The ventricular system, cortical sulci, and basal cisterns are prominent consistent with senile changes. The visualized brain parenchyma shows a normal appearance. Rich-white matter differentiation is maintained. Normal CT appearance of the posterior fossa structures namely the cerebellar hemispheres, brainstem, and cerebellar peduncles. The cerebello-pontine angles are clear. The osseous structures in the skull base are unremarkable. The scanned paranasal sinuses are clear. Left-sided nasal septal deviation Bilateral mastoid air cells appear unremarkable. IMPRESSION: 1. Right fronto-parietal subacute subdural hemorrhage, measuring 7.5 mm in maximum thickness. New interval finding 2. 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 Electronically signed by Elda Pinedo 06-22-2024 7:54 PM
--- NOTE | 2024-06-22 20:01 | XRay Report ---
EXAM: XR chest 1V portable CLINICAL HISTORY: SEIZURE CLW/LDS TECHNIQUE: An X-ray image of the chest is obtained in AP projection. COMPARISON: CR 04/26/2024 FINDINGS: Pulmonary Parenchyma: Prominent bilateral bronchovascular markings. No evidence of consolidation, collapse, or focal opacities. No pulmonary nodules are identified. Blurred rifhgt costophrenic angle, probable mild pleural effusion or pleural thickening. No evidence of pleural effusion or pleural thickening on the left side. Heart and Mediastinum: Heart size and shape are normal. No mediastinal widening or masses. Bulky nikki. Bony Thorax: Bony thorax appears intact without fractures or deformities. Soft Tissues: Soft tissues overlying the chest wall are unremarkable. Cardiac monitoring electrodes. IMPRESSION: 1. Accentuated bronchovascular markings consistent with bronchitic changes. 2. Bulky nikki. 3. Probable mild right pleural effusion or pleural thickening. 4. Findings are increased on interval. Correlate clinically. Further evaluation with CT is recommended if clinically warranted. Electronically signed by Elda Pinedo 06-22-2024 8:01 PM
[2024-06-22] MEDS: levETIRAcetam 500 MG/5 ML VIAL IV STA (20:09)
[2024-06-22] MEDS: SODIUM CHLORIDE 0.9% 500 ML IV ONE (21:07)
[2024-06-22 21:38] LABS: Appearance Urine Cloudy (Clear); Bacteria Urine Automated None Seen (None Seen); Bilirubin Urine Negative (Negative); Blood Urine Negative (Negative); Cast Urine Automated 0-2 /lpf (0-2); Color Urine Dark Yellow; Glucose Urine UA Negative (Negative); Ketones Urine Trace (Negative); Leukocyte Esterase Urine Negative (Negative); Nitrite Urine Negative (Negative); Protein Urine 2+ (Negative); RBC Urine Automated 0-2 /hpf (0-2); Specific Gravity Urine 1.019 (1.000-1.030); Triple Phosphate Crystal Urine Present (None Prsent); Urobilinogen Urine Negative (Negative); WBC Urine Automated 0-5 /hpf (0-5); pH Urine 8.5 (4.5-7.5)
--- NOTE | 2024-06-22 22:37 | History & Physical Report ---
Date of Service June 22, 2024 Assessment & Plan (1) Seizure: Plan: New onset seizures History traumatic subdural hematoma, no neurosurgery eval/intervention as per family as per ED provider History recurrent falls Hypertensive urgency secondary to illness, patient currently off BP medications due to hypotension and bradycardia from last admission hx CAD status post stent/PVD history ventricular fibrillation hyperlipidemia, on statin Rx COPD, not in acute exacerbation Parkinson's dementia DM2 on oral medication, well-controlled as of recent hemoglobin A1c of 5.17 February 2024 chronic anemia, hemoglobin at baseline past tobacco abuse Medical telemetry Neurochecks Seizure precautions, Ativan as needed active seizures Repeat CT head 12 hours after first head scan Neurology consult Re: New onset seizures, traumatic subdural hematoma Continue Keppra for maintenance AED Rx until seen by neurology Appropriate to hold home aspirin for now given subdural hematoma IV Lopressor 1 dose now Initiate lisinopril if with persistent BP elevation ISS BG goal 1 10-1 40 DVT prophylaxis. SCDs re: ICH DNR as per patient prior directives as per family. Patient daughter requesting updates providers. Ms. Karla Baptiste, contact #[phone]. Text document was generated using [employer] voice recognition software. It may contain grammatical or spelling errors. Kindly contact undersigned for clarification of any documentation item in qu estion. History of Present Illness Chief Complaint: Seizures Primary Care Provider: Crissy Mcintyre MD History obtained from patient, family, and records. Limited history from patient secondary to obtunded state/dementia. Medical history significant for CAD status post stent, history ventricular fibrillation, hypertension, hyperlipidemia, PVD, COPD, Parkinson's dementia, DM2 on oral medications, GERD, chronic anemia (baseline hemoglobin of 11), recurrent falls, past tobacco abuse. Last confinement April 2024 for fall, unresponsiveness, transient VF. Home beta-tez discontinued on discharge back to senior care. Patient witnessed by staff to have generalized tonic-clonic seizures at senior care today. Patient dentures became dislodged from seizure as per report. Another seizure witnessed as patient moved to stretcher by EMS. Seizure described as flexing and stiffening of arms and legs followed by generalized shaking. IM Versed administered prior to transport. No prior episodes. Episode of fall 2 weeks ago resulting in right rib pain as per outpatient notes. IV Keppra administered at the ER. Highest SBP of 190s documented at the ER. Patient family not interested in neurosurgery evaluation/intervention as per ED provider. Medical History as above Surgical History : Finger amputation Family History : DM, heart disease Personal/Social history : Past tobacco abuse, no EtOH intake, senior care resident Allergies Allergy/AdvReac Type Severity Reaction Status Date / Time Penicillins Allergy Severe THROAT Verified 05/23/16 16:41 SWELLING Home Medications Medication Instructions Recorded Confirmed Type aspirin 81 mg tablet,delayed 81 mg PO QAM ##0 05/23/16 06/22/24 History release cholecalciferol (vitamin D3) 25 25 mcg PO DAILY 30 days #30 tabs 12/02/17 06/22/24 History mcg (1,000 unit) capsule (Vitamin D3) carbidopa 25 mg-levodopa 100 mg 1.5 tab PO TID 04/26/24 06/22/24 History tablet carbidopa ER 25 mg-levodopa 100 mg 1 tab PO HS 04/26/24 06/22/24 History tablet,extended release cetirizine 10 mg tablet 5 mg PO HS 04/26/24 06/22/24 History cyanocobalamin (vitamin B-12) 1,000 mcg PO DAILY 04/26/24 06/22/24 History 1,000 mcg tablet pravastatin 80 mg tablet 80 mg PO HS 04/26/24 06/22/24 History semaglutide 7 mg tablet (Rybelsus) 7 mg PO QAM 04/26/24 06/22/24 History sodium bicarbonate 650 mg tablet 650 mg PO AMHS 04/26/24 06/22/24 History acetaminophen 325 mg tablet 650 mg PO Q4 PRN Fever Or Pain 06/22/24 06/22/24 History diclofenac sodium 1 % topical gel 4 g topical TID 06/22/24 06/22/24 History melatonin 5 mg tablet 5 mg PO HS 06/22/24 06/22/24 History zinc oxide 40 % topical ointment 1 applic topical UD 06/22/24 06/22/24 History Past Med/Surg History Problem List (Updated 06/03/24 @ 00:07 by Nalini Agosto) Seizure (Acute) Comfort measures only status OLIVIER (acute kidney injury) (Acute) Amputation finger (Chronic) Medical History Emphysema of lung Carotid artery stenosis, asymptomatic left Parkinson disease CAD (coronary artery disease) "s/p stent" CKD (chronic kidney disease), stage III Hypertension Dyslipidemia DM type 2 (diabetes mellitus, type 2) Surgical History S/P coronary artery stent placement Family History Father Heart disease Social History Smoking Status: Former smoker packs per day: 1; Smoking End Date: 1977; Hx Alcohol Use: No Hx Substance Use: No Preferred Language: Polish Communication Ability: Unable 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 Required: No Beliefs That Will Affect Care: Orthodox Current Living Situation: [facility] Current Living Situation Comment: [facility] Feels Safe at Home: Yes Assistive Devices: Hospital Bed, Walker and Wheelchair Review of Systems Review of Systems: Could not be reliably obtained secondary to obtunded state Physical Exam Physical Exam: GENERAL: Obtunded, chronically ill, underweight, no respiratory distress SKIN: Pallor, warm HEENT: Pale palpebral conjunctivae, no ptosis, dry buccal mucosa NECK : Supple, no tenderness CHEST : Decreased breath sounds, no tenderness HEART : RRR, systolic murmur ABDOMEN: no distention, nontender EXTREMITIES : No LE swelling/tenderness, no other conspicuous deformities noted NEUROLOGIC : Obtunded, no facial asymmetry, gait and stance not assessed Results & Data Results & Data Vital Signs (Past 12 Hours) Vital Signs Temp Pulse Pulse Resp BP BP Pulse Ox 06/22/24 22:00 83 16 166/72 H 92 06/22/24 20:35 79 20 151/84 H 94 06/22/24 20:00 78 18 169/79 H 95 06/22/24 19:00 81 22 139/66 95 06/22/24 18:20 85 06/22/24 17:36 82 136/65 94 06/22/24 17:36 06/22/24 17:36 36.8 C 83 18 136/65 99 O2 Del Method 06/22/24 22:00 Room Air 06/22/24 20:35 Room Air 06/22/24 20:00 Room Air 06/22/24 19:00 Room Air 06/22/24 18:20 06/22/24 17:36 Room Air 06/22/24 17:36 Room Air 06/22/24 17:36 Room Air Laboratory Results Laboratory Results WBC 9.08 K/ul (4.8-10.8) 06/22/24 18:20 RBC 3.83 M/uL (4.70-6.10) L 06/22/24 18:20 Hgb 11.1 g/dl (14.0-18.0) L 06/22/24 18:20 POC Hgb 11.2 g/dl (14.0-18.0) L 06/22/24 18:22 Hct 34.7 % (42.0-52.0) L 06/22/24 18:20 POC Hct 33 % (42-52) L 06/22/24 18:22 MCV 90.6 fL (80.0-100.0) 06/22/24 18:20 MCH 29.0 pg (25.0-34.0) 06/22/24 18:20 MCHC 32.0 g/dL (32.0-36.0) 06/22/24 18:20 RDW Std Deviation 41.8 fL (36.4-46.3) 06/22/24 18:20 RDW Coeff of Conchita 12.6 % (11.5-14.5) 06/22/24 18:20 Plt Count 411 K/uL (130-400) H 06/22/24 18:20 MPV 9.8 fL (9.4-12.4) 06/22/24 18:20 Immature Gran % (Auto) 0.4 % 06/22/24 18:20 Neut % (Auto) 80.0 % 06/22/24 18:20 Lymph % (Auto) 9.1 % 06/22/24 18:20 Meagher % (Auto) 7.8 % 06/22/24 18:20 Eos % (Auto) 2.5 % 06/22/24 18:20 Baso % (Auto) 0.2 % 06/22/24 18:20 Neut # (Auto) 7.25 K/uL (1.40-6.50) H 06/22/24 18:20 Lymph # (Auto) 0.83 K/uL (1.20-3.40) L 06/22/24 18:20 Meagher # (Auto) 0.71 K/uL (0.11-0.59) H 06/22/24 18:20 Eos # (Auto) 0.23 K/uL (0.00-0.50) 06/22/24 18:20 Baso # (Auto) 0.02 K/uL (0.00-0.20) 06/22/24 18:20 Immature Gran # (Auto) 0.04 K/uL (0.01-0.20) 06/22/24 18:20 PT 11.3 Seconds (9.0-12.0) 06/22/24 18:20 INR 1.0 (0.9-1.1) 06/22/24 18:20 POC Sodium 136 mmol/L (135-144) 06/22/24 18:22 Sodium 137 mmol/L (136-145) 06/22/24 18:20 POC Potassium 3.5 mmol/L (3.3-5.0) 06/22/24 18:22 Potassium 3.6 mmol/L (3.5-5.1) 06/22/24 18:20 POC Chloride 97 mmol/L (101-112) L 06/22/24 18:22 Chloride 97 mmol/L (98-107) L 06/22/24 18:20 Carbon Dioxide 27 mmol/L (21-32) 06/22/24 18:20 POC Total CO2 24 mmol/L (24-31) 06/22/24 18:22 Anion Gap 13 (3-11) H 06/22/24 18:20 POC Anion Gap 19.0 mmol/L (16-25) 06/22/24 18:22 POC BUN 24 mg/dl (7-18) H 06/22/24 18:22 BUN 25 mg/dl (6-23) H 06/22/24 18:20 Creatinine 1.04 mg/dl (0.6-1.4) 06/22/24 18:20 POC Creatinine 1.2 mg/dl (0.6-1.3) 06/22/24 18:22 Est Cr Clr Drug Dosing 39.8 ml/min 06/22/24 18:20 eGFR 69.93 06/22/24 18:20 BUN/Creatinine Ratio 24.0 (10-20) H 06/22/24 18:20 Glucose 127 mg/dl (70-99(Fasting)) H 06/22/24 18:20 POC Glucose (other) 123 mg/dl (70-99) H 06/22/24 18:22 Calcium 8.9 mg/dl (8.6-10.3) 06/22/24 18:20 POC Ioniz Calcium Radha 1.10 mmol/l (1.12-1.32) L 06/22/24 18:22 Magnesium 2.2 mg/dl (1.7-2.4) 06/22/24 18:20 Total Bilirubin 0.5 mg/dl (0.2-1.0) 06/22/24 18:20 AST 9 U/L (13-39) L 06/22/24 18:20 ALT 3 U/L (7-52) L 06/22/24 18:20 Alkaline Phosphatase 114 U/L (34-104) H 06/22/24 18:20 Troponin I High Sens 9.6 pg/ml (0-20) 06/22/24 18:20 Total Protein 6.9 gm/dl (6.0-8.3) 06/22/24 18:20 Albumin 2.9 gm/dl (3.4-5.0) L 06/22/24 18:20 Globulin 4.0 gm/dl (2.5-4.0) 06/22/24 18:20 Albumin/Globulin Ratio 0.7 (0.9-2) L 06/22/24 18:20 Lipase 31 U/L (11-82) 06/22/24 18:20 TSH 3.312 uIu/ml (0.300-4.500) 06/22/24 18:20 Urine Color Dark Yellow 06/22/24 20:52 Urine Appearance Cloudy (Clear) A 06/22/24 20:52 Urine pH 8.5 (4.5-7.5) H 06/22/24 20:52 Ur Specific [place] 1.019 (1.000-1.030) 06/22/24 20:52 Urine Protein 2+ (Negative) H 06/22/24 20:52 Urine Glucose (UA) Negative (Negative) 06/22/24 20:52 Urine Ketones Trace (Negative) H 06/22/24 20:52 Urine Blood Negative (Negative) 06/22/24 20:52 Urine Nitrite Negative (Negative) 06/22/24 20:52 Urine Bilirubin Negative (Negative) 06/22/24 20:52 Urine Urobilinogen Negative (Negative) 06/22/24 20:52 Ur Leukocyte Esterase Negative (Negative) 06/22/24 20:52 Urine WBC (Auto) 0-5 /hpf (0-5) 06/22/24 20:52 Urine RBC (Auto) 0-2 /hpf (0-2) 06/22/24 20:52 U Hyaline Cast (Auto) 0-2 /lpf (0-2) 06/22/24 20:52 U Epithel Cells (Auto) 3-5 /hpf (0-2) H 06/22/24 20:52 Urine Bacteria (Auto) None Seen (None Seen) 06/22/24 20:52 Triple Phos Crystals Present (None Prsent) A 06/22/24 20:52 Impressions Chest X-Ray 06/22/24 18:14 EXAM: XR chest 1V portable CLINICAL HISTORY: SEIZURE CLW/LDS TECHNIQUE: An X-ray image of the chest is obtained in AP projection. COMPARISON: CR 04/26/2024 FINDINGS: Pulmonary Parenchyma: Prominent bilateral bronchovascular markings. No evidence of consolidation, collapse, or focal opacities. No pulmonary nodules are identified. Blurred rifhgt costophrenic angle, probable mild pleural effusion or pleural thickening. No evidence of pleural effusion or pleural thickening on the left side. Heart and Mediastinum: Heart size and shape are normal. No mediastinal widening or masses. Bulky nikki. Bony Thorax: Bony thorax appears intact without fractures or deformities. Soft Tissues: Soft tissues overlying the chest wall are unremarkable. Cardiac monitoring electrodes. IMPRESSION: 1. Accentuated bronchovascular markings consistent with bronchitic changes. 2. Bulky nikki. 3. Probable mild right pleural effusion or pleural thickening. 4. Findings are increased on interval. Correlate clinically. Further evaluation with CT is recommended if clinically warranted. Electronically signed by Elda Pinedo 06-22-2024 8:[address] 06/22/24 18:14 EXAM: CT head/brain wo con CLINICAL HISTORY: seizure TECHNIQUE: Axial noncontrast CT scan of the brain was performed from the skull base to the high parietal region .One of the following dose reduction techniques were utilized for this exam: Automated exposure control, adjustment of the mA and/or kV according to patient size, use of iterative reconstruction. COMPARISON: 10/01/2023 FINDINGS: Right fronto-parietal subacute subdural hemorrhage, measuring 7.5 mm in maximum thickness. No significant midline shift noted. There are hypodense areas noted in the subcortical and periventricular white matter bilaterally, suggestive of microvascular ischemic changes. The ventricular system, cortical sulci, and basal cisterns are prominent consistent with senile changes. The visualized brain parenchyma shows a normal appearance. Rich-white matter differentiation is maintained. Normal CT appearance of the posterior fossa structures namely the cerebellar hemispheres, brainstem, and cerebellar peduncles. The cerebello-pontine angles are clear. The osseous structures in the skull base are unremarkable. The scanned paranasal sinuses are clear. Left-sided nasal septal deviation Bilateral mastoid air cells appear unremarkable. IMPRESSION: 1. Right fronto-parietal subacute subdural hemorrhage, measuring 7.5 mm in maximum thickness. New interval finding 2. Chronic microvascular ischemic changes and senile cortical atrophy, stable [facility] was called at [phone] at 06:46 PM MANAGER [employer]ATEGY [employer] ACCOUNT, 06/22/2024, and Ary Mayfield was informed regarding the presence of critical medical findings in the reports. Electronically signed by Elda Pinedo 06-22-2024 7:54 PM Diagnostic Findings EKG as per my interpretation :Rate 85, NSR, normal axis, no ischemia
[2024-06-22] MEDS ORDERED: ACETAMINOPHEN 325 MG TAB PO PRN (22:39)
[2024-06-22] MEDS ORDERED: DICLOFENAC SOD 1% GEL 100 GM TUBE EXT PRN (22:40)
[2024-06-22 22:41] LABS: Amphetamines+Metham, Urine Neg (Neg); Barbiturates, Urine Neg (Neg); Benzodiazepine, Urine Pos (Neg); Cocaine, Urine Neg (Neg); Fentanyl, Urine Neg (Neg); MDMA (Ecstacy), Urine Neg (Neg); Marijuana, Urine Neg (Neg); Methadone, Urine Neg (Neg); Opiate, Urine Neg (Neg); Phencyclidine, Urine Neg (Neg)
[2024-06-22] MEDS ORDERED: CARBOHYDRATES FOR HYPOGLYCEMIA PO PRN (23:35)
[2024-06-22] MEDS ORDERED: GLUCOSE 10 TAB/TUBE PO PRN (23:35)
[2024-06-22] MEDS ORDERED: GLUCAGON FOR INJ 1 MG VIAL SQ PRN (23:35)
[2024-06-22] MEDS ORDERED: DEXTROSE 50% 50 ML SYRINGE IV PRN (23:35)
[2024-06-22] MEDS ORDERED: GLUCOSE 40% GEL 15 GM TUBE PO PRN (23:35)
[2024-06-22] MEDS: INSULIN ASPART PER UNIT CHARGE SC SCH (23:54)
[2024-06-23] MEDS: METOPROLOL TARTRATE 1 MG/ML VIAL IV STA (00:47)
[2024-06-23] MEDS: hydrALAZINE HCL 20 MG/ML VIAL IV STA (01:38)
--- NOTE | 2024-06-23 07:24 | CT Scan Report ---
EXAM: CT head/brain wo con CLINICAL HISTORY: ffup ich TECHNIQUE: An axial non-contrast CT scan of the brain was performed from the skull base to the high parietal region. CTDI: 72.93 mGy, DLP: 1016.05 mGy*cm. One of the following dose reduction techniques was utilized for this exam.Automated exposure control, adjustment of the mA and/or kV according to patient size, and use of iterative reconstruction. COMPARISON: CT Head Dated 06/22/2024 FINDINGS: Redemostration of the right fronto-parietal subacute subdural hemorrhage, measuring 8mm in maximum thickness. No significant midline shift noted. There are few tiny ill-defined iso-to hypodense areas noted in the subcortical white matter bilaterally, suggestive of microvascular ischemic changes. The ventricular system, cortical sulci and basal cisterns are prominent and consistent with senile changes. Normal size and configuration of the cerebral ventricles. Normal CT appearance of the posterior fossa structures namely the cerebellar hemispheres, brainstem, and cerebellar peduncles. The osseous structures in the skull base are unremarkable. No definite calvarium fractures. The scanned paranasal sinuses are clear. IMPRESSION: 1. Redemostration of the right fronto-parietal subacute subdural hemorrhage, measuring 8mm in maximum thickness. No significant midline shift noted. 2. Mild microvascular ischemic changes and senile changes. 3. No significant interval change. Electronically signed by Elda Pinedo 06-23-2024 07:24 AM
[2024-06-23 07:43] LABS: Basophils # (auto) 0.02 K/uL (0.00-0.20); Basophils % (auto) 0.2 %; Hematocrit (blood only) 34.4 % (42.0-52.0); Hemoglobin 11.4 g/dl (14.0-18.0); Immature Granulocytes # (auto) 0.03 K/uL (0.01-0.20); Immature Granulocytes % (auto) 0.3 %; Lymphocytes # (auto) 0.66 K/uL (1.20-3.40); Lymphocytes % (auto) 6.2 %; Mean Corpuscular Hgb Conc 33.1 g/dL (32.0-36.0); Mean Corpuscular Volume 87.5 fL (80.0-100.0); Mean Platelet Volume 9.8 fL (9.4-12.4); Monocytes # (auto) 0.47 K/uL (0.11-0.59); Monocytes % (auto) 4.4 %; Neutrophils % (auto) 88.9 %; Platelet Count 478 K/uL (130-400); RDW Coefficient of Variation 12.5 % (11.5-14.5); RDW Standard Deviation 39.9 fL (36.4-46.3); Red Blood Count 3.93 M/uL (4.70-6.10); White Blood Count 10.68 K/ul (4.8-10.8)
[2024-06-23 08:06] LABS: BUN Creatinine Ratio 29.3 (10-20); Calcium 8.6 mg/dl (8.6-10.3); Creatinine Clr Calc Pharmacy 53.6 ml/min; Potassium 3.7 mmol/L (3.5-5.1)
[2024-06-23] MEDS: CYANOCOBALAMIN (B-12) 500 MCG TABLET PO SCH (08:09)
[2024-06-23] MEDS: SODIUM BICARBONATE 650 MG TAB PO SCH (08:09)
[2024-06-23] MEDS: CARBIDOPA/LEVODOPA 25/100MG TAB PO SCH (08:09)
--- NOTE | 2024-06-23 08:42 | Electrocardiogram Report ---
Test Reason : Blood Pressure : */* mmHG Vent. Rate : 84 BPM Atrial Rate : 84 BPM P-R Int : 192 ms QRS Dur : 80 ms QT Int : 372 ms P-R-T Axes : 62 32 62 degrees QTcB Int : 439 ms Normal sinus rhythm Normal ECG When compared with ECG of 26-Apr-2024 09:31, Sinus rhythm has replaced Idioventricular rhythm HR has increased by 64 bpm Confirmed by Darci Cazares ([id number]) on 06/23/2024 8:42:12 AM Referred By: REFERRED SELF Confirmed By: Darci Cazares
[2024-06-23] MEDS ORDERED: levETIRAcetam 500 MG TAB PO SCH (09:00)
[2024-06-23] MEDS: levETIRAcetam 500 MG/5 ML VIAL IV SCH (09:09)
[2024-06-23] MEDS: lisinopril 2.5 MG TAB PO SCH (09:30)
--- NOTE | 2024-06-23 12:29 | Neurology Consultation ---
Date of Consultation June 23, 2024 Assessment & Plan (1) Seizure: Agree with comfort measures per family decision Hold full anticoagulation, ASA NSAIDs antiplatelet medications Monitor for s/s of worsening hemorrhage Agree with continued IV keppra Consider obtaining EEG Provide seizure precautions Utilize benzodiazepines emergently for any breakthrough clinical seizure like activity Recommend keep HOB elevated Continue to monitor neurological assessments Obtain stat CT brain without contrast for any acute neurological decline Continue to monitor/control blood pressure & blood glucose Continue to monitor renal and hepatic function, keep euvolemic SCDs as VTE prophylaxis Telehealth Consultation Telehealth Information Telehealth Information: I performed this visit using a real-time telehealth connection between my location and the patients location ([facility]). After connecting through interactive tele-video, patient was identified by name and date of and/or wristband check.Patient (or authorized healthcare civil rights representative) was informed that this was a telemedicine visit and it was being conducted confidentially over secure lines. My office door was closed and no one else was present in the room with me.Patient (or authorized healthcare civil rights representative) provided consent to proceed with the visit, expressed an understanding of privacy and security of the telemedicine visit, and gave permission to have a hospital civil rights representative in the room in order to assist with the visit and to conduct portions of the visit, as needed. I informed the patient (or authorized healthcare civil rights representative) that I reviewed their record and presented the opportunity for them to ask any questions regarding the visit today. The patient agreed to participate. History of Present Illness Reason for Consultation: Seizure SDH Requesting Physician: Dr. 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 Per documentation review patient had a fall with unresponsive episode in April 2024. He has also had recent falls within the last 2 weeks. He has undergone CT brain without contrast revealing 7-8mm SDH right frontal parietal region last evening upon arrival. Follow up imaging this AM reveals stable SDH. He is receiving Keppra IV and per documentation review family does not want NSG intervention. I have performed televideo consultation. He is awake and appears to look around the room/tracking people but is nonverbal will not answer questions or follow commands. He is able to move all extremities spontaneously and antigravity. Pupils are reactive. No evidence of gaze preference, nystagmus hippus or roving eye movements. RN at bedside helpful with examination. There has been no further reported seizure like activity. Allergies Allergy/AdvReac Type Severity Reaction Status Date / Time Penicillins Allergy Severe THROAT Verified 05/23/16 16:41 SWELLING Home Medications Medication Instructions Recorded Confirmed Type aspirin 81 mg tablet,delayed 81 mg PO QAM ##0 05/23/16 06/22/24 History release cholecalciferol (vitamin D3) 25 25 mcg PO DAILY 30 days #30 tabs 12/02/17 06/22/24 History mcg (1,000 unit) capsule (Vitamin D3) carbidopa 25 mg-levodopa 100 mg 1.5 tab PO TID 04/26/24 06/22/24 History tablet carbidopa ER 25 mg-levodopa 100 mg 1 tab PO HS 04/26/24 06/22/24 History tablet,extended release cetirizine 10 mg tablet 5 mg PO HS 04/26/24 06/22/24 History cyanocobalamin (vitamin B-12) 1,000 mcg PO DAILY 04/26/24 06/22/24 History 1,000 mcg tablet pravastatin 80 mg tablet 80 mg PO HS 04/26/24 06/22/24 History semaglutide 7 mg tablet (Rybelsus) 7 mg PO QAM 04/26/24 06/22/24 History sodium bicarbonate 650 mg tablet 650 mg PO AMHS 04/26/24 06/22/24 History acetaminophen 325 mg tablet 650 mg PO Q4 PRN Fever Or Pain 06/22/24 06/22/24 History diclofenac sodium 1 % topical gel 4 g topical TID 06/22/24 06/22/24 History melatonin 5 mg tablet 5 mg PO HS 06/22/24 06/22/24 History zinc oxide 40 % topical ointment 1 applic topical UD 06/22/24 06/22/24 History Patient History Medical History Emphysema of lung Carotid artery stenosis, asymptomatic left Parkinson disease CAD (coronary artery disease) "s/p stent" CKD (chronic kidney disease), stage III Hypertension Dyslipidemia DM type 2 (diabetes mellitus, type 2) Surgical History S/P coronary artery stent placement Family History Father Heart disease Social History Smoking Status: Former smoker packs per day: 1; Smoking End Date: 1977; Hx Alcohol Use: No Hx Substance Use: No Preferred Language: Nicaraguan Communication Ability: Unable Products 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 Design 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 Required: No Beliefs That Will Affect Care: Synagogue Current Living Situation: [facility] Current Living Situation Comment: [facility] Feels Safe at Home: Yes Assistive Devices: Hospital Bed, Walker and Wheelchair Physical Exam Neurological Examination: Mental Status: Awake, nonverbal CN testing: I: Unable to accurately assess II: Unable to accurately assess III/IV/: No evidence of gaze preference, hippus, nystagmus or roving eye movements V: Facial sensation is difficult to accurately assess VII: Facial movements appear without evidence of asymmetry VIII: Hearing is difficult to accurately assess IX/X: Palate is difficult to accurately assessed XI: Unable to accurately assess XII: Will not stick tongue out readily Motor exam: Strength appears symmetry antigravity Sensory: Sensation is difficult to accurately assess Coordination: Deferred Reflexes: Deferred Gait: Deferred Results & Data Vital Signs (Past 12 Hours) Vital Signs Temp Pulse Pulse Resp BP BP BP 06/23/24 11:34 36.8 C 78 20 156/77 H 06/23/24 07:55 06/23/24 07:39 36.3 C L 94 H 20 167/70 H 06/23/24 07:12 90 06/23/24 03:23 82 165/79 H 06/23/24 03:16 36.3 C L 85 18 06/23/24 02:19 79 184/72 H 06/23/24 01:39 76 181/72 H 06/23/24 01:11 68 191/78 H 06/23/24 00:47 76 185/77 H Pulse Ox O2 Del Method 06/23/24 11:34 95 Room Air 06/23/24 07:55 Room Air 06/23/24 07:39 96 Room Air 06/23/24 07:12 06/23/24 03:23 06/23/24 03:16 97 Room Air 06/23/24 02:19 06/23/24 01:39 06/23/24 01:11 06/23/24 00:47 Laboratory Results Abnormal lab results 06/22/24 06/22/24 06/22/24 Range/Units 18:20 18:22 20:52 RBC 3.83 L (4.70-6.10) M/uL Hgb 11.1 L (14.0-18.0) g/dl POC Hgb 11.2 L (14.0-18.0) g/dl Hct 34.7 L (42.0-52.0) % POC Hct 33 L (42-52) % Plt Count 411 H (130-400) K/uL Neut # (Auto) 7.25 H (1.40-6.50) K/uL Lymph # (Auto) 0.83 L (1.20-3.40) K/uL [place] # (Auto) 0.71 H (0.11-0.59) K/uL Sodium (136-145) mmol/L POC Chloride 97 L (101-112) mmol/L Chloride 97 L (98-107) mmol/L Anion Gap 13 H (3-11) POC BUN 24 H (7-18) mg/dl BUN 25 H (6-23) mg/dl BUN/Creatinine Ratio 24.0 H (10-20) Glucose 127 H (70-99(Fasting)) mg/dl POC Glucose (70-99) mg/dl POC Glucose (other) 123 H (70-99) mg/dl POC Ioniz Calcium Radha 1.10 L (1.12-1.32) mmol/l AST 9 L (13-39) U/L ALT 3 L (7-52) U/L Alkaline Phosphatase 114 H (34-104) U/L Albumin 2.9 L (3.4-5.0) gm/dl Albumin/Globulin Ratio 0.7 L (0.9-2) Urine Appearance Cloudy A (Clear) Urine pH 8.5 H (4.5-7.5) Urine Protein 2+ H (Negative) Urine Ketones Trace H (Negative) U Epithel Cells (Auto) 3-5 H (0-2) /hpf Triple Phos Crystals Present A (None Prsent) U Benzodiazepines Scrn Pos H (Neg) 06/22/24 06/23/24 06/23/24 Range/Units 23:49 07:06 07:48 RBC 3.93 L (4.70-6.10) M/uL Hgb 11.4 L (14.0-18.0) g/dl POC Hgb (14.0-18.0) g/dl Hct 34.4 L (42.0-52.0) % POC Hct (42-52) % Plt Count 478 H (130-400) K/uL Neut # (Auto) 9.50 H (1.40-6.50) K/uL Lymph # (Auto) 0.66 L (1.20-3.40) K/uL [place] # (Auto) (0.11-0.59) K/uL Sodium 134 L (136-145) mmol/L POC Chloride (101-112) mmol/L Chloride (98-107) mmol/L Anion Gap (3-11) POC BUN (7-18) mg/dl BUN (6-23) mg/dl BUN/Creatinine Ratio 29.3 H (10-20) Glucose 131 H (70-99(Fasting)) mg/dl POC Glucose 107 H 123 H (70-99) mg/dl POC Glucose (other) (70-99) mg/dl POC Ioniz Calcium Radha (1.12-1.32) mmol/l AST (13-39) U/L ALT (7-52) U/L Alkaline Phosphatase (34-104) U/L Albumin (3.4-5.0) gm/dl Albumin/Globulin Ratio (0.9-2) Urine Appearance (Clear) Urine pH (4.5-7.5) Urine Protein (Negative) Urine Ketones (Negative) U Epithel Cells (Auto) (0-2) /hpf Triple Phos Crystals (None Prsent) U Benzodiazepines Scrn (Neg) 06/23/24 Range/Units 12:10 RBC (4.70-6.10) M/uL Hgb (14.0-18.0) g/dl POC Hgb (14.0-18.0) g/dl Hct (42.0-52.0) % POC Hct (42-52) % Plt Count (130-400) K/uL Neut # (Auto) (1.40-6.50) K/uL Lymph # (Auto) (1.20-3.40) K/uL [place] # (Auto) (0.11-0.59) K/uL Sodium (136-145) mmol/L POC Chloride (101-112) mmol/L Chloride (98-107) mmol/L Anion Gap (3-11) POC BUN (7-18) mg/dl BUN (6-23) mg/dl BUN/Creatinine Ratio (10-20) Glucose (70-99(Fasting)) mg/dl POC Glucose 112 H (70-99) mg/dl POC Glucose (other) (70-99) mg/dl POC Ioniz Calcium Radha (1.12-1.32) mmol/l AST (13-39) U/L ALT (7-52) U/L Alkaline Phosphatase (34-104) U/L Albumin (3.4-5.0) gm/dl Albumin/Globulin Ratio (0.9-2) Urine Appearance (Clear) Urine pH (4.5-7.5) Urine Protein (Negative) Urine Ketones (Negative) U Epithel Cells (Auto) (0-2) /hpf Triple Phos Crystals (None Prsent) U Benzodiazepines Scrn (Neg) Diagnostic Findings Chest X-Ray 06/22/24 18:14 EXAM: XR chest 1V portable CLINICAL HISTORY: SEIZURE CLW/LDS TECHNIQUE: An X-ray image of the chest is obtained in AP projection. COMPARISON: CR 04/26/2024 FINDINGS: Pulmonary Parenchyma: Prominent bilateral bronchovascular markings. No evidence of consolidation, collapse, or focal opacities. No pulmonary nodules are identified. Blurred rifhgt costophrenic angle, probable mild pleural effusion or pleural thickening. No evidence of pleural effusion or pleural thickening on the left side. Heart and Mediastinum: Heart size and shape are normal. No mediastinal widening or masses. Bulky nikki. Bony Thorax: Bony thorax appears intact without fractures or deformities. Soft Tissues: Soft tissues overlying the chest wall are unremarkable. Cardiac monitoring electrodes. IMPRESSION: 1. Accentuated bronchovascular markings consistent with bronchitic changes. 2. Bulky nikki. 3. Probable mild right pleural effusion or pleural thickening. 4. Findings are increased on interval. Correlate clinically. Further evaluation with CT is recommended if clinically warranted. Electronically signed by Elda Pinedo 06-22-2024 8:[address] 06/22/24 18:14 EXAM: CT head/brain wo con CLINICAL HISTORY: seizure TECHNIQUE: Axial noncontrast CT scan of the brain was performed from the skull base to the high parietal region .One of the following dose reduction techniques were utilized for this exam: Automated exposure control, adjustment of the mA and/or kV according to patient size, use of iterative reconstruction. COMPARISON: 10/01/2023 FINDINGS: Right fronto-parietal subacute subdural hemorrhage, measuring 7.5 mm in maximum thickness. No significant midline shift noted. There are hypodense areas noted in the subcortical and periventricular white matter bilaterally, suggestive of microvascular ischemic changes. The ventricular system, cortical sulci, and basal cisterns are prominent consistent with senile changes. The visualized brain parenchyma shows a normal appearance. Rich-white matter differentiation is maintained. Normal CT appearance of the posterior fossa structures namely the cerebellar hemispheres, brainstem, and cerebellar peduncles. The cerebello-pontine angles are clear. The osseous structures in the skull base are unremarkable. The scanned paranasal sinuses are clear. Left-sided nasal septal deviation Bilateral mastoid air cells appear unremarkable. IMPRESSION: 1. Right fronto-parietal subacute subdural hemorrhage, measuring 7.5 mm in maximum thickness. New interval finding 2. Chronic microvascular ischemic changes and senile cortical atrophy, stable [facility] ER was called at [phone] at 06:46 PM MULTIFOLD OPERATOR, 06/22/2024, and Ary Mayfield was informed regarding the presence of critical medical findings in the reports. Electronically signed by Elda Pinedo 06-22-2024 7:[address] 06/23/24 06:15 EXAM: CT head/brain wo con CLINICAL HISTORY: ffup ich TECHNIQUE: An axial non-contrast CT scan of the brain was performed from the skull base to the high parietal region. CTDI: 72.93 mGy, DLP: 1016.05 mGy*cm. One of the following dose reduction techniques was utilized for this exam.Automated exposure control, adjustment of the mA and/or kV according to patient size, and use of iterative reconstruction. COMPARISON: CT Head Dated 06/22/2024 FINDINGS: Redemostration of the right fronto-parietal subacute subdural hemorrhage, measuring 8mm in maximum thickness. No significant midline shift noted. There are few tiny ill-defined iso-to hypodense areas noted in the subcortical white matter bilaterally, suggestive of microvascular ischemic changes. The ventricular system, cortical sulci and basal cisterns are prominent and consistent with senile changes. Normal size and configuration of the cerebral ventricles. Normal CT appearance of the posterior fossa structures namely the cerebellar hemispheres, brainstem, and cerebellar peduncles. The osseous structures in the skull base are unremarkable. No definite calvarium fractures. The scanned paranasal sinuses are clear. IMPRESSION: 1. Redemostration of the right fronto-parietal subacute subdural hemorrhage, measuring 8mm in maximum thickness. No significant midline shift noted. 2. Mild microvascular ischemic changes and senile changes. 3. No significant interval change. Electronically signed by Elda Pinedo 06-23-2024 07:24 AM Medications Administered Home Medications Medication Instructions Recorded Confirmed Last Taken aspirin 81 mg tablet,delayed 81 mg PO QAM ##0 05/23/16 06/22/24 Unknown release cholecalciferol (vitamin D3) 25 25 mcg PO DAILY 30 days #30 tabs 12/02/17 06/22/24 Unknown mcg (1,000 unit) capsule (Vitamin D3) carbidopa 25 mg-levodopa 100 mg 1.5 tab PO TID 04/26/24 06/22/24 Unknown tablet carbidopa ER 25 mg-levodopa 100 mg 1 tab PO HS 04/26/24 06/22/24 Unknown tablet,extended release cetirizine 10 mg tablet 5 mg PO HS 04/26/24 06/22/24 Unknown cyanocobalamin (vitamin B-12) 1,000 mcg PO DAILY 04/26/24 06/22/24 Unknown 1,000 mcg tablet pravastatin 80 mg tablet 80 mg PO HS 04/26/24 06/22/24 Unknown semaglutide 7 mg tablet (Rybelsus) 7 mg PO QAM 04/26/24 06/22/24 Unknown sodium bicarbonate 650 mg tablet 650 mg PO AMHS 04/26/24 06/22/24 Unknown acetaminophen 325 mg tablet 650 mg PO Q4 PRN Fever Or Pain 06/22/24 06/22/24 Unknown diclofenac sodium 1 % topical gel 4 g topical TID 06/22/24 06/22/24 Unknown melatonin 5 mg tablet 5 mg PO HS 06/22/24 06/22/24 Unknown zinc oxide 40 % topical ointment 1 applic topical UD 06/22/24 06/22/24 Unknown Active Medications Generic Name Dose Route Start Last Admin Trade Name Reta BRAXTON Reason Stop Dose Admin Carbidopa/Levodopa 1.5 tab 06/23/24 09:00 06/23/24 09:56 Carbidopa/Levodopa 25/100mg Tab PO 07/23/24 08:59 Not Given TID SHANNEN Cyanocobalamin 1,000 mcg 06/23/24 09:00 06/23/24 08:09 Cyanocobalamin (B-12) 500 Mcg Tablet PO 07/23/24 08:59 Not Given DAILY SHANNEN Insulin Aspart 0 units 06/22/24 23:35 06/23/24 12:12 Insulin Aspart Per Unit Charge SC 07/22/24 23:34 Not Given ACHS SHANNEN Levetiracetam 500 mg 06/23/24 08:30 06/23/24 09:09 Levetiracetam 500 Mg/5 Ml Vial IV 07/23/24 08:29 500 mg Q12 SHANNEN Administration Lisinopril 2.5 mg 06/23/24 09:00 06/23/24 09:30 Lisinopril 2.5 Mg Tab PO 07/23/24 08:59 Not Given QAM SHANNEN Miscellaneous 1 each 06/23/24 00:00 06/23/24 09:30 Rybelsus~Order Awaiting Action N/A 07/23/24 00:00 Not Given QS SHANNEN Sodium Bicarbonate 650 mg 06/23/24 09:00 06/23/24 08:09 Sodium Bicarbonate 650 Mg Tab PO 07/23/24 08:59 Not Given AMHS SHANNEN
--- NOTE | 2024-06-23 15:06 | Hospitalist Progress Note ---
Date of Service June 23, 2024 Assessment & Plan (1) Seizure: Plan: Per admitting service notes with addendum: New onset seizures History traumatic subdural hematoma, no neurosurgery eval/intervention as per family as per ED provider History recurrent falls 06/23 Awake but nonverbal, no eye contact, mostly staring Repeat CT head: No significant change in the size of SDH Will repeat CT head this evening Continue Keppra 5 mg IV every 12 Neurology service consulted Evaluated by speech service, n.p.o. for now until mental status continues to improve Hypertensive urgency secondary to illness, patient currently off BP medications due to hypotension and bradycardia from last admission Lisinopril added but currently n.p.o. As needed hydralazine for now hx CAD status post stent/PVD history ventricular fibrillation hyperlipidemia, on statin Rx COPD, not in acute exacerbation Parkinson's dementia DM2 on oral medication, well-controlled as of recent hemoglobin A1c of 5.17 February 2024 chronic anemia, hemoglobin at baseline past tobacco abuse ISS BG goal 1 10-1 40 DVT prophylaxis. SCDs re: ICH DNR as per patient prior directives as per family plan of care discussed with patient's daughter Mariam at bedside in detail and at length all questions answered they are understanding, agreeable, comfortable with the plan of care Admission and Anticipated Discharge Date Admission Date: June 22, 2024 Subjective Follow-up for new onset seizures, subdural hematoma, falls, etc. Seen with patient's daughter Mariam at the bedside Patient seen resting in bed, sitting up, seems to be awake but somewhat drowsy, does not respond to verbal or tactile stimuli, just staring straight, or looking around, no eye contact, then drifts back to sleep Does not seem to be in distress or pain No shortness of breath noted No recurrence of seizure since admission As per daughter, patient's baseline is that he is able to exchange a few words when spoken to, able to feed himself independently, ambulation is not that great Review of Systems Review of Systems: all noted and negative except for above Physical Exam Physical Exam: General- Awake, drowsy, appears on the weak side, breathing with no effort or accessory muscle use Eyes- anicteric Neck- no JVD Lungs- clear breath sounds bilaterally, no rales/wheezes Heart- normal rate, regular rhythm; no murmurs Abdomen- normal bowel sounds, nondistended, soft, nontender Extremities- no pretibial edema, no calf tenderness Neuro-drowsy, non verbal, no new gross focal neurologic deficits Skin- warm & dry Results & Data Results & Data Vital Signs (Past 12 Hours) Vital Signs Temp Pulse Pulse Resp BP BP Pulse Ox 06/23/24 14:33 92 H 06/23/24 11:34 36.8 C 78 20 156/77 H 95 06/23/24 07:55 06/23/24 07:39 36.3 C L 94 H 20 167/70 H 96 06/23/24 07:12 90 06/23/24 03:23 82 165/79 H 06/23/24 03:16 36.3 C L 85 18 97 O2 Del Method 06/23/24 14:33 06/23/24 11:34 Room Air 06/23/24 07:55 Room Air 06/23/24 07:39 Room Air 06/23/24 07:12 06/23/24 03:23 06/23/24 03:16 Room Air all noted and reviewed including below
[2024-06-23] MEDS: D5NSS + 20MEQ KCL 20 MEQ/1,000 ML BAG IV SCH (15:55)
[2024-06-23] MEDS: hydrALAZINE HCL 20 MG/ML VIAL IV ONE (16:00)
[2024-06-23] MEDS: ENALAPRILAT 1.25 MG in DEXTROSE 5% 25 ML IV SCH (18:03)
[2024-06-23] MEDS: CARBIDOPA/LEVODOPA 25/100MG EXT REL TAB PO SCH (21:59)
[2024-06-23] MEDS: PRAVASTATIN SOD 40 MG TAB PO SCH (22:00)
[2024-06-23] MEDS: CETIRIZINE HCL 10 MG TABLET PO SCH (22:00)
[2024-06-23] MEDS: MELATONIN 3 MG TAB PO SCH (22:00)
[2024-06-24] MEDS: hydrALAZINE HCL 20 MG/ML VIAL IV PRN (03:23)
[2024-06-24] MEDS: PNEUMOCOCCAL VACCINE (PCV20) 20-VAL CONJ-DIP CRM/PF 0.5 ML SYR IM ONE (07:37)
[2024-06-24] MEDS: INFLUENZA VACC TS2024-25(65y+)/PF (IIV3) 0.5mL Syr IM ONE (07:37)
--- OUTSIDE RECORDS SUMMARY | 2024-06-24 10:35 | External Medical Summary | Summary of Care ---
Author Name Unknown Organization [facility] Address [address] [place] [address] Phone [phone] Care Team Providers Care Social Staff Worker Name Role Phone Hay Reza MD Primary Care Provide r Reason for Visit * Reason Onset Date Comments [facility]: Maintenance 06/15/2024 Encounter Details Date Type Department Care Team (Late st Contact Info) Description 06/15/2024 9:30 AM EST Scheduled Telephone [facility], [facility] [address] [facility] [place] [id number] [facility] [address] [facility] [place] [address] Allergies Active Allergy Reactions Criticality Noted Date Comments Penicillins 12/04/1999 documented as of this encounter (statuses as of 06/15/2024) Medications Cyanocobalamin (VITAMIN B-12) 1000 MCG Tablet TAKE ONE TABLET BY MOUTH EVERY DAY 30 Tab 5 9 Active Additional Information Patient taking differently: Indications: B vitamin supplement, Reported on 11/05/2022 Vitamin D High Potency 25 MCG (1000 UT) Oral Capsule (Cholecalciferol ) TAKE ONE CAPSULE BY MOUTH EVERY DAY 90 Cap 1 0 Active Additional Information Patient taking differently: Indications: D vitamin supplement, Reported on 11/05/2022 Semaglutide 7 MG Oral Tablet (Rybelsus)Indica tions:Type 2 diabetes mellitus with hemoglobin A1c goal of less than 8.0% (HCC) Take 7 mg by mouth daily first thing in the morning. 90 Tablet 1 4 Active Cetirizine HCl 10 MG Oral Tablet (ZyrTEC)Indicati ons:Itching Take 0.5 Tablets by mouth every night at bedtime. 45 Tablet 1 4 Active Pravastatin Sodium 80 MG Oral TabletIndication s:Hyperlipidemia with target LDL less than 100 TAKE ONE TABLET BY MOUTH AT BEDTIME 28 Tablet 5 4 Active Aspirin Low Dose 81 MG Oral Tablet Delayed Release (aspirin enteric coated) TAKE ONE TABLET EVERY DAY 28 Tablet 5 4 Active Carbidopa-Levodo pa 25-100 MG Oral Tablet (Sinemet) TAKE 1.5 TABLETS BY MOUTH THREE TIMES A DAY 135 Tablet 5 4 Active Sodium Bicarbonate 650 MG Oral Tablet TAKE ONE TABLET BY MOUTH TWICE DAILY 60 Tablet 11 4 Active Diclofenac Sodium 1 % External Gel (Voltaren) Apply 4 g topically to affected area in the morning and 4 g at noon and 4 g before bedtime. Apply to knees. 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, without long-term current use of insulin 11/20/2020 Overview (09/30/2022): Per CKD protocol, UNABLE TO USE DM CAMERA FOR THIS PATIENT Assessment & Plan (10/19/2023 2:45 PM EDT): "RED FLAG" Diabetic symptoms: Excessive Thirst and [...] Overview: Per CKD protocol Parkinson's disease 07/27/2020 Assessment & Plan (10/19/2023 2:43 PM EDT): Started sinemet 2018 and tapered off 2021, unfortunately does not recall if symptoms made better or worse Has not followed with neuro since 2021, has eval scheduled tomorrow Has some shuffling gait, no tremors 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 05/21/2020 Overview: Per CKD protocol Assessment & Plan (10/19/2023 2:44 PM EDT): BP borderline low on metoprolol and lisinopril Recent increased compliance with caregivers, will need to monitor for hypotension Primary osteoarthritis of right knee 12/09/2017 Asymptomatic stenosis of left carotid artery S/P primary angioplasty with coronary stent 03/14 Overview (04/02/2015): S/P PCI with MARELY to mid LAD on 04/02/15 Type 2 diabetes mellitus wit h hemoglobin A1c goal of less than 8.0% 03/02/2015 Overview (11/08/2015): ICD-10 update of inactive term Dyslipidemia, goal LDL below 70 02/01/2015 Overview (11/12/2015): ICD-10 update of inactive term Assessment & Plan (10/19/2023 2:43 PM EDT): Continue statin Atherosclerosis of [place] co ronary artery of [place] heart without angina pectoris HTN, goal below 140/90 History of tobacco abuse Vitamin B12 deficiency documented as of this encounter (statuses as of 06/15/2024) Resolved Problems Problem Noted Date Diagnosed Date [...] control in clinical research program 04/03/2015 04/09/2020 Overview (10/29/2020): PI: Amara Martin MD RC: Robert Jones Clinical Evaluation of the Absorb Bioresorbable Vascular Scaffold vs. Xience Drug Eluting Stent in the Treatment of Subjects with de navya [place] Coronary Artery Lesions. Diagnosis changed due to Research Module. Go to Snapshot for study details. CAD in [place] artery 03/29/2015 018 Exercise-induced angina 03/29/201501/2018 Mixed dyslipidemia 5 Myalgia and myositis 015 HYPERTENSION NOS 03/02/2015 Diabetes 03/02/2015 Emphysema lung 04/06/2015 Fracture of T12 vertebra 10/2016 Closed fracture of nasal bone 04/15/2017 Overview (04/15/2016): ICD-10 update of inactive term Cholelithiasis 02/20/2022 Overview (02/20/2022): History DM (diabetes mellitus), type 2 with renal complications 11/20/2017 CKD (chronic kidney disease) stage 3, GFR 30-59 ml/min 08/26/2018 Vitamin D insufficiency 03/14 documented as of this encounter (statuses as of 06/15/2024) Immunizations Name Administration Dates Next Due COVID-19 [...] Assigned at Male 03/11/2021 3:03 PM EDT Legal Sex Male 5:11 AM EST Gender Identity Male 03/11/2021 3:03 PM EDT Sexual Orientation Straight 03/11/2021 3: 03 PM EDT documented as of this encounter Miscellaneous Notes * Telephone Encounter - Sophie Winters CM - 06/15/2024 11:13 AM EST Call placed to [facility]. Spoke with Lacie. Confirmed pt is LTC at facility. Will route to care team and close EOC Sophie Winters Administrative Executive [facility] [email or web address] documented in this encounter Plan of Treatment Upcoming Encounters Date Type Department Care Team (Late st Contact Info) Description 11/15/2024 2:30 PM EDT Office Visit Neurology [facility] [address] [facility] [place] [address] Rosibel Baneulos PA-C [address] [place] [phone] 12/22/2024 3:00 PM EDT Office Visit Nephrology [address] [place] [address] Aida Keenan MD [address] [place] [address] Health Maintenance Due Date Last Done Comments [...] Additional history exists CKD PHOS USE SMARTSET 65881 04/02/202403/14, 02/03/2022, 05/13/2021, Additional history exists HbA1c 08/20/2024 02/18/2024, 09/11, 04/02/2023, Additional history exists CKD HGB USE SMARTSET [id number] 05/30/202505/30, 05/11/2024, 02/18/2024, Additional history exists Pneumococcal Vaccine: 65+ Years [...] Documents on File Type Date Recorded Patient Chaplaincy America PAVON 11/22/2019 1:00 PM Out-of-Hos pital [...] Power of Attor sesar? No Care Teams Social Staff Worker Relationship Specialty Start Date End Date Hay Reza MD [address] [place] [address] [place] [phone] PCP - General Family Medicine 09/24/22 documented as of this encounter
--- OUTSIDE RECORDS SUMMARY | 2024-06-24 10:36 | External Medical Summary | Summary of Care ---
Author Name Unknown Organization [facility] Address [address] [place] [address] Phone [phone] Care Team Providers Care Cook Restaurant Name Role Phone Hay Reza MD Primary Care Provide r Reason for Visit * Reason Onset Date Comments [facility]: Maintenance 06/13/2024 Encounter Details Date Type Department Care Team (Late st Contact Info) Description 06/13/2024 9:00 AM EST Scheduled Telephone [facility], [facility] [address] [facility] [place] [address] Coordinator, [facility] [address] [facility] [place] [address] Allergies Active Allergy Reactions Criticality Noted Date Comments Penicillins 12/04/1999 documented as of this encounter (statuses as of 06/13/2024) Medications Cyanocobalamin (VITAMIN B-12) 1000 MCG Tablet [...] as of this encounter (statuses as of 06/13/2024) Active Problems Problem Noted Date Diagnosed Date [...] 2:43 PM EDT): Continue statin Atherosclerosis of [place] co ronary artery of [place] heart without angina pectoris HTN, goal below 140/90 History of tobacco abuse Vitamin B12 deficiency documented as of this encounter (statuses as of 06/13/2024) Resolved Problems Problem Noted Date Diagnosed Date [...] the Treatment of Subjects with de navya [place] Coronary Artery Lesions. Diagnosis changed due to Research Module. Go to Snapshot for study details. CAD in [place] artery 03/29/2015 018 Exercise-induced angina 03/29/201501/2018 Mixed [...] as of this encounter (statuses as of 06/13/2024) Immunizations Name Administration Dates Next Due COVID-19 [...] encounter Miscellaneous Notes * Telephone Encounter - Eri Blunt JANEEN - 06/13/2024 9:25 AM EST Email sent to management with , order is still not matched to supplier and being fulfilled. We have sent several messages in portal asking for updates with no response. JANEEN Mcmullen documented in this encounter Plan of Treatment Upcoming Encounters Date Type Department Care Team (Late st Contact Info) Description 06/15/2024 9:30 AM EST Scheduled Telephone [facility], [facility] [address] [facility] [place] [phone] Sophie Winters, [address] [facility] [place] [phone] 11/15/2024 2:30 PM EDT Office Visit Neurology [facility] [address] [facility] [place] [address] Rosibel Banuelos PA-C [facility] [place] [address] 12/22/2024 3:00 PM EDT Office Visit Nephrology [address] [place] [address] Aida Keenan MD [address] [place] [address] Health Maintenance Due Date Last Done Comments [...] Additional history exists CKD PHOS USE SMARTSET 21774 04/02/202403/14, 02/03/2022, 05/13/2021, Additional history exists HbA1c 08/20/2024 02/18/2024, 09/11, 04/02/2023, Additional history exists CKD HGB USE SMARTSET 95178 05/30/202505/30, 05/11/2024, 02/18/2024, Additional history exists Pneumococcal [...] Documents on File Type Date Recorded Patient Journeyman Lineman Expl anation POLST 11/22/2019 1:00 PM Out-of-Hos [...] Power of Attor sesar? No Care Teams Cook Restaurant Relationship Specialty Start Date End Date Hay Reza MD [address] [place] [address] [place] [phone] PCP - General Family Medicine 3/15/23 documented as of this encounter
--- OUTSIDE RECORDS SUMMARY | 2024-06-24 10:36 | External Medical Summary | Summary of Care ---
Author Name Unknown Organization [facility] Address [address] [place] [address] Phone [phone] Care Team Providers Care Oil Heat Technician Name Role Phone Hay Reza MD Primary Care Provide r Reason for Visit * Reason Onset Date Comments [facility]: Maintenance 05/31/2024 Encounter Details Date Type Department Care Team (Late st Contact Info) Description 05/31/2024 11:30 AM EST Scheduled Telephone [facility], [facility] [address] [facility] [place] [phone] [facility] [address] [place] [address] Allergies Active Allergy Reactions Criticality Noted Date Comments Penicillins 12/04/1999 documented as of this encounter (statuses as of 06/01/2024) Medications Cyanocobalamin (VITAMIN B-12) 1000 MCG Tablet TAKE ONE TABLET BY MOUTH EVERY DAY 30 Tab 5 9 Active Additional Information Patient taking differently: Indications: B vitamin supplement, Reported on 11/05/2022 Vitamin D High Potency 25 MCG (1000 UT) Oral Capsule (Cholecalcifero l) TAKE ONE CAPSULE BY MOUTH EVERY DAY 90 Cap 1 0 Active Additional Information Patient taking differently: Indications: D vitamin supplement, Reported on 11/05/2022 Semaglutide 7 MG Oral Tablet (Rybelsus)Indic ations:Type 2 diabetes mellitus with hemoglobin A1c goal of less than 8.0% (HCC) Take 7 mg by mouth daily first thing in the morning. 90 Tablet 1 4 Active Cetirizine HCl 10 MG Oral Tablet (ZyrTEC)Indicat ions:Itching Take 0.5 Tablets by mouth every night at bedtime. 45 Tablet 1 4 Active Pravastatin Sodium 80 MG Oral TabletIndicatio ns:Hyperlipidem ia with target LDL less than 100 TAKE ONE TABLET BY MOUTH AT BEDTIME 28 Tablet 5 4 Active Aspirin Low Dose 81 MG Oral Tablet Delayed Release (aspirin enteric coated) TAKE ONE TABLET EVERY DAY 28 Tablet 5 4 Active Carbidopa-Levod opa 25-100 MG Oral Tablet (Sinemet) TAKE 1.5 [...] before bedtime. Apply to knees. 4 Active Stool Softener 100 MG Oral Tablet (Docusate Sodium) Take 1 Tablet by mouth in the morning. 024 Discontin ued(Medic ation List Clean Up) Carbidopa-Levod opa ER 25-100 MG Oral Tablet Extended Release (Sinemet CR) TAKE ONE TABLET BY MOUTH AT BEDTIME 30 Tablet 5 4 024 Discontin ued(Medic ation List Clean Up) documented as of this encounter (statuses as of 06/01/2024) Active Problems Problem Noted Date Diagnosed Date [...] 2:43 PM EDT): Continue statin Atherosclerosis of [place] co ronary artery of [place] heart without angina pectoris HTN, goal below 140/90 History of tobacco abuse Vitamin B12 deficiency documented as of this encounter (statuses as of 06/01/2024) Resolved Problems Problem Noted Date Diagnosed Date [...] the Treatment of Subjects with de navya [place] Coronary Artery Lesions. Diagnosis changed due to Research Module. Go to Snapshot for study details. CAD in [place] artery 03/29/2015 018 Exercise-induced angina 03/29/2015 12/0 [...] as of this encounter (statuses as of 06/01/2024) Immunizations Name Administration Dates Next Due COVID-19 [...] Telephone Encounter - Sophie Winters CM - 05/31/2024 12:31 PM EST Call placed to [facility]. Confirmed pt is still at facility. Transferred to [facility] requesting a call back Call placed again to facility. Spoke with Ofe. Pt may end up LTC. Daughter does want pt home with caregivers but unsure if this plan is feasible. CW will f/u in 2 weeks for update Sophie Winters Oil Pipe Inspector Helper [facility] [email or web address] documented in this encounter Plan of Treatment Upcoming Encounters Date Type Department Care Team (Late st Contact Info) Description 06/15/2024 9:30 AM EST Scheduled Telephone [facility], [facility] [address] [facility] [place] [phone] Sophie Winters CM [address] [place] [phone] 11/15/2024 2:30 PM EDT Office Visit Neurology [facility] [place] [address] [facility] [place] [address] Rosibel Banuelos PA-C 21 [place] [address] 12/22/2024 3:00 PM EDT Office Visit Nephrology [place] [address] [place] [phone] Aida Keenan MD [address] [place] [address] Health Maintenance Due Date Last Done Comments [...] Additional history exists CKD PHOS USE SMARTSET 56855 04/02/202403/14, 02/03/2022, 05/13/2021, Additional history exists HbA1c 08/20/2024 02/18/2024, 09/11, 04/02/2023, Additional history exists CKD HGB USE SMARTSET 65948 05/30/202505/30, 05/11/2024, 02/18/2024, Additional history exists Pneumococcal [...] Documents on File Type Date Recorded Patient Economics Instructor America PAVON 11/22/2019 1:00 PM Out-of-Hos pital [...] Power of Attor sesar? No Care Teams Oil Heat Technician Relationship Specialty Start Date End Date Hay Reza MD [address] [place] [address] [place] [phone] PCP - General Family Medicine 09/24/22 documented as of this encounter
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
--- OUTSIDE RECORDS SUMMARY | 2024-06-24 10:36 | External Medical Summary | Summary of Care ---
Author Name Unknown Organization [facility] Address [address] [place] [address] Phone [phone] Care Team Providers Care Pit Hand Name Role Phone Hay Reza MD Primary Care Provide r Reason for Visit * Reason Onset Date Comments [facility]: Maintenance 06/13/2024 Encounter Details Date Type Department Care Team (Late st Contact Info) Description 06/13/2024 9:00 AM EST Scheduled Telephone [facility], [facility] [address] [facility] [place] [address] Coordinator, [facility] [place] [address] Allergies Active Allergy Reactions Criticality Noted Date [...] 2:43 PM EDT): Continue statin Atherosclerosis of [place] co ronary artery of [place] heart without angina pectoris HTN, goal below [...] the Treatment of Subjects with de navya [place] Coronary Artery Lesions. Diagnosis changed due to Research Module. Go to Snapshot for study details. CAD in [place] artery 03/29/2015 018 Exercise-induced angina 03/29/201501/2018 Mixed [...] Notes * Telephone Encounter - Eri Blunt OSA - 06/13/2024 1:46 PM EST Per form was faxed 06/08 and again today for Jarred Flowers PA-C to complete. JANEEN Mcmullen * Telephone Encounter - Eri Blunt OSA - 06/13/2024 9:25 AM EST Email sent to management with , order is still not matched to supplier and being fulfilled. We have sent several messages in portal asking for updates with no response. JANEEN Mcmullen documented in this encounter Plan of Treatment Upcoming Encounters Date Type Department Care Team (Late st Contact Info) Description 06/15/2024 9:30 AM EST Scheduled Telephone [facility] [place], [facility] [address] [facility] [place] [address] Sophie Winters, [address] [facility] [place] [phone] 11/15/2024 2:30 PM EDT Office Visit Neurology [facility] [place] [address] [facility] [place] [address] Rosibel Banuelos PA-C [address] [place] [address] 12/22/2024 3:00 PM EDT Office Visit Nephrology [address] [place] [address] Aida Keenan MD 200 [facility] [place] [phone] Health Maintenance Due Date Last Done Comments [...] Additional history exists CKD PHOS USE SMARTSET 33692 04/02/202403/14, 02/03/2022, 05/13/2021, Additional history exists HbA1c 08/20/2024 02/18/2024, 09/11, 04/02/2023, Additional history exists CKD HGB USE SMARTSET 29136 05/30/202505/30, 05/11/2024, 02/18/2024, Additional history exists Pneumococcal [...] Documents on File Type Date Recorded 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 No Care Teams Pit Hand Relationship Specialty Start Date End Date Hay Reza MD [address] [place] [address] [place] [phone] PCP - General Family Medicine 09/24/22 documented as of this encounter
--- OUTSIDE RECORDS SUMMARY | 2024-06-24 10:36 | External Medical Summary | Summary of Care ---
Author Name Unknown Organization [facility] Address [address] [place] [address] Phone [phone] Care Team Providers Care Process Line Operator Name Role Phone Hay Reza MD Primary Care Provide r Reason for Visit * Reason Onset Date Comments [facility]: Maintenance 06/07/2024 Encounter Details Date Type Department Care Team (Late st Contact Info) Description 06/07/2024 Telephone [facility], [place] [address] [place] [address] Alfredo Gant, JANEEN [address] [place], [place] [id number] [facility]: Maintenance Allergies Active Allergy Reactions Criticality Noted Date Comments Penicillins 12/04/1999 documented as of this encounter (statuses as of 06/07/2024) Medications Cyanocobalamin (VITAMIN B-12) 1000 MCG Tablet [...] as of this encounter (statuses as of 06/07/2024) Active Problems Problem Noted Date Diagnosed Date [...] 2:43 PM EDT): Continue statin Atherosclerosis of [place] co ronary artery of [place] heart without angina pectoris HTN, goal below 140/90 History of tobacco abuse Vitamin B12 deficiency documented as of this encounter (statuses as of 06/07/2024) Resolved Problems Problem Noted Date Diagnosed Date [...] the Treatment of Subjects with de navya [place] Coronary Artery Lesions. Diagnosis changed due to Research Module. Go to Snapshot for study details. CAD in [place] artery 03/29/2015 018 Exercise-induced angina 03/29/201501/2018 Mixed [...] as of this encounter (statuses as of 06/07/2024) Immunizations Name Administration Dates Next Due COVID-19 [...] Telephone Encounter - Alfredo Gant OSA - 06/07/2024 9:07 AM EST DME order Referral [id number] Adult diapers/briefs - size XL Disposable underpads - large Needs and update. documented in this encounter Plan of Treatment Upcoming Encounters Date Type Department Care Team (Late st Contact Info) Description 06/08/2024 11:00 AM EST Scheduled Telephone [facility], [facility] [address] [place] [address] Coordinator, [facility] [address] [place] [address] 06/15/2024 9:30 AM EST Scheduled Telephone [facility], [facility] [address] [place] [address] Sophie Winters, [address] [facility] [place] [address] 11/15/2024 2:30 PM EDT Office Visit Neurology [facility] [address] [facility] [place] [address] Rosibel Banuelos PA-C [address] [place] [address] 12/22/2024 3:00 PM EDT Office Visit Nephrology [address] [place] [address] Aida Keenan MD [address] [address] Health Maintenance Due Date Last Done Comments [...] Additional history exists CKD PHOS USE SMARTSET 78946 04/02/202403/14, 02/03/2022, 05/13/2021, Additional history exists HbA1c 08/20/2024 02/18/2024, 09/11, 04/02/2023, Additional history exists CKD HGB USE SMARTSET 71029 05/30/202505/30, 05/11/2024, 02/18/2024, Additional history exists Pneumococcal [...] Documents on File Type Date Recorded 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 No Care Teams Process Line Operator Relationship Specialty Start Date End Date Hay Reza MD [address] [place] [address] [place] [phone] PCP - General Family Medicine 09/24/22 documented as of this encounter
--- OUTSIDE RECORDS SUMMARY | 2024-06-24 10:36 | External Medical Summary | Summary of Care ---
Author Name Unknown Organization [facility] Address [address] [place] [address] Phone [phone] Care Team Providers Care It Technical Support Specialist Name Role Phone Hay Reza MD Primary Care Provide r Reason for Visit * Reason Onset Date Comments Information 06/08/2024 Encounter Details Date Type Department Care Team (Late st Contact Info) Description 06/08/2024 Telephone [facility], [facility] [address] [place] [address] Lisa Posada, JANEEN [address] [place] [address] Information Allergies Active Allergy Reactions Criticality Noted Date Comments Penicillins 12/04/1999 documented as of this encounter (statuses as of 06/08/2024) Medications Cyanocobalamin (VITAMIN B-12) 1000 MCG Tablet [...] as of this encounter (statuses as of 06/08/2024) Active Problems Problem Noted Date Diagnosed Date [...] 2:43 PM EDT): Continue statin Atherosclerosis of [place] co ronary artery of [place] heart without angina pectoris HTN, goal below 140/90 History of tobacco abuse Vitamin B12 deficiency documented as of this encounter (statuses as of 06/08/2024) Resolved Problems Problem Noted Date Diagnosed Date [...] the Treatment of Subjects with de navya [place] Coronary Artery Lesions. Diagnosis changed due to Research Module. Go to Snapshot for study details. CAD in [place] artery 03/29/2015 018 Exercise-induced angina 03/29/201501/2018 Mixed [...] as of this encounter (statuses as of 06/08/2024) Immunizations Name Administration Dates Next Due COVID-19 mRNA, LNP-s, No Pre serve, 2-Dose Series (RFEyeD) 05/07/2021,10/25/2020,09/27/2020 COVID-19, LNP-s, No Preserve , Mamadou-sucrose, [...] Date Smoking Tobacco: Former Cigarettes 1 10 328 - 1977 Smokeless Tobacco: Never Alcohol Use [...] encounter Miscellaneous Notes * Telephone Encounter - Lisa Posada OSA - 06/08/2024 10:25 AM EST Follow up call for DME Order [id number] Per [facility], this order was worked on but the supplier was unable to get in touch with the pt. As of 06/08, Order is being matched and was sent to a different supplier Message sent thru [facility] for an update Follow up call placed for 06/10 to check update status documented in this encounter Plan of Treatment Upcoming Encounters Date Type Department Care Team (Late st Contact Info) Description 06/08/2024 11:00 AM EST Scheduled Telephone [facility], [facility] [address] [facility] [address] Coordinator, [facility] [address] [facility] [address] 06/10/2024 10:00 AM EST Scheduled Telephone [facility], [facility] [address] [facility] [place] [address] Coordinator, [facility] [address] [facility] [place] [address] 06/15/2024 9:30 AM EST Scheduled Telephone [facility], [facility] [address] [place] [address] Sophie Winters, [address] [facility] [place] [address] 11/15/2024 2:30 PM EDT Office Visit Neurology [facility] [address] [facility] [address] Rosibel Banuelos PA-C [address] [place] [address] 12/22/2024 3:00 PM EDT Office Visit Nephrology [address] [place] [id number] Aida Keenan MD [address] [facility], [place] [address] Health Maintenance Due Date Last Done Comments [...] Additional history exists CKD PHOS USE SMARTSET 67513 04/02/202403/14, 02/03/2022, 05/13/2021, Additional history exists HbA1c 08/20/2024 02/18/2024, 09/11, 04/02/2023, Additional history exists CKD HGB USE SMARTSET 91285 05/30/202505/30, 05/11/2024, 02/18/2024, Additional history exists Pneumococcal [...] Documents on File Type Date Recorded 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 No Care Teams It Technical Support Specialist Relationship Specialty Start Date End Date Hay Reza MD [address] [place] [address] [place] [address] PCP - General Family Medicine 09/24/22 documented as of this encounter
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
--- OUTSIDE RECORDS SUMMARY | 2024-06-24 10:36 | External Medical Summary | Summary of Care ---
Author Name Unknown Organization [facility] Address [address] [place] [address] Phone [phone] Care Team Providers Care Liquid Natural Gas Plant Operator Name Role Phone Hay Reza MD Primary Care Provide r Reason for Visit * Reason Onset Date Comments [facility]: Maintenance 06/13/2024 Encounter Details Date Type Department Care Team (Late st Contact Info) Description 06/13/2024 9:00 AM EST Scheduled Telephone [facility], [facility] [address] [facility] [place] [address] Coordinator, [facility] [address] [facility] [place] [address] Allergies Active Allergy Reactions Criticality Noted Date [...] 2:43 PM EDT): Continue statin Atherosclerosis of [place] co ronary artery of [place] heart without angina pectoris HTN, goal below [...] the Treatment of Subjects with de navya [place] Coronary Artery Lesions. Diagnosis changed due to Research Module. Go to Snapshot for study details. CAD in [place] artery 03/29/2015 018 Exercise-induced angina 03/29/201501/2018 Mixed [...] Telephone Encounter - Eri Blunt OSA - 06/15/2024 8:13 AM EST Message in portal. Teddy Thacker to Everyone Hello, order has been processed, and our verification team is reviewing the documentation we received. We will reach out if we are pending any information or updates. Thank you! JANEEN Mcmullen * Telephone Encounter - Eri [...] EST Scheduled Telephone [facility], [facility] [address] [place] [address] Sophie Winters, [address] [place] [address] 11/15/2024 2:30 PM EDT Office Visit Neurology [facility] [place] [facility] [address] Rosibel Banuelos PA-C [address] [place] [address] 12/22/2024 3:00 PM EDT Office Visit Nephrology [address] [place] [address] Aida Keenan MD [address] [facility] [place] [address] Health Maintenance Due Date Last Done Comments [...] Additional history exists CKD PHOS USE SMARTSET 70704 04/02/202403/14, 02/03/2022, 05/13/2021, Additional history exists HbA1c 08/20/2024 02/18/2024, 09/11, 04/02/2023, Additional history exists CKD HGB USE SMARTSET 44409 05/30/202505/30, 05/11/2024, 02/18/2024, Additional history exists Pneumococcal [...] Documents on File Type Date Recorded 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 No Care Teams Liquid Natural Gas Plant Operator Relationship Specialty Start Date End Date Hay Reza MD [address] [place] [address] [place] [phone] PCP - General Family Medicine 09/24/22 documented as of this encounter
--- OUTSIDE RECORDS SUMMARY | 2024-06-24 10:37 | External Medical Summary | Summary of Care ---
Author Name Unknown Organization [facility] Address [address] [place] [address] Phone [phone] Care Team Providers Care Security Services Manager Name Role Phone Hay Reza MD Primary Care Provide r Reason for Referral * Precert (Within 10 days (routine)) - Authorized Specialty Diagnoses / Procedures Referred By Contac t Referred To Contact Pain Medicine Diagnoses Primary osteoarthritis of right knee Procedures ARTHROCENT ASP &/OR INJ MAJOR JX/BURSA W/O Miya Phillips PA-C [address] [place] [address] Phone: tel: fax: Referral ID Status Reason Start Date Expiration Date V isits Requested Visits Authorized [id number] Authorized 05/20/2024 999 999 * Precert (Within 10 days (routine)) - Authorized Specialty Diagnoses / Procedures Referred By Contac t Referred To Contact Pain Medicine Diagnoses Arthritis of right shoulder region Procedures ARTHROCENT ASP &/OR INJ MAJOR JX/BURSA W/O Miya Phillips PA-C [address] [place] [address] Phone: tel: fax: Referral ID Status Reason Start Date Expiration Date V isits Requested Visits Authorized [id number] Authorized 05/20/2024 999 999 Reason for Visit * Reason Onset Date Comments Skilled Visit 05/20/2024 Encounter Details Date Type Department Care Team (Latest Contact Info) Description 05/20/2024 7:30 AM EST [facility] Visit [facility] [address] [place] [address] Miya Phillips PA-C [address] [place] [address] Dementia due to Parkinson's disease, unspecified dementia severity, unspecified whether behavioral, psychotic, or mood disturbance or anxiety ([facility])*; H/O ventricular fibrillation; Type 2 diabetes mellitus with stage 3b chronic kidney disease, without long-term current use of insulin ([facility]); Primary osteoarthritis of right knee; Arthritis of right shoulder region Allergies Active Allergy Reactions Criticality Noted Date Comments Penicillins 12/04/1999 documented as of this encounter (statuses as of 05/20/2024) Medications Cyanocobalamin (VITAMIN B-12) 1000 MCG Tablet [...] Indications: D vitamin supplement, Reported on 11/05/2022 Stool Softener 100 MG Oral Tablet (Docusate Sodium) Take 1 Tablet by mouth in the morning. Active Semaglutide 7 MG Oral Tablet (Rybelsus)Indica tions:Type 2 diabetes mellitus with hemoglobin A1c goal of less than 8.0% ([facility]) Take 7 mg by mouth [...] A DAY 135 Tablet 5 4 Active Carbidopa-Levodo pa ER 25-100 MG Oral Tablet Extended Release (Sinemet CR) TAKE ONE TABLET BY MOUTH AT BEDTIME 30 Tablet 5 4 Active Sodium Bicarbonate 650 MG Oral Tablet TAKE ONE TABLET BY MOUTH TWICE DAILY 60 Tablet 11 4 Active Diclofenac Sodium 1 % External Gel (Voltaren) Apply 4 g topically to affected area in the morning and 4 g at noon and 4 g before bedtime. Apply to knees. 4 Active documented as of this encounter (statuses as of 05/20/2024) Active Problems Problem Noted Date Diagnosed Date [...] 2:43 PM EDT): Continue statin Atherosclerosis of [place] co ronary artery of [place] heart without angina pectoris HTN, goal below 140/90 History of tobacco abuse Vitamin B12 deficiency documented as of this encounter (statuses as of 05/20/2024) Resolved Problems Problem Noted Date Diagnosed Date [...] the Treatment of Subjects with de navya [place] Coronary Artery Lesions. Diagnosis changed due to Research Module. Go to Snapshot for study details. CAD in [place] artery 03/29/2015 018 Exercise-induced angina 03/29/2015 12/01/2018 [...] as of this encounter (statuses as of 05/20/2024) Immunizations Name Administration Dates Next Due COVID-19 mRNA, LNP-s, No Pre serve, 2-Dose Series ([employer]) 05/07/2021,10/25/2020,09/27/2020 COVID-19, LNP-s, No Preserve , Mamadou-sucrose, [...] PM EDT documented as of this encounter Plan of Treatment Upcoming Encounters Date Type Department Care Team (Late st Contact Info) Description 05/25/2024 1:15 PM EST Scheduled Telephone [facility], [facility] [address] [place] [address] Sophie Winters [address] [place] [address] 11/15/2024 2:30 PM EDT Office Visit Neurology [address] [place] [address] Rosibel Banuelos PA-C [address] [place] [address] 12/22/2024 3:00 PM EDT Office Visit Nephrology [address] [place] [address] Aida Keenan MD [address] [facility] [place] [address] Scheduled Orders Name Type Priority Associated Diagnoses Orde r Schedule ARTHROCENT ASP &/OR INJ MAJOR JX/BURSA W/O US Procedures Routine Arthritis of right shoulder region Ordered: 05/20/2024 ARTHROCENT ASP &/OR INJ MAJOR JX/BURSA W/O US Procedures Routine Primary osteoarthritis of right knee Ordered: 05/20/2024 Health Maintenance Due Date Last Done Comments [...] Additional history exists CKD PHOS USE SMARTSET 54057 04/02/202403/14, 02/03/2022, 05/13/2021, Additional history exists HbA1c 08/20/2024 02/18/2024, 09/11, 04/02/2023, Additional history exists CKD HGB USE SMARTSET 01725 05/11/202505/11, 02/18/2024, 10/12/2023, Additional history exists Pneumococcal Vaccine: 65+ Years [...] current use of insulin (HCC) Atherosclerosis of [place] coronary artery of [place] heart without angina pectoris Dyslipidemia, goal LDL below 70 Other and unspecified hyperlipidemia 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 (HCC) Advanced care planning/counseling discussion Other specified counseling Dementia due to Parkinson's disease, unspecified dementia severity, unspecified whether behavioral, psychotic, or mood disturbance or anxiety (HCC)- Primary H/O ventricular fibrillation Personal history of other diseases of circulatory system Type 2 diabetes mellitus with stage 3b chronic kidney disease, without long-term current use of insulin (HCC) Primary osteoarthritis of right knee Primary localized osteoarthrosis, lower leg Arthritis of right shoulder region Unspecified arthropathy, shoulder region documented in this encounter Advance Directives Documents on File Type Date Recorded 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 No Care Teams Security Services Manager Relationship Specialty Start Date End Date Sellathurai, Thiviyanath, MD [address] [place] [address] [place] [address] PCP - General Family Medicine 09/24/22 documented as of this encounter
--- OUTSIDE RECORDS SUMMARY | 2024-06-24 10:37 | External Medical Summary | Summary of Care ---
Author Name Unknown Organization [facility] Address [address] [place] [address] Phone [phone] Care Team Providers Care Glass Melt Operator Name Role Phone Hay Reza MD Primary Care Provide r Reason for Visit * Reason Onset Date Comments Skilled Visit 05/18/2024 Encounter Details Date Type Department Care Team (Latest Contact Info) Description 05/18/2024 10:30 AM EST Retirement Visit [facility] [address] [place] [address] Miya Phillips PA-C [address] [place] [address] Dementia due to Parkinson's disease, unspecified dementia severity, unspecified whether behavioral, psychotic, or mood disturbance or anxiety (HCC)*; H/O ventricular fibrillation; Type 2 diabetes mellitus with stage 3b chronic kidney disease, without long-term current use of insulin (HCC); Atherosclerosis of [place] coronary artery of [place] heart without angina pectoris Allergies Active Allergy Reactions Criticality Noted Date Comments Penicillins 12/04/1999 documented as of this encounter (statuses as of 05/18/2024) Medications Medication Sig Dispensed Refills Start Date [...] morning. Active Semaglutide 7 MG Oral Tablet (Rybelsus)Indicatio ns:Type 2 diabetes mellitus with hemoglobin A1c goal of less than 8.0% ([facility]) Take 7 mg by mouth [...] A DAY 135 Tablet 5 04/12/2024 Active Carbidopa-Levodopa ER 25-100 MG Oral Tablet Extended Release (Sinemet CR) TAKE ONE TABLET BY MOUTH AT BEDTIME 30 Tablet 5 04/25/2024 Active Sodium Bicarbonate 650 MG Oral Tablet TAKE ONE TABLET BY MOUTH TWICE DAILY 60 Tablet 11 04/26/2024 Active Diclofenac Sodium 1 % External Gel (Voltaren) Apply 4 g topically to affected area in the morning and 4 g at noon and 4 g before bedtime. Apply to knees. 05/13/2024 Active documented as of this encounter (statuses as of 05/18/2024) Active Problems Problem Noted Date Diagnosed Date [...] Assessment & Plan: Continue statin Atherosclerosis of [place] co ronary artery of [place] heart without angina pectoris HTN, goal below 140/90 History of tobacco abuse Vitamin B12 deficiency documented as of this encounter (statuses as of 05/18/2024) Resolved Problems Problem Noted Date Diagnosed Date [...] the Treatment of Subjects with de navya [place] Coronary Artery Lesions. Diagnosis changed due to Research Module. Go to Snapshot for study details. CAD in [place] artery 03/29/2015 018 Exercise-induced angina 03/29/201501/2018 Mixed [...] as of this encounter (statuses as of 05/18/2024) Immunizations Name Administration Dates Next Due COVID-19 mRNA, LNP-s, No Pre serve, 2-Dose Series ([employer]) 05/07/2021,10/25/2020,09/27/2020 COVID-19, LNP-s, No Preserve , [...] Smoking Tobacco: Former Cigarettes 1 10 1 [id number] Smokeless Tobacco: Never Alcohol Use Standard [...] Progress Notes * Miya Phillips PA-C - 05/18/2024 1:52 PM EST Name: Kishan Bourgeois Date of :1935 TRANSITION EVENT: Type: Skilled visit Date: May 18 Code Status: No Code This note pertains to care provided at [facility]. Please see facility medical record for original note. This note is not to be edited or addended in [employer]. Editing or addending needs to occur in the facilities medical record. Subjective: Kishan Bourgeois is a 88 year old male. Patient being seen for skilled visit Chief Complaint Patient presents with Skilled Visit HPI: Here for rehabilitation following fall outside, hypothermia and VF requiring resuscitation. Pt's gets agitated at times but easily redirected so far. Vital signs stble. No pain issues. Eating, drinking and sleeping ok. BMS and voiding ok. CBC Results: Results for orders placed or performed in visit on 05/11/24 CBC Result Value Ref Range WBC 8.72 4.00 - 10.80 K/uL RBC 3.39 4.50 - 5.25 M/uL HGB 10.2 (L) 14.0 - 16.8 g/dL HCT 31.7 (L) 40.0 - 48.4 % MCV 93.5 82.0 - 99.5 fL MCH 30.1 27.0 - 34.0 pg MCHC 32.2 32.0 - 36.0 g/dL RDW 14.3 11.5 - 15.5 % PLT 287 140 - 400 K/uL MPV 10.8 6.6 - 11.1 fL Hemoglobin Results: Lab Results Component Value Date/Time HGB 10.2 (L) 05/11/2024 05:41 AM HGB 13.4 (L) 02/18/2024 02:44 PM HGB 13.1 (L) 10/12/2023 02:30 PM HGB 13.7 (L) 01/18/2020 11:10 AM [...] SODIUM - [facility] 135 07/15/2019 03:52 PM TSH Results: Lab Results Component Value Date/Time TSH - [facility] 2.35 10/08/2023 10:02 AM TSH - [facility] 2.05 01/18/2020 11:09 AM TSH - [facility] 2.63 05/30/2016 12:48 PM TSH - [facility] 3.10 01/30/2015 09:56 AM Patient Active Problem List Diagnosis Atherosclerosis of [place] coronary artery of [place] heart without angina pectoris HTN, goal below 140/90 History of tobacco abuse Dyslipidemia, goal LDL below 70 Type 2 diabetes mellitus with hemoglobin A1c goal of less than 8.0% ([facility]) S/P primary angioplasty with coronary stent Vitamin B12 deficiency Asymptomatic stenosis of left carotid artery Primary osteoarthritis of right knee 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 Parkinson's disease ([facility]) Type 2 diabetes mellitus with stage 3b chronic kidney disease, without long-term current use of insulin ([facility]) Chronic kidney disease, stage 3b ([facility]) H/O ventricular fibrillation Dementia due to Parkinson's disease ([facility]) DNR (do not resuscitate) Past Medical History: Diagnosis Date Asymptomatic stenosis of left carotid artery 12/08/2017 Cholelithiasis CKD (chronic kidney disease) stage 3, GFR 30-59 ml/min ([facility]) Coronary atherosclerosis cath 70% lesion first diagonal Coronary atherosclerosis of [place] coronary artery Diffuse idiopathic skeletal hyperostosis 03/02/2015 DM (diabetes mellitus), type 2 with renal complications ([facility]) Emphysema lung ([facility]) Fracture of T12 vertebra ([facility]) History of tobacco abuse HTN, goal below 140/80 Liver cirrhosis ([facility]) evidence noted on CT abdomen [...] ICA. probable stenosis of bilateral external carotid arteries.[facility] CHEST 1 VIEW 12/02/2017 patchy bibasilar opacities suggestive of pneumonia. [facility] CORONARY ANGIOGRAPHY W/LEFT HEART CATH Right 04/02/2015 CORONARY ANGIOGRAPHY W/LEFT HEART CATH performed by Ida Jeter MD at [facility] [place], STRESS (DOBUTAMINE) W/ PHYSICIAN 03/29/15 positive for inducible ischemia, EF 55-59%, Mild LVH, grade 1 diastolic dysfunction, septum apex akinetic on stress, anterior apical septum hypokinetic IOF CT HEAD/BRAIN WO CONTRAST 12/02/2017 no acute intracranial findings. chronic ischemic changes. [facility] MRI BRAIN WITHOUT CONTRAST 12/06/2017 no acute findings. moderate atrophy, moderate ventricular atrophy. [facility] Family History Problem Relation Name Age of [...] date: 1965 Quit date: 1977 Years since quittin.8 Smokeless tobacco: Never Vaping Use Vaping status: Never Used Substance and Sexual Activity Alcohol use: No Drug use: No Sexual activity: Yes Partners: Female Other Topics Concern Not on file Social History Narrative 68yrs as of 03/17/2023 and just past two wks ago. Social Determinants of Health Financial Resource Strain: Not on file Food Insecurity: No Food Insecurity (03/17/2023) Hunger Vital Sign Worried About Running Out of Food in the Last Year: Never true Ran Out of Food in the Last Year: Never true Transportation Needs: Not on file Social Connections: Unknown (05/18/2024) Social Connections How often do you feel lonely or isolated from those around you? (Adult - for ages 18 years and over): Not on file Housing Stability: Not on file Review of patient's allergies indicates: Allergen Reactions Penicillins I have reviewed medications and allergies. Please refer to MAR in the facility's medical record forthe most up-to-date medication list as this cannot be edited in EPIC. Review of Systems:obtained from pt and family Constitutional ROS: No change in weight, No [...] recent facilities vitals. General: alert, no distress, well nourished and well developed Eye Exam: Conjunctiva are pink and non-injected, [...] no clubbing, no cyanosis Neuro Exam: alert with fluent speech, no focal motor/sensory deficits Skin: skin color, texture, turgor are normal, no rashes or significant lesions ASSESSMENT: Dementia due to Parkinson's disease, unspecified dementia severity, unspecified whether behavioral,psychotic, or mood disturbance or anxiety (HCC) (Primary) Stable mood and mentation Continue Sinemet as directed H/O ventricular fibrillation Stable rhythm Recent EKG stable with no acute changes Type 2 diabetes mellitus with stage 3b chronic kidney disease, without long-term current use of insulin (HCC) Stable glucoses Continue Rybelsus as directed Atherosclerosis of [place] coronary artery of [place] heart without angina pectoris Stable no angina Continue ASA and Pravastatin PLAN: Reviewed CBC, BMP, Lytes and Continue present medication(s):as ordered. Usp Home Treatment Given: as above Electronically signed by: Miya Phillips PA-C Over 35 minutes were spent in this visit more than half the time was spent counselling or coordinating care. documented in this encounter Plan of Treatment Upcoming Encounters Date Type Department Care Team (Late st Contact Info) Description 05/25/2024 1:15 PM EST Scheduled Telephone [facility], [facility] [address] [facility] [place] [address] Sophie Winters, [address] [facility] [address] [place] [address] 11/15/2024 2:30 PM EDT Office Visit Neurology [facility] [address] [facility] [place] [address] Rosibel Banuelos PA-C [address] [facility] [place] [address] 12/22/2024 3:00 PM EDT Office Visit Nephrology [address] [place] [address] Aida Keenan MD [address] [place] [address] Health Maintenance Due Date Last Done Comments [...] Additional history exists CKD PHOS USE SMARTSET 42054 04/02/202403/14, 02/03/2022, 05/13/2021, Additional history exists HbA1c 08/20/2024 02/18/2024, 09/11, 04/02/2023, Additional history exists CKD HGB USE SMARTSET 63942 05/11/202505/11, 02/18/2024, 10/12/2023, Additional history exists Pneumococcal [...] as of this encounter Visit Diagnoses Diagnosis Dementia due to Parkinson's disease, unspecified dementia severity, unspecified whether behavioral, psychotic, or mood disturbance or anxiety (HCC)- Primary H/O ventricular fibrillation Personal history of other diseases of circulatory system Type 2 diabetes mellitus with stage 3b chronic kidney disease, without long-term current use of insulin (HCC) Atherosclerosis of [place] coronary artery of [place] heart without angina pectoris documented in this encounter Advance Directives Documents on File Type Date 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 No Care Teams Glass Melt Operator Relationship Specialty Start Date End Date Hay Reza MD [address] [place] [address] [place] [id number] PCP - General Family Medicine 09/24/22 documented as of this encounter
--- OUTSIDE RECORDS SUMMARY | 2024-06-24 10:37 | External Medical Summary | Summary of Care ---
Author Name Unknown Organization [facility] Address [address] [place] [address] Phone [phone] Care Team Providers Care Composite Engineer Name Role Phone Hay Reza MD Primary Care Provide r Reason for Visit * Reason Onset Date Comments [facility]: Maintenance 05/31/2024 Encounter Details Date Type Department Care Team (Late st Contact Info) Description 05/31/2024 11:30 AM EST Scheduled Telephone [facility], [facility] [address] [facility] [place] [address] [facility] [address] [facility] [place] [address] Allergies Active Allergy Reactions Criticality Noted Date Comments Penicillins 12/04/1999 documented as of this encounter (statuses as of 05/31/2024) Medications Cyanocobalamin (VITAMIN B-12) 1000 MCG Tablet [...] as of this encounter (statuses as of 05/31/2024) Active Problems Problem Noted Date Diagnosed Date [...] 2:43 PM EDT): Continue statin Atherosclerosis of [place] co ronary artery of [place] heart without angina pectoris HTN, goal below 140/90 History of tobacco abuse Vitamin B12 deficiency documented as of this encounter (statuses as of 05/31/2024) Resolved Problems Problem Noted Date Diagnosed Date [...] the Treatment of Subjects with de navya [place] Coronary Artery Lesions. Diagnosis changed due to Research Module. Go to Snapshot for study details. CAD in [place] artery 03/29/2015 018 Exercise-induced angina 03/29/2015 12/0 [...] as of this encounter (statuses as of 05/31/2024) Immunizations Name Administration Dates Next Due COVID-19 [...] Former Cigarettes 1 10 1 968 - 2255 Smokeless Tobacco: Never Alcohol Use Standard Drinks/Week [...] 05/31/2024 12:31 PM EST Call placed to [facility]. Confirmed pt is still at facility. Transferred to [facility] requesting a call back Sophie Winters Social Media Senior Associate [email or web address] documented in this encounter Plan of Treatment Upcoming Encounters Date Type Department Care Team (Late st Contact Info) Description 11/15/2024 2:30 PM EDT Office Visit Neurology [facility] [place] [address] [facility] [place] [address] Rosibel Banuelos PA-C [address] [facility] [place] [address] 12/22/2024 3:00 PM EDT Office Visit Nephrology [address] [place] [address] Aida Keenan MD 200 [facility] [place] [address] Health Maintenance Due Date Last Done Comments [...] Additional history exists CKD PHOS USE SMARTSET 07847 04/02/202403/14, 02/03/2022, 05/13/2021, Additional history exists HbA1c 08/20/2024 02/18/2024, 09/11, 04/02/2023, Additional history exists CKD HGB USE SMARTSET 85562 05/30/202505/30, 05/11/2024, 02/18/2024, Additional history exists Pneumococcal [...] Documents on File Type Date 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 No Care Teams Composite Engineer Relationship Specialty Start Date End Date Hay Reza MD [address] [place] [address] [place] [address] PCP - General Family Medicine 09/24/22 documented as of this encounter
--- OUTSIDE RECORDS SUMMARY | 2024-06-24 10:37 | External Medical Summary | Summary of Care ---
Author Name Unknown Organization [facility] Address [address] [place] [address] Phone [phone] Care Team Providers Care Telephone Interviewer Name Role Phone Hay Reza MD Primary Care Provide r Encounter Details Date Type Department Care Team (Late st Contact Info) Description 05/30/2024 Orders Only Lab Mobile Phlebotomy [facility] [address] [employer] [place] [address] Crissy Mcintyre MD [address] [place] [address] [place] [address] Anemia* Allergies Active Allergy Reactions Criticality Noted Date Comments Penicillins 12/04/1999 documented as of this encounter (statuses as of 05/30/2024) Medications Cyanocobalamin (VITAMIN B-12) 1000 MCG Tablet [...] as of this encounter (statuses as of 05/30/2024) Active Problems Problem Noted Date Diagnosed Date [...] 2:43 PM EDT): Continue statin Atherosclerosis of [place] co ronary artery of [place] heart without angina pectoris HTN, goal below 140/90 History of tobacco abuse Vitamin B12 deficiency documented as of this encounter (statuses as of 05/30/2024) Resolved Problems Problem Noted Date Diagnosed Date [...] the Treatment of Subjects with de navya [place] Coronary Artery Lesions. Diagnosis changed due to Research Module. Go to Snapshot for study details. CAD in [place] artery 03/29/2015 018 Exercise-induced angina 03/29/201501/2018 Mixed [...] as of this encounter (statuses as of 05/30/2024) Immunizations Name Administration Dates Next Due COVID-19 [...] Care Team (Late st Contact Info) Description 05/30/2024 5:00 AM EST Laboratory Lab Mobile Phlebotomy [facility] [facility] [place] [address] [place] [address] Arrived 05/31/2024 11:30 AM EST Scheduled Telephone [facility], [facility] [address] [place] [address] Sophie Winters, [address] [place] [address] 11/15/2024 2:30 PM EDT Office Visit Neurology [facility] 200 [facility] [place] [address] Rosibel Banuelos PA-C [facility] [place] [address] 12/22/2024 3:00 PM EDT Office Visit Nephrology [address] [place] [address] Aida Keenan MD [address] [place] [address] Scheduled Orders Name Type Priority Associated Diagnoses Orde r Schedule CBC Lab Routine Anemia Expected: 05/30/2024, Expires: Health Maintenance Due Date Last Done Comments [...] Additional history exists CKD PHOS USE SMARTSET 24814 04/02/202403/14, 02/03/2022, 05/13/2021, Additional history exists HbA1c 08/20/2024 02/18/2024, 09/11, 04/02/2023, Additional history exists CKD HGB USE SMARTSET 53997 05/11/202505/11, 02/18/2024, 10/12/2023, Additional history exists Pneumococcal [...] current use of insulin (HCC) Atherosclerosis of [place] coronary artery of [place] heart without angina pectoris Dyslipidemia, goal LDL below 70 Other and unspecified hyperlipidemia 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 No Care Teams Telephone Interviewer Relationship Specialty Start Date End Date Hay Reza MD [address] [place] [address] [place] [phone] PCP - General Family Medicine 09/24/22 documented as of this encounter
--- OUTSIDE RECORDS SUMMARY | 2024-06-24 10:37 | External Medical Summary | Summary of Care ---
Author Name Unknown Organization [facility] Address [address] [place] [address] Phone [phone] Care Team Providers Care Managing Jeweler Name Role Phone Hay Reza MD Primary Care Provide r Reason for Visit * Reason Onset Date Comments [facility]: Maintenance 05/25/2024 Encounter Details Date Type Department Care Team (Late st Contact Info) Description 05/25/2024 1:15 PM EST Scheduled Telephone [facility], [facility] [address] [facility] [place] [address] [facility] [address] [facility] [place] [address] Allergies Active Allergy Reactions Criticality Noted Date Comments Penicillins 12/04/1999 documented as of this encounter (statuses as of 05/25/2024) Medications Cyanocobalamin (VITAMIN B-12) 1000 MCG Tablet [...] as of this encounter (statuses as of 05/25/2024) Active Problems Problem Noted Date Diagnosed Date [...] 2:43 PM EDT): Continue statin Atherosclerosis of [place] co ronary artery of [place] heart without angina pectoris HTN, goal below 140/90 History of tobacco abuse Vitamin B12 deficiency documented as of this encounter (statuses as of 05/25/2024) Resolved Problems Problem Noted Date Diagnosed Date [...] the Treatment of Subjects with de navya [place] Coronary Artery Lesions. Diagnosis changed due to Research Module. Go to Snapshot for study details. CAD in [place] artery 03/29/2015 018 Exercise-induced angina 03/29/2015 12/0 [...] as of this encounter (statuses as of 05/25/2024) Immunizations Name Administration Dates Next Due COVID-19 [...] Former Cigarettes 1 10 1 968 - 7955 Smokeless Tobacco: Never Alcohol Use Standard Drinks/Week [...] Telephone Encounter - Sophie Winters CM - 05/25/2024 11:50 AM EST Call placed to [facility]. Spoke with Marilee in medical social consultant. Unsure of what dc plan is.Has to speak with family. CW will f/u in one week for dc planning Sophie Winters Bark Press Operator [email or web address] documented in this encounter Plan of Treatment Upcoming Encounters Date Type Department Care Team (Late st Contact Info) Description 05/31/2024 11:30 AM EST Scheduled Telephone [facility], [facility] [address] [facility] [place] [phone] Sophie Winters CM [address] [facility] [place] [address] 11/15/2024 2:30 PM EDT Office Visit Neurology [facility] [place] [address] Rosibel Banuelos PA-C 21 [facility] [place] [address] 12/22/2024 3:00 PM EDT Office Visit Nephrology [address] [place] [address] Aida Keenan MD [address] [place] [address] Health Maintenance Due Date Last Done Comments [...] Additional history exists CKD PHOS USE SMARTSET 14872 04/02/202403/14, 02/03/2022, 05/13/2021, Additional history exists HbA1c 08/20/2024 02/18/2024, 09/11, 04/02/2023, Additional history exists CKD HGB USE SMARTSET 56922 05/11/202505/11, 02/18/2024, 10/12/2023, Additional history exists Pneumococcal [...] Documents on File Type Date Recorded Patient Clerk Checker Expl anation POLST 11/22/2019 1:00 PM Out-of-Hos [...] Power of Attor sesar? No Care Teams Managing Jeweler Relationship Specialty Start Date End Date Hay Reza MD [address] [place] [address] [place] [phone] PCP - General Family Medicine 09/24/22 documented as of this encounter
--- OUTSIDE RECORDS SUMMARY | 2024-06-24 10:37 | External Medical Summary | Summary of Care ---
Author Name Unknown Organization [facility] Address [address] [place] [address] Phone [phone] Care Team Providers Care Baffle Installer Name Role Phone Hay Reza MD Primary Care Provide r Reason for Visit * Reason Onset Date Comments [facility] Visit 06/01/2024 Regulatory Encounter Details Date Type Department Care Team (Latest Contact Info) Description 06/01/2024 7:30 AM EST [facility] Visit [facility] [address] [place] [address] Miya Phillips PA-C [address] [place] [address] Dementia due to Parkinson's disease, unspecified dementia severity, unspecified whether behavioral, psychotic, or mood disturbance or anxiety (HCC)*; Type 2 diabetes mellitus with stage 3b chronic kidney disease, without long-term current use of insulin (HCC); 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 Apply to knees. 4 Active Carbidopa-Levod opa ER 25-100 MG Oral Tablet Extended Release (Sinemet CR) TAKE ONE TABLET BY MOUTH AT BEDTIME 4 Active Stool Softener 100 MG Oral [...] 2:43 PM EDT): Continue statin Atherosclerosis of [place] co ronary artery of [place] heart without angina pectoris HTN, goal below [...] the Treatment of Subjects with de navya [place] Coronary Artery Lesions. Diagnosis changed due to Research Module. Go to Snapshot for study details. CAD in [place] artery 03/29/2015 018 Exercise-induced angina 03/29/2015 12/0 [...] mRNA, LNP-s, No Pre serve, 2-Dose Series (MicroInvention) 05/07/2021,10/25/2020,09/27/2020 COVID-19, LNP-s, No Preserve , Mamadou-sucrose, [...] Smoking Tobacco: Former Cigarettes 1 10 1 8 - 1977 Smokeless Tobacco: Never Alcohol [...] 2:30 PM EDT Office Visit Neurology [facility] [place] 200 [facility] [place] [address] Rosibel Banuelos PA-C [address] [place] [address] 12/22/2024 3:00 PM EDT Office Visit Nephrology [address] [place] [address] Aida Keenan MD 200 [facility] [place] [address] Health Maintenance Due Date Last Done Comments [...] Additional history exists CKD PHOS USE SMARTSET 82566 04/02/202403/14, 02/03/2022, 05/13/2021, Additional history exists HbA1c 08/20/2024 02/18/2024, 09/11, 04/02/2023, Additional history exists CKD HGB USE SMARTSET 00861 05/30/202505/30, 05/11/2024, 02/18/2024, Additional history exists Pneumococcal [...] current use of insulin (HCC) Atherosclerosis of [place] coronary artery of [place] heart without angina pectoris Dyslipidemia, goal LDL below 70 Other and unspecified hyperlipidemia 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 (HCC) Advanced care planning/counseling discussion Other specified counseling Dementia due to Parkinson's disease, unspecified dementia severity, unspecified whether behavioral, psychotic, or mood disturbance or anxiety (HCC)- Primary Type 2 diabetes mellitus with stage 3b chronic kidney disease, without long-term current use of insulin (HCC) 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 Vitamin B12 deficiency Other B-complex deficiencies Atherosclerosis of [place] coronary artery of [place] heart without angina pectoris documented in this encounter Advance Directives Documents on File Type Date Recorded 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 No Care Teams Baffle Installer Relationship Specialty Start Date End Date Hay Reza MD [address] [place] [address] [place] [phone] PCP - General Family Medicine 09/24/22 documented as of this encounter
--- OUTSIDE RECORDS SUMMARY | 2024-06-24 10:37 | External Medical Summary | Summary of Care ---
Author Name Unknown Organization [facility] Address [address] [place] [address] Phone [phone] Care Team Providers Care Wedding Consultant Name Role Phone Hay Reza MD Primary Care Provide r Reason for Visit * Reason Onset Date Comments [facility]: Maintenance 05/18/2024 Encounter Details Date Type Department Care Team (Late st Contact Info) Description 05/18/2024 10:00 AM EST Scheduled Telephone [facility], [facility] 132 [facility] [place] [address] Coordinator, [facility] [place] [address] Allergies Active Allergy Reactions Criticality Noted Date [...] Assessment & Plan: Continue statin Atherosclerosis of [place] co ronary artery of [place] heart without angina pectoris HTN, goal below [...] the Treatment of Subjects with de navya [place] Coronary Artery Lesions. Diagnosis changed due to Research Module. Go to Snapshot for study details. CAD in [place] artery 03/29/2015 018 Exercise-induced angina 03/29/201501/2018 Mixed [...] mRNA, LNP-s, No Pre serve, 2-Dose Series (Omnidrone) 05/07/2021,10/25/2020,09/27/2020 COVID-19, LNP-s, No Preserve , Mamadou-sucrose, [...] encounter Miscellaneous Notes * Telephone Encounter - Tamar Hoover LPN - 05/18/2024 9:35 AM EST Call to Renetta Castaneda for d/c plan Left message to return call to [facility] for SW Follow up call placed documented in this encounter Plan of Treatment Upcoming Encounters Date Type Department Care Team (Late st Contact Info) Description 05/18/2024 10:30 AM EST Laboratory Lab Mobile Phlebotomy [facility] [address] [employer] [place] [address] [facility], [facility] 100 [facility] [place] [address] Anemia 05/25/2024 1:15 PM EST Scheduled Telephone [facility], [facility] [address] [place] [address] Sophie Winters, [address] [place] [address] 11/15/2024 2:30 PM EDT [facility] 200 [facility] [place] [address] Rosibel Banuelos PA-C [address] [place] [address] 12/22/2024 3:00 PM EDT Office Visit Nephrology [address] [place] [address] Aida Keenan MD 200 [facility] [place] [address] Health Maintenance Due Date Last Done Comments [...] Additional history exists CKD PHOS USE SMARTSET 01803 04/02/202403/14, 02/03/2022, 05/13/2021, Additional history exists HbA1c 08/20/2024 02/18/2024, 09/11, 04/02/2023, Additional history exists CKD HGB USE SMARTSET 29268 05/11/202505/11, 02/18/2024, 10/12/2023, Additional history exists Pneumococcal [...] Documents on File Type Date 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 No Care Teams Wedding Consultant Relationship Specialty Start Date End Date Hay Reza MD [address] [place] [address] [place] [phone] PCP - General Family Medicine 09/24/22 documented as of this encounter
--- OUTSIDE RECORDS SUMMARY | 2024-06-24 10:37 | External Medical Summary ---
Author Name Unknown Address Unknown Organization K[facility]G:[facility] [address] [place] [address] Laboratory Report Ordering Provider Test Date Status AYAN METZ 05/30/2024 05:26:00 Final Observation Date Value Abnormality Reference (Units ) Status WBC, Total 05/30/2024 05:26:00 11.83 Above high normal 4 .00-10.80 (K/uL) Final RBC 05/30/2024 05:26:00 3.44 4.50-5.25 (M/uL) Final Hemoglobin 05/30/2024 05:26:00 10.5 Below low normal 14 .0-16.8 (g/dL) Final HCT 05/30/2024 05:26:00 32.4 Below low normal 40. 0-48.4 (%) Final MCV 05/30/2024 05:26:00 94.2 82.0-99.5 (fL) Final MCH 05/30/2024 05:26:00 30.5 27.0-34.0 (pg) Final MCHC 05/30/2024 05:26:00 32.4 32.0-36.0 (g/dL) Final RDW 05/30/2024 05:26:00 13.8 11.5-15.5 (%) Final Platelets 05/30/2024 05:26:00 255 140-400 (K /uL) Final MPV 05/30/2024 05:26:00 10.7 6.6-11.1 ( fL) Final Performing Location [facility] [address] [place] [address]
--- OUTSIDE RECORDS SUMMARY | 2024-06-24 10:37 | External Medical Summary | Summary of Care ---
Author Name Unknown Organization [facility] Address [address] [place] [address] Phone [phone] Care Team Providers Care Leasing Sales Consultant Name Role Phone Hay Reza MD Primary Care Provide r Reason for Visit * Reason Onset Date Comments Skilled Visit 05/27/2024 Encounter Details Date Type Department Care Team (Latest Contact Info) Description 05/27/2024 10:00 AM EST [facility] Visit [facility] 100 [place] [address] Miya Phillips PA-C 100 [place] [address] Dementia due to Parkinson's disease, unspecified dementia severity, unspecified whether behavioral, psychotic, or mood disturbance or anxiety (HCC)*; Type 2 diabetes mellitus with stage 3b chronic kidney disease, without long-term current use of insulin (HCC); H/O ventricular fibrillation; 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 Allergies Active Allergy Reactions Criticality Noted Date Comments Penicillins 12/04/1999 documented as of this encounter (statuses as of 05/27/2024) Medications Cyanocobalamin (VITAMIN B-12) 1000 MCG Tablet [...] hemoglobin A1c goal of less than 8.0% ([facility]) Take 7 mg by mouth [...] as of this encounter (statuses as of 05/27/2024) Active Problems Problem Noted Date Diagnosed Date [...] 2:43 PM EDT): Continue statin Atherosclerosis 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 Diagnosis changed due to Research Module. Go to Snapshot for study details. CAD in [place] artery 03/29/2015 018 Exercise-induced angina 03/29/2015 12/0 [...] as of this encounter (statuses as of 05/27/2024) Immunizations Name Administration Dates Next Due COVID-19 [...] AM EST Scheduled Telephone [facility], [facility] [address] [facility] [place] [address] SinghSophie, [address] [place] [address] 11/15/2024 2:30 PM EDT Office Visit Neurology [facility] [place] 200 [facility] [place] [address] Rosibel Banuelos PA-C [facility] [place] [address] 12/22/2024 3:00 PM EDT Office Visit Nephrology [address] [place] [address] Aida Keenan MD 200 [facility] [place] [address] Health Maintenance Due Date Last Done Comments [...] Additional history exists CKD PHOS USE SMARTSET 29852 04/02/202403/14, 02/03/2022, 05/13/2021, Additional history exists HbA1c 08/20/2024 02/18/2024, 09/11, 04/02/2023, Additional history exists CKD HGB USE SMARTSET 67550 05/11/202505/11, 02/18/2024, 10/12/2023, Additional history exists Pneumococcal [...] current use of insulin (HCC) Atherosclerosis of [place] coronary artery of [place] heart without angina pectoris Dyslipidemia, goal LDL [...] without long-term current use of insulin (HCC) H/O ventricular fibrillation Personal history of other diseases of circulatory system 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 documented in this encounter Advance Directives Documents on File Type Date 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 No Care Teams Leasing Sales Consultant Relationship Specialty Start Date End Date Hay Reza MD [address] [place] [address] [place] [phone] PCP - General Family Medicine 09/24/22 documented as of this encounter
--- OUTSIDE RECORDS SUMMARY | 2024-06-24 10:37 | External Medical Summary | Summary of Care ---
Author Name Unknown Organization [facility] Address [address] [place] [address] Phone [phone] Care Team Providers Care Traffic Monitor Specialist Name Role Phone Hay Reza MD Primary Care Provide r Reason for Visit * Reason Onset Date Comments Skilled Visit 05/25/2024 Encounter Details Date Type Department Care Team (Latest Contact Info) Description 05/25/2024 8:00 AM EST [facility] Visit [facility] [address] [place] [address] Miya Phillips PA-C 100 [place] [address] Dementia due to Parkinson's disease, unspecified dementia severity, unspecified whether behavioral, psychotic, or mood disturbance or anxiety (HCC)*; Type 2 diabetes mellitus with stage 3b chronic kidney disease, without long-term current use of insulin (HCC); H/O ventricular fibrillation; Primary osteoarthritis of right knee; Asymptomatic stenosis of left carotid artery; Arthritis of right shoulder region Allergies Active [...] hemoglobin A1c goal of less than 8.0% ([facility]) Take 7 mg by mouth daily first [...] 2:43 PM EDT): Continue statin Atherosclerosis of [place] co ronary artery of [place] heart without angina pectoris HTN, goal below [...] the Treatment of Subjects with de navya [place] Coronary Artery Lesions. Diagnosis changed due to Research Module. Go to Snapshot for study details. CAD in [place] artery 03/29/2015 018 Exercise-induced angina 03/29/2015 12/0 [...] PM EST Scheduled Telephone [facility], [facility] [address] [place] [address] Sophie Winters, [address] [place] [address] 11/15/2024 2:30 PM EDT Office Visit [facility]rology [facility] [place] [address] Rosibel Banuelos PA-C [address] [facility] [place] [address] 12/22/2024 3:00 PM EDT Office Visit Nephrology [address] [place] [address] Aida Keenan MD [address] [place] [address] Health Maintenance Due Date Last Done Comments [...] Additional history exists CKD PHOS USE SMARTSET 63955 04/02/202403/14, 02/03/2022, 05/13/2021, Additional history exists HbA1c 08/20/2024 02/18/2024, 09/11, 04/02/2023, Additional history exists CKD HGB USE SMARTSET 69056 05/11/202505/11, 02/18/2024, 10/12/2023, Additional history exists Pneumococcal [...] current use of insulin (HCC) Atherosclerosis of [place] coronary artery of [place] heart without angina pectoris Dyslipidemia, goal LDL [...] history of other diseases of circulatory system Primary osteoarthritis of right knee Primary localized osteoarthrosis, lower leg Asymptomatic stenosis of left carotid artery Arthritis of right shoulder region Unspecified arthropathy, shoulder region documented in this encounter Advance Directives Documents on File Type Date 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 No Care Teams Traffic Monitor Specialist Relationship Specialty Start Date End Date Hay Reza MD [address] [place] [address] [place] [phone] PCP - General Family Medicine 09/24/22 documented as of this encounter
--- OUTSIDE RECORDS SUMMARY | 2024-06-24 10:37 | External Medical Summary | Summary of Care ---
Author Name Unknown Organization [facility] Address [address] [place] [address] Phone [phone] Care Team Providers Care Home Care Attendant Name Role Phone Hay Reza MD Primary Care Provide r Encounter Details Date Type Department Care Team (Late st Contact Info) Description 05/18/2024 Orders Only Lab Mobile Phlebotomy [facility] [address] [place] [address] Crissy Mcintyre MD [address] [place] [address] [place] [address] Anemia* Allergies Active Allergy [...] Assessment & Plan: Continue statin Atherosclerosis of [place] co ronary artery of [place] heart without angina pectoris HTN, goal below [...] Treatment of Subjects with de navya [place] Coronary Artery Lesions. Diagnosis changed due to Research Module. Go to Snapshot for study details. CAD in [place] artery 03/29/2015 018 Exercise-induced angina 03/29/2015 12/0 [...] mRNA, LNP-s, No Pre serve, 2-Dose Series ([employer]) 05/07/2021,10/25/2020,09/27/2020 COVID-19, LNP-s, No Preserve , Mamadou-sucrose, [...] AM EST Scheduled Telephone [facility], [facility] [address] [place] [address] Coordinator, [facility] [address] [place] [address] 05/18/2024 10:30 AM EST Laboratory Lab Mobile Phlebotomy [facility] [address] [facility] [place] [address] [place] [address] Arrived 11/15/2024 2:30 PM EDT Office Visit Neurology [employer] [address] [facility] [place] [address] Rosibel Banuelos PA-C [address] [place] [address] 12/22/2024 3:00 PM EDT Office Visit Nephrology [address] [place] [address] Aida Keenan MD [address] [facility] [place] [address] Scheduled Orders Name Type Priority Associated Diagnoses Orde r Schedule IRON SCREEN, INCLUDING TIBC Lab Routine Anemia Expected: 05/18/2024, Expires: 05/18/2025 Health Maintenance Due Date Last Done Comments [...] Additional history exists CKD PHOS USE SMARTSET 19067 04/02/2024 092 07/2022, 02/03/2022, 05/13/2021, Additional history exists HbA1c 08/20/2024 02/18/2024, 09/11, 04/02/2023, Additional history exists CKD HGB USE SMARTSET 94203 05/11/202505/11, 02/18/2024, 10/12/2023, Additional history exists Pneumococcal [...] as of this encounter Visit Diagnoses Diagnosis Anemia- Primary Anemia, unspecified documented in this encounter Advance Directives Documents on File Type Date Recorded Patient Addiction Medicine Physician Expl anatpineda SAVANAH 11/22/2019 1:00 PM Out-of-Hos pital DNR [...] Power of Attor sesar? No Care Teams Home Care Attendant Relationship Specialty Start Date End Date Hay Reza MD [address] [place] [address] [place] [address] PCP - General Family Medicine 09/24/22 documented as of this encounter
--- OUTSIDE RECORDS SUMMARY | 2024-06-24 10:38 | External Medical Summary | Summary of Care ---
Author Name Unknown Organization [facility] Address [address] [place] [address] Phone [phone] Care Team Providers Care Bail Attacher Name Role Phone Hay Reza MD Primary Care Provide r Reason for Visit * Reason Onset Date Comments Skilled Visit 05/09/2024 Encounter Details Date Type Department Care Team (Latest Contact Info) Description 05/09/2024 11:00 AM EDT Skilled Nursing Visit [facility] [address] [place] [address] Miya Phillips PA-C [address] [place] [address] Fall, subsequent encounter*; Hypothermia due to exposure; History of ventricular fibrillation; Dementia due to Parkinson's disease, unspecified dementia severity, unspecified whether behavioral, psychotic, or mood disturbance or anxiety (HCC); Type 2 diabetes mellitus with stage 3b chronic kidney disease, without long-term current use of insulin (HCC); Scab; Insomnia, unspecified type Allergies Active Allergy Reactions Criticality Noted Date Comments Penicillins 12/04/1999 documented as of this encounter (statuses as of 05/09/2024) Medications Medication Sig Dispensed Refills Start Date [...] TWICE DAILY 60 Tablet 11 04/26/2024 Active documented as of this encounter (statuses as of 05/09/2024) Active Problems Problem Noted Date Diagnosed Date [...] Assessment & Plan: Continue statin Atherosclerosis of [place] co ronary artery of [place] heart without angina pectoris HTN, goal below 140/90 History of tobacco abuse Vitamin B12 deficiency documented as of this encounter (statuses as of 05/09/2024) Resolved Problems Problem Noted Date Diagnosed Date [...] the Treatment of Subjects with de navya [place] Coronary Artery Lesions. Diagnosis changed due to Research Module. Go to Snapshot for study details. CAD in [place] artery 03/29/2015 018 Exercise-induced angina 03/29/201501/2018 Mixed [...] as of this encounter (statuses as of 05/09/2024) Immunizations Name Administration Dates Next Due COVID-19 mRNA, LNP-s, No Pre serve, 2-Dose Series ([employer]) 05/07/2021,10/25/2020,09/27/2020 COVID-19, LNP-s, No Preserve , Mamadou-sucrose, Ages 12+ ([employer]) 10/22/2021 Pneumococcal Conjugate Vacc, 13 Valent (Prevnar) [...] Care Team (Late st Contact Info) Description 05/11/2024 9:30 AM EDT Scheduled Telephone [facility], [facility] [address] [facility] [place] [address] Sophie Winters, [address] [facility] [place] [address] 05/13/2024 2:30 PM EDT Home Visit [facility], [facility] [place] [address] Lisseth Flores, RN [address] [place] [address] 11/15/2024 2:30 PM EDT Office Visit Neurology [facility] [place] [address] Rosibel Banuelos PA-C [address] [place] [address] 12/22/2024 3:00 PM EDT Office Visit Nephrology [address] [place] [address] Aida Keenan MD 200 [facility] [place] [address] Health Maintenance Due Date Last Done Comments [...] Additional history exists CKD PHOS USE SMARTSET 46033 04/02/202403/14, 02/03/2022, 05/13/2021, Additional history exists HbA1c 08/20/2024 02/18/2024, 09/11, 04/02/2023, Additional history exists CKD HGB USE SMARTSET 78784 02/17/202502/17, 10/12/2023, 10/08/2023, Additional history exists Pneumococcal [...] as of this encounter Visit Diagnoses Diagnosis Fall, subsequent encounter- Primary Hypothermia due to exposure History of ventricular fibrillation Personal history of other diseases of circulatory system Dementia due to Parkinson's disease, unspecified dementia severity, unspecified whether behavioral, psychotic, or mood disturbance or anxiety (HCC) Type 2 diabetes mellitus with stage 3b chronic kidney disease, without long-term current use of insulin (HCC) Scab Changes in skin texture Insomnia, unspecified type documented in this encounter Advance Directives Documents on File Type Date Recorded 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 No Care Teams Bail Attacher Relationship Specialty Start Date End Date Hay Reza MD [address] [place] [address] [place] [address] PCP - General Family Medicine 09/24/22 documented as of this encounter
--- OUTSIDE RECORDS SUMMARY | 2024-06-24 10:38 | External Medical Summary | Summary of Care ---
Author Name Unknown Organization [facility] Address [address] [place] [address] Phone [phone] Care Team Providers Care Corporate Accountant Name Role Phone Hay Reza MD Primary Care Provide r Reason for Visit * Reason Onset Date Comments Skilled Visit 05/05/2024 Encounter Details Date Type Department Care Team (Late st Contact Info) Description 05/05/2024 10:30 AM EDT Care Home Visit [address] [address] Echo Willis PA-C [address] [place] [address] Fall, subsequent encounter*; H/O ventricular fibrillation; Dementia due to Parkinson's disease, unspecified dementia severity, unspecified whether behavioral, psychotic, or mood disturbance or anxiety (HCC); Skin breakdown Allergies Active Allergy Reactions Criticality Noted Date Comments Penicillins 12/04/1999 documented as of this encounter (statuses as of 05/05/2024) Medications Medication Sig Dispensed Refills Start Date [...] as of this encounter (statuses as of 05/05/2024) Active Problems Problem Noted Date Diagnosed Date H/O ventricular fibrillation 05/04/2024 Dementia due to [...] Assessment & Plan: Continue statin Atherosclerosis of [place] co ronary artery of [place] heart without angina pectoris HTN, goal below 140/90 History of tobacco abuse Vitamin B12 deficiency documented as of this encounter (statuses as of 05/05/2024) Resolved Problems Problem Noted Date Diagnosed Date [...] to Snapshot for study details. CAD in [place] artery 03/29/2015 018 Exercise-induced angina 03/29/2015 1201/2018 [...] as of this encounter (statuses as of 05/05/2024) Immunizations Name Administration Dates Next Due COVID-19 mRNA, LNP-s, No Pre serve, 2-Dose Series ([employer]) 05/07/2021,10/25/2020,09/27/2020 COVID-19, LNP-s, No Preserve , Mamadou-sucrose, [...] Smoking Tobacco: Former Cigarettes 1 10 1 1977 Smokeless Tobacco: Never Alcohol Use [...] Sign Reading Time Taken Comments Blood Pressure 101/67 05/05/2024 2:16 PM EDT Pulse 76 05/05/2024 2:16 PM EDT Temperature 36.1 C (96.9 F) 05/05/2024 2:16 PM ED T Respiratory Rate 18 05/05/2024 2:16 PM EDT Oxygen Saturation 95% 05/05/2024 2:16 PM EDT Inhaled Oxygen Concentration - - Weight - - Height - - Body Mass Index - - documented in this encounter Progress Notes * Echo Willis PA-C - 05/05/2024 1:56 PM EDT Name: Kishan Bourgeois Date of : 1935 This note pertains to care provided at [facility]. Please see facility record for original note. This note is not to be edited or addended in Yellow Pages. Editing or addending needs to occur in the facility's medical record. Chief Complaint Patient presents with Skilled Visit TRANSITION EVENT: Type: Skilled visit Date: May 05 Code Status: No Code SUBJECTIVE: Kishan Bourgeois is a 88 year old male HPI: short-term rehab pt recently hospitalized after a fall outside at home with unknown down time,findings of ventricular fibrillation on EMS arrival with idioventricular rhythm in ER, admitted forcomfort/palliative care then with spontaneous return of NSR, multiple skin injuries from fall, He c/o a sore area on his buttock. Barrier cream currently being applied. Noted to have open area in this location on admission to facility. He denies dyspnea, chest pain, cough, fever, chills, nausea, vomiting, diarrhea. 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 Review of Systems: Per HPI OBJECTIVE: BP 101/67 | Pulse 76 | Temp 36.1 C (96.9 F) | Resp 18 | SpO2 95% General: alert and no distress, thin and frail, stands with assistance of staff Heart: regular rate & rhythm Lungs: chest symmetric with normal AP diameter, no chest deformities noted, no chest wall tenderness, lungs clear to auscultation Abdomen: abdomen soft, non-tender, normal bowel sounds, no masses or organomegaly, and no rebound or guarding Extremities: less than 2 second capillary refill, no joint deformities, effusion, or inflammation, no edema Skin: small shallow open area right sacrum with pink wound bed, approx 0.8 cm x 0.8 cm ASSESSMENT/PLAN: jail chart (outside system) reviewed for vital signs, nursing notes, CODE STATUS, and most up to date medication list Discussed management with other clinician during the visit (facility RN) Fall, subsequent encounter (Primary) Continue PT and OT H/O ventricular fibrillation Currently auscultates in NSR with rate in 70s Dementia due to Parkinson's disease, unspecified dementia severity, unspecified whether behavioral,psychotic, or mood disturbance or anxiety (HCC) Continue sinemet Skin breakdown Calmoseptine to area 3x daily and as needed Follow up: next week and as needed I spent a total of 47 minutes coordinating, documenting, and providing care for this patient excluding time spent in the performance of separately billed services or time spent by another provider/QHP. documented in this encounter Plan of Treatment Upcoming Encounters Date Type Department Care Team (Late st Contact Info) Description 05/11/2024 9:30 AM EDT Scheduled Telephone [facility], [facility] [address] [facility] [place] [address] Sophie Winters CM [address] [place] [address] 05/13/2024 2:30 PM EDT Home Visit [facility], [facility] 132 [facility] [place] [address] Lisseth Flores, ALON 132 [facility] [place] [address] 11/15/2024 2:30 PM EDT Office Visit Neurology [facility] [place] 200 [facility] [place] [address] Rosibel Banuelos PA-C [address] [place] [address] 12/22/2024 3:00 PM EDT Office Visit Nephrology [address] [place] [address] Aida Keenan MD 200 [facility] [place] [address] Health Maintenance Due Date Last Done Comments [...] Additional history exists CKD PHOS USE SMARTSET 04364 04/02/202403/14, 02/03/2022, 05/13/2021, Additional history exists HbA1c 08/20/2024 02/18/2024, 09/11, 04/02/2023, Additional history exists CKD HGB USE SMARTSET 23227 02/17/202502/17, 10/12/2023, 10/08/2023, Additional history exists Pneumococcal [...] Visit Diagnoses Diagnosis Fall, subsequent encounter- Primary H/O ventricular fibrillation Personal history of other diseases of circulatory system Dementia due to Parkinson's disease, unspecified dementia severity, unspecified whether behavioral, psychotic, or mood disturbance or anxiety (HCC) Skin breakdown Other specified hypertrophic and atrophic condition of skin documented in this encounter Advance Directives Documents on File Type Date Recorded Patient Check Processor Expl anatpineda POLST 11/22/2019 1:00 PM Out-of-Hos [...] Power of Attor sesar? No Care Teams Corporate Accountant Relationship Specialty Start Date End Date Hay Reza MD [address] [place] [address] [place] [address] PCP - General Family Medicine 09/24/22 documented as of this encounter
--- OUTSIDE RECORDS SUMMARY | 2024-06-24 10:38 | External Medical Summary | Continuity Of Care Document ---
Author Name Unknown Address [address] [place] [address] Organization [facility] ( ) Care Team Providers Care Incident Manager Name Role Phone Crissy Mcintyre Primary Care Provider [phone] Problems Code Description Start Date End Date Status W19.XXXA Unspecified fall, initial encounter 05/03/2024 Active R46.4 Slowness and poor responsiveness 05/03/2024 Active I49.9 Cardiac arrhythmia, unspecified 05/03/2024 Active I95.9 Hypotension, unspecified 05/03/2024 Active I25.10 Atherosclerotic hear t disease of [place] coronary artery without angina pectoris 05/03/2024 Active Z95.5 Presence of coronary angioplasty implant and graft 05/03/2024 Active I10. Essential (primary) hypertension 05/03/2024 Active E78.5 Hyperlipidemia, unspecified 05/03/2024 00 Active N18.30 Chronic kidney disease, stage 3 unspecified Active G20.A1 Parkinson's disease without dyskinesia, without mention of fluctuations 05/03/2024 Active E55.9 Vitamin D deficiency, unspecified 05/03/2024 Active D51.9 Vitamin B12 deficiency anemia, unspecified 04/13 Active VITAL SIGNS Date Time Diastolic blood pressure Systolic blood pressure Body height Body weight Temperature SpO2 Blood Sugar Pulse Respirations 04663 022 57671 9 70280 022 99607 1 65 NI 71999 022 57413 6 66 NI 75972 022 46523 1 63.00 mm[Hg] - Sitting 99.00 mm[Hg] - Sitting 66 NI 124.00 NI 97.40 Ear 96.00 % 82.00/ min 18.00/min 42219 023 00556 3 62489 023 18031 4 64.00 mm[Hg] - Lying Down 100.00 mm[Hg] - Lying Down 98.10 Ear 81.00/ min 17.00/min 21596 023 70370 3 123.00 NI 023 71930 3 64.00 mm[Hg] - Sitting 100.00 mm[Hg] - Sitting 98.10 Oral 81.00/ min 17.00/min 53327 023 08445 0 69.00 mm[Hg] - Lying Down 131.00 mm[Hg] - Lying Down 97.90 Ear 96.00 % 72.00/ min 18.00/min 90752 024 72585 0 67.00 mm[Hg] - Sitting 101.00 mm[Hg] - Sitting 96.90 Oral 95.00 % 76.00/ min 18.00/min 45931 024 83772 7 59833 025 38017 0 77.00 mm[Hg] - Sitting 118.00 mm[Hg] - Sitting 97.20 Ear 96.00 % 90.00/ min 20.00/min 74548 025 84795 6 63019 025 03643 0 61.00 mm[Hg] - Sitting 141.00 mm[Hg] - Sitting 96.90 Ear 95.00 % 70.00/ min 20.00/min 92247 026 17725 8 67.00 mm[Hg] - Sitting 131.00 mm[Hg] - Sitting 97.60 Ear 97.00 % 79.00/ min 20.00/min Immunizations Vaccine Date Status Influenza 04/15/2017 Completed (PCV13)Pneumococcal 09/28/2015 Completed (PPSV23)Pneumococcal 02/02/2003 Completed Shingles 07/13/2004 Completed
--- OUTSIDE RECORDS SUMMARY | 2024-06-24 10:38 | External Medical Summary ---
Author Name Unknown Address Unknown Organization [facility]:LAB[facility]ATORY [facility] [address] [place] [address] Laboratory Report Ordering Provider Test Date Status AYAN METZ 05/11/2024 05:41:00 Final Observation Date Value Abnormality Reference (Units ) Status WBC, Total 05/11/2024 05:41:00 8.72 4.00-10.8 0 (K/uL) Final RBC 05/11/2024 05:41:00 3.39 4.50-5.25 (M/uL) Final Hemoglobin 05/11/2024 05:41:00 10.2 Below low normal 14 .0-16.8 (g/dL) Final HCT 05/11/2024 05:41:00 31.7 Below low normal 40. 0-48.4 (%) Final MCV 05/11/2024 05:41:00 93.5 82.0-99.5 (fL) Final MCH 05/11/2024 05:41:00 30.1 27.0-34.0 (pg) Final MCHC 05/11/2024 05:41:00 32.2 32.0-36.0 (g/dL) Final RDW 05/11/2024 05:41:00 14.3 11.5-15.5 (%) Final Platelets 05/11/2024 05:41:00 287 140-400 (K /uL) Final MPV 05/11/2024 05:41:00 10.8 6.6-11.1 ( fL) Final Performing Location [facility] [address] [place] [address]
--- OUTSIDE RECORDS SUMMARY | 2024-06-24 10:38 | External Medical Summary | Summary of Care ---
Author Name Unknown Organization [facility] Address [address] [place] [address] Phone [phone] Care Team Providers Care Naturopathic Physician Name Role Phone Hay Reza MD Primary Care Provide r Encounter Details Date Type Department Care Team (Late st Contact Info) Description 05/10/2024 Orders Only Lab Mobile Phlebotomy [facility] [address] [employer] [facility] [address] Crissy Mcintyre MD [address] [place] [address] [place] [address] HTN, goal below 140/90*; CAD (coronary artery disease) Allergies Active Allergy Reactions Criticality Noted Date Comments Penicillins 12/04/1999 documented as of this encounter (statuses as of 05/10/2024) Medications Medication Sig Dispensed Refills Start Date [...] as of this encounter (statuses as of 05/10/2024) Active Problems Problem Noted Date Diagnosed Date [...] Assessment & Plan: Continue statin Atherosclerosis of [place] co ronary artery of [place] heart without angina pectoris HTN, goal below 140/90 History of tobacco abuse Vitamin B12 deficiency documented as of this encounter (statuses as of 05/10/2024) Resolved Problems Problem Noted Date Diagnosed Date [...] the Treatment of Subjects with de navya [place] Coronary Artery Lesions. Diagnosis changed due to Research Module. Go to Snapshot for study details. CAD in [place] artery 03/29/2015 018 Exercise-induced angina 03/29/201501/2018 Mixed [...] as of this encounter (statuses as of 05/10/2024) Immunizations Name Administration Dates Next Due COVID-19 mRNA, LNP-s, No Pre serve, 2-Dose Series ([employer]) 05/07/2021,10/25/2020,09/27/2020 COVID-19, LNP-s, No Preserve , Mamadou-sucrose, [...] Team (Late st Contact Info) Description 05/11/2024 5:10 AM EDT Laboratory Lab Mobile Phlebotomy [facility] [address] [place] [address] [place] [address] 05/11/2024 9:30 AM EDT Scheduled Telephone [facility], [facility] [address] [place] [address] Sophie Winters, [address] [place] [address] 05/13/2024 2:30 PM EDT Home Visit [facility], [facility] [address] [place] [address] Lisseth Flores, ALON [address] [place] [address] 11/15/2024 2:30 PM EDT Office Visit Neurology [employer] 200 [place] [place] [address] Rosibel Banuelos PA-C [address] [place] [address] 12/22/2024 3:00 PM EDT Office Visit Nephrology [address] [place] [address] Aida Keenan MD 200 [facility] [place] [address] Scheduled Orders Name Type Priority Associated Diagnoses Orde r Schedule CBC Lab Routine HTN, goal below 140/90 CAD (coronary artery disease) Expected: 05/11/2024, Expires: 05/10/2025 BASIC METABOLIC PANEL Lab Routine HTN, goal below 140/90 CAD (coronary artery disease) Expected: 05/11/2024, Expires: 05/10/2025 Health Maintenance Due Date Last Done Comments [...] Additional history exists CKD PHOS USE SMARTSET 23391 04/02/202403/14, 02/03/2022, 05/13/2021, Additional history exists HbA1c 08/20/2024 02/18/2024, 09/11, 04/02/2023, Additional history exists CKD HGB USE SMARTSET 19784 02/17/202502/17, 10/12/2023, 10/08/2023, Additional history exists Pneumococcal [...] encounter Visit Diagnoses Diagnosis HTN, goal below 140/90- Primary Unspecified essential hypertension CAD (coronary artery disease) Coronary atherosclerosis of unspecified type of vessel, [place] or graft documented in this encounter Advance Directives Documents on File Type Date Recorded Patient Meter Repairer Expl [email or web address] SAVANAH 11/22/2019 1:00 PM Out-of-Hos pital DNR [...] Power of Attor sesar? No Care Teams Naturopathic Physician Relationship Specialty Start Date End Date Hay Reza MD [address] [place] [address] [place] [phone] PCP - General Family Medicine 09/24/22 documented as of this encounter
--- OUTSIDE RECORDS SUMMARY | 2024-06-24 10:38 | External Medical Summary ---
Author Name Unknown Address Unknown Organization [facility] [address] [place] [address] Laboratory Report Ordering Provider Test Date Status AYAN METZ 05/11/2024 05:41:00 Final Observation Date Value Abnormality Reference (Units ) Status BUN 05/11/2024 05:41:00 20 6-20 (mg/dL) Final Creatinine 05/11/2024 05:41:00 1.0 0.6-1.2 (mg/dL) Final Glomerular filtration rate/1.73 sq M.predicted [Volume Rate/Area] in Serum, Plasma or Blood by Creatinine-based formula (CKD-EPI) 05/11/2024 05:41:00 70 >=60 (mL/min) Final eGFR is calculated based on the CKD-EPI 2020 equation. Sodium 05/11/2024 05:41:00 138 135-146 (m mol/L) Final Potassium 05/11/2024 05:41:00 4.3 3.5-5.1 (m mol/L) Final Cl 05/11/2024 05:41:00 103 98-107 (mm ol/L) Final CO2 05/11/2024 05:41:00 25 22-32 (mmo l/L) Final Anion gap 05/11/2024 05:41:00 10 7-15 (mmol /L) Final Glucose 05/11/2024 05:41:00 95 70-120 (mg /dL) Final Calcium 05/11/2024 05:41:00 8.2 Below low normal 8.4 -10.2 (mg/dL) Final Performing Location LABORATORY [facility] [address] [place] [address]
--- OUTSIDE RECORDS SUMMARY | 2024-06-24 10:38 | External Medical Summary | Continuity Of Care Document ---
Author Name Unknown Address [address] [place] [address] Organization [facility] ( ) Care Team Providers Care Gre Instructor Name Role Phone Crissy Mcintyre Primary Care Provider [phone] Problems Code Description Start Date End Date Status W19.XXXA Unspecified fall, initial encounter 05/03/2024 Active R46.4 Slowness and poor responsiveness 05/03/2024 Active I49.9 Cardiac arrhythmia, unspecified 05/03/2024 Active I95.9 Hypotension, unspecified 05/03/2024 Active I25.10 Atherosclerotic hear t disease of [place] coronary artery without angina pectoris 05/03/2024 Active Z95.5 Presence of coronary angioplasty implant and graft 05/03/2024 Active I10. Essential (primary) hypertension 05/03/2024 Active E78.5 Hyperlipidemia, unspecified 05/03/2024 00 Active N18.30 Chronic kidney disease, stage 3 unspecified Active G20.A1 Parkinson's disease without dyskinesia, without mention of fluctuations 05/03/2024 Active E55.9 Vitamin D deficiency, unspecified 05/03/2024 Active D51.9 Vitamin B12 deficiency anemia, unspecified 04/13 Active R26.89 Other abnormalities of gait and mobility 2023 Active R53.1 Weakness 05/10/2024 Active Z74.1 Need for assistance with personal care 05/10/20 Active VITAL SIGNS Date Time Diastolic blood pressure Systolic blood pressure Body height Body weight Temperature SpO2 Blood Sugar Pulse Respirations 35035 022 10110 9 39176 022 19327 1 65 NI 76816 022 26632 6 66 NI 41666 022 41643 1 63.00 mm[Hg] - Sitting 99.00 mm[Hg] - Sitting 66 NI 124.00 NI 97.40 Ear 96.00 % 82.00/ min 18.00/min 87449 023 09954 3 02406 023 67236 4 64.00 mm[Hg] - Lying Down 100.00 mm[Hg] - Lying Down 98.10 Ear 81.00/ min 17.00/min 38261 023 31190 3 123.00 NI 17621 023 15925 3 64.00 mm[Hg] - Sitting 100.00 mm[Hg] - Sitting 98.10 Oral 81.00/ min 17.00/min 48907 023 29103 0 69.00 mm[Hg] - Lying Down 131.00 mm[Hg] - Lying Down 97.90 Ear 96.00 % 72.00/ min 18.00/min 12791 024 88225 0 67.00 mm[Hg] - Sitting 101.00 mm[Hg] - Sitting 96.90 Oral 95.00 % 76.00/ min 18.00/min 14564 024 19848 7 67950 025 88521 0 77.00 mm[Hg] - Sitting 118.00 mm[Hg] - Sitting 97.20 Ear 96.00 % 90.00/ min 20.00/min 55274 025 89575 6 26288 025 54464 0 61.00 mm[Hg] - Sitting 141.00 mm[Hg] - Sitting 96.90 Ear 95.00 % 70.00/ min 20.00/min 88365 026 23019 8 67.00 mm[Hg] - Sitting 131.00 mm[Hg] - Sitting 97.60 Ear 97.00 % 79.00/ min 20.00/min 35464 028 46949 9 125[place]00 [place] [address] 028 08244 0 72.00 mm[Hg] - Sitting 150.00 mm[Hg] - Sitting 98.60 X-Other 94.00 % 77.00/ min 18.00/min 84599 029 30276 0 71.00 mm[Hg] - Sitting 133.00 mm[Hg] - Sitting 98.30 Oral 97.00 % 68.00/ min 18.00/min 76193 029 68941 8 93555 030 19140 4 70.00 mm[Hg] - Sitting 115.00 mm[Hg] - Sitting 98.40 Ear 96.00 % 74.00/ min 20.00/min 55210 0 51.00 mm[Hg] - Sitting 90.00 mm[Hg] - Sitting 96.90 Ear 94.00 % 82.00/ min 18.00/min 031 98483 0 70.00 mm[Hg] - Sitting 134.00 mm[Hg] - Sitting 97.70 Ear 93.00 % 85.00/ min 20.00/min Immunizations Vaccine Date Status Influenza 04/15/2017 Completed (PCV13)Pneumococcal 09/28/2015 Completed (PPSV23)Pneumococcal 02/02/2003 Completed Shingles 07/13/2004 Completed
--- OUTSIDE RECORDS SUMMARY | 2024-06-24 10:38 | External Medical Summary | Summary of Care ---
Author Name Unknown Organization [facility] Address [address] [place] [address] Phone [phone] Care Team Providers Care Research Associate Professor Name Role Phone Hay Reza MD Primary Care Provide r Reason for Visit * Reason Onset Date Comments Skilled Visit 05/11/2024 Encounter Details Date Type Department Care Team (Latest Contact Info) Description 05/11/2024 11:30 AM EDT Mcfp Visit [facility] [address] [place] [address] Miya Phillips PA-C [address] [place] [address] Fall, subsequent encounter*; H/O ventricular fibrillation; Dementia due to Parkinson's disease, unspecified dementia severity, unspecified whether behavioral, psychotic, or mood disturbance or anxiety (HCC); Type 2 diabetes mellitus with stage 3b chronic kidney disease, without long-term current use of insulin (HCC) Allergies Active Allergy Reactions Criticality Noted Date Comments Penicillins 12/04/1999 documented as of this encounter (statuses as of 05/11/2024) Medications Medication Sig Dispensed Refills Start Date [...] as of this encounter (statuses as of 05/11/2024) Active Problems Problem Noted Date Diagnosed Date [...] Assessment & Plan: Continue statin Atherosclerosis of [place] co ronary artery of [place] heart without angina pectoris HTN, goal below 140/90 History of tobacco abuse Vitamin B12 deficiency documented as of this encounter (statuses as of 05/11/2024) Resolved Problems Problem Noted Date Diagnosed Date [...] the Treatment of Subjects with de navya [place] Coronary Artery Lesions. Diagnosis changed due to Research Module. Go to Snapshot for study details. CAD in [place] artery 03/29/2015 018 Exercise-induced angina 03/29/2015 1201/2018 [...] as of this encounter (statuses as of 05/11/2024) Immunizations Name Administration Dates Next Due COVID-19 mRNA, LNP-s, No Pre serve, 2-Dose Series ([employer]) 05/07/2021,10/25/2020,09/27/2020 COVID-19, LNP-s, No Preserve , [...] Date Smoking Tobacco: Former Cigarettes 1 10 346 1977 Smokeless Tobacco: Never Alcohol Use Standard [...] Progress Notes * Miya Phillips PA-C - 05/11/2024 3:43 PM EDT Name: Kishan Bourgeois Date of :1935 TRANSITION EVENT: Type: Skilled visit Date: May 11 Code Status: No Code This note pertains to care provided at [facility]. Please see facility medical record for original note. This note is not to be edited or addended in [employer]. Editing or addending needs to occur in the facilities medical record. Subjective: Kishan Bourgeois is a 88 year old male. Patient being seen for skilled visit Chief Complaint Patient presents with Skilled Visit HPI: Pt here for rehabilitation following fall outside with unknown down time, developed hypothermia and VF requiring resuscitation. Pt has dementia with PD. CKD, HTN. Pt is stable currently. Vital signs stable. No dizziness, syncope, chest pains dyspnea. Eating, drinking and sleeping ok. Behaviorshave been controlled. BMs ok. Voiding ok. CBC Results: Results for orders placed [...] [facility] - [facility] 135 07/15/2019 03:52 PM Chloride Results: Lab Results Component Value Date/Time CHLORIDE - [facility] 103 05/11/2024 05:41 AM [facility] 99 02/18/2024 02:44 PM [facility] 103 10/12/2023 02:30 PM [facility] - [facility] 100 07/27/2020 09:21 AM [facility] - [facility] 100 01/18/2020 11:10 AM [facility]IDE - [facility] 96 (L) 07/15/2019 03:52 PM Patient Active Problem List Diagnosis Atherosclerosis of [place] coronary artery of [place] heart without angina pectoris HTN, goal below 140/90 History of tobacco abuse Dyslipidemia, goal LDL below 70 Type 2 diabetes mellitus with hemoglobin A1c goal of less than 8.0% ([facility]) S/P primary angioplasty with coronary stent Vitamin B12 deficiency Asymptomatic stenosis of left carotid artery Primary osteoarthritis of right knee 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 Parkinson's disease ([facility]) Type 2 diabetes mellitus with stage 3b chronic kidney disease, without long-term current use of insulin ([facility]) Chronic kidney disease, stage 3b ([facility]) H/O ventricular fibrillation Dementia due to Parkinson's disease ([facility]) DNR (do not resuscitate) Past Medical History: Diagnosis Date Asymptomatic stenosis of left carotid artery 12/08/2017 Cholelithiasis CKD (chronic kidney disease) stage 3, GFR 30-59 ml/min ([facility]) Coronary atherosclerosis cath 70% lesion first diagonal Coronary atherosclerosis of [place] coronary artery Diffuse idiopathic skeletal hyperostosis 03/02/2015 DM (diabetes mellitus), type 2 with renal complications ([facility]) Emphysema lung ([facility]) Fracture of T12 vertebra ([facility]) History of tobacco abuse HTN, goal below 140/80 Liver cirrhosis ([facility]) evidence noted on CT abdomen Mixed dyslipidemia [...] ICA. probable stenosis of bilateral external carotid arteries.[facility] CHEST 1 VIEW 12/02/2017 patchy bibasilar opacities suggestive of pneumonia. [facility] CORONARY ANGIOGRAPHY W/LEFT HEART CATH Right 04/02/2015 CORONARY ANGIOGRAPHY W/LEFT HEART CATH performed by Ida Jeter MD at [facility] ECHO, STRESS (DOBUTAMINE) W/ PHYSICIAN 03/29/15 positive for inducible ischemia, EF 55-59%, Mild LVH, grade 1 diastolic dysfunction, septum apex akinetic on stress, anterior apical septum hypokinetic IOF CT HEAD/BRAIN WO CONTRAST 12/02/2017 no acute intracranial findings. chronic ischemic changes. [facility] MRI BRAIN WITHOUT CONTRAST 12/06/2017 no acute findings. moderate atrophy, moderate ventricular atrophy. [facility] Family History Problem Relation Name Age [...] Needs: Not on file Social Connections: Unknown (05/11/2024) Social Connections How often do you feel [...] edited in EPIC. Review of Systems: obtained mostly from staff Constitutional ROS: No change in weight, less weakness, less fatigue and No fevers, sweats, or chills [...] significant lesions ASSESSMENT: Fall, subsequent encounter (Primary) No falls In SNF Safety precautions in place H/O ventricular fibrillation Stable rhythm currently Continue ASA and statin Dementia due to Parkinson's disease, unspecified dementia severity, unspecified whether behavioral,psychotic, or mood disturbance or anxiety (HCC) Stable PD and mood/mentation Continue Sinemet as directed Type 2 diabetes mellitus with stage 3b chronic kidney disease, without long-term current use of insulin (HCC) Stable glucoses Continue Rybelsus PLAN: Reviewed CBC, BMP, Lytes and Continue present medication(s):as ordered. Custodial Home Treatment Given: as above Electronically signed by: Miya Phillips PA-C Over 35 minutes were spent in this visit more than half the time was spent counselling or coordinating care. documented in this encounter Plan of Treatment Upcoming Encounters Date Type Department Care Team (Late st Contact Info) Description 05/13/2024 2:30 PM EDT Home Visit [facility] at [facility] [address] [facility] [place] [address] Lisseth Flores, RN [address] [place] [address] 11/15/2024 2:30 PM EDT Office Visit Neurology [facility] [address] [facility] [place] [address] Rosibel Banuelos PA-C [address] [facility] [place] [address] 12/22/2024 3:00 PM EDT Office Visit Nephrology [address] [place] [phone] Aida Keenan MD [address] [facility] [place] [address] Health Maintenance Due Date Last Done Comments [...] Additional history exists CKD PHOS USE SMARTSET 85344 04/02/202403/14, 02/03/2022, 05/13/2021, Additional history exists HbA1c 08/20/2024 02/18/2024, 09/11, 04/02/2023, Additional history exists CKD HGB USE SMARTSET 09492 05/11/202505/11, 02/18/2024, 10/12/2023, Additional history exists Pneumococcal [...] Documents on File Type Date 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 No Care Teams Research Associate Professor Relationship Specialty Start Date End Date Hay Reza MD [address] [place] [address] [place] [phone] PCP - General Family Medicine 09/24/22 documented as of this encounter
--- OUTSIDE RECORDS SUMMARY | 2024-06-24 10:38 | External Medical Summary | Summary of Care ---
Author Name Unknown Organization [facility] Address [address] [place] [address] Phone [phone] Care Team Providers Care Insurance Adviser Name Role Phone Hay Reza MD Primary Care Provide r Encounter Details Date Type Department Care Team (Late st Contact Info) Description 05/06/2024 Population Health External Data Unspecified Department Allergies Active Allergy Reactions Criticality Noted Date Comments Penicillins 12/04/1999 documented as of this encounter (statuses as of 05/06/2024) Medications Medication Sig Dispensed Refills Start Date [...] as of this encounter (statuses as of 05/06/2024) Active Problems Problem Noted Date Diagnosed Date [...] Assessment & Plan: Continue statin Atherosclerosis of [place] co ronary artery of [place] heart without angina pectoris HTN, goal below 140/90 History of tobacco abuse Vitamin B12 deficiency documented as of this encounter (statuses as of 05/06/2024) Resolved Problems Problem Noted Date Diagnosed Date [...] the Treatment of Subjects with de navya [place] Coronary Artery Lesions. Diagnosis changed due to Research Module. Go to Snapshot for study details. CAD in [place] artery 03/29/2015 018 Exercise-induced angina 03/29/2015 12/0 [...] as of this encounter (statuses as of 05/06/2024) Immunizations Name Administration Dates Next Due COVID-19 mRNA, LNP-s, No Pre serve, 2-Dose Series ([employer]) 05/07/2021,10/25/2020,09/27/2020 COVID-19, LNP-s, No Preserve , Mamadou-sucrose, [...] Description 05/11/2024 9:30 AM EDT Scheduled Telephone [facility], [facility] [address] [facility] [place] [phone] Sophie Winters [address] [facility] [place] [address] 05/13/2024 2:30 PM EDT Home Visit [facility], [facility] [address] [place] [address] Lisseth Flores, ALON [address] [place] [address] 11/15/2024 2:30 PM EDT [facility] [facility] [address] Rosibel Banuelos PA-C [address] [place] [address] 12/22/2024 3:00 PM EDT Office Visit Nephrology [address] [place] [address] Aida Keenan MD [address] [facility] [place] [address] Health Maintenance Due Date Last Done Comments [...] Additional history exists CKD PHOS USE SMARTSET 04147 04/02/202403/14, 02/03/2022, 05/13/2021, Additional history exists HbA1c 08/20/2024 02/18/2024, 09/11, 04/02/2023, Additional history exists CKD HGB USE SMARTSET 94476 02/17/202502/17, 10/12/2023, 10/08/2023, Additional history exists Pneumococcal [...] Documents on File Type Date 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 No Care Teams Insurance Adviser Relationship Specialty Start Date End Date Hay Reza MD [address] [place] [address] [place] [id number] PCP - General Family Medicine 09/24/22 documented as of this encounter
--- OUTSIDE RECORDS SUMMARY | 2024-06-24 10:38 | External Medical Summary | Summary of Care ---
Author Name Unknown Organization [facility] Address [address] [place] [address] Phone [phone] Care Team Providers Care Marble Chip Terrazzo Worker Name Role Phone Hay Reza MD Primary Care Provide r Reason for Visit * Reason Onset Date Comments Skilled Visit 05/13/2024 Encounter Details Date Type Department Care Team (Latest Contact Info) Description 05/13/2024 8:00 AM EDT Assisted Visit [facility] [address] [place] [address] Miya Phillips PA-C [address] [place] [address] Dementia due to Parkinson's disease, unspecified dementia severity, unspecified whether behavioral, psychotic, or mood disturbance or anxiety (HCC)*; Type 2 diabetes mellitus with stage 3b chronic kidney disease, without long-term current use of insulin (HCC); H/O ventricular fibrillation; Fall, initial encounter; Primary osteoarthritis of both knees Allergies Active Allergy Reactions Criticality Noted Date Comments Penicillins 12/04/1999 documented as of this encounter (statuses as of 05/13/2024) Medications Medication Sig Dispensed Refills Start Date [...] goal of less than 8.0% ([facility]) Take 7 mg by mouth daily [...] as of this encounter (statuses as of 05/13/2024) Active Problems Problem Noted Date Diagnosed Date [...] Assessment & Plan: Continue statin Atherosclerosis of [place] co ronary artery of [place] heart without angina pectoris HTN, goal below 140/90 History of tobacco abuse Vitamin B12 deficiency documented as of this encounter (statuses as of 05/13/2024) Resolved Problems Problem Noted Date Diagnosed Date [...] the Treatment of Subjects with de navya [place] Coronary Artery Lesions. Diagnosis changed due to Research Module. Go to Snapshot for study details. CAD in [place] artery 03/29/2015 018 Exercise-induced angina 03/29/201501/2018 Mixed [...] as of this encounter (statuses as of 05/13/2024) Immunizations Name Administration Dates Next Due COVID-19 mRNA, LNP-s, No Pre serve, 2-Dose Series ([employer]) 05/07/2021,10/25/2020,09/27/2020 COVID-19, LNP-s, No Preserve , Mamadou-sucrose, [...] Progress Notes * Miya Phillips PA-C - 05/13/2024 2:29 PM EDT Name: Kishan Bourgeois Date of :1935 TRANSITION EVENT: Type: Skilled visit Date: May 13 Code Status: No Code This note pertains to care provided at [facility]. Please see facility medical record for original note. This note is not to be edited or addended in [employer]. Editing or addending needs to occur in the facilities medical record. Subjective: Kishan Bourgeois is a 88 year old male. Patient being seen for skilled visit Chief Complaint Patient presents with Skilled Visit HPI: pt here for rehabilitation following fall outside of his home, sustaining hypothermia and VF which required resuscitation. Pt is stable. No dizziness, syncope, chest pain, palpiation but pt has dementia and is poor historian. Vital signs remain stable. Eating, drinking and sleeping ok. Pt was found on the floor in his room from apparent fall. Pt unaware that he fell when questiioned.Unable to elaborate on cause, etc. No injuries noted on nursing assessment. Pt states his knees ache. Family who was present state pt has DJD of knees and they would apply Voltaren gel which helped at home. This fall was unwitnessed. BMs ok voiding ok. 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 Parkinson's disease ([facility]) Type 2 diabetes mellitus with stage 3b chronic kidney disease, without long-term current use of insulin ([facility]) Chronic kidney disease, stage 3b ([facility]) H/O ventricular fibrillation Dementia due to Parkinson's disease ([facility]) DNR (do not resuscitate) Past Medical History: Diagnosis Date Asymptomatic stenosis of left carotid artery 12/08/2017 Cholelithiasis CKD (chronic kidney disease) stage 3, GFR 30-59 ml/min ([facility]) Coronary atherosclerosis cath 70% lesion first diagonal Coronary atherosclerosis of [place] coronary artery Diffuse idiopathic skeletal hyperostosis 03/02/2015 DM (diabetes mellitus), type 2 with renal complications ([facility]) Emphysema lung ([facility]) Fracture of T12 vertebra ([facility]) History of tobacco abuse HTN, goal below 140/80 Liver cirrhosis ([facility]) evidence noted on CT abdomen Mixed [...] ICA. probable stenosis of bilateral external carotid arteries.[facility] CHEST 1 VIEW 12/02/2017 patchy bibasilar opacities suggestive of pneumonia. [facility] CORONARY ANGIOGRAPHY W/LEFT HEART CATH Right 04/02/2015 CORONARY ANGIOGRAPHY W/LEFT HEART CATH performed by Ida Jeter MD at [facility] ECHO, STRESS (DOBUTAMINE) W/ PHYSICIAN 03/29/15 positive for inducible ischemia, EF 55-59%, Mild LVH, grade 1 diastolic dysfunction, septum apex akinetic on stress, anterior apical septum hypokinetic IOF CT HEAD/BRAIN WO CONTRAST 12/02/2017 no acute intracranial findings. chronic ischemic changes. [facility] MRI BRAIN WITHOUT CONTRAST 12/06/2017 no acute findings. moderate atrophy, moderate ventricular atrophy. [facility] Family History Problem Relation Name Age of [...] Needs: Not on file Social Connections: Unknown (05/13/2024) Social Connections How often do you feel [...] list as this cannot be edited in [employer]. Review of Systems: obtained from pt and staff Constitutional ROS: No change in weight, [...] or constipation and No dysphagia Musculoskeletal/Extremities ROS: see HPI Skin/Integumentary ROS: No rash and No itching Neurologic ROS: No headaches and No seizures +PD Psychiatric ROS: No depression, No anxiety and No psychosis + dementia Sleep: No sleep disorders OBJECTIVE: PHYSICALEXAM: I reviewed the most recent facilities vitals. General: alert, no distress, well nourished and well developed Head: Normocephalic, No masses, lesions, tenderness or [...] & oriented x 1 with fluent speech, PD tremors and rigidity Skin: skin color, texture, turgor are normal, no rashes or significant lesions Musculoskeletal: moves all extremities with good strength ASSESSMENT: Dementia due to Parkinson's disease, unspecified dementia severity, unspecified whether behavioral,psychotic, or mood disturbance or anxiety (HCC) (Primary) Stable mood and mentation. Stable PD Continue Sinemet as directed Type 2 diabetes mellitus with stage 3b chronic kidney disease, without long-term current use of insulin (HCC) Stable glucoses Continue Rybelsus as directed H/O ventricular fibrillation Stable rhythm at this time Fall, initial encounter Recent unwitnessed fall Cannot rule out dysrhythmia Will get ECG in SNF Primary osteoarthritis of both knees Will begin Voltaren gel to knees TID PLAN: Reviewed CBC, BMP, Lytes and Continue present medication(s):as ordered. [facility] Home Treatment Given: as above Electronically signed by: Miya Phillips PA-C Over 35 minutes were spent in this visit more than half the time was spent counselling or coordinating care. documented in this encounter Plan of Treatment Upcoming Encounters Date Type Department Care Team (Late st Contact Info) Description 05/18/2024 10:00 AM EST Scheduled Telephone [facility] [address] [place] [address] Coordinator, [facility] [address] [place] [address] 11/15/2024 2:30 PM EDT Office Visit Neurology [facility] [place] [address] [facility] [place] [address] Rosibel Banuelos PA-C [address] [facility] [place] [address] 12/22/2024 3:00 PM EDT Office Visit Nephrology [address] [place] [address] Aida Keenan MD [address] [facility] [place] [address] Health Maintenance Due Date Last Done Comments [...] Additional history exists CKD PHOS USE SMARTSET 52763 04/02/202403/14, 02/03/2022, 05/13/2021, Additional history exists HbA1c 08/20/2024 02/18/2024, 09/11, 04/02/2023, Additional history exists CKD HGB USE SMARTSET 22441 05/11/202505/11, 02/18/2024, 10/12/2023, Additional history exists Pneumococcal [...] history of other diseases of circulatory system Fall, initial encounter Primary osteoarthritis of both knees Primary localized osteoarthrosis, lower leg documented in this encounter Advance Directives Documents on File Type Date 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 No Care Teams Marble Chip Terrazzo Worker Relationship Specialty Start Date End Date Hay Reza MD [address] [place] [address] [place] [address] PCP - General Family Medicine 09/24/22 documented as of this encounter
--- OUTSIDE RECORDS SUMMARY | 2024-06-24 10:38 | External Medical Summary | Summary of Care ---
Author Name Unknown Organization [facility] Address [address] [place] [address] Phone [phone] Care Team Providers Care Bookkeeping Clerks Supervisor Name Role Phone Hay Reza MD Primary Care Provide r Reason for Visit * Reason Onset Date Comments [facility]: Maintenance 05/11/2024 Encounter Details Date Type Department Care Team (Late st Contact Info) Description 05/11/2024 9:30 AM EDT Scheduled Telephone [facility], [facility] [address] [facility] [place] [phone] Sophie Winters [address] [place] [facility] [place] [address] Allergies Active Allergy Reactions Criticality Noted Date [...] Assessment & Plan: Continue statin Atherosclerosis of [place] co ronary artery of [place] heart without angina pectoris HTN, goal below [...] to Snapshot for study details. CAD in [place] artery 03/29/2015 018 Exercise-induced angina 03/29/2015 1201/2018 [...] mRNA, LNP-s, No Pre serve, 2-Dose Series ([employer]) 05/07/2021,10/25/2020,09/27/2020 COVID-19, LNP-s, No Preserve , Mamadou-sucrose, [...] Date Smoking Tobacco: Former Cigarettes 1 10 931 1977 Smokeless Tobacco: Never Alcohol Use Standard [...] Telephone Encounter - Sophie Winters CM - 05/11/2024 10:10 AM EDT Call placed to [facility]. Confirmed pt is still at facility. Transferred to [facility] requesting a call back Sophie Winters Drafter Engineering [email or web address] documented in this encounter Plan of Treatment Upcoming Encounters Date Type Department Care Team (Late st Contact Info) Description 05/13/2024 2:30 PM EDT Home Visit [facility], [facility] [address] [place] [address] Lisseth Flores, RN [address] [place] [address] 11/15/2024 2:30 PM EDT Office Visit Neurology [facility] [address] [facility] [place] [address] Rosibel Banuelos PA-C [address] [place] [address] 12/22/2024 3:00 PM EDT Office Visit Nephrology [address] [place] [address] Aida Keenan MD [address] [facility] [place] [address] Health Maintenance Due Date Last Done Comments [...] Additional history exists CKD PHOS USE SMARTSET 51242 04/02/202403/14, 02/03/2022, 05/13/2021, Additional history exists HbA1c 08/20/2024 02/18/2024, 09/11, 04/02/2023, Additional history exists CKD HGB USE SMARTSET 34850 05/11/202505/11, 02/18/2024, 10/12/2023, Additional history exists Pneumococcal [...] Documents on File Type Date Recorded 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 No Care Teams Bookkeeping Clerks Supervisor Relationship Specialty Start Date End Date Hay Reza MD [address] [place] [address] [place] [phone] PCP - General Family Medicine 09/24/22 documented as of this encounter
--- OUTSIDE RECORDS SUMMARY | 2024-06-24 10:38 | External Medical Summary | Summary of Care ---
Author Name Unknown Organization [facility] Address [address] [place] [address] Phone [phone] Care Team Providers Care Safety Fire Boss Name Role Phone Hay Reza MD Primary Care Provide r Reason for Visit * Reason Onset Date Comments Skilled Visit 05/16/2024 Encounter Details Date Type Department Care Team (Latest Contact Info) Description 05/16/2024 7:00 AM EST Half-Way Visit [facility] [address] [place] [address] Miya Phillips PA-C [address] [place] [address] Dementia due to Parkinson's disease, unspecified dementia severity, unspecified whether behavioral, psychotic, or mood disturbance or anxiety ([facility])*; H/O ventricular fibrillation; Atherosclerosis of [place] coronary artery of [place] heart without angina pectoris; Type 2 diabetes mellitus with hemoglobin A1c goal of less than 8.0% (HCC); 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 Allergies Active Allergy Reactions Criticality Noted Date Comments Penicillins 12/04/1999 documented as of this encounter (statuses as of 05/16/2024) Medications Medication Sig Dispensed Refills Start Date [...] goal of less than 8.0% ([facility]) Take 7 mg by mouth daily first [...] as of this encounter (statuses as of 05/16/2024) Active Problems Problem Noted Date Diagnosed Date [...] Plan: Continue statin Atherosclerosis of [place] co ronary artery of [place] heart without angina pectoris HTN, goal below 140/90 History of tobacco abuse Vitamin B12 deficiency documented as of this encounter (statuses as of 05/16/2024) Resolved Problems Problem Noted Date Diagnosed Date [...] the Treatment of Subjects with de navya [place] Coronary Artery Lesions. Diagnosis changed due to Research Module. Go to Snapshot for study details. CAD in [place] artery 03/29/2015 018 Exercise-induced angina 03/29/201501/2018 Mixed [...] as of this encounter (statuses as of 05/16/2024) Immunizations Name Administration Dates Next Due COVID-19 mRNA, LNP-s, No Pre serve, 2-Dose Series ([employer]) 05/07/2021,10/25/2020,09/27/2020 COVID-19, LNP-s, No Preserve , Mamadou-sucrose, [...] Upcoming Encounters Date Type Department Care Team ([facility] st Contact Info) Description 05/18/2024 10:00 AM EST Scheduled Telephone [facility], [facility] [address] [place] [address] Coordinator, [facility] [address] [place] [address] 11/15/2024 2:30 PM EDT Office Visit Neurology [employer] [address] [facility] [place] [address] Rosibel Banuelos PA-C [address] [place] [address] 12/22/2024 3:00 PM EDT Office Visit Nephrology [address] [place] [phone] Aida Keenan MD [address] [place] [address] Health Maintenance Due Date Last Done Comments [...] Additional history exists CKD PHOS USE SMARTSET 43667 04/02/2024 09/2 07/2022, 02/03/2022, 05/13/2021, Additional history exists HbA1c 08/20/2024 02/18/2024, 09/11, 04/02/2023, Additional history exists CKD HGB USE SMARTSET 10371 05/11/202505/11, 02/18/2024, 10/12/2023, Additional history exists Pneumococcal [...] history of other diseases of circulatory system Atherosclerosis of [place] coronary artery of [place] heart without angina pectoris Type 2 diabetes mellitus with hemoglobin A1c goal of less than 8.0% (HCC) 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 No Care Teams Safety Fire Boss Relationship Specialty Start Date End Date Hay Reza MD [address] [place] [address] [place] [address] PCP - General Family Medicine 09/24/22 documented as of this encounter
--- OUTSIDE RECORDS SUMMARY | 2024-06-24 10:38 | External Medical Summary ---
Author Name Unknown Address Unknown Organization K01:[facility] - [address] [place] [address] Laboratory Report Ordering Provider Test Date Status AYAN METZ 05/18/2024 05:27:00 Final Observation Date Value Abnormality Reference (Units ) Status Iron 05/18/2024 05:27:00 45 45-176 (ug/dL) Final Iron-binding capacity 05/18/2024 05:27:00 199 Below low normal 250-425 (ug/dL) Final Transferrin Sat % 05/18/2024 05:27:00 23 15-55 (%) Final Performing Location [facility] - [address] [place] [address]
--- OUTSIDE RECORDS SUMMARY | 2024-06-24 10:39 | External Medical Summary | Summary of Care ---
Author Name Unknown Organization [facility] Address [address] [place] [address] Phone [phone] Care Team Providers Care Block Press Operator Name Role Phone Hay Reza MD Primary Care Provide r Reason for Visit * Reason Onset Date Comments Skilled Visit 05/05/2024 Encounter Details Date Type Department Care Team (Late st Contact Info) Description 05/05/2024 10:30 AM EDT Senior Living Visit [address] [address] Echo Willis PA-C [address] [place] [address] Fall, subsequent encounter*; H/O ventricular fibrillation; Dementia [...] Assessment & Plan: Continue statin Atherosclerosis of [place] co ronary artery of [place] heart without angina pectoris HTN, goal below [...] the Treatment of Subjects with de navya [place] Coronary Artery Lesions. Diagnosis changed due to Research Module. Go to Snapshot for study details. CAD in [place] artery 03/29/2015 018 Exercise-induced angina 03/29/2015 1201/2018 [...] mRNA, LNP-s, No Pre serve, 2-Dose Series ([employer]) 05/07/2021,10/25/2020,09/27/2020 COVID-19, LNP-s, No Preserve , Mamadou-sucrose, [...] Index - - documented in this encounter Plan of Treatment Upcoming Encounters Date Type Department Care Team (Andre styles Contact Info) Description 05/11/2024 9:30 AM EDT Scheduled Telephone [facility], [facility] [address] [place] [phone] Singh SophieELBA [address] [place] [address] 05/13/2024 2:30 PM EDT Home Visit [facility], [place] [facility] [address] [place] [address] Lisseth Flores, RN [address] [place] [address] 11/15/2024 2:30 PM EDT Office Visit Neurology [facility] [address] [facility] [place] [address] Rosibel Banuelos PA-C [address] [place] [address] 12/22/2024 3:00 PM EDT Office Visit Nephrology [address] [place] [phone] Aida Keenan MD [address] [facility] [place] [address] Health Maintenance Due Date Last Done Comments [...] Additional history exists CKD PHOS USE SMARTSET 15869 04/02/202403/14, 02/03/2022, 05/13/2021, Additional history exists HbA1c 08/20/2024 02/18/2024, 09/11, 04/02/2023, Additional history exists CKD HGB USE SMARTSET 16301 02/17/202502/17, 10/12/2023, 10/08/2023, Additional history exists Pneumococcal [...] Documents on File Type Date Recorded 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 No Care Teams Block Press Operator Relationship Specialty Start Date End Date Sellathurai, Thiviyanath, MD [address] [place] [address] [place] [address] PCP - General Family Medicine 09/24/22 documented as of this encounter
--- OUTSIDE RECORDS SUMMARY | 2024-06-24 10:39 | External Medical Summary | Summary of Care ---
Author Name Unknown Organization [facility] Address [address] [place] [address] Phone [phone] Care Team Providers Care Customer Acquisition Manager Name Role Phone Hay Reza MD Primary Care Provide r Reason for Visit * Reason Onset Date Comments Appointment 04/26/2024 Encounter Details Date Type Department Care Team (Late st Contact Info) Description 04/26/2024 Telephone Nephrology, [facility] Oropeza [address] [place] [address] Aida Keenan MD [address] [place] [address] Appointment Allergies Active Allergy Reactions Criticality Noted Date Comments Penicillins 12/04/1999 documented as of this encounter (statuses as of 04/26/2024) Medications Medication Sig Dispensed Refills Start Date [...] AT BEDTIME 30 Tablet 5 04/25/2024 Active documented as of this encounter (statuses as of 04/26/2024) Active Problems Problem Noted Date Diagnosed Date [...] Assessment & Plan: Continue statin Atherosclerosis of [place] co ronary artery of [place] heart without angina pectoris HTN, goal below 140/90 History of tobacco abuse Vitamin B12 deficiency documented as of this encounter (statuses as of 04/26/2024) Resolved Problems Problem Noted Date Diagnosed Date [...] the Treatment of Subjects with de navya [place] Coronary Artery Lesions. Diagnosis changed due to Research Module. Go to Snapshot for study details. CAD in [place] artery 03/29/2015 018 Exercise-induced angina 03/29/201501/2018 Mixed [...] as of this encounter (statuses as of 04/26/2024) Immunizations Name Administration Dates Next Due COVID-19 mRNA, LNP-s, No Pre serve, 2-Dose Series ([employer]) 05/07/2021,10/25/2020,09/27/2020 COVID-19, LNP-s, No Preserve , Mamadou-sucrose, [...] encounter Miscellaneous Notes * Telephone Encounter - Simi Flores RN - 04/26/2024 11:03 AM EDT Exercise Specialist- Please schedule pt for follow up with Dr Keenan for October 2024 at office only. documented in this encounter Plan of Treatment Upcoming Encounters Date Type Department Care Team (Late st Contact Info) Description 05/13/2024 2:30 PM EDT Home Visit [facility], [address] [place] [address] Lisseth Flores, RN [address] [place] [address] 11/15/2024 2:30 PM EDT 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 No Care Teams Customer Acquisition Manager Relationship Specialty Start Date End Date Hay Reza MD [address] [place] [address] [place] [address] PCP - General Family Medicine 09/24/22 documented as of this encounter
--- OUTSIDE RECORDS SUMMARY | 2024-06-24 10:39 | External Medical Summary | Summary of Care ---
Author Name Unknown Organization [facility] Address [address] [place] [address] Phone [phone] Care Team Providers Care Administrative Assistant Receptionist Name Role Phone Hay Reza MD Primary Care Provide r Reason for Visit * Reason Onset Date Comments Retirement Visit - Admission 05/04/2024 Encounter Details Date Type Department Care Team (Latest Contact Info) Description 05/04/2024 10:00 AM EDT Retirement Visit [address] [place] [address] Crissy Mcintyre MD [address] [place] [address] [place] [id number] Fall, subsequent encounter*; H/O ventricular fibrillation; Hypothermia due to exposure; Dementia due to Parkinson's disease, unspecified dementia severity, unspecified whether behavioral, psychotic, or mood disturbance or anxiety (HCC); Parkinson's disease, unspecified whether dyskinesia present, unspecified whether manifestations fluctuate (HCC); Type 2 diabetes mellitus with stage 3b chronic kidney disease, without long-term current use of insulin (HCC); Atherosclerosis of [place] coronary artery of [place] heart without angina pectoris; HTN, goal below 140/90; S/P primary angioplasty with coronary stent Allergies Active Allergy Reactions Criticality Noted Date Comments Penicillins 12/04/1999 documented as of this encounter (statuses as of 05/04/2024) Medications Medication Sig Dispensed Refills Start Date [...] hemoglobin A1c goal of less than 8.0% ([facility]) Take 7 mg by mouth [...] TWICE DAILY 60 Tablet 11 04/26/2024 Active Metoprolol Succinate ER 25 MG Oral Tablet Extended Release 24 Hour (toPROL XL)Indications:H TN, goal below 140/90 Take 1 Tablet by mouth daily. 90 Tablet 3 02/18/2024 4 Discontinued documented as of this encounter (statuses as of 05/04/2024) Active Problems Problem Noted Date Diagnosed Date [...] as of this encounter (statuses as of 05/04/2024) Resolved Problems Problem Noted Date Diagnosed Date [...] as of this encounter (statuses as of 05/04/2024) Immunizations Name Administration Dates Next Due COVID-19 [...] as of this encounter Progress Notes * Crissy Mcintyre MD - 05/04/2024 3:31 PM EDT ADMISSION HISTORY and PHYSICAL TRANSITION EVENT: Type: SNF admission Date: May 03 Code Status: No Code Name: Kishan Bourgeois Date of : 1935 This note pertains to care provided at [facility]. Please see facility medical record for original note. This note is not to be edited or addended in [employer]book [employer]. Editing or addending needs to occur in the facilities medical record. S: Kishan Bourgeois had been admitted to [facility] from [facility] for PT and OT. Recently admitted to [facility] on 04/26/24 because of fall, being found unresponsive and hypothermic, and in ventricular fibrillation and was transferred here and admitted on 05/03/2024. Patient of Dr. Reza with PMH of Parkinson's disease with dementia, hypertension, type 2 diabetes mellitus with stage 3b CKD, CAD s/p stent, dyslipidemia, vitamin B12 deficiency, carotid stenosis, and OA of right knee who was found on the floor of the [place] of his house by a caregiver about 8 AM on the day of admission, 04/26/24. His last known well time was in the evening of 04/25/24 when his son talked to him on the phone. Patient was unresponsive and cold to the touch and EMS was summoned. He was also covered withscrapes and bruises from apparent fall. Patient was in ventricular fibrillation on evaluation by EMS but converted spontaneously to sinus rhythm. Patient does have POLST that states he is DNR/DNI. In the ED, patient was hypothermic, hypotensive, bradycardic, unresponsive to painful stimuli, and covered in abrasions. BP was 79/47. CBC showed WBC of 14.76, hemoglobin of 11.9, and platelets of 308. INR was 1.4. sodium was 139 and potassium 5.0. Creatinine was 1.4. Glucose was 208. CXR showed chronic lower lung interstitial thickening but no acute disease. Pelvis x-ray negative for fractures. EKG showed idioventricular rhythm. Family had overrode DNR/DNI on the scene and requested full code; however, after discussion in the ED, he was changed back to DNR/DNI/comfort measures only. Patient was expected to pass in short timeand was admitted for palliative care/comfort measures only. His metoprolol was discontinued due to bradycardia and hypotension. However, patient woke up and returned to around his baseline mental status per family. He is now admitted for PT/OT with plans to return home if able. Patient is confused and oriented only to self. He does state that he fell on concrete and "went sliding." He does not know where he is and is not oriented to time/date/year or the president. After being reoriented that he is at [facility] for rehab, he asked again for someone to get his socks from the dresser at the end of the hallway from the bottom drawer. He states he has a cramp in his buttock area but otherwise denies any pain. He denies chest pain or shortness of breath. States he is appetite is good. Past Medical History: Patient Active Problem List Diagnosis Atherosclerosis of [place] coronary artery of [place] heart without angina pectoris HTN, goal below 140/90 History of tobacco abuse Dyslipidemia, goal LDL below 70 Type 2 diabetes mellitus with hemoglobin A1c goal of less than 8.0% (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) Type 2 diabetes mellitus with stage 3b chronic kidney disease, without long-term current use of insulin ([facility]) Chronic kidney disease, stage 3b ([facility]) H/O ventricular fibrillation Dementia due to Parkinson's disease ([facility]) Current Outpatient Medications Medication Sig Dispense Refill Cyanocobalamin (VITAMIN B-12) 1000 MCG Tablet TAKE ONE TABLET BY MOUTH EVERY DAY (Patient taking differently: No sig reported) 30 Tab 5 Vitamin D High Potency 25 MCG (1000 UT) Oral Capsule (Cholecalciferol) TAKE ONE CAPSULE BY MOUTH EVERY DAY (Patient taking differently: No sig reported) 90 Cap 1 Stool Softener 100 MG Oral Tablet (Docusate Sodium) Take 1 Tablet by mouth in the morning. Semaglutide 7 MG Oral Tablet (Rybelsus) Take [...] THREE TIMES A DAY 135 Tablet 5 Carbidopa-Levodopa ER 25-100 MG Oral Tablet Extended Release (Sinemet CR) TAKE ONE TABLET BY MOUTH AT BEDTIME 30 Tablet 5 Sodium Bicarbonate 650 MG Oral Tablet TAKE ONE TABLET BY MOUTH TWICE DAILY 60 Tablet 11 No current facility-administered medications for this visit. Review of patient's allergies indicates: Allergen Reactions Penicillins Social History Tobacco Use Smoking status: Former Current packs/day: 0.00 Average packs/day: 1 pack/day for 10.0 years (10.0 ttl pk-yrs) Types: Cigarettes Start date: 1967 Quit date: 1977 Years since quittin.8 Smokeless tobacco: Never Substance Use Topics Alcohol use: No Vaping/E-Cigarette Use Vaping/E-Cigarette Use Never User Vaping/E-Cigarette Substances Vaping/E-Cigarette Devices Past Surgical History: Procedure Laterality Date AMPUTATION OF FINGER/THUMB 1996 CARDIAC SURGERY PROCEDURE NEC cardiac cath 1996 CAROTID DUPLEX EXAMINATION 12/06/2017 50 to 69% sgtenosis of proximal left ICA. probable stenosis of bilateral external carotid arteries.[facility] CHEST 1 VIEW 12/02/2017 patchy bibasilar opacities suggestive of pneumonia. [facility] CORONARY ANGIOGRAPHY W/LEFT HEART CATH Right 04/02/2015 CORONARY ANGIOGRAPHY W/LEFT HEART CATH performed by Ida Jeter MD at [facility] ECHO, STRESS (DOBUTAMINE) W/ PHYSICIAN 03/29/15 positive for inducible ischemia, EF 55-59%, Mild LVH, grade 1 diastolic dysfunction, septum apex akinetic on stress, anterior apical septum hypokinetic IOF CT HEAD/BRAIN WO CONTRAST 12/02/2017 no acute intracranial findings. chronic ischemic changes. [facility] MRI BRAIN WITHOUT CONTRAST 12/06/2017 no acute findings. moderate atrophy, moderate ventricular atrophy. [facility] Family History Problem Relation Name Age of Onset Heart Disorder Father Diabetes Mother Heart Disorder Mother Cancer Mother unknown Family Status Relation Status Fa Mo (Not Specified) Results for orders placed or performed in [...] 11.1 fL nRBCs 0 <=0 /100 WBCs COMPREHENSIVE METABOLIC PANEL Result Value Ref Range BUN 19 6 - 20 mg/dL CREATININE 1.4 (H) 0.6 - 1.2 mg/dL EGFR 50 (L) >=60 mL/min SODIUM 138 135 - 146 mmol/L POTASSIUM 3.9 3.5 - 5.1 mmol/L CHLORIDE 99 98 - 107 mmol/L CO2 27 22 - 32 mmol/L ANION GAP 12 7 - 15 mmol/L GLUCOSE 116 70 - 120 mg/dL Albumin 3.2 (L) 3.8 - 5.0 g/dL AST 21 10 - 50 U/L Alkaline Phosphatase 93 35 - 130 U/L Bilirubin, Total 0.5 <=1.2 mg/dL CALCIUM 9.2 8.4 - 10.2 mg/dL Protein 6.7 6.0 - 8.3 g/dL ALT <5 (L) 10 - 50 U/L IRON SCREEN, INCLUDING TIBC Result Value Ref Range Iron 49 45 - 176 ug/dL Iron Binding Capacity 192 (L) 250 - 425 ug/dL Transferrin Saturation Percent 26 15 - 55 % FERRITIN Result Value Ref Range Ferritin 358 30 - 400 ng/mL HEMOGLOBIN A1C Result Value Ref Range Hemoglobin A1C 5.7 (H) 4.0 - 5.6 % Estimated Average Glucose 117 <126 mg/dL Review of Systems: Unable to obtain reliably due to dementia ADL skills: dependent Ambulates with walker OBJECTIVE: PHYSICAL EXAM: I reviewed the most recent facilities vitals. Refer to vital signs flowsheet in half-way chart.General: alert and very frail, chronically ill appearing male resting in bed Head: Normocephalic, No masses, lesions, tenderness or abnormalities Eye Exam: PERRLA, extraocular movements intact, conjunctiva are pink and non- injected, sclera clear Ears: External ears normal Nose: no mucosal erythema, no mucosal edema, no purulent discharge Oropharynx: no exudate, no erythema, lips, buccal mucosa, and tongue normal, and mucous membranes are moist Neck: supple, no adenopathy, no bruits Heart: regular rate & rhythm and no gallops Lungs: chest symmetric with normal AP diameter, no chest deformities noted, no chest wall tenderness, lungs clear to auscultation Abdomen: abdomen soft, non-tender, normal bowel sounds, and no masses or organomegaly Extremities: no edema, no clubbing, no cyanosis, +extensive abrasions of left lower leg more than right lower leg. Numerous scattered bruises and abrasions of upper extremities Neuro Exam: no focal motor/sensory deficits, alert and oriented only to self ASSESSMENT: Fall, subsequent encounter (Primary)--continue PT/OT. H/O ventricular fibrillation--converted spontaneously. Occurred in setting of fall with unknown downtime and hypothermia. Poor prognosis. Hypothermia due to exposure--improved. Dementia due to Parkinson's disease, unspecified dementia severity, unspecified whether behavioral,psychotic, or mood disturbance or anxiety (HCC)--oriented only to self. Not currently having behavior issues. Follows with neurology as outpatient. Parkinson's disease, unspecified whether dyskinesia present, unspecified whether manifestations fluctuate (HCC)--continue home doses of Sinemet. Type 2 diabetes mellitus with stage 3b chronic kidney disease, without long-term current use of insulin (HCC)--continue Rybelsus. Atherosclerosis of [place] coronary artery of [place] heart without angina pectoris--metoprolol discontinued due to bradycardia and hypotension. Continue aspirin 81 mg daily and pravastatin 80 mg daily. HTN, goal below 140/90--as above. Metoprolol discontinued. S/P primary angioplasty with coronary stent--continue aspirin 81 mg daily. PLAN: 1. Continue present medication(s): 2. Admission orders, medications, labs, hospital records and care plan reviewed. 3. Certified Procedural Coder consult, Physical Therapy, Occupational Therapy, and Speech Therapy ordered. 4. Care plan reviewed. 5. Advance Directives were discussed: The patient is a DNR 6. Care Home Home Treatment Given: n/a Electronically signed by: Crissy Mcintyre MD I spent a total of 40-54 minutes (exact time 40 mins) on the date of service in preparation, delivery, and documentation of the care provided to Kishan Bourgeois excluding any time spent in the performance of separately billed services or time spent by another provider/QHP. documented in this encounter Plan of Treatment Upcoming Encounters Date Type Department Care Team (Late st Contact Info) Description 05/11/2024 9:30 AM EDT Scheduled Telephone [facility], [facility] [address] [facility] [place] [address] Sophie Winters, [address] [facility] [place] [address] 05/13/2024 2:30 PM EDT Home Visit [facility], [facility] [address] [facility] [place] [address] Lisseth Flores, [place] [address] [facility] [address] 11/15/2024 2:30 PM EDT Office Visit Neurology [facility] [place] [address] [facility] [place] [address] Rosibel Banuelos PA-C [facility] [place] [address] 12/22/2024 3:00 PM EDT Office Visit Nephrology [address] [place] [address] Aida Keenan MD [address] [facility] [place] [address] Health Maintenance Due Date Last Done Comments [...] Additional history exists CKD PHOS USE SMARTSET 35815 04/02/202403/14, 02/03/2022, 05/13/2021, Additional history exists HbA1c 08/20/2024 02/18/2024, 09/11, 04/02/2023, Additional history exists CKD HGB USE SMARTSET 49711 02/17/202502/17, 10/12/2023, 10/08/2023, Additional history exists Pneumococcal [...] history of other diseases of circulatory system Hypothermia due to exposure Dementia due to Parkinson's disease, unspecified dementia severity, unspecified whether behavioral, psychotic, or mood disturbance or anxiety (HCC) Parkinson's disease, unspecified whether dyskinesia present, unspecified whether manifestations fluctuate (HCC) Type 2 diabetes mellitus with stage 3b chronic kidney disease, without long-term current use of insulin (HCC) Atherosclerosis of [place] coronary artery of [place] heart without angina pectoris HTN, goal below 140/90 Unspecified essential hypertension S/P primary angioplasty with coronary stent Postsurgical percutaneous transluminal coronary angioplasty status documented in this encounter Advance Directives Documents on File Type Date Recorded 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 No Care Teams Administrative Assistant Receptionist Relationship Specialty Start Date End Date Hay Reza MD [address] [place] [address] [place] [id number] PCP - General Family Medicine 09/24/22 documented as of this encounter
--- OUTSIDE RECORDS SUMMARY | 2024-06-24 10:39 | External Medical Summary | Summary of Care ---
Author Name Unknown Organization [facility] Address [address] [place] [address] Phone [phone] Care Team Providers Care Fire Department Marine Engineer Name Role Phone Hay Reza MD Primary Care Provide r Encounter Details Date Type Department Care Team (Late st Contact Info) Description 04/29/2024 Population Health External Data Unspecified Department Allergies Active Allergy Reactions Criticality Noted Date Comments Penicillins 12/04/1999 documented as of this encounter (statuses as of 04/29/2024) Medications Medication Sig Dispensed Refills Start Date [...] as of this encounter (statuses as of 04/29/2024) Active Problems Problem Noted Date Diagnosed Date [...] Assessment & Plan: Continue statin Atherosclerosis of [place] co ronary artery of [place] heart without angina pectoris HTN, goal below 140/90 History of tobacco abuse Vitamin B12 deficiency documented as of this encounter (statuses as of 04/29/2024) Resolved Problems Problem Noted Date Diagnosed Date [...] the Treatment of Subjects with de navya [place] Coronary Artery Lesions. Diagnosis changed due to Research Module. Go to Snapshot for study details. CAD in [place] artery 03/29/2015 018 Exercise-induced angina 03/29/2015 12/0 [...] as of this encounter (statuses as of 04/29/2024) Immunizations Name Administration Dates Next Due COVID-19 mRNA, LNP-s, No Pre serve, 2-Dose Series (Mondeca) 05/07/2021,10/25/2020,09/27/2020 COVID-19, LNP-s, No Preserve , Mamadou-sucrose, [...] Former Cigarettes 1 10 1 968 - 1978 Smokeless Tobacco: Never Alcohol Use Standard Drinks/Week [...] PM EDT [facility], [facility] [address] [facility] [place] [address] Lisseth Flores, AL[place] [address] [facility] [place] [address] 11/15/2024 2:30 PM EDT Office Visit Neurology [facility] [place] [address] [place] [address] Rosibel Banuelos PA-C 21 [place] [address] Health Maintenance Due Date Last Done Comments [...] Additional history exists CKD PHOS USE SMARTSET 02075 04/02/2024 092 07/2022, 02/03/2022, 05/13/2021, Additional history exists HbA1c 08/20/2024 02/18/2024, 09/11, 04/02/2023, Additional history exists CKD HGB USE SMARTSET 21356 02/17/202502/17, 10/12/2023, 10/08/2023, Additional history exists Pneumococcal [...] Documents on File Type Date 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 No Care Teams Fire Department Marine Engineer Relationship Specialty Start Date End Date Hay Reza MD [address] [place] [address] [place] [address] PCP - General Family Medicine 09/24/22 documented as of this encounter
--- OUTSIDE RECORDS SUMMARY | 2024-06-24 10:39 | External Medical Summary | Continuity Of Care Document ---
Author Name Unknown Address [address] [place] [address] Organization [facility] ( ) Care Team Providers Care Certified Control Systems Technician Name Role Phone Crissy Mcintyre Primary Care Provider [phone] Problems Code Description Start Date End Date Status W19.XXXA Unspecified fall, initial encounter 05/03/2024 Active R46.4 Slowness and poor responsiveness 05/03/2024 Active I49.9 Cardiac arrhythmia, unspecified 05/03/2024 Active I95.9 Hypotension, unspecified 05/03/2024 Active I25.10 Atherosclerotic hear t disease of [place] coronary artery without angina pectoris 05/03/2024 Active [...] weight Temperature SpO2 Blood Sugar Pulse Respirations 24105 022 81811 9 85343 022 84579 1 65 NI 33622 022 58766 6 66 NI 40265 022 86243 1 63.00 mm[Hg] - Sitting 99.00 mm[Hg] - Sitting 66 NI 124.00 NI 97.40 Ear 96.00 % 82.00/ min 18.00/min 96108 023 29792 3 023 82445 4 64.00 mm[Hg] - Lying Down 100.00 mm[Hg] - Lying Down 98.10 Ear 81.00/ min 17.00/min 023 21660 3 123.00 NI 023 40056 3 64.00 mm[Hg] - Sitting 100.00 mm[Hg] - Sitting 98.10 Oral 81.00/ min 17.00/min 023 34342 0 69.00 mm[Hg] - Lying Down 131.00 mm[Hg] - Lying Down 97.90 Ear 96.00 % 72.00/ min 18.00/min Immunizations Vaccine Date Status Influenza 04/15/2017 Completed (PCV13)Pneumococcal 09/28/2015 Completed (PPSV23)Pneumococcal 02/02/2003 Completed Shingles 07/13/2004 Completed
--- OUTSIDE RECORDS SUMMARY | 2024-06-24 10:39 | External Medical Summary | Continuity Of Care Document ---
Author Name Unknown Address [address] [place] [address] Organization [facility] ( ) Care Team Providers Care Political Science Instructor Name Role Phone Alan Mcintyresamreen Primary Care Provider [phone] VITAL SIGNS Date Time Diastolic blood pressure Systolic blood pressure Body height Body weight Temperature SpO2 Blood Sugar Pulse Respirations 022 06574 9 05320 022 25459 1 65 NI 32221 022 66729 6 66 NI 66270 022 87702 1 63.00 mm[Hg] - Sitting 99.00 mm[Hg] - Sitting 66 NI 124.00 NI 97.40 Ear 96.00 % 82.00/ min 18.00/min 59106 023 02192 3 27012 023 95006 4 64.00 mm[Hg] - Lying Down 100.00 mm[Hg] - Lying Down 98.10 Ear 81.00/ min 17.00/min 38745 023 35759 3 123.00 NI 79312 023 63767 3 64.00 mm[Hg] - Sitting 100.00 mm[Hg] - Sitting 98.10 Oral 81.00/ min 17.00/min 01564 023 89085 0 69.00 mm[Hg] - Lying Down 131.00 mm[Hg] - Lying Down 97.90 Ear 96.00 % 72.00/ min 18.00/min Immunizations Vaccine Date Status Influenza 04/15/2017 Completed (PCV13)Pneumococcal 09/28/2015 Completed (PPSV23)Pneumococcal 02/02/2003 Completed Shingles 07/13/2004 Completed
--- OUTSIDE RECORDS SUMMARY | 2024-06-24 10:39 | External Medical Summary | Continuity Of Care Document ---
Author Name Unknown Address [address] [place] [address] Organization [facility] ( ) Care Team Providers Care Lockstitch Collar Setter Name Role Phone Alan Mcintyresamreen Primary Care Provider [phone] VITAL SIGNS Date Time Diastolic blood pressure Systolic blood pressure Body height Body weight Temperature SpO2 Blood Sugar Pulse Respirations 022 06889 9 44046 022 58727 1 65 NI 83802 022 89521 6 66 NI 55556 022 88788 1 63.00 mm[Hg] - Sitting 99.00 mm[Hg] - Sitting 66 NI 124.00 NI 97.40 Ear 96.00 % 82.00/ min 18.00/min 68939 023 41971 3 32188 023 68938 4 64.00 mm[Hg] - Lying Down 100.00 mm[Hg] - Lying Down 98.10 Ear 81.00/ min 17.00/min 69670 023 50694 3 123.00 NI 08043 023 25810 3 64.00 mm[Hg] - Sitting 100.00 mm[Hg] - Sitting 98.10 Oral 81.00/ min 17.00/min 38207 023 99434 0 69.00 mm[Hg] - Lying Down 131.00 mm[Hg] - Lying Down 97.90 Ear 96.00 % 72.00/ min 18.00/min Immunizations Vaccine Date Status Influenza 04/15/2017 Completed (PCV13)Pneumococcal 09/28/2015 Completed (PPSV23)Pneumococcal 02/02/2003 Completed Shingles 07/13/2004 Completed
--- OUTSIDE RECORDS SUMMARY | 2024-06-24 10:39 | External Medical Summary | Continuity Of Care Document ---
Author Name Unknown Address [address] [place] [address] Organization [facility] ( ) Care Team Providers Care Driver Guide Name Role Phone Crissy Mcintyre Primary Care Provider [phone] Problems Code Description Start Date End Date Status W19.XXXA Unspecified fall, initial encounter 05/03/2024 Active R46.4 Slowness and poor responsiveness 05/03/2024 Active I49.9 Cardiac arrhythmia, unspecified 05/03/2024 Active I95.9 Hypotension, unspecified 05/03/2024 Active I25.10 Atherosclerotic hear t disease of [place] coronary artery without angina pectoris 05/03/2024 Active [...] weight Temperature SpO2 Blood Sugar Pulse Respirations 38353 022 61086 9 92169 022 11957 1 65 NI 34883 022 97248 6 66 NI 43838 022 08078 1 63.00 mm[Hg] - Sitting 99.00 mm[Hg] - Sitting 66 NI 124.00 NI 97.40 Ear 96.00 % 82.00/ min 18.00/min 57055 023 67353 3 023 55502 4 64.00 mm[Hg] - Lying Down 100.00 mm[Hg] - Lying Down 98.10 Ear 81.00/ min 17.00/min 023 72717 3 123.00 NI 023 16122 3 64.00 mm[Hg] - Sitting 100.00 mm[Hg] - Sitting 98.10 Oral 81.00/ min 17.00/min 023 90116 0 69.00 mm[Hg] - Lying Down 131.00 mm[Hg] - Lying Down 97.90 Ear 96.00 % 72.00/ min 18.00/min 024 55672 7 Immunizations Vaccine Date Status Influenza 04/15/2017 Completed (PCV13)Pneumococcal 09/28/2015 Completed (PPSV23)Pneumococcal 02/02/2003 Completed Shingles 07/13/2004 Completed
--- OUTSIDE RECORDS SUMMARY | 2024-06-24 10:39 | External Medical Summary | Summary of Care ---
Author Name Unknown Organization [facility] Address [address] [place] [address] Phone [phone] Care Team Providers Care Zipper Setter Chainstitch Name Role Phone Hay Reza MD Primary Care Provide r Reason for Visit * Reason Comments eRx-Medication Refill Encounter Details Date Type Department Care Team (Late st Contact Info) Description 04/26/2024 Refill Nephrology, Jhonny Goldthwaite [address] [facility] [place] [address] Deandra Stern MD [address] [place] [address] Allergies Active Allergy Reactions Criticality Noted Date [...] TWICE DAILY 60 Tablet 11 04/26/2024 Active Sodium Bicarbonate 650 MG Oral Tablet Take 1 Tablet by mouth in the morning and 1 Tablet before bedtime. 60 Tablet 11 04/07/2023 4 Discontinued documented as of this encounter [...] Assessment & Plan: Continue statin Atherosclerosis of [place] co ronary artery of [place] heart without angina pectoris HTN, goal below [...] the Treatment of Subjects with de navya [place] Coronary Artery Lesions. Diagnosis changed due to Research Module. Go to Snapshot for study details. CAD in [place] artery 03/29/2015 018 Exercise-induced angina 03/29/2015 1201/2018 [...] encounter Miscellaneous Notes * Telephone Encounter - Deandra Stern MD - 04/26/2024 12:53 PM EDTSigned Prescriptions: Disp Refills Sodium Bicarbonate 650 MG Oral Tablet 60 Tab*11 Sig: TAKE ONE TABLET BY MOUTH TWICE DAILY Authorizing Provider: DEANDRA STERN * Telephone Encounter - Simi Flores RN - 04/26/2024 11:02 AM EDTPending Prescriptions: Disp Refills Sodium Bicarbonate 650 MG Oral Tablet [Pha*60 Tab*11 Sig: TAKE ONE TABLET BY MOUTH TWICE DAILY * Telephone Encounter - Simi Flores RN - 04/26/2024 11:00 AM EDT Prescription request received from pharmacy pending. Please authorize. Last OV 04/18/24 Next OV needs scheduled for October . Will send note to terra cotta mold maker. documented in this encounter Plan of Treatment Upcoming Encounters Date Type Department Care Team (Late st Contact Info) Description 05/13/2024 2:30 PM EDT Home Visit [facility] at [facility] [address] [facility] [place] [address] Lisseth Flores, RN 132 [facility] [place] [address] 11/15/2024 2:30 PM EDT Office Visit Neurology Jhonny Goldthwaite [place] 200 [facility], [place] [address] Rosibel Banuelos PA-C [address] [place] [address] Health Maintenance Due Date Last Done Comments [...] Additional history exists CKD PHOS USE SMARTSET 55596 04/02/20242 07/2022, 02/03/2022, 05/13/2021, Additional history exists HbA1c 08/20/2024 02/18/2024, 09/11, 04/02/2023, Additional history exists CKD HGB USE SMARTSET 66288 02/17/202502/17, 10/12/2023, 10/08/2023, Additional history exists Pneumococcal [...] Documents on File Type Date Recorded 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 No Care Teams Zipper Setter Chainstitch Relationship Specialty Start Date End Date Hay Reza MD [address] [place] [address] [place] [address] PCP - General Family Medicine 09/24/22 documented as of this encounter
--- OUTSIDE RECORDS SUMMARY | 2024-06-24 10:39 | External Medical Summary | Summary of Care ---
Author Name Unknown Organization [facility] Address [address] [place] [address] Phone [phone] Care Team Providers Care Ply Bander Name Role Phone Hay Reza MD Primary Care Provide r Reason for Visit * Reason Onset Date Comments [facility]: Maintenance 05/04/2024 Encounter Details Date Type Department Care Team (Late st Contact Info) Description 05/04/2024 Telephone [facility], [facility] [address] [facility] [place] [address] Tia Boyd, MALT ROASTER [address] [place], [place] [id number] [facility]: Maintenance Allergies Active Allergy [...] Assessment & Plan: Continue statin Atherosclerosis of [place] co ronary artery of [place] heart without angina pectoris HTN, goal below [...] to Snapshot for study details. CAD in [place] artery 03/29/2015 018 Exercise-induced angina 03/29/201501/2018 Mixed [...] mRNA, LNP-s, No Pre serve, 2-Dose Series (Mobile Shareholder) 05/07/2021,10/25/2020,09/27/2020 COVID-19, LNP-s, No Preserve , Mamadou-sucrose, [...] encounter Miscellaneous Notes * Telephone Encounter - Tia Boyd LPN - 05/04/2024 10:07 AM EDT Patient was discharged from [facility] to [facility] Adding to Sophie Winters's schedule for 1 week follow up call FYI care team documented in this encounter Plan of Treatment Upcoming Encounters Date Type Department Care Team (Late st Contact Info) Description 05/11/2024 9:30 AM EDT Scheduled Telephone [facility], [facility] [address] [place] [address] Sophie Winters, CM [address] [place] [address] 05/13/2024 2:30 PM EDT Home Visit [facility], [place] [facility] [address] [place] [address] Lisseth Flores, ALON [address] [place] [address] 11/15/2024 2:30 PM EDT Office Visit Neurology [facility] [address] [facility], [place] [address] Rosibel Banuelos PA-C [address] [place] [address] Health Maintenance Due Date Last Done Comments [...] Additional history exists CKD PHOS USE SMARTSET 06868 04/02/202403/14, 02/03/2022, 05/13/2021, Additional history exists HbA1c 08/20/2024 02/18/2024, 09/11, 04/02/2023, Additional history exists CKD HGB USE SMARTSET 89372 02/17/202502/17, 10/12/2023, 10/08/2023, Additional history exists Pneumococcal [...] Documents on File Type Date Recorded Patient Quality Technician Expl anation POLST 11/22/2019 1:00 PM Out-of-Hos [...] Power of Attor sesar? No Care Teams Ply Bander Relationship Specialty Start Date End Date Hay Reza MD [address] [place] [address] [place] [id number] PCP - General Family Medicine 09/24/22 documented as of this encounter
--- OUTSIDE RECORDS SUMMARY | 2024-06-24 10:39 | External Medical Summary | Continuity Of Care Document ---
Author Name Unknown Address [address] [place] [address] Organization [facility] ( ) Care Team Providers Care Supervisor Coil Winding Name Role Phone Crissy Mcintyre Primary Care Provider [phone] VITAL SIGNS Date Time Diastolic blood pressure Systolic blood pressure Body height Body weight Temperature SpO2 Blood Sugar Pulse Respirations 50017 022 17607 9 13835 022 40915 1 65 NI 24219 022 66155 6 66 NI 15789 022 29723 1 63.00 mm[Hg] - Sitting 99.00 mm[Hg] - Sitting 66 NI 124.00 NI 97.40 Ear 96.00 % 82.00/ min 18.00/min Immunizations Vaccine Date Status Influenza 04/15/2017 Completed (PCV13)Pneumococcal 09/28/2015 Completed (PPSV23)Pneumococcal 02/02/2003 Completed Shingles 07/13/2004 Completed
--- OUTSIDE RECORDS SUMMARY | 2024-06-24 10:39 | External Medical Summary | Continuity Of Care Document ---
Author Name Unknown Address [address] [place] [address] Organization [facility] ( ) Care Team Providers Care Food Service Coordinator Name Role Phone Alan Mcintyresamreen Primary Care Provider [phone] VITAL SIGNS Date Time Diastolic blood pressure Systolic blood pressure Body height Body weight Temperature SpO2 Blood Sugar Pulse Respirations 022 19644 9 56388 022 17223 1 65 NI 38620 022 46115 6 66 NI 21165 022 59715 1 63.00 mm[Hg] - Sitting 99.00 mm[Hg] - Sitting 66 NI 124.00 NI 97.40 Ear 96.00 % 82.00/ min 18.00/min 34525 023 06659 3 43461 023 79071 4 64.00 mm[Hg] - Lying Down 100.00 mm[Hg] - Lying Down 98.10 Ear 81.00/ min 17.00/min 78867 023 62541 3 123.00 NI 74639 023 04904 3 64.00 mm[Hg] - Sitting 100.00 mm[Hg] - Sitting 98.10 Oral 81.00/ min 17.00/min 33558 023 11254 0 69.00 mm[Hg] - Lying Down 131.00 mm[Hg] - Lying Down 97.90 Ear 96.00 % 72.00/ min 18.00/min Immunizations Vaccine Date Status Influenza 04/15/2017 Completed (PCV13)Pneumococcal 09/28/2015 Completed (PPSV23)Pneumococcal 02/02/2003 Completed Shingles 07/13/2004 Completed
--- OUTSIDE RECORDS SUMMARY | 2024-06-24 10:39 | External Medical Summary | Continuity Of Care Document ---
Author Name Unknown Address [address] [place] [address] Organization [facility] ( ) Care Team Providers Care Instrument Installer Name Role Phone Alan Mcintyresamreen Primary Care Provider [phone] VITAL SIGNS Date Time Diastolic blood pressure Systolic blood pressure Body height Body weight Temperature SpO2 Blood Sugar Pulse Respirations 022 65973 9 49094 022 82892 1 65 NI 73806 022 16405 6 66 NI 99626 022 56275 1 63.00 mm[Hg] - Sitting 99.00 mm[Hg] - Sitting 66 NI 124.00 NI 97.40 Ear 96.00 % 82.00/ min 18.00/min 54523 023 25599 3 33884 023 92207 4 64.00 mm[Hg] - Lying Down 100.00 mm[Hg] - Lying Down 98.10 Ear 81.00/ min 17.00/min 76471 023 08824 3 123.00 NI [address]168 023 76048 3 64.00 mm[Hg] - Sitting 100.00 mm[Hg] - Sitting 98.10 Oral 81.00/ min 17.00/min 55827 023 54542 0 69.00 mm[Hg] - Lying Down 131.00 mm[Hg] - Lying Down 97.90 Ear 96.00 % 72.00/ min 18.00/min Immunizations Vaccine Date Status Influenza 04/15/2017 Completed (PCV13)Pneumococcal 09/28/2015 Completed (PPSV23)Pneumococcal 02/02/2003 Completed Shingles 07/13/2004 Completed
--- OUTSIDE RECORDS SUMMARY | 2024-06-24 10:39 | External Medical Summary | Continuity Of Care Document ---
Author Name Unknown Address [address] [place] [address] Organization [facility] ( ) Care Team Providers Care Business Banker Name Role Phone Alan Mcintyresamreen Primary Care Provider [phone] VITAL SIGNS Date Time Diastolic blood pressure Systolic blood pressure Body height Body weight Temperature SpO2 Blood Sugar Pulse Respirations 022 20364 9 14683 022 67956 1 65 NI 20040 022 00091 6 66 NI 98101 022 32839 1 63.00 mm[Hg] - Sitting 99.00 mm[Hg] - Sitting 66 NI 124.00 NI 97.40 Ear 96.00 % 82.00/ min 18.00/min 22481 023 07394 3 80656 023 18690 4 64.00 mm[Hg] - Lying Down 100.00 mm[Hg] - Lying Down 98.10 Ear 81.00/ min 17.00/min 75056 023 47251 3 123.00 [place] [address] 023 65995 3 64.00 mm[Hg] - Sitting 100.00 mm[Hg] - Sitting 98.10 Oral 81.00/ min 17.00/min 15670 023 78171 0 69.00 mm[Hg] - Lying Down 131.00 mm[Hg] - Lying Down 97.90 Ear 96.00 % 72.00/ min 18.00/min Immunizations Vaccine Date Status Influenza 04/15/2017 Completed (PCV13)Pneumococcal 09/28/2015 Completed (PPSV23)Pneumococcal 02/02/2003 Completed Shingles 07/13/2004 Completed
[2024-06-24] MEDS: LORazepam 2 MG/1 ML VIAL IV PRN (11:06)
--- NOTE | 2024-06-24 12:08 | CT Scan Report ---
CT head/brain wo con CLINICAL HISTORY: seizures, ff up SDH Technique: Contiguous axial CT images of the head were acquired from the base of the skull to the nato sammy without intravenous contrast administration. Images were viewed in brain, subdural and bone [facility]. Automated dose lowering techniques and/or adjustment according to patient size were utilized for this exam. Comparison: Comparison is made to CT head 06/23/2024 and 07/02/2024 Findings: Areas of decreased attenuation are present in the periventricular and subcortical white matter bilate rally consistent with small vessel ischemic disease. Generalized cerebral volume loss with commensura te enlargement of the ventricles, sulci, and cisterns is also present. A subacute appearing right sub dural hemorrhage measures approximately 7 mm in diameter, similar to prior exam allowing for differen karen in positioning. No significant Imaged portions of the paranasal sinuses and mastoid air cells are clear. The orbits appear normal. There are no acute fractures of the calvaria or scalp swelling. Impression: Stable subacute appearing right subdural hemorrhage. ACT 112: Negative or not required by law. Electronically signed by: Ronald Rodarte M.D. 06/24/2024 12:06 PM
--- NOTE | 2024-06-24 14:16 | Hospitalist Progress Note ---
Date of Service June 24, 2024 Assessment & Plan (1) Seizure: Plan: Per admitting service notes with addendum: New onset seizures History traumatic subdural hematoma, no neurosurgery eval/intervention as per family as per ED provider History recurrent falls 06/23 Awake but nonverbal, no eye contact, mostly staring Repeat CT head: No significant change in the size of SDH Will repeat CT head this evening Continue Keppra 5 mg IV every 12 Neurology service consulted Evaluated by speech service, n.p.o. for now until mental status continues to improve 06/24 Positive facial twitching, left lower leg jerking movements observed this morning Repeat CT head: Subdural hematoma unchanged EEG in progress Continue Keppra 500 mg IV every 12 Continue n.p.o. status, IV fluids Will update neurology service Discussed with patient's children at the bedside Plan is to observe the patient's clinical progress this weekend If without improvement, will consider discharge with hospice services Hypertensive urgency secondary to illness, patient currently off BP medications due to hypotension and bradycardia from last admission 06/23 Lisinopril added but currently n.p.o. As needed hydralazine for now 06/24 improving Continue IV enalaprilat As needed hydralazine Severe protein-calorie malnutrition, BMI 18.1 kg/m*m Currently n.p.o. If patient's mental status improves and p.o. intake to be resumed, tow operator will be consulted hx CAD status post stent/PVD history ventricular fibrillation hyperlipidemia, on statin Rx COPD, not in acute exacerbation Parkinson's dementia DM2 on oral medication, well-controlled as of recent hemoglobin A1c of 5.17 February 2024 chronic anemia, hemoglobin at baseline past tobacco abuse ISS BG goal 1 10-1 40 DVT prophylaxis. SCDs re: ICH DNR as per patient prior directives as per family plan of care discussed with patient's children at bedside in detail and at length all questions answered they are understanding, agreeable, comfortable with the plan of care Admission and Anticipated Discharge Date Admission Date: June 22, 2024 Subjective Follow-up for subdural hematoma, new onset seizure, etc. Seen with patient's son at the bedside visiting Patient was awake but very drowsy, looked at examiner once upon calling his name, but nonverbal, does not follow commands During my exam, patient was observed to have facial twitching as well as left lower leg jerking movements Ativan 1 mg IV given immediately No other new signs or symptoms noted Review of Systems Review of Systems: all noted and negative except for above Physical Exam Physical Exam: General- Drowsy, nonverbal, breathing with no effort or accessory muscle use Eyes- anicteric Neck- no JVD Lungs- clear breath sounds bilaterally, no rales/wheezes Heart- normal rate, regular rhythm; no murmurs Abdomen- normal bowel sounds, nondistended, soft, nontender Extremities- no pretibial edema, no calf tenderness Neuro- alert, oriented x 3; no gross focal neurologic deficits Skin- warm & dry Results & Data Results & Data Vital Signs (Past 12 Hours) Vital Signs Temp Pulse Pulse Pulse Resp BP BP 06/24/24 11:59 36.7 C 109 H 12 159/66 H 06/24/24 11:30 06/24/24 08:00 36.6 C 111 H 16 167/67 H 06/24/24 07:28 105 H 06/24/24 06:28 107 H 151/74 H 06/24/24 03:20 36.7 C 97 H 16 183/83 H 06/24/24 02:27 99 H Pulse Ox O2 Del Method 06/24/24 11:59 94 Room Air 06/24/24 11:30 Room Air 06/24/24 08:00 95 Room Air 06/24/24 07:28 06/24/24 06:28 06/24/24 03:20 92 Room Air 06/24/24 02:27 all noted and reviewed including below
[2024-06-24] MEDS: levETIRAcetam 500 MG/5 ML VIAL IV STA (15:35)
[2024-06-24] MEDS: LORazepam 2 MG/1 ML VIAL IV ONE (16:37)
[2024-06-24] MEDS: levETIRAcetam 500 MG/5 ML VIAL IV SCH (19:56)
[2024-06-25] MEDS: INSULIN ASPART PER UNIT CHARGE SC SCH (00:10)
[2024-06-25 03:47] VITALS: RESP 20
[2024-06-25 08:04] VITALS: BP 165/72; PULSE 110; TEMP 99; O2SAT 91
[2024-06-25 16:28] LABS: 7-Aminoclonaz, Confirm NEGATIVE ng/mL (<25); Hydro-Alp Ur, GC/MS NEGATIVE ng/mL (<25); Hydroxyethylflurazepam, Conf NEGATIVE ng/mL (<50); Hydroxymidazolam Ur, GC/MS 892 ng/mL (<50); Hydroxytriazolam NEGATIVE ng/mL (<50); Lorazepam, Ur GC/MS NEGATIVE ng/mL (<50); Nordiazepam, Confirm NEGATIVE ng/mL (<50); Oxazepam Ur, GC/MS NEGATIVE ng/mL (<50); Temazepam, Confirm NEGATIVE ng/mL (<50)
--- NOTE | 2024-06-25 17:14 | Discharge Summary ---
Discharge Summary Date of Service June 25, 2024 Principal Dx & Hospital Course #1 = Principal Diagnosis (1) Seizure: Per admitting service notes with addendum: New onset seizures History traumatic subdural hematoma, no neurosurgery eval/intervention as per family as per ED provider History recurrent falls 06/23 Awake but nonverbal, no eye contact, mostly staring Repeat CT head: No significant change in the size of SDH Will repeat CT head this evening Continue Keppra 5 mg IV every 12 Neurology service consulted Evaluated by speech service, n.p.o. for now until mental status continues to improve 06/24 Positive facial twitching, left lower leg jerking movements observed this morning Repeat CT head: Subdural hematoma unchanged EEG in progress Continue Keppra 500 mg IV every 12 Continue n.p.o. status, IV fluids Will update neurology service Discussed with patient's children at the bedside Plan is to observe the patient's clinical progress this weekend If without improvement, will consider discharge with hospice services 06/25 Notified by RN that at 9:25 AM, patient was observed to have ceased breathing, no heart sounds Patient pronounced at 9:25 AM Patient's family notified including his son Yao and daughter Karla Condolencjah extended to the family Hypertensive urgency secondary to illness, patient currently off BP medications due to hypotension and bradycardia from last admission 06/23 Lisinopril added but currently n.p.o. As needed hydralazine for now 06/24 Continue IV enalaprilat As needed hydralazine Severe protein-calorie malnutrition, BMI 18.1 kg/m*m was on NPO status hx CAD status post stent/PVD history ventricular fibrillation hyperlipidemia, on statin Rx COPD, not in acute exacerbation Parkinson's dementia DM2 on oral medication, well-controlled as of recent hemoglobin A1c of 5.17 February 2024 chronic anemia, hemoglobin at baseline past tobacco abuse Notes For Next Care Provider Medication Changes From Visit patient Admission HPI Per Admitting Provider History obtained from patient, family, and records. Limited history from patient secondary to obtunded state/dementia. Medical history significant for CAD status post stent, history ventricular fibrillation, hypertension, hyperlipidemia, PVD, COPD, Parkinson's dementia, DM2 on oral medications, GERD, chronic anemia (baseline hemoglobin of 11), recurrent falls, past tobacco abuse. Last confinement April 2024 for fall, unresponsiveness, transient VF. Home beta-tez discontinued on [facility] back to prison. Patient witnessed by staff to have generalized tonic-clonic seizures at prison today. Patient dentures became dislodged from seizure as per report. Another seizure witnessed as patient moved to stretcher by EMS. Seizure described as flexing and stiffening of arms and legs followed by generalized shaking. IM Versed administered prior to transport. No prior episodes. Episode of fall 2 weeks ago resulting in right rib pain as per outpatient notes. IV Keppra administered at the ER. Highest SBP of 190s documented at the ER. Patient family not interested in neurosurgery evaluation/intervention as per ED provider. Medical History as above Surgical History : Finger amputation Family History : DM, heart disease Personal/Social history : Past tobacco abuse, no EtOH intake, prison resident Updated Medication List Medication Instructions Recorded Confirmed Type aspirin 81 mg tablet,delayed 81 mg PO QAM ##0 05/23/16 06/22/24 History release cholecalciferol (vitamin D3) 25 25 mcg PO DAILY 30 days #30 tabs 12/02/17 06/22/24 History mcg (1,000 unit) capsule (Vitamin D3) carbidopa 25 mg-levodopa 100 mg 1.5 tab PO TID 04/26/24 06/22/24 History tablet carbidopa ER 25 mg-levodopa 100 mg 1 tab PO HS 04/26/24 06/22/24 History tablet,extended release cetirizine 10 mg tablet 5 mg PO HS 04/26/24 06/22/24 History cyanocobalamin (vitamin B-12) 1,000 mcg PO DAILY 04/26/24 06/22/24 History 1,000 mcg tablet pravastatin 80 mg tablet 80 mg PO HS 04/26/24 06/22/24 History semaglutide 7 mg tablet (Rybelsus) 7 mg PO QAM 04/26/24 06/22/24 History sodium bicarbonate 650 mg tablet 650 mg PO AMHS 04/26/24 06/22/24 History acetaminophen 325 mg tablet 650 mg PO Q4 PRN Fever Or Pain 06/22/24 06/22/24 History diclofenac sodium 1 % topical gel 4 g topical TID 06/22/24 06/22/24 History melatonin 5 mg tablet 5 mg PO HS 06/22/24 06/22/24 History zinc oxide 40 % topical ointment 1 applic topical UD 06/22/24 06/22/24 History Hospital Stay Data Consultations 06/22/24 20:17 ED Decision to Admit Stat 06/22/24 22:39 Consult Neurology Routine Diagnostic Imagining Performed 06/22/24 18:14 CT head/brain wo con Stat 06/23/24 06:15 CT head/brain wo con Urgent 06/24/24 11:03 CT head/brain wo con Stat Total Time Total Time Spent Total Time Spent (In Minutes): 35 minutes
--- NOTE | 2024-06-27 17:06 | Electroencephalogram ---
EEG Procedure Note Date of Service June 24, 2024 Start / End Times Start Time: 1321 End Time: [address] Olu Manning History A 88 yo M w Hx of right SDH and seizure. EEG performed for evaluation of epileptiform activity. Home Medication List Medication Instructions Recorded Confirmed Type aspirin 81 mg tablet,delayed 81 mg PO QAM ##0 05/23/16 06/22/24 History release cholecalciferol (vitamin D3) 25 25 mcg PO DAILY 30 days #30 tabs 12/02/17 06/22/24 History mcg (1,000 unit) capsule (Vitamin D3) carbidopa 25 mg-levodopa 100 mg 1.5 tab PO TID 04/26/24 06/22/24 History tablet carbidopa ER 25 mg-levodopa 100 mg 1 tab PO HS 04/26/24 06/22/24 History tablet,extended release cetirizine 10 mg tablet 5 mg PO HS 04/26/24 06/22/24 History cyanocobalamin (vitamin B-12) 1,000 mcg PO DAILY 04/26/24 06/22/24 History 1,000 mcg tablet pravastatin 80 mg tablet 80 mg PO HS 04/26/24 06/22/24 History semaglutide 7 mg tablet (Rybelsus) 7 mg PO QAM 04/26/24 06/22/24 History sodium bicarbonate 650 mg tablet 650 mg PO AMHS 04/26/24 06/22/24 History acetaminophen 325 mg tablet 650 mg PO Q4 PRN Fever Or Pain 06/22/24 06/22/24 History diclofenac sodium 1 % topical gel 4 g topical TID 06/22/24 06/22/24 History melatonin 5 mg tablet 5 mg PO HS 06/22/24 06/22/24 History zinc oxide 40 % topical ointment 1 applic topical UD 06/22/24 06/22/24 History Inpatient Medication List Discontinued Medications Carbidopa/Levodopa (Carbidopa/Levodopa 25/100mg Ext Rel Tab) 1 tab PO HS [facility] Stop: 07/23/24 20:59 Last Admin: 06/24/24 20:03 Dose: Not Given Documented By: Admin: 06/23/24 21:59 Dose: Not Given Documented By: KASSIDY Carbidopa/Levodopa (Carbidopa/Levodopa 25/100mg Tab) 1.5 tab PO TID SHANNEN Stop: 07/23/24 08:59 Last Admin: 06/24/24 20:03 Dose: Not Given Documented By: Admin: 06/24/24 13:01 Dose: Not Given Documented By: Admin: 06/24/24 07:39 Dose: Not Given Documented By: Admin: 06/23/24 22:00 Dose: Not Given Documented By: Admin: 06/23/24 09:56 Dose: Not Given Documented By: Admin: 06/23/24 08:09 Dose: Not Given Documented By: LINDA Cetirizine HCl (Cetirizine Hcl 10 Mg Tablet) 5 mg PO HS [facility] Stop: 07/23/24 20:59 Last Admin: 06/24/24 20:03 Dose: Not Given Documented By: Admin: 06/23/24 22:00 Dose: Not Given Documented By: KASSIDY Cyanocobalamin (Cyanocobalamin (B-12) 500 Mcg Tablet) 1,000 mcg PO DAILY SHANNEN Stop: 07/23/24 08:59 Last Admin: 06/24/24 07:39 Dose: Not Given Documented By: Admin: 06/23/24 08:09 Dose: Not Given Documented By: LINDA Hydralazine HCl (Hydralazine Hcl 20 Mg/Ml Vial) 10 mg IV NOW STA Stop: 06/23/24 01:35 Last Admin: 06/23/24 01:38 Dose: 10 mg Documented By: DARIN Hydralazine HCl (Hydralazine Hcl 20 Mg/Ml Vial) 5 mg IV Q6H PRN PRN Reason: systolic bp > 160 Stop: 07/23/24 15:48 Last Admin: 06/24/24 03:23 Dose: 5 mg Documented By: KASSIDY Hydralazine HCl (Hydralazine Hcl 20 Mg/Ml Vial) 5 mg IV NOW ONE Stop: 06/23/24 15:50 Last Admin: 06/23/24 16:00 Dose: 5 mg Documented By: LINDA Sodium Chloride (Nss) 500 mls @ 125 mls/hr IV .Q4H SHANNEN Stop: 06/22/24 22:14 Last Infusion: 06/22/24 20:50 Dose: Infused Documented By: Admin: 06/22/24 18:55 Dose: 125 mls/hr Documented By: SRL Sodium Chloride (Nss) 500 mls @ 60 mls/hr IV .[id number] ONE Stop: 06/23/24 05:08 Last Infusion: 06/23/24 05:33 Dose: Infused Documented By: Admin: 06/22/24 21:07 Dose: 60 mls/hr Documented By: CHERELLE Potassium Chloride/Dextrose/Sod Cl (D5nss + 20meq Kcl) 20 meq in 1,000 mls @ 60 mls/hr IV .[id number] SHANNEN Stop: 06/24/24 14:14 Last Infusion: 06/25/24 03:13 Dose: Infused Documented By: Admin: 06/24/24 10:31 Dose: 60 mls/hr Documented By: Infusion: 06/24/24 08:36 Dose: Infused Documented By: Admin: 06/23/24 15:55 Dose: 60 mls/hr Documented By: LINDA Enalaprilat 1.25 mg/ Dextrose 26 mls @ 100 mls/hr IV Q6H SHANNEN Stop: 07/23/24 18:59 Last Infusion: 06/25/24 08:48 Dose: Infused Documented By: Admin: 06/25/24 08:32 Dose: 100 mls/hr Documented By: Infusion: 06/25/24 00:26 Dose: Infused Documented By: Admin: 06/25/24 00:10 Dose: 100 mls/hr Documented By: Infusion: 06/24/24 18:45 Dose: Infused Documented By: Admin: 06/24/24 18:04 Dose: 100 mls/hr Documented By: Infusion: 06/24/24 14:40 Dose: Infused Documented By: Admin: 06/24/24 13:08 Dose: 100 mls/hr Documented By: Infusion: 06/24/24 08:57 Dose: Infused Documented By: Admin: 06/24/24 07:44 Dose: 100 mls/hr Documented By: Infusion: 06/24/24 00:45 Dose: Infused Documented By: Admin: 06/24/24 00:29 Dose: 100 mls/hr Documented By: Infusion: 06/23/24 18:23 Dose: Infused Documented By: Admin: 06/23/24 18:03 Dose: 100 mls/hr Documented By: LINDA Influenza Virus Vacc Triv Types A&B (Influenza Vacc [id number](65y+)/Pf (Iiv3) 0.5ml Syr) 0.5 ml IM .ONCE ONE Stop: 06/23/24 09:01 Last Admin: 06/24/24 07:37 Dose: Not Given Documented By: NIKKO Insulin Aspart (Insulin Aspart Per Unit Charge) 0 units SC ACHS [facility] Stop: 07/22/24 23:34 Last Admin: 06/24/24 18:02 Dose: 1 units Documented By: NIKKO Co-signed By: MARTINE Admin: 06/24/24 12:49 Dose: Not Given Documented By: Admin: 06/24/24 09:01 Dose: 1 units Documented By: CARTER Co-signed By: MARTINE Admin: 06/23/24 20:34 Dose: Not Given Documented By: Admin: 06/23/24 17:07 Dose: Not Given Documented By: Admin: 06/23/24 12:12 Dose: Not Given Documented By: Admin: 06/23/24 07:50 Dose: Not Given Documented By: Admin: 06/22/24 23:54 Dose: Not Given Documented By: DARIN Insulin Aspart (Insulin Aspart Per Unit Charge) 0 units SC Q6 [facility] Stop: 07/25/24 00:00 Last Admin: 06/25/24 06:29 Dose: Not Given Documented By: Admin: 06/25/24 00:10 Dose: Not Given Documented By: KASSIDY Levetiracetam (Levetiracetam 500 Mg/5 Ml Vial) 1,100 mg 20 mg/kg (1100 mg) IV NOW STA Stop: 06/22/24 20:04 Last Admin: 06/22/24 20:09 Dose: 1,100 mg Documented By: SRIKANTH Levetiracetam (Levetiracetam 500 Mg/5 Ml Vial) 500 mg IV Q12 [facility] Stop: 07/23/24 08:29 Last Admin: 06/24/24 07:44 Dose: 500 mg Documented By: Admin: 06/23/24 20:53 Dose: 500 mg Documented By: Admin: 06/23/24 09:09 Dose: 500 mg Documented By: LINDA Levetiracetam (Levetiracetam 500 Mg/5 Ml Vial) 750 mg IV Q12 SHANNEN Stop: 07/24/24 20:59 Last Admin: 06/24/24 19:56 Dose: 750 mg Documented By: KASSIDY Levetiracetam (Levetiracetam 500 Mg/5 Ml Vial) 250 mg IV NOW STA Stop: 06/24/24 15:01 Last Admin: 06/24/24 15:35 Dose: 250 mg Documented By: NIKKO Lisinopril (Lisinopril 2.5 Mg Tab) 2.5 mg PO QAM [facility] Stop: 07/23/24 08:59 Last Admin: 06/23/24 09:30 Dose: Not Given Documented By: LINDA Lorazepam (Lorazepam 2 Mg/1 Ml Vial) 1 mg IV Q10M PRN PRN Reason: seizures Stop: 07/22/24 22:38 Last Admin: 06/24/24 11:06 Dose: 1 mg Documented By: NIKKO Lorazepam (Lorazepam 2 Mg/1 Ml Vial) 0.5 mg IV NOW ONE Stop: 06/24/24 16:17 Last Admin: 06/24/24 16:37 Dose: 0.5 mg Documented By: NIKKO Melatonin (Melatonin 3 Mg Tab) 6 mg PO HS [facility] Stop: 07/23/24 20:59 Last Admin: 06/24/24 20:04 Dose: Not Given Documented By: Admin: 06/23/24 22:00 Dose: Not Given Documented By: KASSIDY Metoprolol Tartrate (Metoprolol Tartrate 1 Mg/Ml Vial) 2.5 mg IV NOW STA Stop: 06/23/24 00:01 Last Admin: 06/23/24 00:47 Dose: 2.5 mg Documented By: DARIN Miscellaneous (Rybelsus~Order Awaiting Action) 1 each N/A QS [facility] Stop: 07/23/24 00:00 Last Admin: 06/23/24 09:30 Dose: Not Given Documented By: Admin: 06/23/24 07:06 Dose: Not Given Documented By: Admin: 06/22/24 23:55 Dose: Not Given Documented By: DARIN Pneumococcal 20-Valent Conj Vacc (Pneumococcal Vaccine (Pcv20) 20-Rosy Conj-Dip Crm/Pf 0.5 Ml Syr) 0.5 ml IM .ONCE ONE Stop: 06/23/24 09:01 Last Admin: 06/24/24 07:37 Dose: Not Given Documented By: NIKKO Pravastatin Sodium (Pravastatin Sod 40 Mg Tab) 80 mg PO HS [facility] Stop: 07/23/24 20:59 Last Admin: 06/24/24 20:04 Dose: Not Given Documented By: Admin: 06/23/24 22:00 Dose: Not Given Documented By: KASSIDY Sodium Bicarbonate (Sodium Bicarbonate 650 Mg Tab) 650 mg PO AMHS SHANNEN Stop: 07/23/24 08:59 Last Admin: 06/24/24 20:04 Dose: Not Given Documented By: Admin: 06/24/24 07:40 Dose: Not Given Documented By: Admin: 06/23/24 22:01 Dose: Not Given Documented By: Admin: 06/23/24 08:09 Dose: Not Given Documented By: LINDA Description This is a 21 electrode EEG with a single channel dedicated to limited EKG. The electrodes were placed in accordance with the International 10-20 system. REPORT: At the onset of the EEG the patient is in altered mental state. The background is asymmetric. There is continuous polymorphic delta slowing on the right hemisphere with periodic epileptiform discharges (PLEDs). The left hemisphere is an admixture of theta/delta activity. Interpretation IMPRESSION: This is an abnormal routine EEG due to 1. Periodic epileptiform discharges on the right hemisphere suggestive of predisposition for seizures from this area, 2. Continuous focal slowing on the right suggestive fo underlying structural abnormality, 3. 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
== END 2024-06-25 12:29 | disposition expired | DRG 100 ==
LOC: ED 18:04 → 2W 22:38